=== PATIENT | male | born 1950 | race Caucasian/White ===

== ENCOUNTER 2020-03-24 11:11 | Outpatient (REF) | payer OTHER, SELFPAY ==
--- NOTE | 2020-03-24 12:44 | MHC.AU.P13 ---
Adult Audiological Evaluation Date of Visit: 03/24/20 Equipment Operating Engineer Used: Not Applicable Reason for Appointment: Audiologic re-evaluation due to question of change in hearing ability. 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 Medical History: Medical History: Heart Problems High Blood Pressure Hearing Instrument History- Right Ear: Director Of Operations Home Health: Phonak Model: Virto V 50-312 Canal Serial Number: [id number] Battery Size: 312 Warranty: 08/05/2018 Dispensed By: [facility] Date of Fittin07/17/2016 Hearing Instrument History- Left Ear: Director Of Operations Home Health: Phonak Model: Virto V 50-312 Canal Serial Number: [id number] Battery Size: 312 Warranty: 08/05/2018 Dispensed By: [facility] Date of Fittin07/17/2016 Otoscopy: Right Ear: Unremarkable Left Ear: Unremarkable Tympanometry: Right Ear: Hypercompliant Middle Ear System (Type Ad) Left Ear: Hypercompliant Middle Ear System (Type Ad) Hearing Evaluation: Transducer(s) Used: Insert Earphones Bone Conduction Method: Conventional Audiometry Stimuli Used: Pure Tones Right Ear: Description of Hearing: Mild dropping to moderately-severe high frequency sensorineural hearing loss Left Ear: Description of Hearing: Mild dropping to severe high frequency sensorineural hearing loss Speech Recognition Threshold (SRT): Method Used: Monitored Live Voice Stimuli Used: Spondee Words Right Ear: 25 dB HL Left Ear: 25 dB HL Word Discrimination: Method: Recorded Lists Word Lists Used: NU-6 Right Ear: 92% at a listening level of 65 dB HL Left Ear: 92% at a listening level of 65 dB HL Comparison: Compared to the most recent evaluation: Thresholds have improved bilaterally. Recommendations: Recommendations: Audiological re-evaluation in one year. See Hearing Aid Follow-Up note for more information. Hearing aid(s) reprogrammed with updated test results. Diagnosis: Primary Diagnosis: H90.3 Bilateral Sensorineural Hearing Loss Services Performed: Services Performed: Comprehensive Audiological Evaluation (CPT 11020) Tympanometry (CPT 23953) Signature: Provider: Jessica Longoria, DEANGELO-A
== END 2020-03-24 11:12 | disposition home or self-care (01) ==
LOC: HO.SH 11:11
PROVIDERS: PCP Family Medicine; Referring Provider Family Medicine; Visit Provider Family Medicine
DX: H90.3 Sensorineural hearing loss, bilateral (principal)
CPT/HCPCS: 92557; 92567

== ENCOUNTER 2020-03-24 12:11 | Outpatient (REF) | payer OTHER, SELFPAY | END 2020-03-24 12:12 | disposition home or self-care (01) | LOC: HO.HAP 12:11 | PROVIDERS: Visit Provider Family Medicine | DX: Z46.1 Encounter for fitting and adjustment of hearing aid (principal) | CPT/HCPCS: V5266 ==

== ENCOUNTER 2020-04-16 09:00 | Outpatient (RCR) | payer OTHER, SELFPAY | END 2020-06-02 12:55 | disposition other institution (70) | LOC: HO.PT 09:00 | PROVIDERS: Visit Provider Physician Assistant | DX: M48.062 Spinal stenosis, lumbar region with neurogenic claudication (principal); M47.816 Spondylosis without myelopathy or radiculopathy, lumbar region; M51.36 Other intervertebral disc degeneration, lumbar region | CPT/HCPCS: 97110; 97162; 97530 ==

== ENCOUNTER 2020-07-07 18:08 | Emergency (ER) | payer OTHER, SELFPAY ==
--- NOTE | ~2020-07-07 | XR_ITS ---
EXAMINATION: XR ANKLE, RIGHT CLINICAL INFORMATION: Pain in heel, ?bone spur COMPARISON: None TECHNIQUE: Four views of the right ankle. FINDINGS: Superficial soft tissue swelling at the ankle, most pronounced anteriorly. Small marginal osteophytes. Joint space is well preserved. Ankle mortise is symmetric. Small enthesopathic spurs are present at the Achilles tendon insertion and plantar fascial origin on the calcaneus. XR/XR ankle RT min 3V IMPRESSION: Soft tissue swelling around the ankle. Enthesopathic spurs at the Achilles tendon insertion and plantar fascial origin on the calcaneus. No acute osseous findings.
[2020-07-07 19:58] VITALS: BP 154/97; PULSE 76; RESP 18; TEMP 36.7; O2SAT 95; BMI 32.5
[2020-07-07] MEDS: Acetaminophen 325 MG TABLET 650 MG PO (22:07)
--- NOTE | 2020-07-07 22:37 | ED.LOWEXIN ---
HPI - Extremity Injury (Lower) General Chief Complaint: Extremity Injury, Lower Stated Complaint: Foot Pain (no inj) Time Seen by Provider: 07/07/20 22:10 Source: patient Mode of arrival: ambulatory History of Present Illness HPI Narrative: This is a 69-year-old male who presents with 1 and half weeks of persistent right heel pain that he states is worse in the morning when he gets up and attempts to bear weight and is located at the right heel, but improves with walking and movement. However, patient states that as soon as he sits down the pain again restart. He denies any fevers, chills, trauma, redness, swelling to the area prior to developing this pain. Related Data Previous Rx's Medication Instructions Recorded ketorolac 10 mg PO Q6H PRN 5 Days #20 tab 07/07/20 Allergies Allergy/AdvReac Type Severity Reaction Status Date / Time No Known Allergies Allergy Verified 07/07/20 20:04 Review of Systems Review of Systems: Pertinent positives and negatives as stated in HPI 10 point review systems is otherwise negative. [facility] Past Medical History Source: nursing notes reviewed Social History Social History Alcohol intake: never Smoked in Last 30 Days: No Use of substances other than those prescribed or required for medical reasons: No Advance Directives: No Advance Directives Information Provided: Yes Physical Exam Vital Signs: Vital Signs: Last Vital Signs Temp 98.0 F 07/07/20 19:58 Pulse 76 07/07/20 19:58 Resp 18 07/07/20 19:58 BP 154/97 H 07/07/20 19:58 Pulse Ox 95 07/07/20 19:58 Body Mass Index 32.5 VITAL SIGNS: Reviewed. GENERAL: Well developed, well nourished, in no acute distress. OROPHARYNX: no oral lesions noted, posterior pharynx clear NECK: Supple, no adenopathy LUNGS: Normal breath sounds. SpO2<95> CARDIOVASCULAR: Regular rate and rhythm without noted murmurs ABDOMEN: Soft, non-tender, non-distended with bowel sounds. RIGHT FOOT: No erythema, obvious swelling noted, capillary refill less than 3 seconds, pain is maximal at mid right heel and extends into the arch of the foot without decreased range of motion in ankle or toes and no bony, midfoot tenderness noted, otherwise neurovascular assessment is intact SKIN: Inspection of the skin reveals no rashes NEUROLOGIC: Alert and oriented x 4. Course Course Course Narrative: This is a 69-year-old male with history and clinical presentation consistent with likely plantar fasciitis but on review of x-rays the possibility of inflammatory etiologies secondary to osteophytes may exist. Patient was provided with instructions on combination analgesics (which he received here in the emergency department) as well as exercises that he can utilize to minimize the pain in his foot as well as recommendations to start wearing tennis shoes with better arch support and follow-up with primary care provider. Discharge Plan Discharge Clinical Impression: Plantar fasciitis of right foot, Osteophyte Patient Disposition: Home, Self-Care Instructions: Plantar Fasciitis (ED), Plantar Fasciitis Exercises (ED) Additional Instructions: 1. Tylenol 1000 mg, por v?a oral, cada 6 horas seg?n sea necesario para controlar el dolor. No exceda los 4000 mg en 24 horas. 2. Recomiende Voltaren de venta judith, jurgen es un yanira?ento t?stefani que se aplicar?a en el anson?n derecho y es un antiinflamatorio. [place] est? disponible en todos los [facility] / [facility] / [facility]. Si tiene dificultades, consulte al farmac?utico. 3. Comience a usar zapatos tenis con mejor soporte para el arco. 4. Tim un seguimiento con small proveedor de atenci?n primaria en 2-3 d?as. No dude en volver al servicio de urgencias por cualquier empeoramiento yuliya de nathalie s?ntomas. Prescriptions: New ketorolac 10 mg tablet 10 mg PO Q6H PRN (Reason: pain) 5 Days Qty: 20 RF: 0 Referrals: Renae Adame MD [Primary Care Provider] - 2 days (Re-evaluation for diagnosis of right plantar fasciitis but also bone spurs were noted on x-rays.) Print Language: Andorran
[2020-07-07] MEDS: Ketorolac Tromethamine 15 MG/ML VIAL IM (22:50)
== END 2020-07-07 23:12 | disposition home or self-care (01) ==
PROVIDERS: Emergency Provider Student in an Organized Health Care Education/Training Program; PCP Family Medicine
DX: M72.2 Plantar fascial fibromatosis (principal); M25.774 Osteophyte, right foot
CPT/HCPCS: 73610; 96372; 99283; 99284; J1885

== ENCOUNTER 2020-07-13 09:00 | Outpatient (RCR) | payer OTHER, SELFPAY | END 2020-08-05 11:19 | disposition home or self-care (01) | LOC: HO.PT 09:00 | PROVIDERS: PCP Family Medicine; Visit Provider Family Medicine | DX: M72.2 Plantar fascial fibromatosis (principal) | CPT/HCPCS: 97110; 97140; 97161 ==

== ENCOUNTER 2020-08-30 12:44 | Emergency (ER) | payer OTHER, SELFPAY ==
--- NOTE | 2020-08-30 | ECG_ITS ---
Test Reason : CHEST PAIN Blood Pressure : / mmHG Vent. Rate : 068 BPM Atrial Rate : 068 BPM P-R Int : 194 ms QRS Dur : 110 ms QT Int : 396 ms P-R-T Axes : 031 -22 040 degrees QTc Int : 421 ms Normal sinus rhythm Incomplete right bundle branch block Borderline ECG When compared with ECG of 28-JUN-2018 22:00, No significant change was found Referred By: Generic ED Physician Electronically Signed By:Jude Odom
--- NOTE | ~2020-08-30 | XR_ITS ---
EXAMINATION: XR CHEST CLINICAL INFORMATION: Chest pain COMPARISON: Chest radiographs 02/03/2020, 02/11/2019 TECHNIQUE: Portable upright AP view of the chest was obtained. FINDINGS: There is some mild coarsening bronchiolar markings is no airspace consolidation or groundglass opacity. No vascular congestion, pleural reaction, or effusion. No pneumothorax or pneumomediastinum. The hilar and mediastinal contours and visualized bony structures are unremarkable. XR/XR chest 1V IMPRESSION: Unremarkable examination.
[2020-08-30 12:45] VITALS: BP 167/91; PULSE 68; RESP 18; TEMP 36.6; O2SAT 98; BMI 33.2
[2020-08-30 13:39] VITALS: BP 129/76; PULSE 63; RESP 17; TEMP 36.9; O2SAT 94
--- NOTE | 2020-08-30 13:56 | ED.GENADULT ---
HPI - General Adult General Chief complaint: General Medical Stated complaint: SOB Time Seen by Provider: 08/30/20 13:50 Source: patient Mode of arrival: ambulatory Limitations: no limitations History of Present Illness HPI narrative: 69-year-old male walked into the emergency department with symptoms of left-sided chest pain/shortness breath for the past 3-4 weeks. Pain is intermittent, triggered by getting up and walking and keeps touching left side of the chest. Patient describes the pain as localized to the left chest wall close to the armpit on the left side, as burning sensation. Describes the pain as moderate 5/10. No fever, no chills. Related Data Previous Rx's Medication Instructions Recorded ketorolac 10 mg PO Q6H PRN 5 Days #20 tab 07/07/20 Allergies Allergy/AdvReac Type Severity Reaction Status Date / Time No Known Allergies Allergy Verified 07/07/20 20:04 Review of Systems Review of Systems: All other systems are reviewed and are negative Constitutional: Reports as per HPI and Reports no additional constitutional complaints Eyes: Reports as per HPI and Reports no additional eye complaints Reports system reviewed and no additional complaints, except as documented Cardiovascular: Reports as per HPI and Reports no additional cardiovascular complaints Respiratory: Reports as per HPI and Reports no additional respiratory complaints Gastrointestinal: Reports as per HPI and Reports no additional gastrointestinal complaints Genitourinary: Reports no additional female genitourinary complaints Musculoskeletal: Reports no additional musculoskeletal complaints Skin/Breast: Reports system reviewed and no additional complaints, except as docu Psychiatric: Reports no additional psychiatric complaints Endocrine: Reports no additional endocrine complaints Hematologic/Lymphatic: Reports no additional hematologic/lymphatic complaints Allergic/Immunologic: Reports no additional allergic/immunologic complaints Reports system reviewed and no additional complaints, except as documented and Reports Abnormal speech present [facility] Past Medical History Medical History Asthma CVA (cerebral vascular accident) HTN (hypertension) Surgical History H/O heart artery stent Social History Social History Alcohol intake: never Advance Directives: No Advance Directives Information Provided: Yes Physical Exam Vital Signs: Vital Signs: Last Vital Signs Temp 97.8 F 08/30/20 15:12 Pulse 60 04/19/21 15:12 Resp 16 08/30/20 15:12 BP 128/76 08/30/20 15:12 Pulse Ox 94 08/30/20 15:12 Body Mass Index 33.2 Vital signs have been reviewed as appeared to be correct. Blood pressure normal. Heart rate normal. Respiration rate normal. Temperature normal. Oxygen saturation normal. Appearance: Alert. Oriented X3. No acute distress. Head: Normal external exam. Normocephalic. Atraumatic. No Guzman signs noted. No raccoon eyes noted Eyes: PERRLA. EOMI. Conjunctiva and sclera normal. Eyelids normal. ENT: TM's Normal. Pharynx normal. Uvula midline. Moist mucous membranes. No trismus noted. No drooling noted. No muffled voice noted. Neck: Normal inspection. Neck supple. FROM. No adenopathy. Thyroid Normal. No meningeal signs. No neck mass noted. CVS: Normal heart rate and rhythm. Heart sound normal. No murmurs noted. Pulses normal throughout. Respiratory: No respiratory distress. Painless inspiration. Breath sounds normal. No wheezes/rales/rhonchi noted. Tender to touch over the left pectoralis area, no step-off, no mass, no fluctuation, no discoloration.. No accessory muscle usage noted or decreased air movement noted. Abdomen: Soft and nontender. Bowel sounds normal in all 4 quadrants. No distention noted. No organomegaly noted. No visible injury noted. Back: No CVA tenderness. Full range of motion noted. Skin: Skin warm and dry. Normal skin color. Normal skin turgor. No rashes/lesions/lacerations noted. Extremities: No lower extremity edema. Extremities exhibit normal range of motion. Extremities nontender. Neuro: Oriented X 3. No motor deficit. No sensory deficit. Reflexes normal. Course Course Course Narrative: Assessment and plan. 69-year-old male came in with left-sided chest burning pain for the past 3-4 weeks, cardiopulmonary workup in the emergency department including EKG/chest x-ray labs with cardiac enzymes are unremarkable. Patient has an appointment with his process engineering intern in the next 2 weeks. CMP was not done because the blood is hemolyzed no need to repeat at this point. Medical Decision Making Lab Data Lab results reviewed: Yes I reviewed the patient's lab results. Result diagrams: 08/30/20 14:11 08/30/20 14:11 Labs: Lab Results 08/30/20 08/30/20 08/30/20 Range/Units 11:35 14:11 14:11 WBC 9.7 (4.8-10.8) X10*3/uL RBC 4.59 L (4.60-5.80) X10*6/uL Hgb 13.0 L (14.0-18.0) g/dl Hct 39.5 L (42-52) % MCV 86.1 (80-98) fL MCH 28.3 (27.0-33.0) pg MCHC 32.9 (31.0-36.0) g/dl RDW 14.6 (11.0-16.0) % Plt Count 261 (160-400) X10*3/uL MPV 9.1 L (9.4-12.4) fL Immature Gran % (Auto) 0.4 (0.0-0.4) % Neut % (Auto) 56.4 (45-73) % Lymph % (Auto) 28.6 (20-40) % [place] % (Auto) 10.6 (2-11) % Eos % (Auto) 3.4 (0-4) % Baso % (Auto) 0.6 (0-2) % Lymph # (Auto) 2.8 (1.2-4.9) X10*3/uL [place] # (Auto) 1.0 (0.1-1.2) X10*3/uL Eos # (Auto) 0.3 (0.0-0.4) X10*3/uL Baso # (Auto) 0.1 (0.0-0.2) X10*3/uL Abs Immat Gran (auto) 0.04 H (0.00-0.03) X10*3/uL Absolute Neuts (auto) 5.5 (2.0-8.3) X10*3/uL Absolute Nucleated RBC 0.000 (0.0-0.012) X10*3/uL Nucleated RBC % (auto) 0.0 (0.0-0.2) /100WBC Troponin I High Sens 4.9 (<3.5-35.0) ng/L B-Natriuretic Peptide (<100) pg/mL Urine Color YELLOW Urine Appearance CLEAR Urine pH 6.5 (5.0-8.0) Ur Specific [place] <= 1.005 (1.005-1.025) Urine Protein NEG (NEG-TRACE) MG/DL Urine Glucose (UA) NEG (NEG) MG/DL Urine Ketones NEG (NEG) MG/DL Urine Blood NEG (NEG) Urine Nitrite NEG (NEG) Ur Leukocyte Esterase NEG (NEG) 08/30/20 Range/Units 14:11 WBC (4.8-10.8) X10*3/uL RBC (4.60-5.80) X10*6/uL Hgb (14.0-18.0) g/dl Hct (42-52) % MCV (80-98) fL MCH (27.0-33.0) pg MCHC (31.0-36.0) g/dl RDW (11.0-16.0) % Plt Count (160-400) X10*3/uL MPV (9.4-12.4) fL Immature Gran % (Auto) (0.0-0.4) % Neut % (Auto) (45-73) % Lymph % (Auto) (20-40) % [place] % (Auto) (2-11) % Eos % (Auto) (0-4) % Baso % (Auto) (0-2) % Lymph # (Auto) (1.2-4.9) X10*3/uL [place] # (Auto) (0.1-1.2) X10*3/uL Eos # (Auto) (0.0-0.4) X10*3/uL Baso # (Auto) (0.0-0.2) X10*3/uL Abs Immat Gran (auto) (0.00-0.03) X10*3/uL Absolute Neuts (auto) (2.0-8.3) X10*3/uL Absolute Nucleated RBC (0.0-0.012) X10*3/uL Nucleated RBC % (auto) (0.0-0.2) /100WBC Troponin I High Sens (<3.5-35.0) ng/L B-Natriuretic Peptide 21 (<100) pg/mL Urine Color Urine Appearance Urine pH (5.0-8.0) Ur Specific [place] (1.005-1.025) Urine Protein (NEG-TRACE) MG/DL Urine Glucose (UA) (NEG) MG/DL Urine Ketones (NEG) MG/DL Urine Blood (NEG) Urine Nitrite (NEG) Ur Leukocyte Esterase (NEG) Imaging Data Chest x-ray: Radiologist's impression: No acute intrathoracic pathology. ECG Data Interpretation: Normal sinus rhythm at 68 beats per minutes, normal intervals, incomplete right bundle-branch block, left axis deviation, no ST-T changes. Discharge Plan Discharge Clinical Impression: Chest wall pain Patient Disposition: Home, Self-Care Instructions: Chest Wall Pain (ED) Prescriptions: No Action ketorolac 10 mg tablet 10 mg PO Q6H PRN (Reason: pain) 5 Days Qty: 20 RF: 0 Referrals: Renae Adame MD [Primary Care Provider] - 2 days
[2020-08-30] MEDS: 0.9 % Sodium Chloride 1,000 ML 999 ML IVCONT (14:14)
[2020-08-30 14:28] LABS: MANUAL DIFF FLAG NO
[2020-08-30 14:30] LABS: Basophils Absolute Auto 0.1 X10*3/uL (0.0-0.2); Basophils Percent Auto 0.6 % (0-2); Eosinophils Absolute Auto 0.3 X10*3/uL (0.0-0.4); Eosinophils Percent Auto 3.4 % (0-4); Hematocrit 39.5 % (42-52); Imm Gran Abs Auto 0.04 X10*3/uL (0.00-0.03); Imm Gran Pct Auto 0.4 % (0.0-0.4); Lymphocytes Absolute Auto 2.8 X10*3/uL (1.2-4.9); Lymphocytes Percent Auto 28.6 % (20-40); Mean Corpuscular HGB Conc 32.9 g/dl (31.0-36.0); Mean Corpuscular Hemoglobin 28.3 pg (27.0-33.0); Mean Corpuscular Volume 86.1 fL (80-98); Mean Platelet Volume 9.1 fL (9.4-12.4); Monocytes Percent Auto 10.6 % (2-11); Neutrophils Absolute Auto 5.5 X10*3/uL (2.0-8.3); Neutrophils Percent Auto 56.4 % (45-73); Platelet Count 261 X10*3/uL (160-400); Red Blood Count 4.59 X10*6/uL (4.60-5.80); Red Cell Distribution Width 14.6 % (11.0-16.0); White Blood Count 9.7 X10*3/uL (4.8-10.8)
[2020-08-30 14:34] LABS: Glucose Urine UA NEG (NEG); Leukocyte Esterase Urine NEG (NEG); Nitrite Urine NEG (NEG); PH 6.5 (5.0-8.0); Specific Gravity - Urine <= 1.005 (1.005-1.025); Urine Blood NEG (NEG); Urine Ketones NEG (NEG); Urine Protein NEG (NEG-TRACE)
[2020-08-30 14:44] LABS: Appearance Urine CLEAR; Color Urine YELLOW
[2020-08-30 14:58] LABS: B Type Natriuretic Peptide 21 pg/mL (<100); Troponin-I High Sensitivity 4.9 ng/L (<3.5-35.0)
[2020-08-30 15:12] VITALS: BP 128/76; PULSE 60; RESP 16; TEMP 36.6; O2SAT 94
== END 2020-08-30 16:10 | disposition home or self-care (01) ==
PROVIDERS: Emergency Provider Emergency Medicine; PCP Family Medicine
DX: R07.89 Other chest pain (principal); I10 Essential (primary) hypertension; J45.909 Unspecified asthma, uncomplicated; Z86.73 Personal history of transient ischemic attack (TIA), and cerebral infarction without residual deficits
CPT/HCPCS: 36415; 71045; 81003; 83880; 84484; 85025; 93005; 96360; 99284

== ENCOUNTER 2021-04-11 19:14 | Emergency (ER) | payer OTHER, SELFPAY ==
[2021-04-11 21:05] VITALS: BP 144/92; PULSE 63; RESP 20; TEMP 36.8; O2SAT 94; BMI 32.5
[2021-04-11 21:27] LABS: Appearance Urine CLEAR; Color Urine YELLOW; Glucose Urine UA NEG (NEG); Leukocyte Esterase Urine NEG (NEG); Nitrite Urine NEG (NEG); PH 6.5 (5.0-8.0); Specific Gravity - Urine 1.015 (1.005-1.025); Urine Blood NEG (NEG); Urine Ketones NEG (NEG); Urine Protein NEG (NEG-TRACE)
--- NOTE | 2021-04-11 22:19 | ED.MALEGU ---
HPI - Male Genitourinary General Chief complaint: Urogenital-Male Stated complaint: burning with urination Time Seen by Provider: 04/11/21 21:58 Source: patient Mode of arrival: ambulatory Limitations: no limitations History of Present Illness HPI Narrative: 70-year-old male presents to ED for dysuria for 3 days. Patient denies any penile discharge, penile lesions, testicular pain, hematuria, abdominal pain, nausea, vomiting, flank pain, perineum pain, fever, or chills. Related Data Previous Rx's Medication Instructions Recorded ketorolac 10 mg tablet 10 mg PO Q6H PRN 5 Days #20 tab 07/07/20 phenazopyridine 200 mg tablet 200 mg PO TID PRN 2 Days #6 tab 04/11/21 (Pyridium) Allergies Allergy/AdvReac Type Severity Reaction Status Date / Time No Known Allergies Allergy Verified 04/11/21 21:05 Review of Systems Review of Systems: Yes all other systems are reviewed and are negative Constitutional: Constitutional: Reports as per HPI and Reports no additional constitutional complaints Eyes: Eyes: Reports as per HPI and Reports no additional eye complaints ENT: Reports system reviewed and no additional complaints, except as documented and Reports as per HPI Cardiovascular: Cardiovascular: Reports as per HPI and Reports no additional cardiovascular complaints Respiratory: Respiratory: Reports as per HPI and Reports no additional respiratory complaints Gastrointestinal: Gastrointestinal: Reports as per HPI and Reports no additional gastrointestinal complaints Genitourinary: Genitourinary: Reports no additional male genitourinary complaints, Reports as per HPI and Reports dysuria Musculoskeletal: Musculoskeletal: Reports no additional musculoskeletal complaints and Reports as per HPI Neurologic: Reports system reviewed and no additional complaints, except as documented and Reports as per HPI [facility] Past Medical History Medical History Asthma CVA (cerebral vascular accident) HTN (hypertension) Surgical History H/O heart artery stent Social History Social History Alcohol intake: never Patient Tobacco Use Status: Never used Tobacco Use of substances other than those prescribed or required for medical reasons: No Advance Directives: No Advance Directives Information Provided: Yes Physical Exam Vital Signs: Vital Signs: Last Vital Signs Temp 97.8 F 04/11/21 22:24 Pulse 63 04/11/21 22:24 Resp 18 04/11/21 22:24 BP 137/87 04/11/21 22:24 Pulse Ox 99 04/11/21 22:24 Body Mass Index 32.5 Const: General: cooperative, healthy appearing, comfortable, no acute distress, well developed, alert, awake, Physically active and acute distress Orientation/consciousness: patient oriented x3 HENMT: Head: Yes normal to inspection, Yes No palpable skull fracture present, Yes normocephalic, Yes atraumatic, No abrasion, No Acrocyanosis present, No Guzman's sign, No contusion, No cranial bruits, No hematoma, No laceration, No occipital foramen tenderness, No palpable skull fracture, No raccoon eyes, No scalp lesion, No scalp tenderness, No Temporal artery tenderness present and No periorbital ecchymosis Eyes: General: appearance normal, both eyes and all related structures Neck: Neck: Yes normal visual inspection, Yes full ROM, Yes no lymphadenopathy, Yes no meningeal signs, Yes trachea midline, Yes supple, No anterior neck swelling and No tender Chest: Chest palpation & inspection: normal inspection of the chest and normal palpation of entire chest wall Resp: Effort & Inspection: normal respiratory effort and able to speak in complete sentences Auscultation: clear to auscultation bilaterally Cardio: Jugular venous distension: no JVD Heart sounds: S1 normal heart sound present and S2 normal heart sound present GI: Inspection: Yes normal to inspection and No abdominal wall ecchymosis Palpation (GI): Soft to palpation, not firm, nontender, no guarding and not rigid : General: No CVA tenderness and Yes no CVA tenderness Back/Spine/Pelvis: Back: no CVA tenderness, No CVA tenderness and No back tenderness Skin: General skin exam: no rashes or lesions noted and elasticity normal Neuro: General: patient oriented x3, gait normal, no meningeal signs and CN's II-XI intact bilaterally Cranial nerves: Yes CN's II-XII intact bilaterally Extrem: General: Yes normal to inspection and Yes full ROM Psych: Appearance: grossly normal, well kempt and not disheveled Course Course Course Narrative: Patient is sent for UA. Reevaluation(s) Reevaluation #1: UA came back negative for UTI. Patient states unlikely an STD, bus was agreeable to chlamydia gonorrhea testing. Patient does not want empiric treatment will wait for results to be called back. Patient will follow-up with his urologist. Time: 22:27 MDM - Male Genitourinary MDM Narrative Medical decision making narrative: Dysuria Lab Data Labs: Lab Results 04/11/21 Range/Units 21:18 Urine Color YELLOW Urine Appearance CLEAR Urine pH 6.5 (5.0-8.0) Ur Specific [place] 1.015 (1.005-1.025) Urine Protein NEG (NEG-TRACE) MG/DL Urine Glucose (UA) NEG (NEG) MG/DL Urine Ketones NEG (NEG) MG/DL Urine Blood NEG (NEG) Urine Nitrite NEG (NEG) Ur Leukocyte Esterase NEG (NEG) Discharge Plan Discharge Clinical Impression: Dysuria Patient Disposition: Home, Self-Care Instructions: Dysuria (ED) Additional Instructions: Urine came back negative for infection. Your chlamydia/gonorrhea test is pending. You will be called if positive and will have to return back for treatment. Please follow-up with your urologist. Return to ED for any testicular pain, penile discharge, penile lesions, abdominal pain, flank pain, fever, chills, nausea, vomiting, or any other concerning symptoms. Prescriptions: New phenazopyridine [Pyridium] 200 mg tablet 200 mg PO TID PRN (Reason: pain) 2 Days Qty: 6 RF: 0 No Action ketorolac 10 mg tablet 10 mg PO Q6H PRN (Reason: pain) 5 Days Qty: 20 RF: 0 Stand Alone Forms: Work/School Release Interventions: ED Discharge Assessment Last Done: 04/11/21 22:40 Discharge Date/Time: 04/11/21 22:41 Print Language: Luxembourgish
[2021-04-11 22:24] VITALS: BP 137/87; PULSE 63; RESP 18; TEMP 36.6; O2SAT 99
--- NOTE | 2021-04-11 22:40 | PC.NURSE ---
Reviewed discharge instructions with pt and medication. pt discharge home and verablized understanding.
[2021-04-12 02:57] LABS: CT PCR NOT DETECTED (Not Detect.)
[2021-04-12 02:58] LABS: NG PCR NOT DETECTED (Not Detect.)
== END 2021-04-11 22:41 | disposition home or self-care (01) ==
PROVIDERS: Physician Assistant; Emergency Provider Emergency Medicine; PCP Family Medicine
DX: R30.0 Dysuria (principal); Z79.899 Other long term (current) drug therapy
CPT/HCPCS: 81003; 87491; 87591; 99283; 99284

== ENCOUNTER 2021-05-05 11:16 | Outpatient (REF) | payer OTHER, SELFPAY ==
--- NOTE | 2021-05-05 12:49 | MHC.AU.AHA ---
Adult Audiological Evaluation Date of Visit: 05/05/21 Navigating Officer Used: Not Applicable Reason for Appointment: Audiologic re-evaluation to determine possible change in hearing ability. Previous Hearing Test Results: 03/24/2020 [facility] Borderline normal to mild hearing levels at 250-3000 Hz, dropping to an asymmetric moderately-severe to severe sensorineural hearing loss with the right ear being poorer than left. Medical History: Medical History: Heart Problems, High Blood Pressure Medication List: Advair, Allopurinol, Amlodipine, Aspirin, Colace, Flonase, Hydralazine HCL, Hydrochlorothiazide, Incruse Ellipta, Isosorbide Mononitrate, Atorvastatin, Metoprolol, Montelukast Sodium, Gabapentin, Nitroglycerin, Percocet, Plavix, Senna, Tamsulosin, Ventolin, Vitamin D3 Hearing Instrument History- Right Ear: Scale Adjuster: [id number] Model: [employer] V 50-312 Canal Serial Number: [id number] Battery Size: 312 Repair Warranty: 08/05/2018 Dispensed By: [facility] Date of Fittin07/17/2016 Hearing Instrument History- Left Ear: Scale Adjuster: Phonak Model: [employer] V 50-312 Canal Serial Number: [id number] Battery Size: 312 Warranty: 08/05/2018 Dispensed By: [facility] Date of Fittin07/17/2016 Otoscopy: Right Ear: Unremarkable Left Ear: Unremarkable Tympanometry: Tympanometry performed due to: History of Hypercompliant middle ear systems bilaterally Right Ear: Hypercompliant Middle Ear System (Type Ad) Left Ear: Hypercompliant Middle Ear System (Type Ad) Hearing Evaluation: Transducer(s) Used: Insert Earphones Bone Conduction Method: Conventional Audiometry Stimuli Used: Pure Tones Right Ear: Description of Hearing: Mild to borderline normal hearing thresholds 250-2000 Hz, dropping to a moderately-severe high frequency sensorineural hearing loss Left Ear: Description of Hearing: Borderline normal levels 250-2000 Hz, dropping to a severe high frequency sensorineural hearing loss Speech Recognition Threshold (SRT): Method Used: Monitored Live Voice Stimuli Used: Spondee Words Right Ear: 20 dB HL Left Ear: 20 dB HL Word Discrimination: Method: Recorded Lists Word Lists Used: NU-6 & W-22 Right Ear: 96% at 60 dB HL Left Ear: 96% at 60 dB HL Comparison: Compared to the most recent evaluation: Hearing is stable for both ears Recommendations: Audiological re-evaluation in one year. Hearing aid maintenance performed today. Diagnosis: Primary Diagnosis: H90.3 Bilateral Sensorineural Hearing Loss Services Performed: Comprehensive Audiological Evaluation (CPT 32403) Tympanometry (CPT 87012) Signature: Provider: Jessica Longoria, DEANGELO-A
== END 2021-05-05 11:17 | disposition home or self-care (01) ==
LOC: HO.SH 11:16
PROVIDERS: Visit Provider Family Medicine
DX: Z46.1 Encounter for fitting and adjustment of hearing aid (principal); H90.3 Sensorineural hearing loss, bilateral
CPT/HCPCS: 92557; 92567; V5266

== ENCOUNTER 2021-08-27 07:31 | Emergency (ER) | payer OTHER, SELFPAY ==
--- NOTE | ~2021-08-27 | XR_ITS ---
EXAMINATION: LEFT FOOT, ANKLE, AND KNEE. CLINICAL INFORMATION: Fall COMPARISON: April 28, 2019 knees and August 13, 2015. TECHNIQUE: 3 views of the left foot, 3 views of the left ankle, and 4 views of the left knee. FINDINGS: 3 views of the left ankle demonstrate a 4 x 1 mm bony density inferior to medial malleolus and adjacent to the talus however on lateral view vessel calcifications are present and this may lie about the posterior soft tissues superior to the calcaneus. This could represent an old avulsion fracture however this was present on previous examination of August 13, 2015 and therefore appears to be chronic. There is a large amount soft tissue swelling seen about the medial ankle but I do not see an acute fracture. No dislocation is evident. Ankle mortise appears intact. No definite ankle effusion is appreciated. About the medial base of the first proximal phalanx there is a 1 mm linear density present which could represent an acute or chronic avulsion injury. Clinical correlation to site of pain is recommended. No other evidence of acute fracture or dislocation. There is some soft tissue swelling seen about the medial aspect of the tarsal bones. Plantar calcaneal spur present. Joint spaces appear maintained. Views of the left knee do not demonstrate any evidence of acute fracture or dislocation. Knee joint spaces are maintained. Prominent vascular calcifications are present. No knee effusion is appreciated. XR/XR knee LT 4V IMPRESSION: Linear calcific density about the medial aspect base of the first proximal phalanx which could represent an acute or chronic avulsion injury. Achilles calcaneal spur. Question old medial ankle avulsion injury with calcific density noted which could be vascular or related to a chronic injury which was present on study of August 13, 2015. No significant left knee abnormality appreciated.
--- NOTE | ~2021-08-27 | XR_ITS ---
EXAMINATION: LEFT FOOT, ANKLE, AND KNEE. CLINICAL INFORMATION: Fall COMPARISON: April 28, 2019 knees and August 13, 2015. TECHNIQUE: 3 views of the left foot, 3 views of the left ankle, and 4 views of the left knee. FINDINGS: 3 views of the left ankle demonstrate a 4 x 1 mm bony density inferior to medial malleolus and adjacent to the talus however on lateral view vessel calcifications are present and this may lie about the posterior soft tissues superior to the calcaneus. This could represent an old avulsion fracture however this was present on previous examination of August 13, 2015 and therefore appears to be chronic. There is a large amount soft tissue swelling seen about the medial ankle but I do not see an acute fracture. No dislocation is evident. Ankle mortise appears intact. No definite ankle effusion is appreciated. About the medial base of the first proximal phalanx there is a 1 mm linear density present which could represent an acute or chronic avulsion injury. Clinical correlation to site of pain is recommended. No other evidence of acute fracture or dislocation. There is some soft tissue swelling seen about the medial aspect of the tarsal bones. Plantar calcaneal spur present. Joint spaces appear maintained. Views of the left knee do not demonstrate any evidence of acute fracture or dislocation. Knee joint spaces are maintained. Prominent vascular calcifications are present. No knee effusion is appreciated. XR/XR ankle LT min 3V IMPRESSION: Linear calcific density about the medial aspect base of the first proximal phalanx which could represent an acute or chronic avulsion injury. Achilles calcaneal spur. Question old medial ankle avulsion injury with calcific density noted which could be vascular or related to a chronic injury which was present on study of August 13, 2015. No significant left knee abnormality appreciated.
[2021-08-27 07:34] VITALS: BP 109/72; PULSE 67; RESP 18; TEMP 36.2; O2SAT 96; BMI 32.5
--- NOTE | 2021-08-27 08:18 | ED.FALL ---
HPI - Fall General Chief Complaint: Fall Stated Complaint: fall l leg knee foot inj Time Seen by Provider: 08/27/21 07:45 Source: patient Mode of arrival: ambulatory Limitations: no limitations History of Present Illness HPI Narrative: tripped down 3 steps at home complaint: fall Onset (ago): day(s) (1) Fall from: standing Fall witnessed: no Place fall occurred: home Loss of consciousness: none Prolonged down time: no Symptoms prior to fall: none Context: tripped/slipped Location of injury - extremities: left: knee, ankle and foot Severity: moderate Quality: dull and aching Associated symptoms (after fall): unable to walk Related Data Previous Rx's Medication Instructions Recorded ketorolac 10 mg tablet 10 mg PO Q6H PRN 5 Days #20 tab 07/07/20 phenazopyridine 200 mg tablet 200 mg PO TID PRN 2 Days #6 tab 04/11/21 (Pyridium) hydrocodone 5 mg-acetaminophen 325 1 tab PO Q6H PRN #12 tab 08/27/21 mg tablet Allergies Allergy/AdvReac Type Severity Reaction Status Date / Time No Known Allergies Allergy Verified 08/27/21 07:38 Review of Systems Review of Systems: Constitutional : No Fever, No Chills ENT/Mouth : No Ear Pain, No Hoarseness, No sore throat Eyes: No Eye Pain, No Swelling, No Redness, No Foreign Body Cardiovascular : No Chest Pain, No SOB Respiratory : No Cough, No Dyspnea Gastrointestinal : No Nausea, No Vomiting, No Diarrhea, No abdominal Pain Genitourinary : No Dysuria, No Hematuria Musculoskeletal : positive joint pain, No Myalgias, pos Joint Swelling Skin : No Skin lacerations, No rash Neuro : No Weakness, No Numbness, No Loss of Consciousness, No Dizziness, No Headache PMFSH Past Medical History Attestation statement: The following information was validated with the patient. Medical History Asthma CVA (cerebral vascular accident) HTN (hypertension) Surgical History H/O heart artery stent Social History Social History Alcohol intake: never Patient Tobacco Use Status: Never used Tobacco Advance Directives: No Advance Directives Information Provided: No Physical Exam Vital Signs: Vital Signs: Last Vital Signs Temp 97.6 F 08/27/21 08:56 Pulse 58 08/27/21 08:56 Resp 14 08/27/21 08:56 BP 105/67 08/27/21 08:56 Pulse Ox 96 08/27/21 08:56 BMI result Body Mass Index 32.5 Appearance: Alert. Oriented X3. No acute distress. Eyes: Pupils equal, round and reactive to light. ENT: Pharynx normal. Neck: Normal inspection. Neck supple. CVS: Normal heart rate and rhythm. Pulses normal. Respiratory: No respiratory distress. Breath sounds normal. Abdomen: Soft and non-tender. Skin: Skin warm and dry. Normal skin color. Normal skin turgor. Extremities: No lower extremity edema. L ankle ttp and swelling noted over top of foot and ankle - ecchymosis over dorsum of foot 2+ DP foot, L knee mild ttp no other trauma noted Neuro: Oriented X 3. No motor deficit. No sensory deficit. Course Course Course Narrative: pain is not over proximal phalanx of first digit - will place in post op shoe, aircast and crutches MDM - Fall MDM Narrative Medical decision making narrative: 70 yo male with hx of HTN, HLD, gout, asthma here with c/o L foot/ankle knee pain after mechanical fall yesterday - he is NV intact will obtain xrays of ankle, foot and knee. Denies head injury, neck injury or any other injuries. Dispo per results and findings. Discharge Plan Discharge Clinical Impression: Ankle sprain Qualifiers: Encounter type: initial encounter Involved ligament of ankle: unspecified ligament Laterality: left Qualified Code(s): S93.402A - Sprain of unspecified ligament of left ankle, initial encounter Foot sprain Qualifiers: Encounter type: initial encounter Laterality: left Qualified Code(s): S93.602A - Unspecified sprain of left foot, initial encounter Knee sprain Qualifiers: Encounter type: initial encounter Involved ligament of knee: unspecified ligament Laterality: left Qualified Code(s): S83.92XA - Sprain of unspecified site of left knee, initial encounter Patient Disposition: Home, Self-Care Instructions: Ankle Sprain (ED), Knee Sprain (ED), Crutch Instructions (ED), Ankle Stirrup Splint (ED), Foot Sprain (ED) Additional Instructions: return to ED for any worsening symptoms or concerns wear air cast and shoe for 7 days, crutch support for 7 days, can place some weight as needed, follow up with doctor if not improving over 7 days rest ice elevate Prescriptions: New hydrocodone-acetaminophen 5-325 mg tablet 1 tab PO Q6H PRN (Reason: pain) Qty: 12 0RF No Action ketorolac 10 mg tablet 10 mg PO Q6H PRN (Reason: pain) 5 Days Qty: 20 0RF Rx Instructions: Patient received IM Toradol in the emergency department. phenazopyridine [Pyridium] 200 mg tablet 200 mg PO TID PRN (Reason: pain) 2 Days Qty: 6 0RF Referrals: Renae Adame MD [Primary Care Provider] - 5 days (if not better)
[2021-08-27] MEDS: HYDROcodone Bit/Acetam 5/325 TABLET 1 TAB PO (08:45)
[2021-08-27] MEDS: Ondansetron ODT 4 MG TAB.RAPDIS TRANSLINGU (08:45)
[2021-08-27 08:56] VITALS: BP 105/67; PULSE 58; RESP 14; TEMP 36.4; O2SAT 96
[2021-08-27 10:11] VITALS: BP 113/67; PULSE 57; RESP 13; TEMP 36.5; O2SAT 97
--- NOTE | 2021-08-27 10:12 | PC.NURSE ---
RN and PROVIDER aware that patient is going home without crutches because he came in with his cane. He is comfortable with his own cane.
== END 2021-08-27 10:20 | disposition home or self-care (01) ==
PROVIDERS: Emergency Provider Emergency Medicine; PCP Family Medicine
DX: S83.92XA Sprain of unspecified site of left knee, initial encounter (principal); S93.602A Unspecified sprain of left foot, initial encounter; S93.402A Sprain of unspecified ligament of left ankle, initial encounter; J45.909 Unspecified asthma, uncomplicated; I10 Essential (primary) hypertension; Z86.73 Personal history of transient ischemic attack (TIA), and cerebral infarction without residual deficits; W10.9XXA Fall (on) (from) unspecified stairs and steps, initial encounter; Y93.9 Activity, unspecified; Y92.009 Unspecified place in unspecified non-institutional (private) residence as the place of occurrence of the external cause; Y99.9 Unspecified external cause status
CPT/HCPCS: 73564; 73610; 73630; 99283; 99285

== ENCOUNTER 2021-11-01 14:29 | Emergency (ER) | payer OTHER, SELFPAY ==
--- NOTE | ~2021-11-01 | US_ITS ---
EXAMINATION: US VENOUS ULTRASOUND WITH DOPPLER LOWER EXTREMITY, RIGHT CLINICAL INFORMATION: Right lower extremity COMPARISON: None TECHNIQUE: Ultrasound of the deep veins is performed from the hip to the calf with compression sonography and color and pulse Doppler assessment. Spectral analysis with color-flow imaging is performed. FINDINGS: There is normal venous compression and respiratory variation and augmented flow. The visualized common femoral vein, superficial femoral vein, profunda femoral vein, popliteal vein, and the trifurcation region shows no evidence of deep venous thrombosis. There is no significant popliteal fossa cyst. If the patient's symptoms persist, followup ultrasound in 5 days 7 days might be of value to exclude proximal propagation from a non-visualized calf vein. US/US venous duplex LE RT IMPRESSION: No DVT demonstrated in the right lower extremity.
--- NOTE | ~2021-11-01 | XR_ITS ---
EXAMINATION: XR ANKLE, RIGHT CLINICAL INFORMATION: Swelling and pain COMPARISON: Right foot 02/20/2018. TECHNIQUE: 3 views of the right ankle. FINDINGS: No acute fracture or dislocation. Minor nonspecific soft tissue swelling. Degenerative changes including multiple enthesophytes. No acute fracture or dislocation. Calcifications in the interosseous ligament possibly vascular in etiology. XR/XR ankle RT 2V IMPRESSION: 1. Nonspecific soft tissue swelling. 2. Moderate osteoarthritis. 3. No acute fracture or dislocation.
[2021-11-01 14:44] VITALS: BP 130/84; PULSE 73; RESP 18; TEMP 37.1; O2SAT 98; BMI 32.5
--- NOTE | 2021-11-01 16:28 | ED.EXTPRO ---
HPI - Extremity Problem General Chief complaint: Extremity Problem Stated complaint: r leg pain Time Seen by Provider: 11/01/21 16:02 Source: patient Mode of arrival: ambulatory Limitations: no limitations History of Present Illness HPI Narrative: 70 yo male with history of asthma, CVA, HTN here with reports of right leg swelling and pain for the last 2 weeks. No known injury or trauma. Patient does have history of congestive heart failure but is taking his diuretics and denies any shortness of breath, cough, chest pain. No history of blood clots. No recent travel or surgery. Patient is not on any anticoagulation Related Data Previous Rx's Medication Instructions Recorded ketorolac 10 mg tablet 10 mg PO Q6H PRN pain 5 days #20 07/07/20 tabs phenazopyridine 200 mg tablet 200 mg PO TID PRN pain 2 days #6 04/11/21 (Pyridium) tabs hydrocodone 5 mg-acetaminophen 325 1 tab PO Q6H PRN pain #12 tabs 08/27/21 mg tablet Allergies Allergy/AdvReac Type Severity Reaction Status Date / Time No Known Allergies Allergy Verified 08/27/21 07:38 Review of Systems Review of Systems: Yes all other systems are reviewed and are negative Constitutional: Constitutional: Reports no additional constitutional complaints, Denies body ache(s), Denies chills, Denies fever(s), Denies headache(s) and Denies weakness Eyes: Eyes: Reports no additional eye complaints and Denies change in vision ENT: Reports system reviewed and no additional complaints, except as documented, Denies dizziness, Denies headache(s), Denies nasal congestion, Denies nasal discharge and Denies neck pain Cardiovascular: Cardiovascular: Reports no additional cardiovascular complaints, Denies chest pain, Reports leg edema and Denies dyspnea Respiratory: Respiratory: Reports no additional respiratory complaints, Denies cough and Denies dyspnea Gastrointestinal: Gastrointestinal: Reports no additional gastrointestinal complaints, Denies abdominal pain, Denies diarrhea, Denies nausea and Denies vomiting Genitourinary: Genitourinary: Denies urinary incontinence Musculoskeletal: Musculoskeletal: Reports no additional musculoskeletal complaints, Denies back pain, Reports arthralgias, Reports joint swelling, Denies neck pain, Denies numbness and Denies tingling Integumentary/Breasts: Skin/Breast: Reports system reviewed and no additional complaints, except as docu and Denies rash Neurologic: Reports system reviewed and no additional complaints, except as documented, Denies Abnormal speech present, Denies dizziness, Denies headache(s), Denies numbness, Denies tingling and Denies weakness PMFSH Past Medical History Attestation statement: The following information was validated with the patient. Source: old records reviewed and nursing notes reviewed Medical History Asthma CVA (cerebral vascular accident) HTN (hypertension) Surgical History H/O heart artery stent Social History Social History Alcohol intake: never Patient Tobacco Use Status: Never used Tobacco Advance Directives: No Advance Directives Information Provided: No Physical Exam Vital Signs: Vital Signs: Last Vital Signs Temp 98.7 F 11/01/21 14:44 Pulse 73 11/01/21 14:44 Resp 18 11/01/21 14:44 BP 130/84 11/01/21 14:44 Pulse Ox 98 11/01/21 14:44 O2 Del Method 11/01/21 14:44 BMI result Body Mass Index 32.5 Const: General: cooperative, healthy appearing, comfortable and no acute distress Orientation/consciousness: patient oriented x3 Limitations: no limitations HEENT: Head: Yes normal to inspection Ears: hearing grossly normal bilaterally General nose exam: Normal external nose present Face and sinus: Yes normal facial exam Mouth: Normal oral and palatal mucosa present Throat: Yes posterior oropharynx normal Eyes: General: appearance normal, both eyes and all related structures Pupils: Equal, round and reactive pupils present Neck: Neck: Yes normal visual inspection Chest: Chest palpation & inspection: normal inspection of the chest Resp: Effort & Inspection: normal respiratory effort Auscultation: clear to auscultation bilaterally Cardio: Rate: regular rate Rhythm: regular rhythm Peripheral pulses: Peripheral pulses 2+ throughout GI: Inspection: Yes normal to inspection Palpation (GI): Soft to palpation and nontender Auscultation: normal bowel sounds Back/Spine/Pelvis: Thoracic/Lumbar Spine: thoracic and lumbar spine normal to inspection Skin: General skin exam: no rashes or lesions noted Neuro: General: patient oriented x3, no focal motor deficits and normal sensation to monofilament Cranial nerves: Yes Equal, round and reactive pupils present Cognition (Neuro): normal cognition Speech: No Abnormal speech present Gait exam (Neuro): Normal gait present Motor exam (neuro): 5/5 motor strength present throughout Extrem: Other: Scant edema to the right calf with some mild tenderness. There is some edema around the ankle circumferentially with no warmth or redness. Distal DP and PT pulses are normal General: Yes normal to inspection Course Course Course Narrative: US negative for DVT. Ankle xray shows degenerative changes consistent with osteoarthritis. Patient received a dose of Toradol with improvement of pain. Recommend compression stockings, elevation, NSAIDs at home and follow-up with PCP. Reviewed worrisome signs and symptoms of when to return to the emergency department. Comfortable discharge home. MDM - Extremity (Nontraumatic) MDM Narrative Medical decision making narrative: 70-year-old male here with atraumatic right calf and ankle swelling and pain. Will check ultrasound, x-ray Medical Records Attestation: I reviewed the patient's medical records. Lab Data Attestation: I reviewed the patient's lab results. Imaging Data ankle xray: Attestation: I personally reviewed and interpreted this imaging study as follows: Radiologist's impression: [place] [id number] XRay Report Signed Patient: Michael Deal MR#: [id number] : 1950 Acct:[id number] Age/Sex: 70 / M ADM Date: 11/01/21 Loc: HO.ED Attending Dr: Ordering Physician: Leandra Graves NP Date of Service: 11/01/21 Procedure(s): XR ankle RT 2V Accession Number(s): [id number] cc: Leandra Graves NP~ EXAMINATION: XR ANKLE, RIGHT CLINICAL INFORMATION: Swelling and pain? COMPARISON: Right foot 02/20/2018.? TECHNIQUE: 3 views of the right ankle. FINDINGS: No acute fracture or dislocation. Minor nonspecific soft tissue swelling. Degenerative changes including multiple enthesophytes. No acute fracture or dislocation. Calcifications in the interosseous ligament possibly vascular in etiology.? XR/XR ankle RT 2V IMPRESSION: ? 1. Nonspecific soft tissue swelling. 2. Moderate osteoarthritis. 3. No acute fracture or dislocation. Venous US: Attestation: I personally reviewed and interpreted this imaging study as follows: Radiologist's impression: [address] [id number] Ultrasound Report Signed Patient: Michael Deal MR#: [id number] : 1950 Acct:[id number] Age/Sex: 70 / M ADM Date: 11/01/21 Loc: HO.ED Attending Dr: Ordering Physician: Leandra Graves NP Date of Service: 11/01/21 Procedure(s): US venous duplex LE RT Accession Number(s): [id number] cc: Leandra Graves NP~ EXAMINATION:? US VENOUS ULTRASOUND WITH DOPPLER LOWER EXTREMITY, RIGHT CLINICAL INFORMATION:? Right lower extremity COMPARISON:? None TECHNIQUE: Ultrasound of the deep veins is performed from the hip to the calf with compression sonography and color and pulse Doppler assessment. Spectral analysis with color-flow imaging is performed. FINDINGS: There is normal venous compression and respiratory variation and augmented flow. The visualized common femoral vein, superficial femoral vein, profunda femoral vein, popliteal vein, and the trifurcation region shows no evidence of deep venous thrombosis. ? There is no significant popliteal fossa cyst. If the patient's symptoms persist, followup ultrasound in 5 days 7 days might be of value to exclude proximal propagation from a non-visualized calf vein. US/US venous duplex LE RT IMPRESSION: No DVT demonstrated in the right lower extremity. Discharge Plan Discharge Clinical Impression: Lower extremity edema, Osteoarthritis Patient Disposition: Home, Self-Care Instructions: Osteoarthritis (ED), Leg Edema (ED) Additional Instructions: Elevate the leg Continue to use the compression stocking Take Motrin or naproxenl if able as needed for pain Follow-up with your primary care doctor Your ultrasound was negative for any blood clots. Your x-ray shows arthritis changes Prescriptions: No Action ketorolac 10 mg tablet 10 mg PO Q6H PRN (Reason: pain) 5 Days Qty: 20 0RF Rx Instructions: Patient received IM Toradol in the emergency department. hydrocodone-acetaminophen 5-325 mg tablet 1 tab PO Q6H PRN (Reason: pain) Qty: 12 0RF phenazopyridine [Pyridium] 200 mg tablet 200 mg PO TID PRN (Reason: pain) 2 Days Qty: 6 0RF Referrals: Renae Adame MD [Primary Care Provider] - 1 week
[2021-11-01] MEDS: Ketorolac Tromethamine 30 MG/ML VIAL IM (18:09)
[2021-11-01 18:39] VITALS: BP 160/97; PULSE 79; RESP 16; O2SAT 96
== END 2021-11-01 19:22 | disposition home or self-care (01) ==
PROVIDERS: Emergency Provider Student in an Organized Health Care Education/Training Program; PCP Family Medicine
DX: R60.0 Localized edema (principal); M79.661 Pain in right lower leg
CPT/HCPCS: 73600; 93971; 96372; 99284; J1885

== ENCOUNTER 2021-11-18 11:00 | Outpatient (RCR) | payer OTHER, SELFPAY | END 2022-02-10 13:50 | disposition home or self-care (01) | LOC: HO.PTCHIC 11:00 | PROVIDERS: PCP Family Medicine; Visit Provider Family Medicine | DX: M54.42 Lumbago with sciatica, left side (principal) | CPT/HCPCS: 97110; 97163 ==

== ENCOUNTER 2021-12-16 14:04 | Emergency (ER) | payer OTHER, SELFPAY ==
--- NOTE | ~2021-12-16 | XR_ITS ---
EXAMINATION: XR CHEST CLINICAL INFORMATION: Chest pain. COMPARISON: 08/30/2020 chest radiograph. TECHNIQUE: Frontal view of the chest was obtained. FINDINGS: No significant abnormality is noted involving the heart, lungs, mediastinum, bony thorax or soft tissues. XR/XR chest 1V IMPRESSION: No acute cardiopulmonary process.
[2021-12-16 14:12] VITALS: BP 127/80; PULSE 67; RESP 18; TEMP 36.7; O2SAT 94; BMI 32.5
--- NOTE | 2021-12-16 14:16 | ECG_ITS ---
Test Reason : chest pain Blood Pressure : / mmHG Vent. Rate : 067 BPM Atrial Rate : 067 BPM P-R Int : 180 ms QRS Dur : 092 ms QT Int : 400 ms P-R-T Axes : 033 -41 048 degrees QTc Int : 422 ms Normal sinus rhythm Left axis deviation Incomplete right bundle branch block Abnormal ECG When compared with ECG of 30-AUG-2020 12:54, No significant change was found Referred By: Generic ED Physician Electronically Signed By:LUCÍA CRAWFORD MD
[2021-12-16 14:35] LABS: MANUAL DIFF FLAG NO
[2021-12-16 14:41] LABS: Basophils Percent Auto 0.3 % (0-2); Eosinophils Absolute Auto 0.4 X10*3/uL (0.0-0.4); Hematocrit 39.8 % (42.0-52.0); Hemoglobin 13.3 g/dl (14.0-18.0); Imm Gran Abs Auto 0.05 X10*3/uL (0.00-0.03); Imm Gran Pct Auto 0.4 % (0.0-0.4); Lymphocytes Absolute Auto 2.7 X10*3/uL (1.2-4.9); Lymphocytes Percent Auto 20.8 % (20-40); Mean Corpuscular HGB Conc 33.4 g/dl (31.0-36.0); Mean Corpuscular Hemoglobin 28.7 pg (27.0-33.0); Mean Corpuscular Volume 85.8 fL (80.0-98.0); Mean Platelet Volume 8.9 fL (9.4-12.4); Monocytes Absolute Auto 1.3 X10*3/uL (0.1-1.2); Monocytes Percent Auto 9.8 % (2-11); Neutrophils Absolute Auto 8.6 x10*3/uL (2.0-8.3); Neutrophils Percent Auto 65.7 % (45-73); Platelet Count 251 X10*3/uL (160-400); Red Blood Count 4.64 X10*6/uL (4.60-5.80); Red Cell Distribution Width 14.9 % (11.0-16.0); White Blood Count 13.2 X10*3/uL (4.8-10.8)
[2021-12-16 14:51] LABS: Strep A Nucleic Acid Negative (Negative)
[2021-12-16 14:56] LABS: Anion Gap 13 (12-20); Blood Urea Nitrogen 16 mg/dL (9-16); Calcium 8.9 mg/dL (8.4-10.2); Carbon Dioxide 26 mmol/L (22-29); Chloride 105 mmol/L (96-108); Creatinine Clr Calc Pharmacy 95.8; Estimated Glomerular Filt Rate > 60; Glucose Random 80 mg/dL (60-115); Potassium 3.6 mmol/L (3.3-5.1); Sodium 140 mmol/L (135-145)
[2021-12-16 14:56] LABS: COVID-19 Test Negative (Negative); IDNOW Serial# 16C4AD1C
[2021-12-16 15:01] LABS: Troponin-I High Sensitivity 6.1 ng/L (<3.5-35.0)
--- NOTE | 2021-12-16 15:05 | ED.CHESTPAIN ---
HPI - Chest Pain General Chief Complaint: Chest Pain Stated Complaint: dry cough/cant swallow Time Seen by Provider: 12/16/21 14:41 Source: patient and old records reviewed Mode of arrival: ambulatory Limitations: no limitations History of Present Illness HPI narrative: 71 yo male with hx of asthma, hyperlipidemia, HTN, stroke here with c/o cough, nasal congestion, sore throat x 2 days. He has no sick contacts and is vaccinated and boostered for COVID #3 shots. He notes his throat is bothering him the most at this time. MD complaint: other (cough, runny nose, sore throat) Onset (ago): day(s) (2) Timing of current episode: constant Prior episodes: Yes Onset: during rest Pain location: other (chest wall hurts from coughing) Pain radiation: none Severity: mild Quality: aching, dull and other (throat hurts to swallow) Relieving factors: nothing Exacerbating factors: other (coughing and swallowing) Associated symptoms: other (cough, runny nose, sore throat) Treatment prior to arrival: none Related Data Previous Rx's Medication Instructions Recorded ketorolac 10 mg tablet 10 mg PO Q6H PRN pain 5 days #20 07/07/20 tabs phenazopyridine 200 mg tablet 200 mg PO TID PRN pain 2 days #6 04/11/21 (Pyridium) tabs hydrocodone 5 mg-acetaminophen 325 1 tab PO Q6H PRN pain #12 tabs 08/27/21 mg tablet doxycycline hyclate 100 mg capsule 100 mg PO BID 7 days #14 caps 12/16/21 hydrocodone-homatropine 5 mg-1.5 5 ml PO Q6H PRN cough #60 mL 12/16/21 mg/5 mL (5 mL) oral syrup Allergies Allergy/AdvReac Type Severity Reaction Status Date / Time No Known Allergies Allergy Verified 12/16/21 14:12 Review of Systems Review of Systems: Constitutional : No Weight loss, No Fever, No Chills, No Fatigue, No Malaise ENT/Mouth : pos sore throat, pos Rhinorrhea Eyes: No Eye Pain, No Swelling, No Redness Cardiovascular : No Chest Pain, No SOB, No Dyspnea on Exertion, No Orthopnea, No Edema, No Palpitations, pos chest wall pain Respiratory : pos Cough, No Sputum, No Wheezing Gastrointestinal : No Nausea, No Vomiting, No Diarrhea, No Constipation, No abdominal Pain, No Hematochezia, No Melena Genitourinary : No Dysuria, No Urinary Frequency, No Hematuria, Musculoskeletal : No joint pain, No Myalgias, No Joint Swelling Skin : No Skin Lesions, No rash Neuro : No Weakness, No Numbness, No Dizziness, No Headache Psych : No Anxiety/Panic, No Depression Heme/Lymph: No Bruising, No Bleeding,No Lymphadenopathy Endocrine : No Polyuria, No Polydipsia All other systems reviewed and are negative [facility] Past Medical History Attestation statement: The following information was validated with the patient. Medical History Asthma CVA (cerebral vascular accident) HTN (hypertension) Surgical History H/O heart artery stent Social History Social History Alcohol intake: former Patient Tobacco Use Status: Former Tobacco user Advance Directives: No Advance Directives Information Provided: No Physical Exam Vital Signs: Vital Signs: Last Vital Signs Temp 97.5 F 12/16/21 15:13 Pulse 66 12/16/21 15:13 Resp 18 12/16/21 15:13 BP 126/79 12/16/21 15:13 Pulse Ox 95 12/16/21 15:13 O2 Del Method 12/16/21 15:13 BMI result Body Mass Index 32.5 Appearance: Alert. Oriented X3. No acute distress. Eyes: Pupils equal, round and reactive to light. ENT: Pharynx moderate erythema no exudates, uvula midline Neck: Normal inspection. Neck supple. CVS: Normal heart rate and rhythm. Pulses normal. Respiratory: No respiratory distress. Breath sounds normal. Abdomen: Soft and non-tender. Skin: Skin warm and dry. Normal skin color. Extremities: No lower extremity edema. Neuro: Oriented X 3. No motor deficit. No sensory deficit. MDM - Chest Pain MDM Narrative Medical decision making narrative: 71 yo male with hx of asthma, hyperlipidemia, HTN, stroke here with URI symptoms and chest wall pain after coughing - will need EKG, troponin, CXR for pneumonia, COVID swab - dispo per results and pending. He is not toxic or hypoxic, will give tessalon for coughing. Suspect bronchitis. Dispo per results and findings. Lab Data Result diagrams: 12/16/21 14:29 12/16/21 14:29 Labs: Lab Results 12/16/21 12/16/21 12/16/21 Range/Units 14:23 14:23 14:29 WBC 13.2 H (4.8-10.8) X10*3/uL RBC 4.64 (4.60-5.80) X10*6/uL Hgb 13.3 L (14.0-18.0) g/dl Hct 39.8 L (42.0-52.0) % MCV 85.8 (80.0-98.0) fL MCH 28.7 (27.0-33.0) pg MCHC 33.4 (31.0-36.0) g/dl RDW 14.9 (11.0-16.0) % Plt Count 251 (160-400) X10*3/uL MPV 8.9 L (9.4-12.4) fL Immature Gran % (Auto) 0.4 (0.0-0.4) % Neut % (Auto) 65.7 (45-73) % Lymph % (Auto) 20.8 (20-40) % [place] % (Auto) 9.8 (2-11) % Eos % (Auto) 3.0 (0-4) % Baso % (Auto) 0.3 (0-2) % Lymph # (Auto) 2.7 (1.2-4.9) X10*3/uL [place] # (Auto) 1.3 H (0.1-1.2) X10*3/uL Eos # (Auto) 0.4 (0.0-0.4) X10*3/uL Baso # (Auto) 0.0 (0.0-0.2) X10*3/uL Abs Immat Gran (auto) 0.05 H (0.00-0.03) X10*3/uL Absolute Neuts (auto) 8.6 H (2.0-8.3) x10*3/uL Absolute Nucleated RBC 0.000 (0.0-0.012) X10*3/uL Nucleated RBC % (auto) 0.0 (0.0-0.2) /100WBC Sodium (135-145) mmol/L Potassium (3.3-5.1) mmol/L Chloride (96-108) mmol/L Carbon Dioxide (22-29) mmol/L Anion Gap (12-20) BUN (9-16) mg/dL Creatinine (0.5-1.4) mg/dL Estim Creat Clear Calc Estimated GFR Random Glucose (60-115) mg/dL Calcium (8.4-10.2) mg/dL Troponin I High Sens (<3.5-35.0) ng/L COVID-19 (MAHESH) Negative (Negative) COVID-19 Clin Com See Note S. pyogenes GrpA ALYSSA Negative (Negative) 12/16/21 12/16/21 Range/Units 14:29 14:29 WBC (4.8-10.8) X10*3/uL RBC (4.60-5.80) X10*6/uL Hgb (14.0-18.0) g/dl Hct (42.0-52.0) % MCV (80.0-98.0) fL MCH (27.0-33.0) pg MCHC (31.0-36.0) g/dl RDW (11.0-16.0) % Plt Count (160-400) X10*3/uL MPV (9.4-12.4) fL Immature Gran % (Auto) (0.0-0.4) % Neut % (Auto) (45-73) % Lymph % (Auto) (20-40) % [place] % (Auto) (2-11) % Eos % (Auto) (0-4) % Baso % (Auto) (0-2) % Lymph # (Auto) (1.2-4.9) X10*3/uL [place] # (Auto) (0.1-1.2) X10*3/uL Eos # (Auto) (0.0-0.4) X10*3/uL Baso # (Auto) (0.0-0.2) X10*3/uL Abs Immat Gran (auto) (0.00-0.03) X10*3/uL Absolute Neuts (auto) (2.0-8.3) x10*3/uL Absolute Nucleated RBC (0.0-0.012) X10*3/uL Nucleated RBC % (auto) (0.0-0.2) /100WBC Sodium 140 (135-145) mmol/L Potassium 3.6 (3.3-5.1) mmol/L Chloride 105 (96-108) mmol/L Carbon Dioxide 26 (22-29) mmol/L Anion Gap 13 (12-20) BUN 16 (9-16) mg/dL Creatinine 0.81 (0.5-1.4) mg/dL Estim Creat Clear Calc 95.8 Estimated GFR > 60 Random Glucose 80 (60-115) mg/dL Calcium 8.9 (8.4-10.2) mg/dL Troponin I High Sens 6.1 (<3.5-35.0) ng/L COVID-19 (MAHESH) (Negative) COVID-19 Clin Com S. pyogenes GrpA ALYSSA (Negative) ECG Data ECG #1: Attestation: I personally reviewed and interpreted this ECG as follows: ECG interpretation date: 12/16/21 ECG interpretation time: 15:05 Interpretation: Rate: 67 Rhythm: NSR [place]: left Normal P waves. Normal TORRES. incomplete RBBB ST T wave : no RIO, nonspecific qTC: normal prior studies: unchanged from prior The study has been interpreted contemporaneously by me. . Discharge Plan Discharge Clinical Impression: Bronchitis Pharyngitis Qualifiers: Pharyngitis/tonsillitis etiology: unspecified etiology Qualified Code(s): J02.9 - Acute pharyngitis, unspecified Patient Disposition: Home, Self-Care Instructions: Pharyngitis (ED), Acute Bronchitis (ED) Additional Instructions: return to ED for any worsening symptoms or concerns chest xray, COVID and strep test negative Prescriptions: New doxycycline hyclate 100 mg capsule 100 mg PO BID 7 Days Qty: 14 0RF hydrocodone-homatropine 5-1.5 mg/5 mL (5 mL) syrup 5 ml PO Q6H PRN (Reason: cough) Qty: 60 0RF Rx Instructions: Partial Fill upon patient request. No Action ketorolac 10 mg tablet 10 mg PO Q6H PRN (Reason: pain) 5 Days Qty: 20 0RF Rx Instructions: Patient received IM Toradol in the emergency department. hydrocodone-acetaminophen 5-325 mg tablet 1 tab PO Q6H PRN (Reason: pain) Qty: 12 0RF phenazopyridine [Pyridium] 200 mg tablet 200 mg PO TID PRN (Reason: pain) 2 Days Qty: 6 0RF Referrals: Renae Adame MD [Primary Care Provider] - 2 days (if not better)
[2021-12-16 15:13] VITALS: BP 126/79; PULSE 66; RESP 18; TEMP 36.4; O2SAT 95
[2021-12-16] MEDS: Benzonatate 100 MG CAPSULE PO (15:13)
--- NOTE | 2021-12-16 15:17 | PC.NURSE ---
patient a/ox4 . pearrla . lungs sounds diminished . dry cough . patient reports moderate amount of production of phlegm .skin pink warm and dry . abdomen , soft , non- distended , non -tender . positive bowel sounds in all four quadrants . medicated patient as ordered . patient aware of plan of care .
[2021-12-16] MEDS: Acetaminophen 325 MG TABLET 650 MG PO (15:46)
== END 2021-12-16 16:28 | disposition home or self-care (01) ==
PROVIDERS: Emergency Provider Emergency Medicine; PCP Family Medicine
DX: J02.9 Acute pharyngitis, unspecified (principal); J40 Bronchitis, not specified as acute or chronic; R07.89 Other chest pain; Z20.822 Contact with and (suspected) exposure to COVID-19; Z79.899 Other long term (current) drug therapy; Z87.891 Personal history of nicotine dependence
CPT/HCPCS: 36415; 71045; 80048; 84484; 85025; 87635; 87651; 93005; 99284

== ENCOUNTER 2022-04-23 04:56 | Emergency (ER) | payer OTHER, SELFPAY ==
--- NOTE | ~2022-04-23 | CT_ITS ---
EXAMINATION: CT THORAX AND LUMBAR SPINE WITHOUT CLINICAL INFORMATION: Back pain with paresthesias. COMPARISON: None TECHNIQUE: Multiple axial images of the thoracic and lumbar spine were obtained without the administration of intravenous contrast. Coronal and sagittal reformatted images were obtained. FINDINGS: There is mild thoracolumbar levoscoliosis with normal spinal alignment. Mild to moderate marginal osteophyte formation is seen most pronounced inferiorly in the thoracic spine. L3-L4: Central disc protrusion narrowing the spinal canal and lateral recesses. Mid sagittal diameter is 11 mm. Prominent bridging left lateral osteophyte. L4-L5 mild degenerative disc disease and vacuum disc. L5-S1: severe degenerative disc disease with minimal grade 1 retrolisthesis and moderate bilateral neural foraminal narrowing. Mild motion artifact limits evaluation in the chest without suspicious abnormality. No significant intra-abdominal/pelvic abnormality. Mild bilateral sacroiliac degenerative joint changes are seen with anterior osteophytes, left greater than right, bridging on the left. CT/CT lumbar spine wo IV con IMPRESSION: 1. Mild thoracolumbar levoscoliosis. 2. L3-L4 central disc protrusion narrowing the spinal canal and lateral recesses. 3. L4-L5 mild degenerative disc disease and prominent left bridging marginal osteophyte. This is nonspecific, but can be seen in seronegative spondyloarthropathies. 4. L5-S1 severe degenerative disc disease with minimal grade 1 retrolisthesis and moderate bilateral neural foraminal narrowing.
--- NOTE | ~2022-04-23 | CT_ITS ---
EXAMINATION: CT THORAX AND LUMBAR SPINE WITHOUT CLINICAL INFORMATION: Back pain with paresthesias. COMPARISON: None TECHNIQUE: Multiple axial images of the thoracic and lumbar spine were obtained without the administration of intravenous contrast. Coronal and sagittal reformatted images were obtained. FINDINGS: There is mild thoracolumbar levoscoliosis with normal spinal alignment. Mild to moderate marginal osteophyte formation is seen most pronounced inferiorly in the thoracic spine. L3-L4: Central disc protrusion narrowing the spinal canal and lateral recesses. Mid sagittal diameter is 11 mm. Prominent bridging left lateral osteophyte. L4-L5 mild degenerative disc disease and vacuum disc. L5-S1: severe degenerative disc disease with minimal grade 1 retrolisthesis and moderate bilateral neural foraminal narrowing. Mild motion artifact limits evaluation in the chest without suspicious abnormality. No significant intra-abdominal/pelvic abnormality. Mild bilateral sacroiliac degenerative joint changes are seen with anterior osteophytes, left greater than right, bridging on the left. CT/CT thoracic spine wo IV con IMPRESSION: 1. Mild thoracolumbar levoscoliosis. 2. L3-L4 central disc protrusion narrowing the spinal canal and lateral recesses. 3. L4-L5 mild degenerative disc disease and prominent left bridging marginal osteophyte. This is nonspecific, but can be seen in seronegative spondyloarthropathies. 4. L5-S1 severe degenerative disc disease with minimal grade 1 retrolisthesis and moderate bilateral neural foraminal narrowing.
[2022-04-23 05:08] VITALS: BP 120/72; BP 158/84; PULSE 68; PULSE 84; RESP 14; TEMP 36.6; O2SAT 95; O2SAT 96; BMI 32.5
[2022-04-23 05:19] VITALS: BP 126/75; PULSE 67; RESP 16; TEMP 36.6; O2SAT 95
[2022-04-23 05:33] LABS: Appearance Urine Clear; Color Urine Dark Yellow; Glucose Urine UA Negative (Negative); Leukocyte Esterase Urine Negative (Negative); Nitrite Urine Negative (Negative); PH 5.5 (5.0-9.0); Urine Blood Negative (Negative); Urine Ketones Trace mg/dL (Negative); Urine Protein Negative (Neg-Trace)
[2022-04-23 07:08] VITALS: BP 110/65; PULSE 61; RESP 12; TEMP 36.3; O2SAT 92
--- NOTE | 2022-04-23 08:27 | ED_ITS ---
HPI - Back Pain/Injury General Chief Complaint: Back Pain/Injury Stated Complaint: Back pain Time Seen by Provider: 04/23/22 07:57 Source: patient Mode of arrival: ambulatory Limitations: no limitations History of Present Illness HPI Narrative: 71-year-old male with past medical history of asthma, CVA, HTN, chronic back pain and arthritis presents to the emergency department today for complaints of mid and lower back pain that started yesterday at rest. He describes the pain as sharp, debilitating, 02/20. He reports pins and needles and weakness in bilateral extremities. He denies any known trauma, recent illness, known sick contacts, fever, chills, or malaise. He denies any loss of bowel or bladder function, or difficulty urinating. MD elicited complaint: back pain Pertinent past history: prior back pain Onset (ago): day(s) Timing: constant Severity: severe Pain scale (0-10): 10 Similar Symptoms Previously: No Quality: sharp and aching Location: lumbar spine and thoracic spine Radiation: left upper leg and right upper leg Exacerbating factors: movement, sitting upright and walking Relieving factors: none Context: unknown Associated symptoms: weakness and numbness Work related injury: No Related Data Previous Rx's Medication Instructions Recorded ketorolac 10 mg tablet 10 mg PO Q6H PRN pain 5 days #20 07/07/20 tabs phenazopyridine 200 mg tablet 200 mg PO TID PRN pain 2 days #6 04/11/21 (Pyridium) tabs hydrocodone 5 mg-acetaminophen 325 1 tab PO Q6H PRN pain #12 tabs 08/27/21 mg tablet doxycycline hyclate 100 mg capsule 100 mg PO BID 7 days #14 caps 12/16/21 hydrocodone-homatropine 5 mg-1.5 5 ml PO Q6H PRN cough #60 mL 12/16/21 mg/5 mL (5 mL) oral syrup ketorolac 10 mg tablet 10 mg PO Q6H PRN pain 5 days #20 04/23/22 tabs Allergies Allergy/AdvReac Type Severity Reaction Status Date / Time No Known Allergies Allergy Verified 12/16/21 14:12 Review of Systems Review of Systems: In addition to documented HPI above, the additional ROS was obtained: CONSTITUTIONAL: Denies fever, chills, weakness, fatigue, headache, night sweats, or weight loss EYES: Denies vision changes, eye pain, swelling, redness, foreign body, discharge ENT: Hearing normal. Denies sore throat, swallowing difficulty, congestion, ear pain, no hoarseness or CV: Denies chest pain or epigastric pain. No edema, palpitations, or dyspnea on exertion RESP: Denies shortness of breath. Denies cough, wheezing, dyspnea. GI: Denies abdominal pain. Denies nausea, vomiting, constipation or diarrhea. No melena or hematochezia. : Denies irregular bleeding, and dysuria, urinary frequency, urinary incontinence/retention, urgency, hematuria MSK: Denies recent trauma, change in gait, myalgias, joint swelling or pain SKIN: Denies no lesions, rashes, or sores NEURO: Denies loss of consciousness. Denies headache ENDOCRINE: Denies unexpected weight loss. Denies polyuria, polydipsia. No temperature intolerance HEME/ONC: Denies bleeding disorders, easy bruising, or lymphadenopathy PSYCH: Denies anxiety/panic, depression, SI/HI, or social issues. Yes all other systems are reviewed and are negative [facility] Past Medical History Attestation statement: The following information was validated with the patient. Source: old records reviewed and obtained from family Medical History Asthma CVA (cerebral vascular accident) HTN (hypertension) Surgical History H/O heart artery stent Social History Social History Alcohol intake: former Patient Tobacco Use Status: Former Tobacco user Smoked in Last 30 Days: No Use of substances other than those prescribed or required for medical reasons: No Advance Directives: No Physical Exam Vital Signs: Vital Signs: Last Vital Signs Temp 97.5 F 04/23/22 09:55 Pulse 63 04/23/22 09:55 Resp 14 04/23/22 09:55 BP 110/60 04/23/22 09:55 Pulse Ox 96 04/23/22 09:55 O2 Del Method 04/23/22 09:55 BMI result Body Mass Index 32.5 Const: General: cooperative, alert and awake Nutritional Appearance: well nourished Orientation/consciousness: patient oriented x3 Limitations: no limitations HEENT: Head: Yes normal to inspection, Yes normocephalic and Yes atraumatic Ears: hearing grossly normal bilaterally and external ears normal General nose exam: Normal external nose present and Normal nares present Face and sinus: Yes normal facial exam and Yes face symmetric Mouth: Normal oral and palatal mucosa present Eyes: General: appearance normal, both eyes and all related structures Visual Cosme: normal visual cosme by confrontation Alignment and Position: alignment normal Periorbital: periorbital findings normal Eyelids: Yes eyelids normal Conjunctivae: conjunctivae normal Sclerae: sclerae normal Corneas: corneas normal Pupils: Equal, round and reactive pupils present EOM: EOMs intact bilaterally Neck: Neck: Yes normal visual inspection, Yes full ROM and Yes no lymphadenopathy Chest: Chest palpation & inspection: normal inspection of the chest Resp: Effort & Inspection: normal respiratory effort, no cough and not labored Auscultation: clear to auscultation bilaterally, no crackles, no rales and no wheezes Cardio: Rate: regular rate Rhythm: regular rhythm GI: Inspection: Yes normal to inspection Palpation (GI): Soft to palpation and nontender Auscultation: normal bowel sounds : General: Yes CVA tenderness Back/Spine/Pelvis: Back: CVA tenderness Cervical Spine: cervical ROM normal Thoracic/Lumbar Spine: straight leg raise negative bilaterally, pain with thoraco-lumbar ROM, thoraco-lumbar ROM limited, thoracic spinal tenderness at T11 and at T12 and lumbar spinal tenderness at L1, at L2 and at L3 Skin: General skin exam: no rashes or lesions noted Neuro: General: patient oriented x3 Cranial nerves: Yes Equal, round and reactive pupils present and Yes Bilaterally intact EOM present Cognition (Neuro): normal cognition Gait exam (Neuro): Antalgic gait present Motor exam (neuro): Abnormal motor strength present (moderate strength in dorsal/plantar flexation) Extrem: General: Yes normal to inspection, Yes full ROM and Yes capillary refill normal Course Course Course Narrative: 0815: toradol IM and XR lumbar/thoracic spine ordered due to complaints of low back pain with difficult ambulating due to pain 0900: In reviewing previous provider notes, rehab note states patient had been working with physical therapy in the summer to improve impairments in pain, pressure, ROM, strength, activity and tolerance, and functional mobility per no functional limitations include decreased ability to sit, walk, stand, negotiate stairs, sleep, lift, and carry with plan that patient be seen 2 times a week for 5 weeks. EXAMINATION: CT THORAX AND LUMBAR SPINE WITHOUT CLINICAL INFORMATION: Back pain with paresthesias.? COMPARISON: None? TECHNIQUE: Multiple axial images of the thoracic and lumbar spine were obtained without the administration of intravenous contrast. Coronal and sagittal reformatted images were obtained.? FINDINGS: There is mild thoracolumbar levoscoliosis with normal spinal alignment. Mild to moderate marginal osteophyte formation is seen most pronounced inferiorly in the thoracic spine. L3-L4: Central disc protrusion narrowing the spinal canal and lateral recesses. Mid sagittal diameter is 11 mm. Prominent bridging left lateral osteophyte. L4-L5 mild degenerative disc disease and vacuum disc. L5-S1: severe degenerative disc disease with minimal grade 1 retrolisthesis and moderate bilateral neural foraminal narrowing. Mild motion artifact limits evaluation in the chest without suspicious abnormality. No significant intra-abdominal/pelvic abnormality. Mild bilateral sacroiliac degenerative joint changes are seen with anterior osteophytes, left greater than right, bridging on the left. CT/CT thoracic spine wo IV con IMPRESSION: 1.? Mild thoracolumbar levoscoliosis. 2.? L3-L4 central disc protrusion narrowing the spinal canal and lateral recesses. 3.? L4-L5 mild degenerative disc disease and prominent left bridging marginal osteophyte. This is nonspecific, but can be seen in seronegative spondyloarthropathies. 4.? L5-S1 severe degenerative disc disease with minimal grade 1 retrolisthesis and moderate bilateral neural foraminal narrowing. ? Dictated By: Emil Foss MD Signed By: <Electronically signed by Emil Foss MD in [place]> 04/23/22920 DD/ 0847 TD/TT:? 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 Physical exam with no step-offs or red flag symptoms.? IM Toradol given with marked improvement in pain and movement for patient. Mild thoracolumbar levoscoliosis, L3-L4 central disc protrusion narrowing the spinal canal and lateral recesses, L4-L5 mild degenerative disc disease and prominent left bridging marginal osteophyte. This is nonspecific, but can be seen in seronegative spondyloarthropathies, and L5-S1 severe degenerative disc disease with minimal grade 1 retrolisthesis and moderate bilateral neural foraminal narrowing. Low back pain consistent with acute on chronic back pain.? Low suspicion of cauda equina, epidural abscess, lumbar stenosis, or radiculopathy. Pt is safe for discharge with the symptom management.? Plan to discharge pt home with prescription for Ketorolac for treatment of pain as he received moderate relief of pain in the ED with this drug and recommendation to follow up with [facility] as he has seen them in the past for his chronic back pain. HPI, physical exam, plan discussed with patient with no unanswered questions at this time.? Walking was encouraged with no strenuous activities until cleared by [facility]. Educated to please return to the emergency department with worsening numbness or tingling, worsening weakness, loss of bowel or bladder function, headache, vision changes, or any other concerning symptoms. It is advised that you follow-up with [facility] for further treatment and management. Please follow-up with his primary care provider. Discharge Plan Discharge Clinical Impression: Acute exacerbation of chronic low back pain Patient Disposition: Home, Self-Care Instructions: Chronic Pain (ED), Chronic Back Pain (DC), Heat Pack Application (ED) Additional Instructions: You are having an acute flare of her chronic back pain. You have been prescribed an anti inflammatory/pain medication for treatment of your pain. Walking is encouraged with no strenuous activities until cleared by [facility]. Please return to the emergency department if you have worsening numbness or tingling, worsening weakness, loss of bowel or bladder function, headache, v ision changes, or any other concerning symptoms. It is advised that you follow- up with [facility] for further treatment and management. Please follow-up with your primary care provider. CT/CT lumbar spine wo IV con IMPRESSION: 1.? Mild thoracolumbar levoscoliosis. 2.? L3-L4 central disc protrusion narrowing the spinal canal and lateral recesses. 3.? L4-L5 mild degenerative disc disease and prominent left bridging marginal osteophyte. This is nonspecific, but can be seen in seronegative spondyloarthropathies. 4.? L5-S1 severe degenerative disc disease with minimal grade 1 retrolisthesis and moderate bilateral neural foraminal narrowing. Prescriptions: New ketorolac 10 mg tablet 10 mg PO Q6H PRN (Reason: pain) 5 Days Qty: 20 0RF Rx Instructions: Given in the ED for pain with good relief of pain No Action ketorolac 10 mg tablet 10 mg PO Q6H PRN (Reason: pain) 5 Days Qty: 20 0RF Rx Instructions: Patient received IM Toradol in the emergency department. hydrocodone-acetaminophen 5-325 mg tablet 1 tab PO Q6H PRN (Reason: pain) Qty: 12 0RF phenazopyridine [Pyridium] 200 mg tablet 200 mg PO TID PRN (Reason: pain) 2 Days Qty: 6 0RF doxycycline hyclate 100 mg capsule 100 mg PO BID 7 Days Qty: 14 0RF hydrocodone-homatropine 5-1.5 mg/5 mL (5 mL) syrup 5 ml PO Q6H PRN (Reason: cough) Qty: 60 0RF Rx Instructions: Partial Fill upon patient request. Referrals: [facility] [Provider Group] Renae Adame MD [Primary Care Provider] - Interventions: ED Discharge Assessment Last Done: 04/23/22 11:06 Discharge Date/Time: 04/23/22 11:06 Print Language: Tajik
[2022-04-23] MEDS: Ketorolac Tromethamine 15 MG/ML VIAL IM (08:44)
[2022-04-23 09:55] VITALS: BP 110/60; PULSE 63; RESP 14; TEMP 36.4; O2SAT 96
== END 2022-04-23 11:06 | disposition home or self-care (01) ==
PROVIDERS: Emergency Provider Emergency Medicine Emergency Medical Services; PCP Family Medicine
DX: M54.50 Low back pain, unspecified (principal); M54.6 Pain in thoracic spine; M79.604 Pain in right leg; I10 Essential (primary) hypertension; Z79.899 Other long term (current) drug therapy
CPT/HCPCS: 72128; 72131; 81003; 96372; 99284; J1885

== ENCOUNTER → 2022-10-11 09:24 | Outpatient (BNVA) | payer OTHER, SELFPAY | PROVIDERS: PCP Family Medicine; Visit Provider Internal Medicine ==

== ENCOUNTER 2022-10-11 10:09 | Outpatient (REF) | payer OTHER, SELFPAY ==
--- NOTE | 2022-10-11 11:03 | PFT_ITS ---
INDICATION: Dyspnea. SPIROMETRY: The FEV1 to FVC of 72% with an FEV1 of 2.24 L, which is 72% predicted and an FVC of 3.1 L, which is 77% predicted. No significant response to bronchodilators noted. To note, the FEF 25-75 down to 58% predicted. Maximum voluntary ventilation 68% predicted. LUNG VOLUMES: Total lung capacity 104% predicted with an expiratory reserve volume of 38% predicted. DIFFUSION CAPACITY: DLCO 79% predicted. COMPARISONS: None. INTERPRETATION: No definitive obstructive nor restrictive ventilatory defects. No significant response to bronchodilators noted. Although the patient does have evidence of small airway disease and the flow volume loop appears to have an obstructive physiology. There is also a mild decrease in the maximum voluntary ventilation secondary to deconditioning. Lung volumes also demonstrate a decrease in the expiratory reserve volume secondary to deconditioning. The diffusion capacity is mildly decreased as well. Clinical correlation warranted. MD RAO Dobson/MODL / [id number]
== END 2022-10-11 10:10 | disposition home or self-care (01) ==
LOC: HO.RESP 10:09
PROVIDERS: Visit Provider Internal Medicine
DX: J45.909 Unspecified asthma, uncomplicated (principal); G47.33 Obstructive sleep apnea (adult) (pediatric); E66.9 Obesity, unspecified
CPT/HCPCS: 94010; 94727; 94729; 99202

== ENCOUNTER 2023-01-09 10:08 | Outpatient (AMB) | payer OTHER, SELFPAY ==
[2023-01-09 10:24] VITALS: BP 122/78; PULSE 60; O2SAT 96; BMI 33.5
--- NOTE | 2023-01-09 10:24 | MHC.OFFVIS ---
Intake Vital Signs 01/09/23 10:24 Height 5 ft 8 in Weight 220 lb 7.396 oz BMI 33.5 BP 122/78 Blood Pressure Location Lt brachial Position Sitting Pulse 60 Pulse Source Pulse Oximeter Pulse Oximetry (%) 96 Oxygen Delivery Method Room Air Intake Visit Reasons: copd Intake Note: pt is here for follow up and states he is feeling good. pt is using spacer on his inhaler from the emergency room. Allergies No Known Allergies Allergy (Verified 01/09/23 10:48) Medication List - Last Reconciled 01/09/23 by Daisy Stone MD acetaminophen 500 mg PO Q8H PRN albuterol sulfate 90 mcg/actuation 2 puffs inhalation Q4-6H PRN allopurinol 100 mg PO DAILY amlodipine 5 mg PO QAM aspirin 1 tab PO QAM atorvastatin 80 mg PO DAILY cholecalciferol (vitamin D3) (Vitamin D3) 25 mcg PO DAILY clopidogrel 75 mg PO DAILY docusate sodium 100 mg PO BID evolocumab (Repatha Syringe) 140 mg subcut Q2W fluticasone propionate 50 mcg/actuation (Flonase Allergy Relief) 1 spray intranasal BID gabapentin 200 mg PO TID hydralazine 50 mg PO BID hydrochlorothiazide 25 mg PO QAM isosorbide mononitrate ER 30 mg PO DAILY meloxicam 15 mg PO DAILY metoprolol tartrate 50 mg PO BID montelukast 10 mg PO DAILY oxycodone-acetaminophen 5-325 mg 1 tab PO BID PRN sennosides (senna) 8.6 - 17.2 mg PO DAILY PRN tamsulosin 0.4 mg PO BEDTIME Do you need a note to return to daycare/school/sports/work: No HPI copd HPI Details 72 years old gentleman with past history of allergic rhinitis/sinusitis, and bronchial asthma comes for follow-up visit He has been treated for allergic rhinosinusitis, for a few years with immunotherapy, Flonase, and antihistaminic plus montelukast. He is under care of Dr. Ba Estevez. He has had intermittent bouts of bronchial asthma, and uses albuterol p.r.n.. [facility] Medical History (Updated 01/09/23 @ 11:08 by Daisy Stone MD) Allergic rhinitis Asthma Bronchial asthma CVA (cerebral vascular accident) HTN (hypertension) Obesity (BMI 30-39.9) ZEV (obstructive sleep apnea) Surgical History H/O heart artery stent Social History Alcohol intake: former Patient Tobacco Use Status: Former Tobacco user Review of Systems Const All systems reviewed & are unremarkable except as noted in HPI and below Eyes Reports no additional complaints ENT Reports no additional complaints Card Denies chest pain (Occasional on heavy exertion), Denies irregular heart rhythm and Denies leg edema Resp Reports as per HPI GI Reports no additional complaints Reports nocturia Musc Reports abnormal gait (Tends to lose balance, due to his back pain) and Reports back pain Skin/Breast Reports system reviewed and no additional complaints, except as documented Neuro Reports abnormal gait (Tends to lose balance, due to his back pain) Psych Reports no additional complaints Evan/Lymph Reports no additional complaints Physical Exam Vital Signs: Last Vital Signs Pulse 60 01/09/23 10:24 BP 122/78 01/09/23 10:24 Pulse Ox 96 01/09/23 10:24 Oxygen Delivery Method Room Air 01/09/23 10:24 BMI result Body Mass Index 33.5 Const General: healthy appearing (Except for being overweight), comfortable, no acute distress, alert and awake Orientation/consciousness: patient oriented x3 HEENT Head: Yes normal to inspection General nose exam: No nasal polyps present and No nasal discharge present Face and sinus: Yes sinuses nontender Mouth: oropharynx abnormals (Narrow and moderately crowded, Mallampati class 3) Throat: Yes posterior oropharynx normal Eyes General: appearance normal, both eyes and all related structures Neck Neck: Yes normal visual inspection, Yes no lymphadenopathy, Yes trachea midline, Yes no JVD and Yes other (Neck circumference 17 in) Thyroid: Thyroid normal Chest Chest palpation & inspection: normal inspection of the chest, normal palpation of entire chest wall and no tenderness Resp Other: Percussion note resonant, breath sounds are equal on both sides, I did not hear any wheezes crepitations or rhonchi. Cardio Palpation: normal PMI Rate: regular rate Rhythm: regular rhythm Heart sounds: no gallops and no murmurs Peripheral pulses: Peripheral pulses 2+ throughout GI Palpation (GI): Soft to palpation, Tenderness to palpation present (GI), No hepatosplenomegaly present, Palpable mass present and Other GI palpation findings present (Abdomen is obese and protuberant) Auscultation: normal bowel sounds Back/Spine/Pelvis Thoracic/Lumbar Spine: thoracic and lumbar spine normal to inspection and thoraco-lumbar ROM limited Skin General skin exam: no rashes or lesions noted Neuro General: patient oriented x3 and no focal motor deficits Cranial nerves: Yes CN's II-XII intact bilaterally Extrem General: Yes normal to inspection, Yes no clubbing, cyanosis or edema and Yes no calf tenderness Psych Appearance: grossly normal and well kempt Speech and movement: Normal speech and movement present Results Reviewed Results Reviewed: PULMONARY FUNCTION TEST ON 10/11/2022. ESSENTIALLY NORMAL EXCEPT FOR SLIGHT DECREASE IN FEV1 AND FEF 25-75 C/W MILD OBSTRUCTIVE AIRWAY DISORDER. Assessment & Plan Assessment & Plan (1) Bronchial asthma: Comment: Longstanding history of bronchial asthma, but mild and intermittent. PULMONARY FUNCTION TEST SHOWS ONLY MILD DEGREE OF OBSTRUCTIVE AIRWAY DISORDER, C/W BRONCHIAL ASTHMA [place] : USE ALBUTEROL HFA 2 PUFFS Q 4-6 HOURS ONLY P.R.N., USE WITH THE SPACING TUBE . THERE IS NO NEED TO USE ANY OTHER CONTROLLING AGENTS. Code(s): J45.909 - Unspecified asthma, uncomplicated (2) Allergic rhinitis: Comment: PATIENT HAS HISTORY OF CHRONIC ALLERGIC RHINITIS/SINUSITIS. FLARES UP WITH ANY CHANGE IN THE ENVIRONMENT OR IF HE HAS A COLD, WITH THE USE OF FLONASE SOMETIME HE GETS NASAL BLEEDING, HE IS BEING TREATED BY DR. ESTEVEZ FOR ALLERGIES ON IMMUNOTHERAPY INJECTIONS EVERY 2 WEEKS. ALSO TAKE MONTELUKAST 10 MG DAILY * PATIENT EXPLAINED AND EDUCATED THAT ALLERGIC RHINITIS AND BRONCHIAL ASTHMA GO HAND IN HAND. Code(s): J30.9 - Allergic rhinitis, unspecified (3) ZEV (obstructive sleep apnea): Comment: He does have history of obstructive sleep apnea, but failed to use CPAP twice in the past. He does have features which are consistent with diagnosis of sleep apnea. However he claims. that he is sleeping okay He does not want to go back on CPAP therapy. Hence there is no need of doing another sleep study. I advised him to lose about 10% of his current body weight. Also advised to always sleep in lateral position. Code(s): G47.33 - Obstructive sleep apnea (adult) (pediatric) (4) Obesity (BMI 30-39.9): Comment: Patient is moderately obese, he has predominantly abdominal obesity. Instructed that he has to lose weight. His goal should be to lose 15-20 lb of weight. He is not able to do much exercise. He will try to limit his calories intake. Code(s): E66.9 - Obesity, unspecified Coding Level of Care Code Est Pt Level 3 (90680) Diagnoses Bronchial asthma J45.909 Allergic rhinitis J30.9 ZEV (obstructive sleep apnea) G47.33 Obesity (BMI 30-39.9) E66.9
== END 2023-01-09 10:49 | disposition home or self-care (01) ==
LOC: HO.HPS 10:08
PROVIDERS: PCP Family Medicine; Visit Provider Internal Medicine
DX: J45.909 Unspecified asthma, uncomplicated (principal); J30.9 Allergic rhinitis, unspecified; G47.33 Obstructive sleep apnea (adult) (pediatric); E66.9 Obesity, unspecified
CPT/HCPCS: 99213

== ENCOUNTER → 2023-01-09 10:08 | Outpatient (BNVA) | payer OTHER, SELFPAY | PROVIDERS: PCP Family Medicine; Visit Provider Internal Medicine | DX: J45.909 Unspecified asthma, uncomplicated (principal); J30.9 Allergic rhinitis, unspecified; G47.33 Obstructive sleep apnea (adult) (pediatric); E66.9 Obesity, unspecified; Z68.33 Body mass index [BMI] 33.0-33.9, adult | CPT/HCPCS: 99212 ==

== ENCOUNTER 2023-04-25 09:54 | Outpatient (REF) | payer OTHER, SELFPAY ==
[2023-04-25 11:40] LABS: Estimated Average Glucose 111 mg/dL; Hemoglobin A1c % 5.5 % (<6.0)
[2023-04-25 11:58] LABS: Alanine Aminotransferase 23 U/L (0-40); Albumin Level 4.4 g/dL (3.5-5.0); Alkaline Phosphatase 96 U/L (39-117); Anion Gap 15 (12-20); Aspartate Amino Transferase 26 U/L (5-37); Bilirubin Direct 0.3 mg/dL (0.0-0.5); Bilirubin Total 0.6 mg/dL (0.0-1.0); Blood Urea Nitrogen 12 mg/dL (9-16); Calcium 9.8 mg/dL (8.4-10.2); Carbon Dioxide 27 mmol/L (22-29); Chloride 103 mmol/L (96-108); Cholesterol 118 mg/dL (<200); Estimated Glomerular Filt Rate > 60; Glucose Random 98 mg/dL (60-115); HDL Cholesterol 28 mg/dL (>40); LDL Cholesterol Calculated 51 mg/dL (<100); Potassium 3.8 mmol/L (3.3-5.1); Sodium 141 mmol/L (135-145); Total Protein 7.4 g/dL (6.5-8.0); Triglycerides 196 mg/dL (<150)
[2023-04-25 12:22] LABS: Vitamin D 25-OH Total 46.9 ng/mL (>30)
== END 2023-04-25 09:55 | disposition home or self-care (01) ==
LOC: HO.HHCL 09:54
PROVIDERS: Visit Provider Family Medicine
DX: I10 Essential (primary) hypertension (principal); R73.03 Prediabetes; E55.9 Vitamin D deficiency, unspecified; E78.5 Hyperlipidemia, unspecified
CPT/HCPCS: 36415; 80048; 80061; 80076; 82306; 83036

== ENCOUNTER 2023-07-11 11:09 | Outpatient (AMB) | payer OTHER, SELFPAY ==
--- NOTE | 2023-07-11 11:02 | A.OFFVIS_ITS ---
Intake Vital Signs 07/11/23 11:10 Height 5 ft 8 in Intake Visit Reasons: copd Intake Note: pt is on the phone stating that sometimes he walks around gets short of breath and than uses his medication and feels better. Aids Nurse Required: No Allergies No Known Allergies Allergy (Verified 07/11/23 11:11) HPI copd HPI Details 72 years old gentleman a requested a tel e visit today. He has the occasional bouts of cough and uses albuterol just p.r.n.. Denies any attacks of wheezing. He does get short of breath on walking up hill or climbing stairs. He continues to have mild intermittent nasal congestion. Still smokes about 3 cigarettes a day, that is what starts his cough. [facility] Medical History Allergic rhinitis Bronchial asthma ZEV (obstructive sleep apnea) Obesity (BMI 30-39.9) HTN (hypertension) Asthma CVA (cerebral vascular accident) Surgical History H/O heart artery stent Social History Alcohol intake: former Patient Tobacco Use Status: Former Tobacco user Review of Systems Const All systems reviewed & are unremarkable except as noted in HPI and below Eyes Reports no additional complaints ENT Reports no additional complaints Card Denies chest pain (Occasional on heavy exertion), Denies irregular heart rhythm and Denies leg edema Resp Reports as per HPI GI Reports no additional complaints Reports nocturia Musc Reports abnormal gait (Tends to lose balance, due to his back pain) and Reports back pain Skin/Breast Reports system reviewed and no additional complaints, except as documented Neuro Reports abnormal gait (Tends to lose balance, due to his back pain) Psych Reports no additional complaints Evan/Lymph Reports no additional complaints Physical Exam tele visit . no physical exam . Assessment & Plan Assessment & Plan (1) Allergic rhinitis: Comment: PATIENT HAS HISTORY OF CHRONIC ALLERGIC RHINITIS/SINUSITIS. FLARES UP WITH ANY CHANGE IN THE ENVIRONMENT OR IF HE HAS A COLD, WITH THE USE OF FLONASE SOMETIME HE GETS NASAL BLEEDING, HE IS BEING TREATED BY DR. ESTEVEZ FOR ALLERGIES ON IMMUNOTHERAPY INJECTIONS EVERY 2 WEEKS. ALSO TAKE MONTELUKAST 10 MG DAILY Code(s): J30.9 - Allergic rhinitis, unspecified Plan: * PATIENT EXPLAINED AND EDUCATED THAT ALLERGIC RHINITIS AND BRONCHIAL ASTHMA GO HAND IN HAND. Continue using montelukast 10 mg daily. May use Claritin 10 mg or cetirizine 10 mg once a day p.r.n. (2) Bronchial asthma: Comment: Longstanding history of bronchial asthma, but mild and intermittent. PULMONARY FUNCTION TEST SHOWED ONLY MILD DEGREE OF OBSTRUCTIVE AIRWAY DISORDER, C/W BRONCHIAL ASTHMA Code(s): J45.909 - Unspecified asthma, uncomplicated Plan: [place] : USE ALBUTEROL HFA 2 PUFFS Q 4-6 HOURS ONLY P.R.N., USE WITH THE SPACING TUBE . (3) ZEV (obstructive sleep apnea): Comment: He does have history of obstructive sleep apnea, but failed to use CPAP twice in the past. He does have features which are consistent with diagnosis of sleep apnea. However he claims. that he is sleeping okay He does not want to go back on CPAP therapy. Hence there is no need of doing another sleep study. I advised him to lose about 10% of his current body weight. Also advised to always sleep in lateral position. Code(s): G47.33 - Obstructive sleep apnea (adult) (pediatric) Plan: ABOVE Telehealth Telehealth Location of provider rendering services: practice address Location of patient: address on file Patient Identification confirmed using: Name, : Yes Telehealth method: voice only Patient verbally consented to treatment: Yes Patient verbally consented to billing insurance company: Yes Patient informed of any privacy concerns related to visit: Yes Minutes spent on Phone/Video with Pt.: 20 Coding Level of Care Code Tele New Pt Level 3 (38865) Diagnoses Allergic rhinitis J30.9 Bronchial asthma J45.909 ZEV (obstructive sleep apnea) G47.33
== END 2023-07-11 11:18 | disposition home or self-care (01) ==
LOC: HO.HPS 11:09
PROVIDERS: PCP Family Medicine; Visit Provider Internal Medicine
DX: J45.909 Unspecified asthma, uncomplicated (principal); G47.33 Obstructive sleep apnea (adult) (pediatric)
CPT/HCPCS: 99442

== ENCOUNTER → 2023-07-11 11:09 | Outpatient (BNVA) | payer OTHER, SELFPAY | PROVIDERS: PCP Family Medicine; Visit Provider Internal Medicine ==

== ENCOUNTER 2023-10-11 09:45 | Outpatient (AMB) | payer OTHER, SELFPAY ==
[2023-10-11 10:08] VITALS: BP 130/72; PULSE 60; O2SAT 95; BMI 33.4
--- NOTE | 2023-10-11 10:08 | A.OFFVIS_ITS ---
Vital Signs 10/11/23 10:08 Height 5 ft 8 in Weight 220 lb BMI 33.4 BP 130/72 Blood Pressure Location Lt brachial Position Sitting Pulse 60 Pulse Source Pulse Oximeter Pulse Oximetry (%) 95 Oxygen Delivery Method Room Air Intake Visit Reasons: copd Intake Note: pt is here for follow up and states he is feeling good, just here for a check up and renewal of the prescription. [employer] T[employer] Required: No Allergies No Known Allergies Allergy (Verified 10/11/23 10:28) Medication List - Last Reconciled 10/11/23 by Daisy Stone MD acetaminophen 500 mg PO Q8H PRN albuterol sulfate 90 mcg/actuation 2 puffs inhalation Q4-6H PRN allopurinol 100 mg PO DAILY amlodipine 5 mg PO QAM aspirin 1 tab PO QAM atorvastatin 80 mg PO DAILY cholecalciferol (vitamin D3) (Vitamin D3) 25 mcg PO DAILY clopidogrel 75 mg PO DAILY docusate sodium 100 mg PO BID evolocumab (Repatha Syringe) 140 mg subcut Q2W fluticasone propionate 50 mcg/actuation (Flonase Allergy Relief) 1 spray intranasal BID gabapentin 200 mg PO TID hydralazine 50 mg PO BID hydrochlorothiazide 25 mg PO QAM isosorbide mononitrate ER 30 mg PO DAILY meloxicam 15 mg PO DAILY metoprolol tartrate 50 mg PO BID montelukast 10 mg PO DAILY oxycodone-acetaminophen 5-325 mg 1 tab PO BID PRN sennosides (senna) 8.6 - 17.2 mg PO DAILY PRN tamsulosin 0.4 mg PO BEDTIME Do you need a note to return to daycare/school/sports/work: No HPI HPI copd: Details: This 72 years old gentleman who is only moderately obese, has past history of obstructive sleep apnea what could not use CPAP. He also has mild intermittent bronchial asthma related to his chronic allergic rhinitis. With the use of montelukast 10 mg daily, and Flonase as needed, his allergic rhinitis has remained well controlled. He gets only occasional wheezing and cough, and uses ProAir once or twice in a month. This usually happens with the change in the weather. He sleeps good and denies any daytime sleepiness. Has not lost much weight. FORMERLY [facility] Medical History Allergic rhinitis Bronchial asthma ZEV (obstructive sleep apnea) Obesity (BMI 30-39.9) HTN (hypertension) Asthma CVA (cerebral vascular accident) Surgical History H/O heart artery stent Social History Alcohol intake: former Patient Tobacco Use Status: Former Tobacco user Review of Systems Const All systems reviewed & are unremarkable except as noted in HPI and below Eyes Reports no additional complaints ENT Reports no additional complaints Card Denies chest pain (Occasional on heavy exertion), Denies irregular heart rhythm and Denies leg edema Resp Reports as per HPI GI Reports no additional complaints Reports nocturia Musc Reports abnormal gait (Tends to lose balance, due to his back pain) and Reports back pain Skin/Breast Reports system reviewed and no additional complaints, except as documented Neuro Reports abnormal gait (Tends to lose balance, due to his back pain) Psych Reports no additional complaints Evan/Lymph Reports no additional complaints Physical Exam Vital Signs: Last Vital Signs Pulse 60 10/11/23 10:08 BP 130/72 10/11/23 10:08 Pulse Ox 95 10/11/23 10:08 Oxygen Delivery Method Room Air 10/11/23 10:08 BMI result Body Mass Index 33.4 Const General: healthy appearing (Except for being overweight), comfortable, no acute distress, alert and awake Orientation/consciousness: patient oriented x3 HEENT Head: Yes normal to inspection General nose exam: No nasal polyps present and No nasal discharge present Face and sinus: Yes sinuses nontender Mouth: oropharynx normal Throat: Yes posterior oropharynx normal Eyes General: appearance normal, both eyes and all related structures Neck Neck: Yes normal visual inspection, Yes no lymphadenopathy, Yes trachea midline and Yes no JVD Thyroid: Thyroid normal Chest Chest palpation & inspection: normal inspection of the chest, normal palpation of entire chest wall and no tenderness Resp Effort & Inspection: normal respiratory effort Auscultation: clear to auscultation bilaterally, no crackles and no wheezes Cardio Palpation: normal PMI Rate: regular rate Rhythm: regular rhythm Heart sounds: no gallops and no murmurs Peripheral pulses: Peripheral pulses 2+ throughout GI Palpation (GI): Soft to palpation, nontender, No hepatosplenomegaly present and no masses Auscultation: normal bowel sounds Back/Spine/Pelvis Thoracic/Lumbar Spine: thoracic and lumbar spine normal to inspection Skin General skin exam: no rashes or lesions noted Neuro General: patient oriented x3 and no focal motor deficits Cranial nerves: Yes CN's II-XII intact bilaterally Extrem General: Yes normal to inspection, Yes no clubbing, cyanosis or edema and Yes no calf tenderness Psych Speech and movement: Normal speech and movement present Assessment & Plan Assessment & Plan (1) Allergic rhinitis: Comment: PATIENT HAS HISTORY OF CHRONIC ALLERGIC RHINITIS/SINUSITIS. FLARES UP WITH ANY CHANGE IN THE ENVIRONMENT OR IF HE HAS A COLD, HE IS BEING TREATED BY DR. ESTEVEZ FOR ALLERGIES ON IMMUNOTHERAPY INJECTIONS EVERY 2 WEEKS. ALSO TAKE MONTELUKAST 10 MG DAILY, AND SYMPTOMS ARE WELL CONTROLLED. Code(s): J30.9 - Allergic rhinitis, unspecified Category: Medical Plan: CONTINUE MONTELUKAST 10 MG DAILY. CONTINUE TO USE LORATADINE 10 MG P.R.N. (2) Bronchial asthma: Comment: Longstanding history of bronchial asthma, but mild and intermittent. PULMONARY FUNCTION TEST SHOWED ONLY MILD DEGREE OF OBSTRUCTIVE AIRWAY DISORDER, C/W BRONCHIAL ASTHMA Code(s): J45.909 - Unspecified asthma, uncomplicated Category: Medical Plan: ALBUTEROL HFA 2 PUFFS Q 4-6 HOURS ONLY P.R.N. (3) Obesity (BMI 30-39.9): Comment: Patient is moderately obese, he has predominantly abdominal obesity. Instructed that he has to lose weight. His goal should be to lose 15-20 lb of weight. He is not able to do much exercise. Code(s): E66.9 - Obesity, unspecified Category: Medical Plan: AGAIN MADE AWARE OF BEING OVERWEIGHT. STRESSED THAT HE SHOULD REDUCE THE CALORIES INTAKE, AND NEEDS TO LOSE ABOUT 10- 15 LB OF WEIGHT. (4) ZEV (obstructive sleep apnea): Comment: He does have history of obstructive sleep apnea, but failed to use CPAP twice in the past. He does have features which are consistent with diagnosis of sleep apnea. However he claims. that he is sleeping okay He did not want to go back on CPAP therapy. Code(s): G47.33 - Obstructive sleep apnea (adult) (pediatric) Category: Medical Plan: I told him that the next best option is to lose weight. Coding Level of Care Code Est Pt Level 3 (53396) Diagnoses Allergic rhinitis J30.9 Bronchial asthma J45.909 Obesity (BMI 30-39.9) E66.9 ZEV (obstructive sleep apnea) G47.33
== END 2023-10-11 10:29 | disposition home or self-care (01) ==
PROVIDERS: PCP Family Medicine; Visit Provider Internal Medicine
DX: J30.9 Allergic rhinitis, unspecified (principal); J45.909 Unspecified asthma, uncomplicated; E66.9 Obesity, unspecified; G47.33 Obstructive sleep apnea (adult) (pediatric)
CPT/HCPCS: 99213

== ENCOUNTER → 2023-10-11 09:45 | Outpatient (BNVA) | payer OTHER, SELFPAY | PROVIDERS: PCP Family Medicine; Visit Provider Internal Medicine | DX: J45.909 Unspecified asthma, uncomplicated (principal); G47.33 Obstructive sleep apnea (adult) (pediatric); E66.9 Obesity, unspecified; Z68.33 Body mass index [BMI] 33.0-33.9, adult | CPT/HCPCS: 99212 ==

== ENCOUNTER 2023-11-20 05:05 | Emergency (ER) | payer OTHER, SELFPAY ==
[2023-11-20] VITALS (7 sets, daily range): BP systolic 111–133; BP diastolic 57–87; PULSE 63–78; RESP 12–20; TEMP 36.7–36.9; O2SAT 94–98; BMI 34.9
--- NOTE | 2023-11-20 | ECG_ITS ---
Test Reason : CHEST PAIN Blood Pressure : / mmHG Vent. Rate : 077 BPM Atrial Rate : 077 BPM P-R Int : 200 ms QRS Dur : 104 ms QT Int : 406 ms P-R-T Axes : 041 -38 044 degrees QTc Int : 459 ms Normal sinus rhythm Left axis deviation Incomplete right bundle branch block Abnormal ECG When compared with ECG of 16-DEC-2021 14:20, No significant change was found Referred By: Generic ED Physician Electronically Signed By:Jude Odom
--- NOTE | ~2023-11-20 | XR_ITS ---
EXAMINATION: XR CHEST CLINICAL INFORMATION: Chest pain COMPARISON: Chest x-ray on 12/16/2021 TECHNIQUE: Frontal view of the chest was obtained. FINDINGS: vascularity. LUNGS: Lungs are clear. No pneumothorax is seen. BONES: Bony skeleton is intact. XR/XR chest 1V IMPRESSION: Unchanged Normal chest x-ray.
[2023-11-20 05:26] LABS: Basophils Absolute Auto 0.1 X10*3/uL (0.0-0.2); Basophils Percent Auto 0.7 % (0-2); Eosinophils Absolute Auto 0.4 X10*3/uL (0.0-0.4); Eosinophils Percent Auto 4.2 % (0-4); Hematocrit 37.6 % (42.0-52.0); Hemoglobin 12.9 g/dl (14.0-18.0); Imm Gran Abs Auto 0.03 X10*3/uL (0.00-0.03); Imm Gran Pct Auto 0.3 % (0.0-0.4); Lymphocytes Absolute Auto 2.8 X10*3/uL (1.2-4.9); Lymphocytes Percent Auto 27.1 % (20-40); MANUAL DIFF FLAG NO; Mean Corpuscular HGB Conc 34.3 g/dl (31.0-36.0); Mean Corpuscular Hemoglobin 29.4 pg (27.0-33.0); Mean Corpuscular Volume 85.6 fL (80.0-98.0); Monocytes Absolute Auto 1.2 X10*3/uL (0.1-1.2); Monocytes Percent Auto 12.1 % (2-11); Neutrophils Absolute Auto 5.7 x10*3/uL (2.0-8.3); Neutrophils Percent Auto 55.6 % (45-73); Platelet Count 251 X10*3/uL (160-400); Red Blood Count 4.39 X10*6/uL (4.60-5.80); White Blood Count 10.2 X10*3/uL (4.8-10.8)
[2023-11-20 05:41] LABS: Alanine Aminotransferase 21 U/L (0-40); Alkaline Phosphatase 94 U/L (39-117); Anion Gap 14 (12-20); Aspartate Amino Transferase 20 U/L (5-37); Bilirubin Total 0.5 mg/dL (0.0-1.0); Blood Urea Nitrogen 10 mg/dL (9-16); Calcium 9.8 mg/dL (8.4-10.2); Carbon Dioxide 26 mmol/L (22-29); Chloride 104 mmol/L (96-108); Creatinine Clr Calc Pharmacy 97.8; Estimated Glomerular Filt Rate > 60; Glucose Random 181 mg/dL (60-115); Sodium 141 mmol/L (135-145); Total Protein 6.6 g/dL (6.5-8.0)
[2023-11-20 05:47] LABS: Troponin-I High Sensitivity 64.3 ng/L (<3.5-35.0)
--- NOTE | 2023-11-20 06:08 | PC.NURSE ---
MD engle aware of troponin result. ordering repeat troponin for two hours after.
[2023-11-20 08:15] LABS: Troponin-I High Sensitivity 173.5 ng/L (<3.5-35.0)
--- NOTE | 2023-11-20 08:19 | ECG_ITS ---
Test Reason : CHEST PAIN WITH RISING TROPONIN Blood Pressure : / mmHG Vent. Rate : 066 BPM Atrial Rate : 066 BPM P-R Int : 224 ms QRS Dur : 098 ms QT Int : 398 ms P-R-T Axes : 042 -33 148 degrees QTc Int : 417 ms Sinus rhythm with 1st degree A-V block Left axis deviation Incomplete right bundle branch block Nonspecific ST and T wave abnormality Abnormal ECG When compared with ECG of 20-NOV-2023 05:07, Nonspecific T wave abnormality, worse in Lateral leads Referred By: Levi Palomino Electronically Signed By:Jude Odom
--- NOTE | 2023-11-20 08:45 | PC.NURSE ---
Pt reports 8/10 mid chest pain with mild sob, denies dizziness. NSR on tele. Speaking full sentences, skin pwd. breathing even and unlabored. ?plan to [facility]. Nitro paste to left chest 1 inch. Pt states pain is worse with exertion. VSS.
[2023-11-20] MEDS: Nitroglycerin 2 % Oint 1 GM Packet 1 INCH TRANSDERMA (08:46)
--- NOTE | 2023-11-20 09:24 | PC.NURSE ---
Pt states no pain at this time, resting comfortably
--- NOTE | 2023-11-20 09:40 | PC.NURSE ---
Dr Velez at bedside for consult
--- NOTE | 2023-11-20 09:43 | P.CONCA_ITS ---
History of Present Illness History of Present Illness Date of Service: 11/20/23 Requesting physician: Levi Palomino Chief complaint: NSTEMI Narrative: 72-year-old with reported history of coronary artery disease status post PCI 2-3 years ago who follows with Dr. Morales. He is presenting with right shoulder pain which started while he was having intercourse with his 2 days ago. Subsequent to that he had another episode yesterday while smoking. He did complain of chest discomfort to ER physician but did not complain of chest discomfort to me and said it was just right shoulder discomfort. While in the ER he also had some discomfort in his chest while walking. He is currently in bed and is denying any symptoms. His high sensitivity troponin levels are elevated 64.3 and repeat is 173.5. Clinically not in heart failure. He is on aspirin and Plavix. Smokes few cigarettes a day. [facility] Past Medical History Medical History Allergic rhinitis Bronchial asthma ZEV (obstructive sleep apnea) Obesity (BMI 30-39.9) HTN (hypertension) Asthma CVA (cerebral vascular accident) Surgical History Surgical History H/O heart artery stent Social History Social History Alcohol intake: former Patient Tobacco Use Status: Former Tobacco user Smoked in Last 30 Days: Yes Use of substances other than those prescribed or required for medical reasons: No Advance Directives: No Advance Directives Information Provided: Yes Meds Allergies Allergy/AdvReac Type Severity Reaction Status Date / Time No Known Allergies Allergy Verified 11/20/23 05:10 Home Medications ?Medication ?Instructions ?Recorded ?Confirmed ?Last Taken ?Type acetaminophen 325 mg tablet 500 mg PO Q8H PRN 10/11/22 10/11/23 Unknown History allopurinol 100 mg tablet 100 mg PO DAILY 10/11/22 10/11/23 Unknown History amlodipine 5 mg tablet 5 mg PO QAM 10/11/22 10/11/23 Unknown History aspirin 81 mg chewable tablet 1 tab PO QAM 10/11/22 10/11/23 Unknown History atorvastatin 80 mg tablet 80 mg PO DAILY 10/11/22 10/11/23 Unknown History cholecalciferol (vitamin D3) 25 25 mcg PO DAILY 10/11/22 10/11/23 Unknown History mcg (1,000 unit) capsule (Vitamin D3) clopidogrel 75 mg tablet 75 mg PO DAILY 10/11/22 10/11/23 Unknown History docusate sodium 100 mg capsule 100 mg PO BID 10/11/22 10/11/23 Unknown History evolocumab 140 mg/mL subcutaneous 140 mg subcut Q2W 10/11/22 10/11/23 Unknown History syringe (Repatha Syringe) fluticasone propionate 50 1 spray intranasal BID 10/11/22 10/11/23 Unknown History mcg/actuation nasal spray,suspension (Flonase Allergy Relief) gabapentin 100 mg capsule 200 mg PO TID 10/11/22 10/11/23 Unknown History hydralazine 50 mg tablet 50 mg PO BID 10/11/22 10/11/23 Unknown History hydrochlorothiazide 25 mg tablet 25 mg PO QAM 10/11/22 10/11/23 Unknown History isosorbide mononitrate 30 mg 30 mg PO DAILY 10/11/22 10/11/23 Unknown History tablet,extended release 24 hr meloxicam 15 mg tablet 15 mg PO DAILY 10/11/22 10/11/23 Unknown History metoprolol tartrate 50 mg tablet 50 mg PO BID 10/11/22 10/11/23 Unknown History montelukast 10 mg tablet 10 mg PO DAILY 10/11/22 10/11/23 Unknown History oxycodone-acetaminophen 5 mg-325 1 tab PO BID PRN severe pain 10/11/22 10/11/23 Unknown History mg tablet sennosides 8.6 mg tablet (senna) 8.6 - 17.2 mg PO DAILY PRN 10/11/22 10/11/23 Unknown History constipation tamsulosin 0.4 mg capsule 0.4 mg PO BEDTIME 10/11/22 10/11/23 Unknown History Physical Exam 2 Vital Signs: Vital Signs: Last Vital Signs Temp 98.3 F 11/20/23 08:37 Pulse 63 11/20/23 08:37 Resp 19 11/20/23 08:37 BP 117/69 11/20/23 08:37 Pulse Ox 94 11/20/23 08:37 O2 Del Method Room Air 11/20/23 08:37 BMI result Body Mass Index 34.9 GENERAL APPEARANCE: in no acute distress, pleasant. NECK: no carotid bruit, no jugular venous distention. SKIN: no suspicious lesions, warm and dry. HEART: no murmurs, regular rate and rhythm. LUNGS: clear to auscultation bilaterally. ABDOMEN: soft, nontender. EXTREMITIES: no edema. PERIPHERAL PULSES: equal. NEUROLOGIC: No gross deficits, AAO X 3 Objective Labs and Meds 11/20/23 05:20 11/20/23 05:20 Lab results: Laboratory Results - last 24 hr 11/20/23 11/20/23 05:20 07:39 WBC 10.2 RBC 4.39 L Hgb 12.9 L Hct 37.6 L MCV 85.6 MCH 29.4 MCHC 34.3 RDW 14.0 Plt Count 251 MPV 9.0 L Immature Gran % (Auto) 0.3 Neut % (Auto) 55.6 Lymph % (Auto) 27.1 [place] % (Auto) 12.1 H Eos % (Auto) 4.2 H Baso % (Auto) 0.7 Lymph # (Auto) 2.8 [place] # (Auto) 1.2 Eos # (Auto) 0.4 Baso # (Auto) 0.1 Abs Immat Gran (auto) 0.03 Absolute Neuts (auto) 5.7 Absolute Nucleated RBC 0.000 Nucleated RBC % (auto) 0.0 Hold Blue Top SEE NOTE Sodium 141 Potassium 3.0 L Chloride 104 Carbon Dioxide 26 Anion Gap 14 BUN 10 Creatinine 0.81 Estim Creat Clear Calc 97.8 Estimated GFR > 60 Random Glucose 181 H Calcium 9.8 Total Bilirubin 0.5 AST 20 ALT 21 Alkaline Phosphatase 94 Troponin I High Sens 64.3 H 173.5 H* D Total Protein 6.6 Albumin 4.0 Imaging Radiologist's impression: Impressions Chest X-Ray 11/20/23 05:44 IMPRESSION: Unchanged Normal chest x-ray. Assessment and Plan (1) NSTEMI (non-ST elevated myocardial infarction): Status: Acute Plan 72-year-old gentleman presenting with shoulder discomfort and NSTEMI. Known history of coronary artery disease. He is on aspirin Plavix. Continue dual antiplatelet therapy. Start heparin drip. I have discussed the case with Dr. Abbasi and I am transferring the patient to [facility] for cardiac catheterization. Blood pressure is well controlled. On high-intensity statin therapy as well as evolocumab. Thank you for allowing me to participate in the care of your patient. Please feel free to contact me if you have any questions. Procedures Date of Service Date of Service: 11/20/23
--- NOTE | 2023-11-20 10:59 | ED_ITS ---
HPI - Chest Pain General Chief Complaint: Chest Pain Stated Complaint: cp with sob Time Seen by Provider: 11/20/23 08:12 Source: patient Mode of arrival: ambulatory Limitations: no limitations History of Present Illness ED Provider: Dr. Palomino HPI narrative: Patient with a few days of back pain radiating to his chest. He has had stenting 4 times over the last 16 years most recently 2 years ago. Patient also feels like his pain comes on when he ambulates. This morning when he got his pain again he decided to come to the ED. MD complaint: chest pain Pertinent past history: coronary artery disease, prior GA and [employer] Onset (ago): day(s) Timing of current episode: episodic Prior episodes: Yes Pain location: substernal Severity: mild Quality: aching Risk Factors Coronary artery disease risk factors: smoking history, hyperlipidemia and hypertension Related Data Home Medications ?Medication ?Instructions ?Recorded ?Confirmed acetaminophen 325 mg tablet 500 mg PO Q8H PRN 10/11/22 10/11/23 allopurinol 100 mg tablet 100 mg PO DAILY 10/11/22 10/11/23 amlodipine 5 mg tablet 5 mg PO QAM 10/11/22 10/11/23 aspirin 81 mg chewable tablet 1 tab PO QAM 10/11/22 10/11/23 atorvastatin 80 mg tablet 80 mg PO DAILY 10/11/22 10/11/23 cholecalciferol (vitamin D3) 25 25 mcg PO DAILY 10/11/22 10/11/23 mcg (1,000 unit) capsule (Vitamin D3) clopidogrel 75 mg tablet 75 mg PO DAILY 10/11/22 10/11/23 docusate sodium 100 mg capsule 100 mg PO BID 10/11/22 10/11/23 evolocumab 140 mg/mL subcutaneous 140 mg subcut Q2W 10/11/22 10/11/23 syringe (Repatha Syringe) fluticasone propionate 50 1 spray intranasal BID 10/11/22 10/11/23 mcg/actuation nasal spray,suspension (Flonase Allergy Relief) gabapentin 100 mg capsule 200 mg PO TID 10/11/22 10/11/23 hydralazine 50 mg tablet 50 mg PO BID 10/11/22 10/11/23 hydrochlorothiazide 25 mg tablet 25 mg PO QAM 10/11/22 10/11/23 isosorbide mononitrate 30 mg 30 mg PO DAILY 10/11/22 10/11/23 tablet,extended release 24 hr meloxicam 15 mg tablet 15 mg PO DAILY 10/11/22 10/11/23 metoprolol tartrate 50 mg tablet 50 mg PO BID 10/11/22 10/11/23 montelukast 10 mg tablet 10 mg PO DAILY 10/11/22 10/11/23 oxycodone-acetaminophen 5 mg-325 1 tab PO BID PRN severe pain 10/11/22 10/11/23 mg tablet sennosides 8.6 mg tablet (senna) 8.6 - 17.2 mg PO DAILY PRN 10/11/22 10/11/23 constipation tamsulosin 0.4 mg capsule 0.4 mg PO BEDTIME 10/11/22 10/11/23 Previous Rx's ?Medication ?Instructions ?Recorded albuterol sulfate 90 mcg/actuation 2 puff inhalation Q4-6H PRN asthma 10/11/23 aerosol inhaler 30 days #8.5 grams Allergies Allergy/AdvReac Type Severity Reaction Status Date / Time No Known Allergies Allergy Verified 11/20/23 05:10 Review of Systems 2 Review of Systems: Yes all other systems are reviewed and are negative Neurologic: Denies Sensory deficit (Neuro) PMFSH Past Medical History Medical History Allergic rhinitis Bronchial asthma ZEV (obstructive sleep apnea) Obesity (BMI 30-39.9) HTN (hypertension) Asthma CVA (cerebral vascular accident) Surgical History H/O heart artery stent Social History Social History Alcohol intake: former Patient Tobacco Use Status: Former Tobacco user Smoked in Last 30 Days: Yes Use of substances other than those prescribed or required for medical reasons: No Advance Directives: No Advance Directives Information Provided: Yes Physical Exam 2 Vital Signs: Vital Signs: Last Vital Signs Temp 98.4 F 11/20/23 10:40 Pulse 75 11/20/23 10:40 Resp 20 11/20/23 10:40 BP 130/80 11/20/23 10:40 Pulse Ox 98 11/20/23 10:40 O2 Del Method Room Air 11/20/23 10:40 BMI result Body Mass Index 34.9 Const: General: healthy appearing Nutritional Appearance: average body habitus Orientation/consciousness: oriented to person and patient oriented x3 Limitations: no limitations HEENT: Head: Yes normal to inspection Ears: external ears normal General nose exam: Normal external nose present Mouth: Normal oral and palatal mucosa present and oropharynx normal Throat: Yes posterior oropharynx normal Eyes: General: appearance normal, both eyes and all related structures Neck: Other: supple Neck: Yes normal visual inspection Chest: Chest palpation & inspection: normal inspection of the chest Resp: Auscultation: clear to auscultation bilaterally Cardio: Jugular venous distension: no JVD Rate: regular rate Rhythm: r egular rhythm Heart sounds: S1 normal heart sound present and S2 normal heart sound present GI: Inspection: Yes normal to inspection Palpation (GI): Soft to palpation, nontender and No hepatosplenomegaly present Auscultation: normal bowel sounds : General: Yes no CVA tenderness Back/Spine/Pelvis: Back: no CVA tenderness Skin: General skin exam: no rashes or lesions noted Neuro: General: oriented to person and patient oriented x3 Cranial nerves: Yes CN's II-XII intact bilaterally Motor exam (neuro): 5/5 motor strength present throughout Sensory Exam: No Sensory deficit (Neuro) Extrem: General: Yes normal to inspection Psych: Appearance: grossly normal Course Reevaluation(s) Reevaluation #1: patient with elevating troponins, discussed with Dr. Odom, will transfer to [facility] for cardiac cath Time: 11:11 Reevaluation #2: I spent 40 minutes of critical care, with interventions, assessments, speaking to patient, consultants, and family. Time: 11:11 Medications Administered Discontinued Medications Generic Name Dose Route Start Last Admin Trade Name Freq PRN Reason Stop Dose Admin Nitroglycerin 1 inch 11/20/23 08:20 11/20/23 08:46 Nitroglycerin 2 % Oint 1 Gm Packet TRANSDERMA 11/20/23 08:21 1 inch ONCE ONE Administration Medical Decision Making Differential Diagnosis Differential Diagnoses: The differential diagnosis associated with the presentation includes (Nonstemi, chest pain, cardiac ischemia) Admission/Observation Consideration of admission/observation: Escalation of care including admission/observation considered (upon arrival patient considered for admission) Consult Healthcare Provider Management of the patient was discussed with: [employer] (Dr. Odom cardiology) Lab Data 11/20/23 05:20 11/20/23 05:20 Labs: Lab Results 11/20/23 11/20/23 Range/Units 05:20 07:39 WBC 10.2 (4.8-10.8) X10*3/uL RBC 4.39 L (4.60-5.80) X10*6/uL Hgb 12.9 L (14.0-18.0) g/dl Hct 37.6 L (42.0-52.0) % MCV 85.6 (80.0-98.0) fL MCH 29.4 (27.0-33.0) pg MCHC 34.3 (31.0-36.0) g/dl RDW 14.0 (11.0-16.0) % Plt Count 251 (160-400) X10*3/uL MPV 9.0 L (9.4-12.4) fL Immature Gran % (Auto) 0.3 (0.0-0.4) % Neut % (Auto) 55.6 (45-73) % Lymph % (Auto) 27.1 (20-40) % [place] % (Auto) 12.1 H (2-11) % Eos % (Auto) 4.2 H (0-4) % Baso % (Auto) 0.7 (0-2) % Lymph # (Auto) 2.8 (1.2-4.9) X10*3/uL [place] # (Auto) 1.2 (0.1-1.2) X10*3/uL Eos # (Auto) 0.4 (0.0-0.4) X10*3/uL Baso # (Auto) 0.1 (0.0-0.2) X10*3/uL Abs Immat Gran (auto) 0.03 (0.00-0.03) X10*3/uL Absolute Neuts (auto) 5.7 (2.0-8.3) x10*3/uL Absolute Nucleated RBC 0.000 (0.0-0.012) X10*3/uL Nucleated RBC % (auto) 0.0 (0.0-0.2) /100WBC Hold Blue Top SEE NOTE Sodium 141 (135-145) mmol/L Potassium 3.0 L (3.3-5.1) mmol/L Chloride 104 (96-108) mmol/L Carbon Dioxide 26 (22-29) mmol/L Anion Gap 14 (12-20) BUN 10 (9-16) mg/dL Creatinine 0.81 (0.5-1.4) mg/dL Estim Creat Clear Calc 97.8 Estimated GFR > 60 Random Glucose 181 H (60-115) mg/dL Calcium 9.8 (8.4-10.2) mg/dL Total Bilirubin 0.5 (0.0-1.0) mg/dL AST 20 (5-37) U/L ALT 21 (0-40) U/L Alkaline Phosphatase 94 (39-117) U/L Troponin I High Sens 64.3 H 173.5 H* D (<3.5-35.0) ng/L Total Protein 6.6 (6.5-8.0) g/dL Albumin 4.0 (3.5-5.0) g/dL Independent Interpretation I performed an independent interpretation of an: EKG (sinus 66 old inferior wall GA, lateral twave changes) External Record Review External record reviewed: Outpatient record and Outside ED record Prescription Management I considered prescription management with: Antibiotic (no source of infection) Discharge Plan Discharge Clinical Impression: Chest pain, NSTEMI (non-ST elevated myocardial infarction) Patient Disposition: Xfer Acute Care Hospital Transfer Details: needs cardiac cath Prescriptions: No Action acetaminophen 325 mg tablet 500 mg PO Q8H PRN allopurinol 100 mg tablet 100 mg PO DAILY amlodipine 5 mg tablet 5 mg PO QAM aspirin 81 mg tablet,chewable 1 tab PO QAM atorvastatin 80 mg tablet 80 mg PO DAILY cholecalciferol (vitamin D3) [Vitamin D3] 25 mcg (1,000 unit) capsule 25 mcg PO DAILY clopidogrel 75 mg tablet 75 mg PO DAILY docusate sodium 100 mg capsule 100 mg PO BID Repatha Syringe 140 mg/mL syringe 140 mg subcut Q2W fluticasone propionate [Flonase Allergy Relief] 50 mcg/actuation spray,suspension 1 spray intranasal BID Rx Instructions: administer into each nostril gabapentin 100 mg capsule 200 mg PO TID hydralazine 50 mg tablet 50 mg PO BID hydrochlorothiazide 25 mg tablet 25 mg PO QAM isosorbide mononitrate 30 mg tablet extended release 24 hr 30 mg PO DAILY metoprolol tartrate 50 mg tablet 50 mg PO BID montelukast 10 mg tablet 10 mg PO DAILY oxycodone-acetaminophen 5-325 mg tablet 1 tab PO BID PRN (Reason: severe pain) tamsulosin 0.4 mg capsule 0.4 mg PO BEDTIME sennosides [senna] 8.6 mg tablet 8.6 - 17.2 mg PO DAILY PRN (Reason: constipation) meloxicam 15 mg tablet 15 mg PO DAILY albuterol sulfate 90 mcg/actuation HFA aerosol inhaler 2 puff inhalation Q4-6H PRN (Reason: asthma) 30 Days Qty: 8.5 3RF Print Language: Mauritian
[2023-11-20] MEDS: Potassium Chloride/H20 10 MEQ/100 ML PIGGYBACK 100 MEQ IV (11:47)
--- NOTE | 2023-11-20 12:49 | PC.NURSE ---
Report given to Galilea SULLIVAN at [facility] at [facility]
== END 2023-11-20 13:35 | disposition short-term general hospital (02) ==
PROVIDERS: Emergency Provider Emergency Medicine
DX: I21.4 Non-ST elevation (NSTEMI) myocardial infarction (principal); M25.511 Pain in right shoulder; R79.89 Other specified abnormal findings of blood chemistry; R07.9 Chest pain, unspecified; I25.10 Atherosclerotic heart disease of native coronary artery without angina pectoris; I11.0 Hypertensive heart disease with heart failure; J45.909 Unspecified asthma, uncomplicated; Z86.73 Personal history of transient ischemic attack (TIA), and cerebral infarction without residual deficits; Z79.899 Other long term (current) drug therapy
CPT/HCPCS: 36415; 71045; 80053; 84484; 85025; 93005; 96374; 99285; J3480

== ENCOUNTER → 2023-11-20 06:26 | Outpatient (BNV) | payer OTHER, SELFPAY | PROVIDERS: Emergency Provider Emergency Medicine; Visit Provider Internal Medicine Cardiovascular Disease | DX: I21.4 Non-ST elevation (NSTEMI) myocardial infarction (principal); I45.19 Other right bundle-branch block; R94.31 Abnormal electrocardiogram [ECG] [EKG] | CPT/HCPCS: 93010; 99223 ==

== ENCOUNTER 2024-03-17 16:16 | Observation (INO) | payer OTHER, SELFPAY ==
[2024-03-17] VITALS (8 sets, daily range): BP systolic 139–186; BP diastolic 72–102; PULSE 62–68; RESP 16–18; TEMP 36.6–37; O2SAT 96–98; BMI 32.5
--- NOTE | ~2024-03-17 | XR_ITS ---
EXAMINATION: XR CHEST CLINICAL INFORMATION: Chest pain/hypertension COMPARISON: 12/16/2021 TECHNIQUE: Frontal view of the chest was obtained. FINDINGS: Clear lungs. No effusion or pneumothorax. Unchanged cardiomediastinal silhouette. XR/XR chest 1V IMPRESSION: No acute cardiopulmonary findings. Electronically signed by: Juanita Bautista MD 03/17/2024 06:17 PM [facility]
--- NOTE | ~2024-03-17 | US_ITS ---
EXAMINATION: RENAL ULTRASOUND WITH DUPLEX DOPPLER INTERROGATION CLINICAL INFORMATION: Hypertension COMPARISON: None. TECHNIQUE: Real-time imaging of the kidneys and bladder. FINDINGS: RIGHT KIDNEY: 10.65, 6.2 pounds 5 cm (SAG x AP x TRV). The kidney is normal in size, contour and echogenicity. Renal cortical thickness is normal. Nonobstructing small 7 mm midpole calculus lower pole 5 mm calculus. No hydronephrosis. Duplex Doppler interrogation demonstrates normal early systolic peaks throughout. Peak systolic velocities are all within normal limits measuring 62 96 cm/s within the renal artery. Resistive indices are 0.67-.75.. Renal vein patent. LEFT KIDNEY: 11.4, 6.3, 6.5 cm (SAG x AP x TRV). The kidney is normal in size, contour and echogenicity. Renal cortical thickness is normal. Multiple cysts noted which appears simple. No obstructing upper lobe pole stones x2 measures 9 mm each. No hydronephrosis. Normal early systolic peaks and normal peak systolic velocities ranging from 49 to 82 cm/s. Resistive indices normal at 0.54-0.66. Renal vein patent. BLADDER: Well-distended and normal. Bladder is decompressed. Bilateral ureteral jets are demonstrated. US/US renal doppler IMPRESSION: No obstructive uropathy. Bilateral nonobstructing renal calculi. No duplex Doppler evidence for any hemodynamically renal artery stenosis. Electronically signed by: Jake Ramos MD 03/18/2024 07:23 PM [facility]
--- NOTE | 2024-03-17 16:57 | ECG_ITS ---
Test Reason : CP Blood Pressure : / mmHG Vent. Rate : 065 BPM Atrial Rate : 065 BPM P-R Int : 170 ms QRS Dur : 090 ms QT Int : 440 ms P-R-T Axes : 047 -29 218 degrees QTc Int : 457 ms Normal sinus rhythm Septal infarct , age undetermined T wave abnormality, consider lateral ischemia Abnormal ECG When compared with ECG of 20-NOV-2023 08:45, MO interval has decreased Septal infarct is now Present Inverted T waves have replaced nonspecific T wave abnormality in Lateral leads Referred By: Generic ED Physician Electronically Signed By:LUCÍA CRAWFORD MD
[2024-03-17 17:37] LABS: MANUAL DIFF FLAG NO
[2024-03-17 17:40] LABS: Basophils Absolute Auto 0.1 X10*3/uL (0.0-0.2); Basophils Percent Auto 0.7 % (0-2); Eosinophils Absolute Auto 0.6 X10*3/uL (0.0-0.4); Eosinophils Percent Auto 6.8 % (0-4); Hematocrit 41.1 % (42.0-52.0); Hemoglobin 13.1 g/dl (14.0-18.0); Imm Gran Abs Auto 0.02 X10*3/uL (0.00-0.03); Imm Gran Pct Auto 0.2 % (0.0-0.4); Lymphocytes Absolute Auto 2.9 X10*3/uL (1.2-4.9); Lymphocytes Percent Auto 35.4 % (20-40); Mean Corpuscular HGB Conc 31.9 g/dl (31.0-36.0); Mean Corpuscular Hemoglobin 26.6 pg (27.0-33.0); Mean Corpuscular Volume 83.5 fL (80.0-98.0); Mean Platelet Volume 8.8 fL (9.4-12.4); Monocytes Absolute Auto 0.9 X10*3/uL (0.1-1.2); Monocytes Percent Auto 10.8 % (2-11); Neutrophils Absolute Auto 3.7 x10*3/uL (2.0-8.3); Neutrophils Percent Auto 46.1 % (45-73); Platelet Count 283 X10*3/uL (160-400); Red Blood Count 4.92 X10*6/uL (4.60-5.80); Red Cell Distribution Width 15.6 % (11.0-16.0)
--- NOTE | 2024-03-17 17:53 | PC.NURSE ---
resting quietly in room, ambulates independently to the bathroom with steady gait. states he has a headache. tylenol ordered
[2024-03-17 17:54] LABS: Alanine Aminotransferase 17 U/L (0-40); Albumin Level 4.3 g/dL (3.5-5.0); Alkaline Phosphatase 96 U/L (39-117); Anion Gap 14 (12-20); Aspartate Amino Transferase 25 U/L (5-37); Bilirubin Total 0.5 mg/dL (0.0-1.0); Blood Urea Nitrogen 11 mg/dL (9-16); Calcium 10.5 mg/dL (8.4-10.2); Carbon Dioxide 28 mmol/L (22-29); Chloride 105 mmol/L (96-108); Creatinine Clr Calc Pharmacy 88.6; Estimated Glomerular Filt Rate > 60; Glucose Random 97 mg/dL (60-115); Potassium 3.8 mmol/L (3.3-5.1); Sodium 143 mmol/L (135-145); Total Protein 7.5 g/dL (6.5-8.0)
[2024-03-17] MEDS: Acetaminophen 325 MG TABLET 650 MG PO (17:58)
[2024-03-17 18:06] LABS: Appearance Urine Clear; Color Urine Yellow; Glucose Urine UA Negative (Negative); Leukocyte Esterase Urine Negative (Negative); Nitrite Urine Negative (Negative); Urine Blood Negative (Negative); Urine Ketones Negative (Negative); Urine Protein Negative (Neg-Trace)
--- NOTE | 2024-03-17 19:31 | PC.NURSE ---
Report taken from Carlee SULLIVAN, assumed care of pt at this time. A&Ox3 skin pwd respirations even unlabored. BP remains elevated, endorsing headache 08/21. Awaiting repeat troponin and MD reeval, aware of plan of care.
[2024-03-17 19:44] LABS: Troponin-I High Sensitivity 5.8 ng/L (<3.5-35.0)
[2024-03-17] MEDS: Metoprolol Tartrate 50 MG TABLET PO (19:58)
--- NOTE | 2024-03-17 22:07 | ED_ITS ---
HPI - General Adult General Chief complaint: General Medical Stated complaint: HTN post CABGx3 a few months ago,dizzy Time Seen by Provider: 03/17/24 19:00 Source: patient Limitations: no limitations History of Present Illness ED Provider: Krystle Prabhakar PA-C HPI narrative: 73-year-old male with a history of hypertension, hyperlipidemia, coronary artery disease, prior NSTEMI, now status post CABG 3-4 months ago, presents with a hypertensive urgency. Patient has followed up with his life skills instructor, due to poorly controlled blood pressure. Recently, his life skills instructor increased his metoprolol to 50 mg b.i.d., with 5 mg of amlodipine given in the morning. Patient has been having intermittent blurred vision dizziness and generalized headaches. Denies chest pain, shortness of breath, new pedal edema, diaphoresis. Patient states he was sent here today by his life skills instructor due to his poorly controlled blood pressure. Patient states he has been medication adherence, he took his scheduled medications this morning. Related Data Home Medications ?Medication ?Instructions ?Recorded ?Confirmed acetaminophen 325 mg tablet 500 mg PO Q8H PRN 10/11/22 10/11/23 allopurinol 100 mg tablet 100 mg PO DAILY 10/11/22 10/11/23 amlodipine 5 mg tablet 5 mg PO QAM 10/11/22 10/11/23 aspirin 81 mg chewable tablet 1 tab PO QAM 10/11/22 10/11/23 atorvastatin 80 mg tablet 80 mg PO DAILY 10/11/22 10/11/23 cholecalciferol (vitamin D3) 25 25 mcg PO DAILY 10/11/22 10/11/23 mcg (1,000 unit) capsule (Vitamin D3) clopidogrel 75 mg tablet 75 mg PO DAILY 10/11/22 10/11/23 docusate sodium 100 mg capsule 100 mg PO BID 10/11/22 10/11/23 evolocumab 140 mg/mL subcutaneous 140 mg subcut Q2W 10/11/22 10/11/23 syringe (Repatha Syringe) fluticasone propionate 50 1 spray intranasal BID 10/11/22 10/11/23 mcg/actuation nasal spray,suspension (Flonase Allergy Relief) gabapentin 100 mg capsule 200 mg PO TID 10/11/22 10/11/23 hydralazine 50 mg tablet 50 mg PO BID 10/11/22 10/11/23 hydrochlorothiazide 25 mg tablet 25 mg PO QAM 10/11/22 10/11/23 isosorbide mononitrate 30 mg 30 mg PO DAILY 10/11/22 10/11/23 tablet,extended release 24 hr meloxicam 15 mg tablet 15 mg PO DAILY 10/11/22 10/11/23 metoprolol tartrate 50 mg tablet 50 mg PO BID 10/11/22 10/11/23 montelukast 10 mg tablet 10 mg PO DAILY 10/11/22 10/11/23 oxycodone-acetaminophen 5 mg-325 1 tab PO BID PRN severe pain 10/11/22 10/11/23 mg tablet sennosides 8.6 mg tablet (senna) 8.6 - 17.2 mg PO DAILY PRN 10/11/22 10/11/23 constipation tamsulosin 0.4 mg capsule 0.4 mg PO BEDTIME 10/11/22 10/11/23 Previous Rx's ?Medication ?Instructions ?Recorded albuterol sulfate 90 mcg/actuation 2 puff inhalation Q4-6H PRN asthma 10/11/23 aerosol inhaler 30 days #8.5 grams Allergies Allergy/AdvReac Type Severity Reaction Status Date / Time No Known Allergies Allergy Verified 03/17/24 16:36 Review of Systems 2 Review of Systems: Yes all other systems are reviewed and are negative Constitutional: Constitutional: Denies fatigue, Denies fever(s) and Reports headache(s) ENT: Reports dizziness and Reports headache(s) Cardiovascular: Cardiovascular: Denies chest pain, Denies pedal edema and Denies dyspnea Respiratory: Respiratory: Denies cough and Denies dyspnea Gastrointestinal: Gastrointestinal: Denies nausea and Denies vomiting Neurologic: Reports dizziness and Reports headache(s) Endocrine: Endocrine: Denies fatigue PMF Past Medical History Attestation statement: The following information was validated with the patient. Medical History Allergic rhinitis Bronchial asthma ZEV (obstructive sleep apnea) Obesity (BMI 30-39.9) HTN (hypertension) Asthma CVA (cerebral vascular accident) Surgical History H/O heart artery stent Social History Social History Alcohol intake: former Patient Tobacco Use Status: Former Tobacco user Advance Directives: No Advance Directives Information Provided: No Do you have a plan to hurt others: No Plan Physical Exam ED Vital Signs: Vital Signs - 24 hr 03/17/24 16:33 03/17/24 18:00 03/17/24 19:30 Temperature 98.6 F Pulse Rate 66 63 62 Respiratory Rate 16 16 16 Blood Pressure 169/98 H 139/97 H 178/102 H Pulse Oximetry 97 97 97 Oxygen Delivery Method Room Air Room Air Room Air 03/17/24 19:58 03/17/24 21:10 03/17/24 22:17 Temperature 97.9 F Pulse Rate 62 65 63 Respiratory Rate 17 Blood Pressure 178/102 H 171/97 H 175/101 H Pulse Oximetry 97 Oxygen Delivery Method Room Air 03/17/24 22:38 Temperature Pulse Rate 66 Respiratory Rate 18 Blood Pressure 154/72 H Pulse Oximetry 96 Oxygen Delivery Method BMI result Body Mass Index 32.5 Const Other: Alert, overall well-appearing Orientation/consciousness: patient oriented x3 Resp Other: Nonlabored respiration Cardio Other: Normal peripheral perfusion, no pedal edema Skin Other: Warm dry no rash Neuro General: patient oriented x3, gait normal, no focal motor deficits and CN's II- XI intact bilaterally Psych Other: Calm cooperative Course Reevaluation(s) Reevaluation #1: Patient's pressure starting to elevate, 170 systolic, we will give his evening dose of metoprolol 50 mg. Reevaluation #2: Hypertension remains refractory, he is now 180 systolic, we will give 20 mg of [address]ol and place an admission request Reevaluation #3: Pressure transiently decreased to 154 systolic, shortly thereafter he is bumping up into the 160s again Medications Administered Generic Name Dose Route Start Last Admin Trade Name Freq PRN Reason Stop Dose Admin Sodium Chloride 3 ml 03/18/24 00:00 03/17/24 23:22 0.9 % Sodium Chloride Flush 3 Ml Syringe IVFLUSH 3 ml QSHIFT MICHAEL Administration Discontinued Medications Generic Name Dose Route Start Last Admin Trade Name Freq PRN Reason Stop Dose Admin Acetaminophen 650 mg 03/17/24 17:51 03/17/24 17:58 Acetaminophen 325 Mg Tablet PO 03/17/24 17:52 650 mg ONCE ONE Administration Labetalol HCl 20 mg 03/17/24 22:05 03/17/24 22:17 Labetalol Hcl 100 Mg/20 Ml Vial IVPUSH 03/17/24 22:06 20 mg ONCE ONE Administration Melatonin 6 mg 03/17/24 23:15 03/17/24 23:21 Melatonin 3 Mg Tablet PO 03/17/24 23:16 6 mg ONCE STA Administration Metoprolol Tartrate 50 mg 03/17/24 19:45 03/17/24 19:58 Metoprolol Tartrate 50 Mg Tablet PO 03/17/24 19:46 50 mg ONCE ONE Administration Protocol Medical Decision Making Medical Decision Making MDM Narrative: 73-year-old male with a history of hypertension, hyperlipidemia, coronary artery disease, prior NSTEMI, now status post CABG 3-4 months ago, presents with a hypertensive urgency. Patient has followed up with his life skills instructor, due to poorly controlled blood pressure. Recently, his life skills instructor increased his metoprolol to 50 mg b.i.d., with 5 mg of amlodipine given in the morning. Patient has been having intermittent blurred vision dizziness and generalized headaches. Denies chest pain, shortness of breath, new pedal edema, diaphoresis. Patient states he was sent here today by his life skills instructor due to his poorly controlled blood pressure. Patient states he has been medication adherence, he took his scheduled medications this morning. Problem: Age, known coronary artery disease History: Per patient I have considered the following differential diagnoses: Hypertensive urgency cut hypertensive emergency, ACS, end-organ damage, new heart failure Plan: Patient is here with hypertensive urgency, however, the pressures we have had documented thus far have been 160s systolic. Screening labs including cardiac enzymes, EKG and chest x-ray have been obtained. I have independently reviewed the following tests: Labs: No leukocytosis, not anemic, no electrolyte abnormality, troponin x2 flat, they are 5 and 5.8 respectively EKG: Sinus rhythm, rate of 65, no ectopy, inverted T waves noted lateral leads, is changed from prior study November of this year Chest x-ray: XR/XR chest 1V IMPRESSION: No acute cardiopulmonary findings. Electronically signed by: Juanita Bautista MD 03/17/2024 06:17 PM NURY Lab Data 03/17/24 17:34 11/04/24 17:34 Labs: Lab Results 03/17/24 03/17/24 03/17/24 Range/Units 17:34 18:00 19:18 WBC 8.0 (4.8-10.8) X10*3/uL RBC 4.92 (4.60-5.80) X10*6/uL Hgb 13.1 L (14.0-18.0) g/dl Hct 41.1 L (42.0-52.0) % MCV 83.5 (80.0-98.0) fL MCH 26.6 L (27.0-33.0) pg MCHC 31.9 (31.0-36.0) g/dl RDW 15.6 (11.0-16.0) % Plt Count 283 (160-400) X10*3/uL MPV 8.8 L (9.4-12.4) fL Immature Gran % (Auto) 0.2 (0.0-0.4) % Neut % (Auto) 46.1 (45-73) % Lymph % (Auto) 35.4 (20-40) % [place] % (Auto) 10.8 (2-11) % Eos % (Auto) 6.8 H (0-4) % Baso % (Auto) 0.7 (0-2) % Lymph # (Auto) 2.9 (1.2-4.9) X10*3/uL [place] # (Auto) 0.9 (0.1-1.2) X10*3/uL Eos # (Auto) 0.6 H (0.0-0.4) X10*3/uL Baso # (Auto) 0.1 (0.0-0.2) X10*3/uL Abs Immat Gran (auto) 0.02 (0.00-0.03) X10*3/uL Absolute Neuts (auto) 3.7 (2.0-8.3) x10*3/uL Absolute Nucleated RBC 0.000 (0.0-0.012) X10*3/uL Nucleated RBC % (auto) 0.0 (0.0-0.2) /100WBC Sodium 143 (135-145) mmol/L Potassium 3.8 D (3.3-5.1) mmol/L Chloride 105 (96-108) mmol/L Carbon Dioxide 28 (22-29) mmol/L Anion Gap 14 (12-20) BUN 11 (9-16) mg/dL Creatinine 0.85 (0.5-1.4) mg/dL Estim Creat Clear Calc 88.6 Estimated GFR > 60 Random Glucose 97 (60-115) mg/dL Calcium 10.5 H D (8.4-10.2) mg/dL Total Bilirubin 0.5 (0.0-1.0) mg/dL AST 25 (5-37) U/L ALT 17 (0-40) U/L Alkaline Phosphatase 96 (39-117) U/L Troponin I High Sens 5.0 D 5.8 (<3.5-35.0) ng/L Total Protein 7.5 (6.5-8.0) g/dL Albumin 4.3 (3.5-5.0) g/dL Urine Color Yellow Urine Appearance Clear Urine pH 7.0 (5.0-9.0) Ur Specific [place] 1.010 (1.005-1.025) Urine Protein Negative (Neg-Trace) mg/dL Urine Glucose (UA) Negative (Negative) mg/dL Urine Ketones Negative (Negative) mg/dL Urine Blood Negative (Negative) Urine Nitrite Negative (Negative) Ur Leukocyte Esterase Negative (Negative) Discharge Plan Discharge Clinical Impression: Hypertensive urgency Patient Disposition: Admitted As Inpatient Prescriptions: No Action acetaminophen 325 mg tablet 500 mg PO Q8H PRN allopurinol 100 mg tablet 100 mg PO DAILY amlodipine 5 mg tablet 5 mg PO QAM aspirin 81 mg tablet,chewable 1 tab PO QAM atorvastatin 80 mg tablet 80 mg PO DAILY cholecalciferol (vitamin D3) [Vitamin D3] 25 mcg (1,000 unit) capsule 25 mcg PO DAILY clopidogrel 75 mg tablet 75 mg PO DAILY docusate sodium 100 mg capsule 100 mg PO BID Repatha Syringe 140 mg/mL syringe 140 mg subcut Q2W fluticasone propionate [Flonase Allergy Relief] 50 mcg/actuation spray,suspension 1 spray intranasal BID Rx Instructions: administer into each nostril gabapentin 100 mg capsule 200 mg PO TID hydralazine 50 mg tablet 50 mg PO BID hydrochlorothiazide 25 mg tablet 25 mg PO QAM isosorbide mononitrate 30 mg tablet extended release 24 hr 30 mg PO DAILY metoprolol tartrate 50 mg tablet 50 mg PO BID montelukast 10 mg tablet 10 mg PO DAILY oxycodone-acetaminophen 5-325 mg tablet 1 tab PO BID PRN (Reason: severe pain) tamsulosin 0.4 mg capsule 0.4 mg PO BEDTIME sennosides [senna] 8.6 mg tablet 8.6 - 17.2 mg PO DAILY PRN (Reason: constipation) meloxicam 15 mg tablet 15 mg PO DAILY albuterol sulfate 90 mcg/actuation HFA aerosol inhaler 2 puff inhalation Q4-6H PRN (Reason: asthma) 30 Days Qty: 8.5 3RF Print Language: German
[2024-03-17] MEDS: Labetalol HCL 100 MG/20 ML VIAL 20 MG IVPUSH (22:17)
--- NOTE | 2024-03-17 22:49 | PC.NURSE ---
Pt resting on stretcher, NAD, medicated previously with IV labetalol, BP slightly improved. Plan for admission, aware of plan of care.
[2024-03-17] MEDS: Melatonin 3 MG TABLET 6 MG PO (23:21)
--- NOTE | 2024-03-17 23:21 | PM.IMHP ---
History of Present Illness Date of Service: 03/17/24 Attending physician on admission: Chiara Thomas Chief Complaint: High blood pressure Michael Deal is a 73 years old man with past medical history significant for CAD s/p CABG (November 2023), essential hypertension, hyperlipidemia and ZEV (unable to tolerate CPAP) was sent to the emergency department for ongoing uncontrolled hypertension. He stated that today his blood pressure was obtained by his primary care physician nurse and was to have a systolic blood pressure 171. It seems like his blood pressure has been uncontrolled lately. Three weeks ago, his metoprolol was increased to 50 mg p.o. b.i.d.. He is a former tobacco smoker and currently using nicotine patch daily. He denied any headache, acute visual disturbances, dizziness, nausea, vomiting, chest pain or shortness on breath. He did not report any acute gastrointestinal or genitourinary symptoms. Former tobacco smoker -stopped smoking after cardiac surgery. Denied alcohol abuse or illicit drug use. ED tx: Acetaminophen is 150 mg p.o., metoprolol tartrate 50 mg p.o., labetalol 20 mg IV Review of Systems Review of Systems: All 12 systems were reviewed and normal except as noted in HPI. [facility], LAT[facility] Medical History Allergic rhinitis Bronchial asthma ZEV (obstructive sleep apnea) Obesity (BMI 30-39.9) HTN (hypertension) Asthma CVA (cerebral vascular accident) Surgical History H/O heart artery stent Social History Alcohol intake: former Patient Tobacco Use Status: Former Tobacco user Advance Directives: No Advance Directives Information Provided: No Do you have a plan to hurt others: No Plan Nutrition Risks: No Nutritional Risk Meds Allergies Allergy/AdvReac Type Severity Reaction Status Date / Time No Known Allergies Allergy Verified 03/17/24 16:36 Active Medications: Current Medications Acetaminophen (Acetaminophen 325 Mg Tablet) 975 mg PO Q6H PRN PRN Reason: Pain, Mild (Pain Scale 1-3), fever or headache Melatonin (Melatonin 3 Mg Tablet) 6 mg PO BEDTIME PRN PRN Reason: Insomnia Sodium Chloride (0.9 % Sodium Chloride Flush 3 Ml Syringe) [facility] Medications ?Medication ?Instructions ?Recorded ?Confirmed ?Last Taken ?Type acetaminophen 325 mg tablet 500 mg PO Q8H PRN 10/11/22 10/11/23 Unknown History allopurinol 100 mg tablet 100 mg PO DAILY 10/11/22 10/11/23 Unknown History amlodipine 5 mg tablet 5 mg PO QAM 10/11/22 10/11/23 Unknown History aspirin 81 mg chewable tablet 1 tab PO QAM 10/11/22 10/11/23 Unknown History atorvastatin 80 mg tablet 80 mg PO DAILY 10/11/22 10/11/23 Unknown History cholecalciferol (vitamin D3) 25 25 mcg PO DAILY 10/11/22 10/11/23 Unknown History mcg (1,000 unit) capsule (Vitamin D3) clopidogrel 75 mg tablet 75 mg PO DAILY 10/11/22 10/11/23 Unknown History docusate sodium 100 mg capsule 100 mg PO BID 10/11/22 10/11/23 Unknown History evolocumab 140 mg/mL subcutaneous 140 mg subcut Q2W 10/11/22 10/11/23 Unknown History syringe (Repatha Syringe) fluticasone propionate 50 1 spray intranasal BID 10/11/22 10/11/23 Unknown History mcg/actuation nasal spray,suspension (Flonase Allergy Relief) gabapentin 100 mg capsule 200 mg PO TID 10/11/22 10/11/23 Unknown History hydralazine 50 mg tablet 50 mg PO BID 10/11/22 10/11/23 Unknown History hydrochlorothiazide 25 mg tablet 25 mg PO QAM 10/11/22 10/11/23 Unknown History isosorbide mononitrate 30 mg 30 mg PO DAILY 10/11/22 10/11/23 Unknown History tablet,extended release 24 hr meloxicam 15 mg tablet 15 mg PO DAILY 10/11/22 10/11/23 Unknown History metoprolol tartrate 50 mg tablet 50 mg PO BID 10/11/22 10/11/23 Unknown History montelukast 10 mg tablet 10 mg PO DAILY 10/11/22 10/11/23 Unknown History oxycodone-acetaminophen 5 mg-325 1 tab PO BID PRN severe pain 10/11/22 10/11/23 Unknown History mg tablet sennosides 8.6 mg tablet (senna) 8.6 - 17.2 mg PO DAILY PRN 10/11/22 10/11/23 Unknown History constipation tamsulosin 0.4 mg capsule 0.4 mg PO BEDTIME 10/11/22 10/11/23 Unknown History Physical Exam Vital Signs and Narrative: Vital Signs: Last Vital Signs Temp 97.9 F 03/17/24 21:10 Pulse 66 03/17/24 22:38 Resp 18 03/17/24 22:38 BP 154/72 H 03/17/24 22:38 Pulse Ox 96 03/17/24 22:38 O2 Del Method Room Air 03/17/24 21:10 BMI result Body Mass Index 32.5 Constitutional - Awake and Alert, No apparent distress. Pleasant. Cooperative. HEENT - PER, EOMI Heart - S1S2, RRR, No edema Lungs - Normal lung expansion, Normal respiratory effort, No respiratory distress, CTA bilaterally Abdomen - NT / ND; +BS; No rebound or guarding Extremities - no calf tenderness bilaterally, no swelling Musculoskeletal - Normal inspection, normal ROM Skin - Warm/Dry. No pallor. No jaundice. Neurological - Alert & oriented x3. No focal weakness grossly noted. Normal speech. Psychological - Appropriate affect Results Labs 03/17/24 17:34 03/17/24 17:34 Labs: Laboratory Results - last 24 hr 03/17/24 03/17/24 03/17/24 17:34 18:00 19:18 MCV 83.5 MCH 26.6 L MCHC 31.9 RDW 15.6 Plt Count 283 MPV 8.8 L Immature Gran % (Auto) 0.2 Neut % (Auto) 46.1 Lymph % (Auto) 35.4 [place] % (Auto) 10.8 Eos % (Auto) 6.8 H Baso % (Auto) 0.7 Lymph # (Auto) 2.9 [place] # (Auto) 0.9 Eos # (Auto) 0.6 H Baso # (Auto) 0.1 Abs Immat Gran (auto) 0.02 Absolute Neuts (auto) 3.7 Absolute Nucleated RBC 0.000 Nucleated RBC % (auto) 0.0 Anion Gap 14 Estim Creat Clear Calc 88.6 Estimated GFR > 60 Random Glucose 97 Calcium 10.5 H D Total Bilirubin 0.5 AST 25 ALT 17 Alkaline Phosphatase 96 Troponin I High Sens 5.0 D 5.8 Total Protein 7.5 Albumin 4.3 Urine Color Yellow Urine Appearance Clear Urine pH 7.0 Ur Specific [place] 1.010 Urine Protein Negative Urine Glucose (UA) Negative Urine Ketones Negative Urine Blood Negative Urine Nitrite Negative Ur Leukocyte Esterase Negative Imaging Radiologist's Impressions: Impressions Chest X-Ray 03/17/24 17:00 IMPRESSION: No acute cardiopulmonary findings. Electronically signed by: Juanita Bautista MD 03/17/2024 06:17 PM [facility] [place] and Plan (1) Uncontrolled hypertension: Status: Acute (2) Abnormal ECG: Status: Acute Plan Michael eDal is a 73 y/o man presents with: Uncontrolled hypertension, last blood pressure 154/72. Observation. Stop nicotine patches. Continue to monitor blood pressure closely. Continue metoprolol 50 mg p.o. twice daily, hydrochlorothiazide 25 mg p.o. daily, amlodipine 5 mg p.o. daily and hydralazine 50 mg p.o. twice daily. Labetalol 10 mg every 4 hours as needed for SBP > 160. Abnormal ECG. T-wave inversion V4-V6. No chest pain, no SOB. ECGs from last hospitalization at [facility] reviewed -these changes seems to be new. Repeat ECG in am. Will consult cardiology. Asthma. Continue inhalers. Aortic aneurysm. s/p repair. Hyperlipidemia. Continue statin. CAD, s/p CABG. Continue Plavix, aspirin, Isordil and statin. Gout. Continue allopurinol. Neuropathy. Continue gabapentin. ZEV. Not tolerating CPAP. DVT prophylaxis: Early ambulation Code status: Full Quality Stroke Does the patient have a stroke diagnosis?: No VTE Prior VTE?: No VTE Risk Level:: Medical - moderate - high VTE Device Contraindication: Treatment Not Indicated VTE Drug Contraindication: Treatment Not Indicated
[2024-03-17] MEDS: 0.9 % Sodium Chloride Flush 3 ML SYRINGE IVFLUSH (23:22)
[2024-03-18] VITALS (7 sets, daily range): BP systolic 110–146; BP diastolic 70–94; PULSE 66–75; RESP 16–20; TEMP 36.2–36.6; O2SAT 94–97; BMI 31.9
[2024-03-18] MEDS: Gabapentin 100 MG CAPSULE 200 MG PO (00:02)
[2024-03-18] MEDS: Atorvastatin Calcium 80 MG TABLET PO (00:02)
--- NOTE | 2024-03-18 00:18 | MHC.EDTECH ---
This pct assumed cared of Patient at 2300 ,vitals taken ,Patient a&o ,no apparent distress noted ,Pt up walking to bathroom and back to bed ,Patient was re connected to school lunch monitor ,Patient belonging list done ,Call [facility] within Pt reach ,Plan of care continue .
[2024-03-18 06:30] LABS: MANUAL DIFF FLAG NO
[2024-03-18 06:43] LABS: Basophils Absolute Auto 0.1 X10*3/uL (0.0-0.2); Basophils Percent Auto 0.8 % (0-2); Eosinophils Absolute Auto 0.6 X10*3/uL (0.0-0.4); Eosinophils Percent Auto 6.7 % (0-4); Hematocrit 39.9 % (42.0-52.0); Hemoglobin 12.8 g/dl (14.0-18.0); Imm Gran Abs Auto 0.02 X10*3/uL (0.00-0.03); Imm Gran Pct Auto 0.2 % (0.0-0.4); Lymphocytes Absolute Auto 2.6 X10*3/uL (1.2-4.9); Lymphocytes Percent Auto 31.6 % (20-40); Mean Corpuscular HGB Conc 32.1 g/dl (31.0-36.0); Mean Corpuscular Hemoglobin 26.4 pg (27.0-33.0); Mean Corpuscular Volume 82.4 fL (80.0-98.0); Mean Platelet Volume 9.1 fL (9.4-12.4); Monocytes Absolute Auto 0.8 X10*3/uL (0.1-1.2); Monocytes Percent Auto 9.3 % (2-11); Neutrophils Absolute Auto 4.2 x10*3/uL (2.0-8.3); Neutrophils Percent Auto 51.4 % (45-73); Platelet Count 290 X10*3/uL (160-400); Red Blood Count 4.84 X10*6/uL (4.60-5.80); Red Cell Distribution Width 15.7 % (11.0-16.0); White Blood Count 8.2 X10*3/uL (4.8-10.8)
[2024-03-18 06:57] LABS: Anion Gap 14 (12-20); Blood Urea Nitrogen 12 mg/dL (9-16); Calcium 9.2 mg/dL (8.4-10.2); Carbon Dioxide 24 mmol/L (22-29); Chloride 106 mmol/L (96-108); Creatinine Clr Calc Pharmacy 88.9; Estimated Glomerular Filt Rate > 60; Glucose Random 142 mg/dL (60-115); Potassium 3.1 mmol/L (3.3-5.1); Sodium 141 mmol/L (135-145)
--- NOTE | 2024-03-18 08:00 | ECG_ITS ---
Test Reason : T waves inversions V4-V6. Blood Pressure : / mmHG Vent. Rate : 072 BPM Atrial Rate : 072 BPM P-R Int : 180 ms QRS Dur : 106 ms QT Int : 432 ms P-R-T Axes : 033 203 000 degrees QTc Int : 473 ms Normal sinus rhythm Indeterminate axis Incomplete right bundle branch block Nonspecific T wave abnormality Prolonged QT Abnormal ECG When compared with ECG of 17-MAR-2024 17:07, Incomplete right bundle branch block is now Present Criteria for Septal infarct are no longer Present Non-specific change in ST segment in Lateral leads Nonspecific T wave abnormality has replaced inverted T waves in Lateral leads Referred By: Chiara Thomas Electronically Signed By:LUCÍA CRAWFORD MD
[2024-03-18] MEDS: Potassium Chloride Packet 20 MEQ PACKET 40 MEQ PO (08:10)
[2024-03-18] MEDS: Isosorbide Mononitrate 30 MG TAB.ER.24H PO (08:11)
[2024-03-18] MEDS: Aspirin 81 MG TAB.CHEW PO (08:11)
[2024-03-18] MEDS: Clopidogrel Bisulfate 75 MG TABLET PO (08:11)
[2024-03-18] MEDS: hydrALAZINE HCl 50 MG TABLET PO (08:11)
[2024-03-18] MEDS: amLODIPine Besylate 5 MG TABLET PO (08:11)
[2024-03-18] MEDS: Metoprolol Tartrate 50 MG TABLET PO (08:12)
[2024-03-18] MEDS: hydroCHLOROthiazide 25 MG TABLET PO (08:12)
[2024-03-18] MEDS: 0.9 % Sodium Chloride Flush 3 ML SYRINGE IVFLUSH (08:14)
--- NOTE | 2024-03-18 09:29 | PHA.MEDREC ---
Addendum entered by Lyrci Jerry RPh 03/18/24 09:59: reviewed by [facility]. Original Note: Pharmacy Consult ? Medication Reconciliation Pharmacy has completed the medication reconciliation. Confirmed medications with patient. Patient confirmed he was still taking Allopurinol 100mg, Hydrochlorothiazide 25mg, Isosorbide Mononitrate 30mg, Meloxicam 15mg and Montelukast 10mg tabs and after looking in claims Allopurinol and Hydrochlorothiazide were last filled 10/24 for 90 days, Isosorbide was filled 10/24 for 60 days, and Montelukast was filled 11/20 at [facility]. Meloxicam was filled at [facility] in [place] 01/02 for 30 days. I called [facility] and they confirmed the Allopurinol was DC'd by the patient PCP on 01/17, the Hydrochlorothizide and Isosorbide were DC'd when he left a hospital 12/05. I called [facility] in [place] and they confirmed he got a dose of the Meloxicam 15mg tabs on 01/02 for 30 days and states they have the medication on hold now since the patient never picked up the most recent fill at the pharmacy. The patient also confirmed he is not taking the Repatha injection every 2 weeks anymore and has not had it in about a year and [facility] nor [facility] has no claims for that in the past yeat. The patient also confirmed with me that he is taking his Gabapentin 100mg tabs 2 tab BID instead of TID because it has been working for him doing twice a day. The patient confirmed he took his medications last yesterday morning.
--- NOTE | 2024-03-18 09:47 | PM.CNCAR ---
History of Present Illness History of Present Illness Date of Service: 03/18/24 Requesting physician: [facility] Consult reason: hypertension and other (Abnormal EKG) Chief complaint: Uncontrolled Hypertension Narrative: I was consulted to see Michael in cardiology consultation today for hypertensive urgency and abnormal EKG. Patient is a pleasant 73-year-old male with recent three-vessel coronary artery bypass grafting including MCDONNELL to LAD, SVG to PDA and free radial to the OM branch for acute coronary syndrome and three-vessel diffuse coronary artery disease. Since then patient says blood pressures been significantly elevated including when he goes to cardiac rehab. He has been on multiple medications says that he has been taking his medications regularly. He has been not smoking since the surgery and said he has made up his mind but was put on nicotine patch to avoid withdrawal. Yesterday nicotine patch was discontinued he was given IV labetalol with improvement in his blood pressure. He said he had headache and dizziness yesterday. Today feels better. He says occasionally uses high salt diet but not on a regular basis. He denies any chest pain, shortness of breath, orthopnea, PND no palpitations. EKG done yesterday showed a diffuse T-wave inversion in the lateral leads which has improved since blood pressure control. Troponins are negative. Review of Systems Constitutional: Constitutional: Reports no additional constitutional complaints and Reports headache(s) Eyes: Eyes: Reports no additional eye complaints ENT: Reports dizziness and Reports headache(s) Cardiovascular: Cardiovascular: Reports no additional cardiovascular complaints Respiratory: Respiratory: Reports no additional respiratory complaints Gastrointestinal: Gastrointestinal: Reports no additional gastrointestinal complaints Musculoskeletal: Musculoskeletal: Reports no additional musculoskeletal complaints Integumentary/Breasts: Skin/Breast: Reports system reviewed and no additional complaints, except as docu Neurologic: Reports dizziness and Reports headache(s) Psychiatric: Psychiatric: Reports no additional psychiatric complaints Endocrine: Endocrine: Reports no additional endocrine complaints Hematologic/Lymphatic: Hematologic/Lymphatic: Reports no additional hematologic/lymphatic complaints [facility] Past Medical History Medical History Allergic rhinitis Bronchial asthma ZEV (obstructive sleep apnea) Obesity (BMI 30-39.9) HTN (hypertension) Asthma CVA (cerebral vascular accident) Surgical History Surgical History H/O heart artery stent Social History Social History Alcohol intake: former Patient Tobacco Use Status: Former Tobacco user Currently Displaying Signs/Symptoms of Drug Intoxication Withdrawal: No Advance Directives: No Advance Directives Information Provided: No Do you have a plan to hurt others: No Plan Nutrition Risks: No Nutritional Risk Meds Allergies Allergy/AdvReac Type Severity Reaction Status Date / Time No Known Allergies Allergy Verified 03/17/24 16:36 Active Medications: Current Medications Acetaminophen (Acetaminophen 325 Mg Tablet) 975 mg PO Q6H PRN PRN Reason: Pain, Mild (Pain Scale 1-3), fever or headache Labetalol HCl (Labetalol Hcl 100 Mg/20 Ml Vial) 10 mg IVPUSH Q4H PRN PRN Reason: SBP > 160 Melatonin (Melatonin 3 Mg Tablet) 6 mg PO BEDTIME PRN PRN Reason: Insomnia Sodium Chloride (0.9 % Sodium Chloride Flush 3 Ml Syringe) 3 ml [facility] Last Admin: 03/18/24 08:14 Dose: 3 ml Home Medications ?Medication ?Instructions ?Recorded ?Confirmed ?Last Taken ?Type acetaminophen 325 mg tablet 500 mg PO Q8H PRN Pain 10/11/22 03/18/24 Unknown History amlodipine 5 mg tablet 5 mg PO DAILY 10/11/22 03/18/24 03/17/24 History atorvastatin 80 mg tablet 80 mg PO BEDTIME 10/11/22 03/18/24 03/17/24 History cholecalciferol (vitamin D3) 25 25 mcg PO DAILY 10/11/22 03/18/24 03/17/24 History mcg (1,000 unit) capsule (Vitamin D3) clopidogrel 75 mg tablet 75 mg PO DAILY 10/11/22 03/18/24 03/17/24 History docusate sodium 100 mg capsule 100 mg PO BID 10/11/22 03/18/24 03/17/24 History fluticasone propionate 50 1 spray intranasal BID PRN Allergy 10/11/22 03/18/24 Unknown History mcg/actuation nasal Symptoms spray,suspension (Flonase Allergy Relief) gabapentin 100 mg capsule 200 mg PO TID 10/11/22 03/18/24 03/17/24 History hydralazine 50 mg tablet 50 mg PO BID 05/03/18/24 03/17/24 History metoprolol tartrate 50 mg tablet 50 mg PO BID 10/11/22 03/18/24 03/17/24 History montelukast 10 mg tablet 10 mg PO DAILY 10/11/22 03/18/24 03/17/24 History oxycodone-acetaminophen 5 mg-325 1 tab PO BID PRN severe pain 10/11/22 03/18/24 03/17/24 History mg tablet sennosides 8.6 mg tablet (senna) 8.6 - 17.2 mg PO DAILY PRN 10/11/22 03/18/24 Unknown History constipation tamsulosin 0.4 mg capsule 0.4 mg PO BEDTIME 10/11/22 03/18/24 03/17/24 History aspirin 81 mg tablet,delayed 81 mg PO DAILY 03/18/24 03/18/24 03/17/24 History release nicotine 7 mg/24 hr daily 1 patch topical DAILY 03/18/24 03/18/24 03/17/24 History transdermal patch nitroglycerin 0.4 mg sublingual 0.4 mg sublingual Q5M PRN Chest 03/18/24 03/18/24 Unknown History tablet Pain umeclidinium 62.5 mcg/actuation 1 inh inhalation DAILY 03/18/24 03/18/24 03/17/24 History blister powder for inhalation (Incruse Ellipta) Physical Exam Vital Signs: Vital Signs: Last Vital Signs Temp 97.7 F 03/18/24 07:29 Pulse 73 03/18/24 07:29 Resp 16 03/18/24 07:29 BP 143/94 H 03/18/24 07:29 Pulse Ox 96 03/18/24 07:29 O2 Del Method Room Air 03/18/24 07:29 BMI result Body Mass Index 31.9 Const: General: cooperative, comfortable, no acute distress, alert, awake and Physically active Nutritional Appearance: obese Orientation/consciousness: patient oriented x3 HEENT: Head: Yes normocephalic and Yes atraumatic Neck: Neck: Yes trachea midline, Yes supple and Yes no JVD Resp: Effort & Inspection: normal respiratory effort Auscultation: clear to auscultation bilaterally Cardio: Jugular venous distension: no JVD Palpation: normal PMI Rate: regular rate Rhythm: regular rhythm Heart sounds: S1 normal heart sound present, S2 normal heart sound present, no click, no gallops, no murmurs and no rubs GI: Auscultation: normal bowel sounds Skin: General skin exam: no rashes or lesions noted Neuro: General: patient oriented x3 and no focal motor deficits Extrem: General: Yes no clubbing, cyanosis or edema Objective Labs and Meds 03/18/24 06:12 03/18/24 06:12 Lab results: Laboratory Results - last 24 hr 03/17/24 03/17/24 03/17/24 17:34 18:00 19:18 WBC 8.0 RBC 4.92 Hgb 13.1 L Hct 41.1 L MCV 83.5 MCH 26.6 L MCHC 31.9 RDW 15.6 Plt Count 283 MPV 8.8 L Immature Gran % (Auto) 0.2 Neut % (Auto) 46.1 Lymph % (Auto) 35.4 [place] % (Auto) 10.8 Eos % (Auto) 6.8 H Baso % (Auto) 0.7 Lymph # (Auto) 2.9 [place] # (Auto) 0.9 Eos # (Auto) 0.6 H Baso # (Auto) 0.1 Abs Immat Gran (auto) 0.02 Absolute Neuts (auto) 3.7 Absolute Nucleated RBC 0.000 Nucleated RBC % (auto) 0.0 Sodium 143 Potassium 3.8 D Chloride 105 Carbon Dioxide 28 Anion Gap 14 BUN 11 Creatinine 0.85 Estim Creat Clear Calc 88.6 Estimated GFR > 60 Random Glucose 97 Calcium 10.5 H D Total Bilirubin 0.5 AST 25 ALT 17 Alkaline Phosphatase 96 Troponin I High Sens 5.0 D 5.8 Total Protein 7.5 Albumin 4.3 Urine Color Yellow Urine Appearance Clear Urine pH 7.0 Ur Specific [place] 1.010 Urine Protein Negative Urine Glucose (UA) Negative Urine Ketones Negative Urine Blood Negative Urine Nitrite Negative Ur Leukocyte Esterase Negative 03/18/24 06:12 WBC 8.2 RBC 4.84 Hgb 12.8 L Hct 39.9 L MCV 82.4 MCH 26.4 L MCHC 32.1 RDW 15.7 Plt Count 290 MPV 9.1 L Immature Gran % (Auto) 0.2 Neut % (Auto) 51.4 Lymph % (Auto) 31.6 [place] % (Auto) 9.3 Eos % (Auto) 6.7 H Baso % (Auto) 0.8 Lymph # (Auto) 2.6 [place]lin # (Auto) 0.8 Eos # (Auto) 0.6 H Baso # (Auto) 0.1 Abs Immat Gran (auto) 0.02 Absolute Neuts (auto) 4.2 Absolute Nucleated RBC 0.000 Nucleated RBC % (auto) 0.0 Sodium 141 Potassium 3.1 L Chloride 106 Carbon Dioxide 24 Anion Gap 14 BUN 12 Creatinine 0.84 Estim Creat Clear Calc 88.9 Estimated GFR > 60 Random Glucose 142 H Calcium 9.2 D Total Bilirubin AST ALT Alkaline Phosphatase Troponin I High Sens Total Protein Albumin Urine Color Urine Appearance Urine pH Ur Specific [place] Urine Protein Urine Glucose (UA) Urine Ketones Urine Blood Urine Nitrite Ur Leukocyte Esterase Imaging Radiologist's impression: Impressions Chest X-Ray 03/17/24 17:00 IMPRESSION: No acute cardiopulmonary findings. Electronically signed by: Juanita Bautista MD 03/17/2024 06:17 PM [facility] Assessment and Plan (1) Hypertensive urgency: Status: Acute Hypertensive urgency in this elderly gentleman with recent coronary artery bypass grafting. Diffuse vascular disease need to rule out renal artery stenosis as a cause for his uncontrolled blood pressure requiring multiple medications. If this is negative will continue to uptitrate medication. I would switch his metoprolol to labetalol 300 mg b.i.d. given better blood pressure control with it. Also increase amlodipine to 10 mg daily. Continue hydrochlorothiazide. Continue current dual antiplatelet therapy and current lipid management. Clinically not having any evidence of myocardial injury although EKG changes most suggestive of subendocardial strain related to uncontrolled blood pressure. Importance of good blood pressure control was discussed. Low-salt diet was discussed. If blood pressure remains generally better controlled by late afternoon, can potentially discharge home later today after renal duplex has been accomplished. This was discussed with the hospitalist team. Will sign of the case. Thank you for allowing me to partake in his care Procedures Date of Service Date of Service: 03/18/24
--- NOTE | 2024-03-18 09:48 | PM.DS ---
DS: Providers Provider Date of Service: 03/18/24 Date of admission: 03/17/24 23:15 Primary care physician: Renae Adame MD Consults: 03/18/24 06:03 Consult to Cardiology Routine Consulting Provider: [facility] Reason for consultation: new T wave inversion V4-V6 Has provider been notified: No DS: Diagnosis Discharge Diagnosis (1) Uncontrolled hypertension: Status: Acute (2) Abnormal ECG: Status: Acute DS: Summary Hospital Course Hospital Course: Chief Complaint: High blood pressure Michael Deal is a 73 years old man with past medical history significant for CAD s/p CABG (November 2023), essential hypertension, hyperlipidemia and ZEV (unable to tolerate CPAP) was sent to the emergency department for ongoing uncontrolled hypertension. He stated that today his blood pressure was obtained by his primary care physician nurse and was to have a systolic blood pressure 171. It seems like his blood pressure has been uncontrolled lately. Three weeks ago, his metoprolol was increased to 50 mg p.o. b.i.d.. He is a former tobacco smoker and currently using nicotine patch daily. He denied any headache, acute visual disturbances, dizziness, nausea, vomiting, chest pain or shortness on breath. He did not report any acute gastrointestinal or genitourinary symptoms. Former tobacco smoker -stopped smoking after cardiac surgery. Denied alcohol abuse or illicit drug use. ED tx: Acetaminophen is 150 mg p.o., metoprolol tartrate 50 mg p.o., labetalol 20 mg IV Hospital course: The patient was sent to the hospital for uncontrolled hypertension with elevated systolic blood pressures as noted. He received IV labetalol and his usual oral metoprolol, then was admitted and continued on his regular medications. Cardiology evaluated him and recommended increasing Norvasc to 10 mg daily and switching from metoprolol 50 mg twice daily to labetalol 300 mg twice daily. Additionally, a renal Doppler ultrasound was ordered to rule out renal artery stenosis. Abnormal ECG. T-wave inversion V4-V6. No chest pain, no SOB. ECGs from last hospitalization at [facility] reviewed -these changes seems to be new. Repeat ECG in am. Reviewed by cardiology with no additional work up indicated at this time. Asthma. Continue inhalers. Aortic aneurysm. s/p repair. Hyperlipidemia. Continue statin. CAD, s/p CABG. Continue Plavix, aspirin, Isordil and statin. Gout. Continue allopurinol. Neuropathy. Continue gabapentin. ZEV. Not tolerating CPAP. Time Attestation Discharge Coordination Time (in mins): 35 Quality: Safe Use of Opioids Does Pt have an Active Cancer Diagnosis on the Problem List?: No Quality: Stroke Does the patient have a stroke diagnosis?: No Physical Exam Vital Signs: Vital Signs: Last Vital Signs Temp 97.7 F 03/18/24 07:29 Pulse 73 03/18/24 07:29 Resp 16 03/18/24 07:29 BP 143/94 H 03/18/24 07:29 Pulse Ox 96 03/18/24 07:29 O2 Del Method Room Air 03/18/24 07:29 BMI result Body Mass Index 31.9 General: AO X 3, no acute distress Resp: CTA bilateral CVS: S1,S2,RRR GI: +BS, NT, no distention Skin: No rash Neuro: motor grossly intact Psych: appropriate affect DS: Data Data Completed and Pending Labs on day of discharge: Laboratory Results - last 24 hr 03/17/24 03/17/24 03/17/24 17:34 18:00 19:18 WBC 8.0 RBC 4.92 Hgb 13.1 L Hct 41.1 L MCV 83.5 MCH 26.6 L MCHC 31.9 RDW 15.6 Plt Count 283 MPV 8.8 L Immature Gran % (Auto) 0.2 Neut % (Auto) 46.1 Lymph % (Auto) 35.4 [place] % (Auto) 10.8 Eos % (Auto) 6.8 H Baso % (Auto) 0.7 Lymph # (Auto) 2.9 [place] # (Auto) 0.9 Eos # (Auto) 0.6 H Baso # (Auto) 0.1 Abs Immat Gran (auto) 0.02 Absolute Neuts (auto) 3.7 Absolute Nucleated RBC 0.000 Nucleated RBC % (auto) 0.0 Sodium 143 Potassium 3.8 D Chloride 105 Carbon Dioxide 28 Anion Gap 14 BUN 11 Creatinine 0.85 Estim Creat Clear Calc 88.6 Estimated GFR > 60 Random Glucose 97 Calcium 10.5 H D Total Bilirubin 0.5 AST 25 ALT 17 Alkaline Phosphatase 96 Troponin I High Sens 5.0 D 5.8 Total Protein 7.5 Albumin 4.3 Urine Color Yellow Urine Appearance Clear Urine pH 7.0 Ur Specific [place] 1.010 Urine Protein Negative Urine Glucose (UA) Negative Urine Ketones Negative Urine Blood Negative Urine Nitrite Negative Ur Leukocyte Esterase Negative 03/18/24 06:12 WBC 8.2 RBC 4.84 Hgb 12.8 L Hct 39.9 L MCV 82.4 MCH 26.4 L MCHC 32.1 RDW 15.7 Plt Count 290 MPV 9.1 L Immature Gran % (Auto) 0.2 Neut % (Auto) 51.4 Lymph % (Auto) 31.6 [place] % (Auto) 9.3 Eos % (Auto) 6.7 H Baso % (Auto) 0.8 Lymph # (Auto) 2.6 [place] # (Auto) 0.8 Eos # (Auto) 0.6 H Baso # (Auto) 0.1 Abs Immat Gran (auto) 0.02 Absolute Neuts (auto) 4.2 Absolute Nucleated RBC 0.000 Nucleated RBC % (auto) 0.0 Sodium 141 Potassium 3.1 L Chloride 106 Carbon Dioxide 24 Anion Gap 14 BUN 12 Creatinine 0.84 Estim Creat Clear Calc 88.9 Estimated GFR > 60 Random Glucose 142 H Calcium 9.2 D Total Bilirubin AST ALT Alkaline Phosphatase Troponin I High Sens Total Protein Albumin Urine Color Urine Appearance Urine pH Ur Specific [place] Urine Protein Urine Glucose (UA) Urine Ketones Urine Blood Urine Nitrite Ur Leukocyte Esterase Discharge Plan Discharge Discharge Diagnosis: Uncontrolled HTN Referrals: Renae Adame MD [Primary Care Provider] - 1 Week Discharge Medications: No Action aspirin 81 mg tablet,delayed release (DR/EC) 81 mg PO DAILY nitroglycerin 0.4 mg tablet, sublingual 0.4 mg sublingual Q5M PRN (Reason: Chest Pain) nicotine 7 mg/24 hr patch 24 hour 1 patch topical DAILY Incruse Ellipta 62.5 mcg/actuation blister with device 1 inh INHALATION DAILY acetaminophen 325 mg tablet 500 mg PO Q8H PRN (Reason: Pain) amlodipine 5 mg tablet 5 mg PO DAILY atorvastatin 80 mg tablet 80 mg PO BEDTIME cholecalciferol (vitamin D3) [Vitamin D3] 25 mcg (1,000 unit) capsule 25 mcg PO DAILY clopidogrel 75 mg tablet 75 mg PO DAILY docusate sodium 100 mg capsule 100 mg PO BID fluticasone propionate [Flonase Allergy Relief] 50 mcg/actuation spray,suspension 1 spray intranasal BID PRN (Reason: Allergy Symptoms) Rx Instructions: administer into each nostril gabapentin 100 mg capsule 200 mg PO TID hydralazine 50 mg tablet 50 mg PO BID metoprolol tartrate 50 mg tablet 50 mg PO BID montelukast 10 mg tablet 10 mg PO DAILY oxycodone-acetaminophen 5-325 mg tablet 1 tab PO BID PRN (Reason: severe pain) tamsulosin 0.4 mg capsule 0.4 mg PO BEDTIME sennosides [senna] 8.6 mg tablet 8.6 - 17.2 mg PO DAILY PRN (Reason: constipation) albuterol sulfate 90 mcg/actuation HFA aerosol inhaler 2 puff inhalation Q4-6H PRN (Reason: asthma) 30 Days Qty: 8.5 3RF Diet: Advance to usual diet Activity on Discharge: As tolerated Print Language: Italian
--- NOTE | 2024-03-18 15:16 | MHC.CM.PN ---
TIMOTHY [place]. Patient lives in a home alone. Has [employer] [facility], 39.5 hours/week. [employer] assist w/ all ADL's. Ambulates w/ cane or walker for short distances, uses scooter for long distances. PCP Renae Adame MD Reports he has an HCP listing his , Cristy, as HCA. Copy requested. DP: Goal is home, resume [employer] [facility]. Son to transport. CM will continue to follow.
== END 2024-03-18 17:07 | disposition home or self-care (01) ==
LOC: HO.ED 23:29 → HO.EDOVER 23:34 → HO.S3 03-18 00:51
PROVIDERS: Physician Assistant Medical; Admitting Provider Internal Medicine; Emergency Provider Emergency Medicine; PCP Family Medicine; Visit Provider Internal Medicine
DX: I10 Essential (primary) hypertension (principal); R94.31 Abnormal electrocardiogram [ECG] [EKG]; R07.9 Chest pain, unspecified; I25.10 Atherosclerotic heart disease of native coronary artery without angina pectoris; E78.5 Hyperlipidemia, unspecified; G47.33 Obstructive sleep apnea (adult) (pediatric); M10.9 Gout, unspecified; J45.909 Unspecified asthma, uncomplicated; G62.9 Polyneuropathy, unspecified; I71.40 Abdominal aortic aneurysm, without rupture, unspecified; R42 Dizziness and giddiness; H53.8 Other visual disturbances; R51.9 Headache, unspecified; Z95.1 Presence of aortocoronary bypass graft; Z79.899 Other long term (current) drug therapy
CPT/HCPCS: 36415; 71045; 80048; 80053; 81003; 84484; 85025; 93005; 93975; 96374; 99221; 99285; J1920

== ENCOUNTER → 2024-03-17 16:57 | Outpatient (BNV) | payer OTHER, SELFPAY | PROVIDERS: Admitting Provider Internal Medicine; Emergency Provider Emergency Medicine; PCP Family Medicine; Visit Provider Internal Medicine Cardiovascular Disease | DX: R07.9 Chest pain, unspecified (principal); R94.31 Abnormal electrocardiogram [ECG] [EKG] | CPT/HCPCS: 93010 ==

== ENCOUNTER 2024-03-17 23:15 | Outpatient (BNV) | payer OTHER, SELFPAY | END 2024-03-18 08:00 | PROVIDERS: Admitting Provider Internal Medicine; Emergency Provider Emergency Medicine; PCP Family Medicine; Visit Provider Internal Medicine Cardiovascular Disease | DX: I45.19 Other right bundle-branch block (principal); R94.31 Abnormal electrocardiogram [ECG] [EKG] | CPT/HCPCS: 93010 ==

== ENCOUNTER → 2024-03-17 23:15 | Outpatient (BNV) | payer OTHER, SELFPAY | PROVIDERS: Admitting Provider Internal Medicine; Emergency Provider Emergency Medicine; PCP Family Medicine; Visit Provider Internal Medicine | DX: I10 Essential (primary) hypertension (principal); R94.31 Abnormal electrocardiogram [ECG] [EKG] | CPT/HCPCS: 99222 ==

== ENCOUNTER → 2024-03-17 23:15 | Outpatient (BNV) | payer OTHER, SELFPAY | PROVIDERS: Admitting Provider Internal Medicine; Emergency Provider Emergency Medicine; PCP Family Medicine; Visit Provider Internal Medicine Cardiovascular Disease | DX: I16.0 Hypertensive urgency (principal) | CPT/HCPCS: 99222 ==

== ENCOUNTER 2024-04-25 07:36 | Day surgery (SDC) | payer OTHER, SELFPAY ==
[2024-04-23 10:30] VITALS: BMI 33.7
--- NOTE | 2024-04-23 13:42 | P.CONAN_ITS ---
Documented by User: Val Fuller NP 04/23/24 13:50 HPI - Anesthesia Eval Consult details Narrative: 73yo M for Colonoscopy CAD with [place] s/p CABG x 3, AAA repair 11/2023. Follows [facility] Cardiology. Stable at 03/2024 office visit with 3 month routine f/u. OK to hold plavix/asa C admit with uncontrolled htn 03/2024 Hospital course: The patient was sent to the hospital for uncontrolled hypertension with elevated systolic blood pressures as noted. He received IV labetalol and his usual oral metoprolol, then was admitted and continued on his regular medications. Cardiology evaluated him and recommended increasing Norvasc to 10 mg daily and switching from metoprolol 50 mg twice daily to labetalol 300 mg twice daily. Additionally, a renal Doppler ultrasound was ordered to rule out renal artery stenosis. Abnormal ECG. T-wave inversion V4-V6. No chest pain, no SOB. ECGs from last hospitalization at [facility] reviewed -these changes seems to be new. Repeat ECG in am. Reviewed by cardiology with no additional work up indicated at this time. [facility] Active Problems Active Problems: All Active Problems NSTEMI (non-ST elevated myocardial infarction) (Acute) Allergic rhinitis (Acute) Bronchial asthma (Acute) ZEV (obstructive sleep apnea) (Acute) Obesity (BMI 30-39.9) (Acute) Past Medical History Medical History (Updated 04/23/24 @ 10:46 by Krystle Roberto RN) PVD (peripheral vascular disease) CAD (coronary artery disease) Fatty liver Elevated cholesterol GERD (gastroesophageal reflux disease) Anxiety Incomplete right bundle branch block (RBBB) Allergic rhinitis Bronchial asthma ZEV (obstructive sleep apnea) Obesity (BMI 30-39.9) HTN (hypertension) Asthma CVA (cerebral vascular accident) Surgical History Surgical History (Updated 04/23/24 @ 10:29 by Krystle Roberto RN) Hx of CABG H/O colonoscopy H/O heart artery stent Social History Social History (Updated 04/23/24 @ 10:30 by Krystle Roberto RN) Alcohol intake: former Patient Tobacco Use Status: Former Tobacco user Tobacco use type: Cigarette Advance Directives: No Advance Directives Information Provided: Yes service: No Meds Allergies Allergy/AdvReac Type Severity Reaction Status Date / Time No Known Allergies Allergy Verified 03/17/24 16:36 Home Medications ?Medication ?Instructions ?Recorded ?Confirmed ?Last Taken ?Type acetaminophen 325 mg tablet 500 mg PO Q8H PRN Pain 10/11/22 04/23/24 Unknown History atorvastatin 80 mg tablet 80 mg PO BEDTIME 10/11/22 04/23/24 03/17/24 History cholecalciferol (vitamin D3) 25 25 mcg PO DAILY 10/11/22 04/23/24 03/17/24 History mcg (1,000 unit) capsule (Vitamin D3) clopidogrel 75 mg tablet 75 mg PO DAILY 10/11/22 04/23/24 03/17/24 History docusate sodium 100 mg capsule 100 mg PO BID 10/11/22 04/23/24 03/17/24 History fluticasone propionate 50 1 spray intranasal BID PRN Allergy 10/11/22 04/23/24 Unknown History mcg/actuation nasal Symptoms spray,suspension (Flonase Allergy Relief) gabapentin 100 mg capsule 200 mg PO BID 10/11/22 04/23/24 03/17/24 History hydralazine 50 mg tablet 50 mg PO BID 10/11/22 04/23/24 03/17/24 History montelukast 10 mg tablet 10 mg PO DAILY 10/11/22 04/23/24 03/17/24 History oxycodone-acetaminophen 5 mg-325 1 tab PO BID PRN severe pain 10/11/22 04/23/24 03/17/24 History mg tablet sennosides 8.6 mg tablet (senna) 8.6 mg PO DAILY PRN constipation 10/11/22 04/23/24 Unknown History tamsulosin 0.4 mg capsule 0.4 mg PO BEDTIME 10/11/22 04/23/24 03/17/24 History aspirin 81 mg tablet,delayed 81 mg PO DAILY 03/18/24 04/23/24 03/17/24 History release nicotine 7 mg/24 hr daily 1 patch topical DAILY 03/18/24 04/23/24 03/17/24 History transdermal patch nitroglycerin 0.4 mg sublingual 0.4 mg sublingual Q5M PRN Chest 03/18/24 04/23/24 Unknown History tablet Pain umeclidinium 62.5 mcg/actuation 1 inh inhalation DAILY 03/18/24 04/23/24 03/17/24 History blister powder for inhalation (Incruse Ellipta) allopurinol 100 mg tablet 100 mg PO QPM 04/23/24 04/23/24 Unknown History amiodarone 200 mg tablet 200 mg PO DAILY 04/23/24 04/23/24 Unknown History hydrochlorothiazide 25 mg tablet 25 mg PO DAILY 04/23/24 04/23/24 Unknown History isosorbide mononitrate 30 mg 30 mg PO QAM 04/23/24 04/23/24 Unknown History tablet,extended release 24 hr metoprolol tartrate 25 mg tablet 25 mg PO BID 04/23/24 04/23/24 Unknown History quetiapine 50 mg tablet (Seroquel) 50 mg PO DAILY 04/23/24 04/23/24 Unknown History sertraline 100 mg tablet (Zoloft) 100 mg PO DAILY 04/23/24 04/23/24 Unknown History trazodone 50 mg tablet 50 mg PO BEDTIME 04/23/24 04/23/24 Unknown History umeclidinium 62.5 mcg/actuation 1 inh inhalation DAILY 04/23/24 04/23/24 Unknown History blister powder for inhalation (Incruse Ellipta) Exam Height,Weight and Vital Signs: Height 5 ft 7 in Weight 97.522 kg Pertinent Lab Results Pertinent Lab Results: Laboratory Tests 03/18/24 06:12 WBC 8.2 Hgb 12.8 L Hct 39.9 L Plt Count 290 Sodium 141 Potassium 3.1 L Chloride 106 Carbon Dioxide 24 BUN 12 Creatinine 0.84 Narrative Narrative: EKG 03/2024 Vent. Rate : 072 BPM Atrial Rate : 072 BPM P-R Int : 180 ms QRS Dur : 106 ms QT Int : 432 ms P-R-T Axes : 033 203 000 degrees QTc Int : 473 ms Normal sinus rhythm Indeterminate axis Incomplete right bundle branch block Nonspecific T wave abnormality Prolonged QT Abnormal ECG When compared with ECG of 17-MAR-2024 17:07, Incomplete right bundle branch block is now Present Criteria for Septal infarct are no longer Present Non-specific change in ST segment in Lateral leads Nonspecific T wave abnormality has replaced inverted T waves in Lateral leads ECHO 02/2024 1. Nml LV function 2. OVerall LV sys function nml with EF 60-65% 3. Mild asymmetric hypertrophy 4. RV sys pressure is nml Assessment and Plan Assessment Anesthesia Assessment: Chart Reviewed Documented by User: Vera Tamez MD 04/25/24 09:17 [facility] Past Medical History Medical History (Updated 04/23/24 @ 10:46 by Krystle Roberto RN) PVD (peripheral vascular disease) CAD (coronary artery disease) Fatty liver Elevated cholesterol GERD (gastroesophageal reflux disease) Anxiety Incomplete right bundle branch block (RBBB) Allergic rhinitis Bronchial asthma ZEV (obstructive sleep apnea) Obesity (BMI 30-39.9) HTN (hypertension) Asthma CVA (cerebral vascular accident) Family History Family history of problems with anesthesia: No Surgical History Surgical History (Updated 04/23/24 @ 10:29 by Krystle Roberto RN) Hx of CABG H/O colonoscopy H/O heart artery stent History of Problems with Anesthesia: No Social History Social History (Updated 04/23/24 @ 10:30 by Krystle Roberto RN) Alcohol intake: former Patient Tobacco Use Status: Former Tobacco user Tobacco use type: Cigarette Advance Directives: No Advance Directives Information Provided: Yes service: No Meds Allergies Allergy/AdvReac Type Severity Reaction Status Date / Time No Known Allergies Allergy Verified 03/17/24 16:36 Home Medications ?Medication ?Instructions ?Recorded ?Confirmed ?Last Taken ?Type acetaminophen 325 mg tablet 500 mg PO Q8H PRN Pain 10/11/22 04/23/24 Unknown History atorvastatin 80 mg tablet 80 mg PO BEDTIME 10/11/22 04/23/24 03/17/24 History cholecalciferol (vitamin D3) 25 25 mcg PO DAILY 10/11/22 04/23/24 03/17/24 History mcg (1,000 unit) capsule (Vitamin D3) clopidogrel 75 mg tablet 75 mg PO DAILY 10/11/22 04/23/24 03/17/24 History docusate sodium 100 mg capsule 100 mg PO BID 10/11/22 04/23/24 03/17/24 History fluticasone propionate 50 1 spray intranasal BID PRN Allergy 10/11/22 04/23/24 Unknown History mcg/actuation nasal Symptoms spray,suspension (Flonase Allergy Relief) gabapentin 100 mg capsule 200 mg PO BID 10/11/22 04/23/24 03/17/24 History hydralazine 50 mg tablet 50 mg PO BID 10/11/22 04/23/24 03/17/24 History montelukast 10 mg tablet 10 mg PO DAILY 10/11/22 04/23/24 03/17/24 History oxycodone-acetaminophen 5 mg-325 1 tab PO BID PRN severe pain 10/11/22 04/23/24 03/17/24 History mg tablet sennosides 8.6 mg tablet (senna) 8.6 mg PO DAILY PRN constipation 10/11/22 04/23/24 Unknown History tamsulosin 0.4 mg capsule 0.4 mg PO BEDTIME 10/11/22 04/23/24 03/17/24 History aspirin 81 mg tablet,delayed 81 mg PO DAILY 03/18/24 04/23/24 03/17/24 History release nicotine 7 mg/24 hr daily 1 patch topical DAILY 03/18/24 04/23/24 03/17/24 History transdermal patch nitroglycerin 0.4 mg sublingual 0.4 mg sublingual Q5M PRN Chest 03/18/24 04/23/24 Unknown History tablet Pain umeclidinium 62.5 mcg/actuation 1 inh inhalation DAILY 03/18/24 04/23/24 03/17/24 History blister powder for inhalation (Incruse Ellipta) allopurinol 100 mg tablet 100 mg PO QPM 04/23/24 04/23/24 Unknown History amiodarone 200 mg tablet 200 mg PO DAILY 04/23/24 04/23/24 Unknown History hydrochlorothiazide 25 mg tablet 25 mg PO DAILY 04/23/24 04/23/24 Unknown History isosorbide mononitrate 30 mg 30 mg PO QAM 04/23/24 04/23/24 Unknown History tablet,extended release 24 hr metoprolol tartrate 25 mg tablet 25 mg PO BID 04/23/24 04/23/24 Unknown History quetiapine 50 mg tablet (Seroquel) 50 mg PO DAILY 04/23/24 04/23/24 Unknown History sertraline 100 mg tablet (Zoloft) 100 mg PO DAILY 04/23/24 04/23/24 Unknown History trazodone 50 mg tablet 50 mg PO BEDTIME 04/23/24 04/23/24 Unknown History umeclidinium 62.5 mcg/actuation 1 inh inhalation DAILY 04/23/24 04/23/24 Unknown History blister powder for inhalation (Incruse Ellipta) Exam Airway Mallampati Class: III TM Dist: >3cm Neck ROM: Full Assessment and Plan Assessment Anesthesia Assessment: Anesthesia Plan Discussed Final Anesthetic Review Family History of Problems with Anesthesia: No History of Problems with Anesthesia: No NPO: Yes ASA Class: III Final Preanesthetic Review: No Changes in Pt Med Stat, Meds/Allgs Chart Reviewed, Consent Obtained/Reviewed, Anes Risks/Benef Reviewed and DNR Form (If Appl.) Patient Risk: Intermediate Procedure Risk: Low Anesthetic Plan Anesthetic Plan: TIVA Disposition: Standard PACU
--- OUTSIDE RECORDS SUMMARY | 2024-04-25 07:38 | XMS_ITS ---
Author Organization [facility] Address [address] [place] [address] Care Team Providers Care Integration Assistant Name Role Phone Renae Adame MD Primary Care Provider Zarina vailable Mike Stark Jr Unavailable REASON FOR VISIT screening Encounters Encounter Location Date Provider Diagnosis [facility] [place] [address] [place] [phone] 04/25/2024 Mike Stark Jr PLAN OF TREATMENT Next Appt Details Provider Name:Mike nair Jr, 04/25/2024 09:10:00 AM, [address] [facility] , [place], [place], [phone],
--- OUTSIDE RECORDS SUMMARY | 2024-04-25 07:38 | XMS_ITS ---
Author Organization [facility] Address [address] [place] [address] Care Team Providers Care General Internal Medicine Doctor Name Role Phone Renae Adame MD Primary Care Provider Mike Cordoba Jr Unavailable ALLERGIES No Known Allergies REASON FOR VISIT Patient presents today for a colon screening MEDICATIONS Medication SIG (Take, Route, Frequency, Duration) Notes Start Date End Date Status Loratadine 10 MG 1 tablet Orally Once a day Active Aspir-81 81 MG 1 tablet Orally Once a day Active Vitamin D 1000 UNIT 1 capsule Orally Onc e a day Active hydroCHLOROthiazide 25 MG 1 tablet in th e morning Orally Once a day Active Ventolin HFA 90 MCG/ACT 2 puffs as neede d Inhalation every 6 hrs Active Fenofibrate Micronized 67mg 1 capsule wi th a meal Once a day Active Spiriva HandiHaler 18 MCG 1 capsule Inha lation Once a day Active Flovent HFA 220 MCG/ACT 1 puff Inhalatio n Twice a day Active Flonase 50 MCG/DOSE 1 spray in each nostril Nasally Once a day Active Nitroglycerin 0.4 MG 1 capsule Sublingua l Once a day/prn Active Plavix 75 MG 1 tablet Orally Once a day Active Senna 8.6mg 1 tablet in the evening as needed Orally Once a day Active Lipitor 80mg 1 tablet Orally Once a day Active Lisinopril 20 MG 1 tablet Orally Once a day Active Metoprolol Tartrate 50mg 1 tablet with f ood Orally Twice a day Active MiraLax (colon prep) 17 GM/SCOOP mixed with Gatorade or Crystal Light Orally begin at 5:00 p.m. the day before the procedure for 1 day 03/24/2024 Active Dulcolax (colon prep) 5 MG take at 3:00 p.m and 7:00p.m. Orally two tablets twice a day for one day for 1 day 03/24/2024 Active Tamsulosin HCl 0.4 MG Oral for 90 Active Colace 100 MG 1 capsule as needed Orally Once a day Active Percocet 5/325mg 1 tablet as needed Orally every 6 hrs Active Gabapentin 100 MG TAKE 2 CAPSULES BY MOUTH THREE TIMES DAILY IN THE MORNING, EVENING AND BEDTIME Oral for 30 Active amLODIPine Besylate 10 MG Oral for 90 Active hydrALAZINE HCl 50 MG TAKE 1 TABLET BY MOUTH TWICE DAILY IN THE MORNING AND IN THE EVENING WITH FOOD Oral for 30 Active Incruse Ellipta 62.5 MCG/ACT Inhalation for 30 Active Docusate Sodium 100 MG Oral for 90 Active SOCIAL HISTORY Tobacco Use: Social History Observation Description Date Details (start date - stop date) Former Smoker NA - NA Sex Assigned At : Social History Observation Description Sex Assigned At Unknown Tobacco Use/Smoking Question Answer Notes Patient is a former smoker How long has it been since you last smoked? > 10 years Alcohol Screen Question Answer Notes Did you have a drink containing alcohol in the p ast year? No Points 0 Interpretation Negative PROBLEMS Problem Type ICD Code Onset Dates Problem Status W/U Status Risk SNOMED Code Notes Problem Colon cancer screening (Z12.11) Active confirmed 864998081 Problem Long-term use of aspirin therapy (Z79.82) Active confirmed 740308597 VITAL SIGNS BMI 33.71 kg/m2 03/24/2024 Blood pressure systolic 000 mm Hg 03/24/20 24 Blood pressure diastolic 00 mm Hg 024 Height 67 in 03/24/2024 Temperature 98.4 degrees Fahrenheit 03/24/20 24 Weight 215 lb 4 oz lbs 03/24/2024 Encounters Encounter Location Date Provider Diagnosis [address] [place] [phone] 03/24/2024 Mike Stark Jr Colon cancer screening Z12.11 and Long-term use of aspirin therapy Z79.82 ASSESSMENTS Encounter Date Diagnosis Assessment Notes Treatment Notes Treatment Clinical Notes 03/24/2024 Colon cancer screening (ICD-10 - Z12.11) Colonoscopy material was printed 03/24/2024 Long-term use of aspirin therapy (ICD-10 - Z79.82) PLAN OF TREATMENT Medication Medication Name Sig Start Date Stop Date Notes MiraLax (colon prep) 17 GM/SCOOP mixed with Gatorade or Crystal Light Orally begin at 5:00 p.m. the day before the procedure for 1 day 03/24/2024 Dulcolax (colon prep) 5 MG take at 3:00 p.m and 7:00p.m. Orally two tablets twice a day for one day for 1 day 03/24/2024 Treatment Notes Assessment Notes Colon cancer screening Colonoscopy mater ial was printed Future Test Test Name Order Date COLONOSCOPY 03/24/2024 Next Appt Details Follow Up: 1 Year, Reason: Provider Name:Mike nair Jr, 04/25/2024 09:10:00 AM, [address] [place] [address], [phone], Progress Notes * Examination Category Sub-Category Detail Notes General Examination GENERAL APPEARANCE: in no ac [facility] distress HEAD: normocephalic EYES: sclera non-icteric NECK/THYROID: no lymphadenopathy HEART: S1, S2 normal, no mu rmurs CHEST: normal shape and exp ansion LUNGS: clear to auscultatio n bilaterally ABDOMEN: soft, nontender, non distended, bowel sounds present, no organomegaly SKIN: anicteric EXTREMITIES: no clubbing, cyanosi s, or edema PSYCH: cognitive function i ntact ORAL CAVITY: mucosa moist
--- OUTSIDE RECORDS SUMMARY | 2024-04-25 07:38 | XMS_ITS ---
Author Organization [facility] Address [address] [place] [address] Care Team Providers Care Flare Maker Name Role Phone Renae Adame MD Primary Care Provider Zarina vailable Mike Stark Jr Unavailable REASON FOR VISIT asa / Plavix Encounters Encounter Location Date Provider Diagnosis [facility] [address] [facility] [address] [place] [address] 03/24/2024 Mike Stark Jr PLAN OF TREATMENT Next Appt Details Provider Name:Mike nair Jr, 04/25/2024 09:10:00 AM, [address] [place] [address] , [place], [place], [phone],
--- OUTSIDE RECORDS SUMMARY | 2024-04-25 07:38 | XMS_ITS | Patient Health Record ---
Author Organization [facility] Address [address] [place] [address] Care Team Providers Care Marketing Production Coordinator Name Role Phone Renae Adame MD Primary Care Provider Mike Cordoba Jr Unavailable ALLERGIES No Known Allergies REASON FOR REFERRAL No Information MEDICATIONS Medication SIG (Take, Route, Frequency, Duration) Notes Start Date End Date Status Colace 100 MG 1 capsule as needed Orally Once a day Active Percocet 5/325mg 1 tablet as needed Orally every 6 hrs Active MiraLax (colon prep) 17 GM/SCOOP mixed with Gatorade or Crystal Light Orally begin at 5:00 p.m. the day before the procedure for 1 day 03/24/2024 Active Plavix 75 MG 1 tablet Orally Once a day Active Dulcolax (colon prep) 5 MG take at 3:00 p.m and 7:00p.m. Orally two tablets twice a day for one day for 1 day 03/24/2024 Active Senna 8.6mg 1 tablet in the evening as needed Orally Once a day Active Lipitor 80mg 1 tablet Orally Once a day Active Tamsulosin HCl 0.4 MG Oral for 90 Active Lisinopril 20 MG 1 tablet Orally Once a day Active Fenofibrate Micronized 67mg 1 capsule wi th a meal Once a day Active Spiriva HandiHaler 18 MCG 1 capsule Inha lation Once a day Active Flovent HFA 220 MCG/ACT 1 puff Inhalatio n Twice a day Active Flonase 50 MCG/DOSE 1 spray in each nostril Nasally Once a day Active Docusate Sodium 100 MG Oral for 90 Active Metoprolol Tartrate 50mg 1 tablet with f ood Orally Twice a day Active Nitroglycerin 0.4 MG 1 capsule Sublingua l Once a day/prn Active Loratadine 10 MG 1 tablet Orally Once a day Active Gabapentin 100 MG TAKE 2 CAPSULES BY MOUTH THREE TIMES DAILY IN THE MORNING, EVENING AND BEDTIME Oral for 30 Active Aspir-81 81 MG 1 tablet Orally Once a day Active Vitamin D 1000 UNIT 1 capsule Orally Onc e a day Active amLODIPine Besylate 10 MG Oral for 90 Active hydrALAZINE HCl 50 MG TAKE 1 TABLET BY MOUTH TWICE DAILY IN THE MORNING AND IN THE EVENING WITH FOOD Oral for 30 Active Incruse Ellipta 62.5 MCG/ACT Inhalation for 30 Active hydroCHLOROthiazide 25 MG 1 tablet in e morning Orally Once a day Active Ventolin HFA 90 MCG/ACT 2 puffs as neede d Inhalation every 6 hrs Active IMMUNIZATIONS Vaccine Route Administration Date Status Comme nts Flu vaccine no Preserv 3 and > Unknown 02/23/2018 Admin istered Influenza Unknown 03/18/2024 Administered SOCIAL HISTORY Tobacco Use: Social History Observation Description Date Details (start date - stop date) Former Smoker NA - NA Sex Assigned At : Social History Observation Description Sex Assigned At Unknown Tobacco Use/Smoking Question Answer Notes Patient is a former smoker How long has it been since you last smoked? > 10 years PROBLEMS Problem Type ICD Code Onset Dates Problem Status W/U Status Risk SNOMED Code Notes Problem Colon cancer screening (Z12.11) Active confirmed 043390622 Problem Long-term use of aspirin therapy (Z79.82) Active confirmed 338054787 Problem Long-term current use of high risk medication other than anticoagulant (Z79.899) Active confirmed 230124388 Problem Hypertension, unspecified type (I10) Active confirmed 61961863 VITAL SIGNS Temperature 98.4 degrees Fahrenheit 03/24/2024 Blood pressure diastolic 00 mm Hg 03/24/2024 Height 67 in 03/24/2024 Blood pressure systolic 000 mm Hg 03/24/2024 Weight 215 lb 4 oz lbs 03/24/2024 BMI 33.71 kg/m2 03/24/2024 Encounters Encounter Location Date Provider Diagnosis [facility] [place] [address] [place], [place] [phone] 04/25/2024 Mike Stark Jr [facility] [address] [facility] [address] [place] [address] 11/28/2023 Mike Stark Jr [facility] [address] [place] [address] 03/24/2024 Mike Stark Jr Colon cancer screening Z12.11 and Long-term use of aspirin therapy Z79.82 [facility] [address] [place] [phone] 11/27/2023 Mike Stark Jr [facility] [address] [place] [phone] 03/24/2024 Mike Stark Jr ASSESSMENTS Encounter Date Diagnosis Assessment Notes Treatment Notes Treatment Clinical Notes 03/24/2024 Colon cancer screening (ICD-10 - Z12.11) Colonoscopy material was printed 03/24/2024 Long-term use of aspirin therapy (ICD-10 - Z79.82) PLAN OF TREATMENT Future Test Test Name Order Date COLONOSCOPY 09/20/2012 COLONOSCOPY 03/06/2018 COLONOSCOPY 03/24/2024 Next Appt Details Provider Name:Mike nair Jr, 04/25/2024 09:10:00 AM, [address] [place] [address] , [place], [place], [phone], Insurance Providers Payer Name Payer Address Payer Phone Subscriber Number Group Number Insured Name Patient Relationship to Insured Coverage Start Date Coverage End Date [facility] [address] [place] [address] [id number] WILLAIMS DORIS Self - patient is the insured MEDICAID OF [facility] [address] [place] [address] [id number] DORIS KRAMER Self - patient is the insured MEDICAL (GENERAL) HISTORY Medical History History ICD Code Colonoscopy 09/29, hyperplast ic polyp, five-year followup for personal history of polyps Obstructive sleep apnea Peptic ulcer disease Coronary artery disease, luisito nt placement, CABG x3, repair of ascending aortic aneurysm 11/27/23 anxiety/stress Hypertension Gastroesophageal reflux disease fatty liver Hyperlipidemia Surgical History Surgery Date(Month/Year) appendectomy stent placement x4 CABG x3, repair of ascending aortic aneu rysm 11/2023
--- OUTSIDE RECORDS SUMMARY | 2024-04-25 07:39 | XMS_ITS | Data Portability ---
Author Organization [employer] [place] [employer] Address [address] [place] [phone] Care Team Providers Care Meat Process Worker Name Role Phone [facility] Primary Care Provider [phone] [facility] Referring Provider Assessment Encounter Date Assessment Date Assessment LastModified by Organization Details LastModified Time 12/07/2021 12/07/2021 This 70-year-old male with know CAD had an episode of chest pain yesterday that resolved with NTG. He has had some mild dyspnea but no other new symptoms. I recommended that he follow up with his PCP and call back if he has more chest pain. The patient agreed with this plan. [email or web address] Not available 12/07/2021 17:10:58 Plan of Treatment Reminders Order Date Submit Date Provider Last Modified By Organization Details Last Modified Time Details Appointments None record ed. Lab None record ed. Referral None record ed. Procedures None record ed. Surgeries None record ed. Imaging None record ed. Medication Orders None record ed. Patient TargetsNo targets recorded. Patient InstructionsNo instructions recorded. Reason for Referral None Reported. Medical Equipment None Reported. Medications Name Sig Start Date Stop Date Status Note LastModified by Organization Details LastModified Time medbox status USE DIRECTED active Not Available Not Available No t Available fluticasone 250 mcg-salmeter ol 50 mcg/dose blistr powdr for inhalation INHALE 1 PUFF IN THE MORNING AND IN THE EVENING. RINSE MOUTH AFTER USING. active Not Available Not Available No t Available atorvastatin 80 mg tablet TAKE 1 TABLET BY MOUTH AT BEDTIME active Not Available Not Available No t Available acetaminophe n 325 mg tablet TAKE 2 TABLETS BY MOUTH EVERY 6 HOURS NEEDED FOR MILD PAIN active Not Available Not Available No t Available doxycycline hyclate 100 mg capsule TAKE 1 CAPSULE BY MOUTH TWICE A DAY FOR 7 DAYS active Not Available Not Available No t Available azithromycin 250 mg tablet active Not Available Not Available Not Available senna 8.6 mg tablet TAKE 1 OR 2 TABLETS BY MOUTH EVERY DAY NEEDED FOR CONSTIPATIO N active Not Available Not Available No t Available meloxicam 15 mg tablet TAKE 1 TABLET BY MOUTH DAILY active Not Available Not Available Not Available prednisone 20 mg tablet TAKE 3 TABLETS BY MOUTH EVERY DAY FOR 5 DAYS active Not Available Not Available No t Available isosorbide mononitrate ER 30 mg tablet,exten ded release 24 hr TAKE 1 TABLET BY MOUTH EVERY MORNING active Not Available Not Available No t Available clopidogrel 75 mg tablet TAKE 1 TABLET BY MOUTH EVERY MORNING active Not Available Not Available No t Available amlodipine 5 mg tablet TAKE 1 TABLET BY MOUTH EVERY MORNING active Not Available Not Available No t Available allopurinol 100 mg tablet TAKE 1 TABLET BY MOUTH EVERY EVENING active Not Available Not Available No t Available aspirin 81 mg tablet,delay ed release TAKE 1 TABLET BY MOUTH EVERY MORNING active Not Available Not Available No t Available ketorolac 10 mg tablet TAKE 1 TABLET ORALLY EVERY 6 HOURS NEEDED FOR PAIN FOR 5 DAYS active Not Available Not Available No t Available oxycodone-ac etaminophen 5 mg-325 mg tablet TAKE 1 TABLET BY MOUTH TWICE DAILY IN THE MORNING AND AT BEDTIME FOR SEVERE PAIN active Not Available Not Available Not Available tamsulosin 0.4 mg capsule TAKE 1 CAPSULE BY MOUTH AT BEDTIME active Not Available Not Available No t Available lidocaine 5 % topical patch APPLY 1 PATCH TOPICALLY TO THE MOST PAINFUL AREA AND REMOVE AFTER 12 HOURS active Not Available Not Available No t Available ibuprofen 400 mg tablet active Not Available Not Available Not Available metoprolol tartrate 50 mg tablet TAKE 1 TABLET BY MOUTH TWICE DAILY IN THE MORNING AND IN THE EVENING WITH FOOD active Not Available Not Available No t Available nitroglyceri n 0.4 mg sublingual tablet DISSOLVE 1 TABLET UNDER THE TONGUE EVERY 5 MINUTES NEEDED FOR CHEST PAIN. CALL 911 IF NO RELIEF active Not Available Not Available No t Available docusate sodium 100 mg capsule TAKE 1 CAPSULE BY MOUTH TWICE DAILY IN THE MORNING AND AT BEDTIME active Not Available Not Available No t Available aspirin 81 mg chewable tablet TAKE 1 TABLET BY MOUTH EVERY MORNING (CHEW) active Not Available Not Available No t Available montelukast 10 mg tablet TAKE 1 TABLET BY MOUTH EVERY EVENING active Not Available Not Available No t Available hydralazine 50 mg tablet TAKE 1 TABLET BY MOUTH TWICE DAILY IN THE MORNING AND IN THE EVENING WITH FOOD active Not Available Not Available No t Available hydrochlorot hiazide 25 mg tablet TAKE 1 TABLET BY MOUTH EVERY MORNING active Not Available Not Available No t Available gabapentin 100 mg capsule TAKE 2 CAPSULES BY MOUTH THREE TIMES DAILY IN THE MORNING, EVENING AND BEDTIME active Not Available Not Available No t Available methylpredni solone 4 mg tablets in a dose pack FOLLOW PACKAGE DIRECTIONS active Not Available Not Available N ot Available albuterol sulfate HFA 90 mcg/actuatio n aerosol inhaler INHALE 2 PUFFS BY MOUTH EVERY 6 HOURS FOR 7 DAYS NEEDED FOR WHEEZING OR SHORTNESS OF BREATH active Not Available Not Available No t Available Vitamin D3 25 mcg (1,000 unit) capsule TAKE 1 CAPSULE BY MOUTH EVERY MORNING active Not Available Not Available No t Available Incruse Ellipta 62.5 mcg/actuatio n powder for inhalation INHALE 1 PUFF EVERY DAY AT THE SAME TIME active Not Available Not Available No t Available Repatha SureClick 140 mg/mL subcutaneous pen injector INJECT 1 ML SUBCUTANEOU SLY EVERY 2 WEEKS active Not Available Not Available No t Available Vitals Date Recorded Heart rate Respiratory rate Body temperature Oxygen saturation Oxygen saturation in Arterial blood by Pulse oximetry Systolic blood pressure Diastolic blood pressure Provider Name and Address Organization Details Last Updated DateTime 2 66 /min 16 /min 97.7 [degF] 95 % 95 % 143 mm[Hg] 73 mm[Hg] Not Available [facility] 2 17:06:33 Social History None recorded. Functional Status None recorded. Mental Status None recorded. Family History Nothing Reported. Medical History No medical history recorded. Past Encounters Encounter ID Performer Location Encounter Start Date Encounter Closed Date Diagnosis/Indication Diagnosis SNOMED-CT Code Diagnosis ICD10 Code [id number] Robb Ruiz MD [facility] - [facility] [address] [place] [phone] 12/07/2021 17:06:28 12/07/2021 17:11:21 Health Concerns Section Related Observation LastModified by Organization Detai ls LastModified Time None Recorded Concern Status LastModified by Organization Details LastModified Time None Recorded Advance Directives Directive None Recorded Payers Encounter Date Sequence Insurance Name Policy Number Policy Gould Covered Member ID Gould Member ID Guarantor Name 12/07/2021 1 [facility] - DOS PRIOR TO 2022 - DUAL ELIGIBLE (MEDICARE REPLACEMENT/ADV ANTAGE - HMO) Michael Deal [id number] Michael Deal Notes Date Note Type Note Provider Name and Address Organization Details Recorded Time 12/07/2021 text/html HPI: Allergies: Lisinopril, Shellfish and Zolpidem Patient reports having some SOB on exertion and at rest x 2 days. No cough, fever, wheezing, ST or runny nose. Pt is having nasal congestion and MCLEAN. Has not performed a home test kit for COVID-19. Per pt also had episode of CP yesterday, had one dose of nitroglycerin and CP resolved. Per pt BP today 134/72, no CP today. Pt alert speaking in clear full sentences, not stopping for breaths during call. Pt unable to come to our walk in center for assessment of breathing. ................... ................... ................... ................... ................... ................... ................... ........ [facility] Nursing Assessment: Comments: request reviewed no further information needed to process visit Member wont be home till 3 ................... ................... ................... ................... ................... ................... ................... ........ Log Rafter Note: SC1 ON SCENE TO EVALUATE A 70 YO MALE WITH 1 EPISODE OF CHEST PAIN LAT NIGHT. ON ARRIVAL FOUND 70 YO MALE ALERT X4 AMBULATORY IN NAD. PT REPORTS THAT LAST NIGHT AROUND 9PM WHILE ASLEEP HE WOKE WITH 5/10 CP WITH NO SOB. PT REPORTS HE TOOK 1 NITRO WITH RELIEF. PT CURRENTLY HAS NO CP OR SOB. PT REPORTS CHRONIC SINUS INFECTIONS THAT HE JUST GOT STOPPED PREDISONE. PT VITALS NOTED. PT HAS CLEAR AND EQUAL LUNG SUNGS. PT HAS CHRONIC SINUS CONGESTION. A RAPID FLU, STREP AND COVID ARE PERFORMED AND ALL CAME BACK NEGATIVE. A 12 LEAD EKG IS COMPLETED AND SENT TO DR. RUIZ. DR. RUIZ CONTACTED WITH VITALS, REPORT AND EKG. EKG HAS NOT ABNORMAL FINDING. DR. RUIZ RECOMMENDS NO FURTHER TREATMENT FOR PT AND THAT THE PT FOLLOW UP WITH HIS PCP AND CALL 911 IF HE HAS ANY FURTHER EPISODES OF CP OR SOB. SC1 CLEAR ................... ................... ................... ................... ................... ................... ................... ........ Disposition: Fulfilled Robb Ruiz MD [address] [facility],[address], [place], [address], [employer] 12/07/2021 17:11:18
[2024-04-25 09:16] VITALS: BP 118/67; PULSE 64; RESP 16; TEMP 36.6; O2SAT 95; BMI 34.3
--- NOTE | 2024-04-25 09:36 | MHC.SHP ---
Pre-Procedural Eval Section A - 24 Hr Update-Section A only Date of Service: 04/25/24 Section B - Complete if H&P > 30 days Chief Complaint: screening Details of Present Illness: see H&P no changes Relevant Family History (Specify if Yes): No Relevant Social History: None Present Medications: see Short Stay Collaborative assessment Medical History: No relevant PMH History of Previous Operations: No relevant previous surgery Allergies: Allergies Allergy/AdvReac Type Severity Reaction Status Date / Time No Known Allergies Allergy Verified 04/25/24 09:20 Review of Systems Sugical H&P ROS: Negative: Constitution, Cardiovascular, Respiratory, Neurological, Psychiatric, Hem-Onc, Allergic/Immunologic, Gastrointestinal, Genitourinary, Musculoskeletal, Integumentary, Endocrine and Eyes/Ears/Nose/Throat Exam Surgical H&P Exam: Normal: HEENT, Normal: Heart, Normal: Lungs, Normal: Extremities, Normal: Abdomen, Normal: Skin and Normal: Neurological Plan Diagnosis/Plan: Unchanged I have reviewed the history and physical and performed a pertinent physical examination on my patient. No changes have occurred unless specified. Time Spent With Patient Time: Total time managing care of this patient today ____ minutes.
[2024-04-25] MEDS: Lactated Ringers 1,000 ML 100 ML IVCONT (09:43)
[2024-04-25 10:20] VITALS: BP 100/52; PULSE 74; RESP 16; TEMP 36.8; O2SAT 97
[2024-04-25 10:35] VITALS: BP 107/71; PULSE 68; RESP 16; O2SAT 96
[2024-04-25 10:50] VITALS: BP 115/70; PULSE 65; RESP 16; TEMP 36.6; O2SAT 96
--- NOTE | 2024-04-25 12:20 | OP_ITS ---
DATE OF SERVICE: 04/25/2024 SURGEON: Mike Stark MD INDICATIONS: Colon cancer screening and prior history of colon polyps. PREOPERATIVE DIAGNOSIS: POSTOPERATIVE DIAGNOSIS: PROCEDURE PERFORMED: Colonoscopy to the cecum with biopsy. ESTIMATED BLOOD LOSS: COMPLICATIONS: ANESTHESIA: Medications, monitored anesthesia care. ASSISTANTS: SPECIMENS: DESCRIPTION OF PROCEDURE: History and physical performed. The risks and benefits of the procedure were explained to the patient. Informed consent was obtained. The patient was placed in the left lateral decubitus position. A digital rectal exam was performed and was found to be normal. The Olympus pediatric video colonoscope was introduced into the rectum and advanced to the cecum. The cecum was identified by transillumination, palpation, and identification of ileocecal valve. Examination was performed. The scope was removed. He tolerated the procedure well and was taken to recovery area in stable condition. FINDINGS: The terminal ileum was not examined. The visualized colonic mucosa was within normal limits. The quality of prep was good with a few areas with some small stool balls that were washed and suctioned. There were several hyperplastic appearing polyps in the rectum, all less than 5 mm. Two of these were biopsied. Retroflexed examination showed some internal hemorrhoids. IMPRESSION: Colon polyps. RECOMMENDATION: Follow up the biopsy results. MD KYM Gonzales/CAITLIN / [id number] MTDD
== END 2024-04-25 12:14 | disposition home or self-care (01) ==
PROVIDERS: PCP Family Medicine; Visit Provider Internal Medicine Gastroenterology
PROC: 0DJD8ZZ Inspection of Lower Intestinal Tract, Via Natural or Artificial Opening Endoscopic (ICD-10-PCS; CPT 45378; principal; 2024-04-25 10:00)
DX: Z12.11 Encounter for screening for malignant neoplasm of colon (principal); Z86.0101 Personal history of adenomatous and serrated colon polyps; K62.1 Rectal polyp; K64.8 Other hemorrhoids; K21.9 Gastro-esophageal reflux disease without esophagitis; K27.9 Peptic ulcer, site unspecified, unspecified as acute or chronic, without hemorrhage or perforation; K76.0 Fatty (change of) liver, not elsewhere classified; I10 Essential (primary) hypertension; E78.5 Hyperlipidemia, unspecified; I25.10 Atherosclerotic heart disease of native coronary artery without angina pectoris; Z95.5 Presence of coronary angioplasty implant and graft; Z95.1 Presence of aortocoronary bypass graft; G47.33 Obstructive sleep apnea (adult) (pediatric); Z79.51 Long term (current) use of inhaled steroids; Z79.02 Long term (current) use of antithrombotics/antiplatelets; Z79.82 Long term (current) use of aspirin; Z79.899 Other long term (current) drug therapy; Z87.891 Personal history of nicotine dependence
CPT/HCPCS: 45380; 88305; J2003; J2250; J2704

== ENCOUNTER 2024-05-20 07:53 | Outpatient (REF) | payer OTHER, SELFPAY ==
--- OUTSIDE RECORDS SUMMARY | 2024-05-20 07:55 | XMS_ITS | Data Portability ---
Author Organization [employer] [place] [employer] Address [address] [place] [address] Care Team Providers Care Fourth Mate Name Role Phone [facility] Primary Care Provider [phone] [facility] Referring Provider [phone] Assessment Encounter Date Assessment Date Assessment LastModified [...] pain. The patient agreed with this plan. [email or web address] Not available 12/07/2021 17:10:58 Plan of Treatment [...] 73 mm[Hg] Not Available [facility] production 17:06:33 Social History None recorded. Functional Status None recorded. Mental Status None recorded. Family History Nothing Reported. Medical History No medical history recorded. Past Encounters Encounter ID Performer Location Encounter Start Date Encounter Closed Date Diagnosis/Indication Diagnosis SNOMED-CT Code Diagnosis ICD10 Code Diagnosis Note [id number] Robb Ruiz MD [facility] - [facility] [address] [place] [phone] 12/07/2021 17:06:28 12/07/2021 17:11:21 Health Concerns Section Related Observation LastModified by Organization Detai ls LastModified Time None Recorded Concern Status LastModified by Organization Details LastModified Time None Recorded Advance Directives Directive None Recorded Payers Encounter Date Sequence Insurance Name Policy Number Policy Gould Covered Member ID Gould Member ID Guarantor Name 12/07/2021 1 [facility] - DOS PRIOR TO 2022 - DUAL ELIGIBLE (MEDICARE REPLACEMENT/ADV ANTAGE - HMO) Michael Deal [id number] Michael Deal Notes Date Note Type Note [...] ................... ................... ................... ................... ................... ................... ........ Glued Wood Tester Note: SC1 ON SCENE TO EVALUATE A [...] ........ Disposition: Fulfilled Robb Ruiz MD [address] [facility],[address], [place], [address], [employer] 12/07/2021 17:11:18
--- OUTSIDE RECORDS SUMMARY | 2024-05-20 07:55 | XMS_ITS | Patient Health Record ---
Author Organization [facility] Address [address] [place] [address] Care Team Providers Care Wind Turbine Electrical Engineer Name Role Phone Renae Adame MD Primary Care Provider Mike Cordoba Jr ALLERGIES No Known Allergies RESULTS Component Value Reference Range Notes Pathology Reviewed date:04/29/2024 04:27:19 PM Interpretation: Performing Lab:[facility], [address] [place] [phone] Notes/Report: REASON FOR REFERRAL No Information MEDICATIONS Medication [...] Problem Colon cancer screening (Z12.11) Active confirmed 730158174 Problem Long-term use of aspirin therapy (Z79.82) Active confirmed 948638918 Problem Long-term current use of high risk medication other than anticoagulant (Z79.899) Active confirmed 890982518 Problem Hypertension, unspecified type (I10) Active confirmed 46096314 VITAL SIGNS Temperature 98.4 degrees Fahrenheit 03/24/2024 Blood pressure diastolic 00 mm Hg 03/24/2024 Height 67 in 03/24/2024 Blood pressure systolic 000 mm Hg 03/24/2024 Weight 215 lb 4 oz lbs 03/24/2024 BMI 33.71 kg/m2 03/24/2024 Encounters Encounter Location Date Provider Diagnosis [facility] Outpatient [address] [place] [phone] 04/25/2024 Mike Stark Jr Colon cancer screening Z12.11 ; Colon polyps K63.5 and Personal history of colonic polyps Z86.0100 [facility] [address] [place] [phone] 11/28/2023 Mike Stark Jr [facility] [address] [place] [phone] 03/24/2024 Mike Stark Jr Colon cancer screening Z12.11 and Long-term use of aspirin therapy Z79.82 [facility] [address] [place] [phone] 11/27/2023 Mike Stark Jr [facility] [address] [place] [phone] 03/24/2024 Mike Stark Jr [facility] [address] [place] [phone] 04/29/2024 Mike Stark Jr ASSESSMENTS Encounter Date Diagnosis Assessment Notes Treatment Notes Treatment Clinical Notes 04/25/2024 Colon cancer screening (ICD-10 - Z12.11) 04/25/2024 Colon polyps (ICD-10 - K63.5) 03/24/2024 Colon cancer screening (ICD-10 - Z12.11) Colonoscopy material was printed 03/24/2024 Long-term use of aspirin therapy (ICD-10 - Z79.82) 04/25/2024 Personal history of colonic polyps (ICD-10 - Z86.0100) PLAN OF TREATMENT Future Test Test Name Order Date COLONOSCOPY 09/20/2012 COLONOSCOPY 03/06/2018 COLONOSCOPY 03/24/2024 Insurance Providers Payer Name Payer Address Payer Phone Subscriber Number Group Number Insured Name Patient Relationship to Insured Coverage Start Date Coverage End Date [facility] [address] Attn Claims GLYNN Williamson [id number] KRAMER DORIS Self - patient is the insured MEDICAID OF [employer] [address] [place] [address] [id number] KRAMER DORIS Self - patient is the insured MEDICAL [...]
--- OUTSIDE RECORDS SUMMARY | 2024-05-20 07:55 | XMS_ITS ---
Author Organization [facility] Address [address] [place] [address] Care Team Providers Care Mrp Controller Name Role Phone Renae Adame MD Primary Care Provider Zarina joceble Mike Stark Jr Unavailable [phone] REASON FOR VISIT screening Encounters Encounter Location Date Provider Diagnosis [facility] Outpatient [address] [place], [place] [phone] 04/25/2024 Mike Stark Jr Colon cancer screening Z12.11 ; Colon polyps K63.5 and Personal history of colonic polyps Z86.0100 ASSESSMENTS Encounter Date Diagnosis Assessment Notes Treatment Notes Treatment Clinical Notes 04/25/2024 Colon cancer screening (ICD-10 - Z12.11) 04/25/2024 Colon polyps (ICD-10 - K63.5) 04/25/2024 Personal history of colonic polyps (ICD-10 - Z86.0100) PLAN OF TREATMENT No Information
--- OUTSIDE RECORDS SUMMARY | 2024-05-20 07:55 | XMS_ITS ---
Author Organization [facility] Address [address] [place] [address] Care Team Providers Care Fire Systems Inspector Name Role Phone [place] Renae ALEGRIA Primary Care Provider Zarina vailable Mike Stark Jr Unavailable REASON FOR VISIT asa / Plavix Encounters Encounter Location Date Provider Diagnosis [facility] [address] [place] [address] 03/24/2024 Mike Stark Jr PLAN OF TREATMENT No Information
[2024-05-20 11:43] LABS: Alanine Aminotransferase 27 U/L (0-40); Albumin Level 4.3 g/dL (3.5-5.0); Anion Gap 12 (12-20); Aspartate Amino Transferase 38 U/L (5-37); Bilirubin Direct 0.4 mg/dL (0.0-0.5); Bilirubin Total 0.8 mg/dL (0.0-1.0); Blood Urea Nitrogen 20 mg/dL (9-16); Calcium 9.3 mg/dL (8.4-10.2); Carbon Dioxide 24 mmol/L (22-29); Chloride 108 mmol/L (96-108); Cholesterol 113 mg/dL (<200); Estimated Glomerular Filt Rate > 60; Glucose Random 106 mg/dL (60-115); HDL Cholesterol 38 mg/dL (>40); LDL Cholesterol Calculated 58 mg/dL (<100); Potassium 3.8 mmol/L (3.3-5.1); Sodium 140 mmol/L (135-145); Triglycerides 88 mg/dL (<150)
[2024-05-20 12:21] LABS: Alkaline Phosphatase 90 U/L (39-117)
== END 2024-05-20 07:54 | disposition home or self-care (01) ==
LOC: HO.HHCL 07:53
PROVIDERS: Visit Provider Family Medicine
DX: I25.10 Atherosclerotic heart disease of native coronary artery without angina pectoris (principal)
CPT/HCPCS: 36415; 80048; 80061; 80076

== ENCOUNTER 2024-10-30 07:56 | Emergency (ER) | payer OTHER, SELFPAY ==
--- NOTE | ~2024-10-30 | XR_ITS ---
EXAMINATION: XR FOOT, LEFT CLINICAL INFORMATION: pain, injury COMPARISON: 08/27/2021. TECHNIQUE: AP, lateral, and oblique views of the left foot. FINDINGS: No fracture, dislocation, or suspicious bone lesion. Normal bone mineralization. Normal alignment. Joint spaces are preserved. No significant arthropathy. Normal plantar arch. Small dorsal and plantar calcaneal spurs present. Soft tissues appear normal. XR/XR foot LT min 3V IMPRESSION: No acute bony abnormalities of the left foot. No significant interval change from 08/27/2021. Electronically signed by: Tylor Cordoba MD 10/30/2024 08:34 AM EDT
--- NOTE | 2024-10-30 08:06 | ED_ITS ---
HPI - General Adult General Chief complaint: Extremity Injury, Lower Stated complaint: Toe injury Time Seen by Provider: 10/30/24 08:06 Source: patient Mode of arrival: ambulatory Limitations: no limitations History of Present Illness ED Provider: Mariela Yoder PA-C HPI narrative: Patient is a 73 year old assigned male at with a history of ZEV, NSTEMI, and asthma presenting to the emergency department today with left toe pain. Patient states that his left 2nd, 3rd, 4th, and 5th toes hurt after his stubbed them on the corner of his bed 4 days ago. Patient denies any dizziness, l ightheadedness, abdominal pain, nausea, vomiting, fever, chills, blurry vision, double vision, loss of vision, chest pain, difficulty breathing, shortness of breath, back pain, night sweats, pain with urination, increased urinary frequency, increased urinary urgency, blood in his urine or stool, syncope or a near syncopal episode, bowel incontinence, bladder incontinence, or any other complaints at this time. Onset (ago): day(s) (4) Relieving factors: immobilization Exacerbating factors: movement Associated symptoms: denies other symptoms Treatments prior to arrival: none Related Data Home Medications ?Medication ?Instructions ?Recorded ?Confirmed acetaminophen 325 mg tablet 500 mg PO Q8H PRN Pain 04/23/24 atorvastatin 80 mg tablet 80 mg PO BEDTIME 10/11/22 cholecalciferol (vitamin D3) 25 25 mcg PO DAILY 04/23/24 mcg (1,000 unit) capsule (Vitamin D3) clopidogrel 75 mg tablet 75 mg PO DAILY 10/11/2204/13 docusate sodium 100 mg capsule 100 mg PO BID 10/11/22 04/23/24 fluticasone propionate 50 1 spray intranasal BID PRN A llergy 10/11/22 04/23/24 mcg/actuation nasal Symptoms spray,suspension (Flonase Allergy Relief) gabapentin 100 mg capsule 200 mg PO BID 10/11/2204/23 hydralazine 50 mg tablet 50 mg PO BID 10/11/22 montelukast 10 mg tablet 10 mg PO DAILY 10/11/2204/13 oxycodone-acetaminophen 5 mg-325 1 tab PO BID PRN daniel re pain 10/11/22 04/23/24 mg tablet sennosides 8.6 mg tablet (senna) 8.6 mg PO DAILY PRN c onstipation 10/11/22 04/23/24 tamsulosin 0.4 mg capsule 0.4 mg PO BEDTIME 10/11/22 1 06/24/23 aspirin 81 mg tablet,delayed 81 mg PO DAILY 03/18/24 1 06/24/23 release nicotine 7 mg/24 hr daily 1 patch topical DAILY 04/23/24 transdermal patch nitroglycerin 0.4 mg sublingual 0.4 mg sublingual Q5M PRN Chest 03/18/24 04/23/24 tablet Pain umeclidinium 62.5 mcg/actuation 1 inh inhalation DAILY 03/18/24 04/23/24 blister powder for inhalation (Incruse Ellipta) allopurinol 100 mg tablet 100 mg PO QPM 04/23/2404/23 amiodarone 200 mg tablet 200 mg PO DAILY 04/23/2404/06 hydrochlorothiazide 25 mg tablet 25 mg PO DAILY 04/23/24 isosorbide mononitrate 30 mg 30 mg PO QAM 04/23/2404/06 tablet,extended release 24 hr metoprolol tartrate 25 mg tablet 25 mg PO BID 04/23/24 04/23/24 quetiapine 50 mg tablet (Seroquel) 50 mg PO DAILY 04/1304/23/24 sertraline 100 mg tablet (Zoloft) 100 mg PO DAILY 04/1304/23/24 trazodone 50 mg tablet 50 mg PO BEDTIME 04/23/24 umeclidinium 62.5 mcg/actuation 1 inh inhalation DAILY 04/23/24 04/23/24 blister powder for inhalation (Incruse Ellipta) Previous Rx's ?Medication ?Instructions ?Recorded albuterol sulfate 90 mcg/actuation 2 puff inhalation Q 4-6H PRN asthma 10/11/23 aerosol inhaler 30 days #8.5 grams amlodipine 10 mg tablet 10 mg PO DAILY #90 tabs 10/04 Allergies Allergy/AdvReac Type Severity Reaction Status Date / Time No Known Allergies Allergy Verified 10/30/24 08:13 Review of Systems Constitutional: Constitutional: Reports no additional constitutional complaints, Denies chills, Denies fever(s) and Denies night sweats Eyes: Eyes: Reports no additional eye complaints, Denies blurry vision, Denies change in vision, Denies diplopia, Denies eye discharge, Denies loss of vision and Denies eye pain ENT: Denies dizziness Cardiovascular: Cardiovascular: Reports no additional cardiovascular complaints, Denies chest pain, Denies lightheadedness, Denies Loss of Consciousness and Denies dyspnea Respiratory: Respiratory: Reports no additional respiratory complaints and Denies dyspnea Gastrointestinal: Gastrointestinal: Reports no additional gastrointestinal com plaints, Denies abdominal pain, Denies melena, Denies hematochezia, Denies change in bowel habits and Denies change in stool character Genitourinary: Genitourinary: Reports no additional male genitourinary complaints, Denies hematuria, Denies oliguria, Denies difficulty urinating, Denies dysuria, Denies urinary frequency, Denies urinary hesitancy, Denies urinary incontinence and Denies urinary urgency Musculoskeletal: Musculoskeletal: Reports no additional musculoskeletal complaints, Denies numbness and Denies tingling Comments: pain of toes 2-5 of the left foot Neurologic: Denies dizziness, Denies loss of vision, Denies numbness and Denies tingling Psychiatric: Psychiatric: Reports no additional psychiatric complaints Endocrine: Endocrine: Reports no additional endocrine complaints Hematologic/Lymphatic: Hematologic/Lymphatic: Reports no additional hematologic/lymphatic complaints Allergic/Immunologic: Allergic/Immunologic: Reports no additional allergic/immunologic complaints [facility] Past Medical History Attestation statement: The following information was validated with the patient. Source: old records reviewed and nursing notes reviewed Medical History PVD (peripheral vascular disease) CAD (coronary artery disease) Fatty liver Elevated cholesterol GERD (gastroesophageal reflux disease) Anxiety Incomplete right bundle branch block (RBBB) Allergic rhinitis Bronchial asthma ZEV (obstructive sleep apnea) Obesity (BMI 30-39.9) HTN (hypertension) Asthma CVA (cerebral vascular accident) Surgical History Hx of CABG H/O colonoscopy H/O heart artery stent Social History Social History Are you a primary care provider to a significant other at home: No Do you presently have visiting nurse or other home services: No Alcohol intake: former Patient Tobacco Use Status: Former Tobacco user Tobacco use type: Cigarette service: No Physical Exam ED Vital Signs: Vital Signs - 24 hr 10/30/24 08:12 10/30/24 08:55 Temperature 98.1 F 98.0 F Pulse Rate 76 72 Respiratory Rate 18 16 Blood Pressure 127/75 122/68 Pulse Oximetry 96 98 Oxygen Delivery Method Room Air Room Air BMI result Body Mass Index 34.1 Const General: cooperative, no acute distress, alert and awake Nutritional Appearance: well nourished Orientation/consciousness: patient oriented x3 HENMT Head: Yes normal to inspection and Yes atraumatic Ears: hearing grossly normal bilaterally and external ears normal General nose exam: Normal external nose present, no nasal discharge noted and no epistaxis Face and sinus: Yes normal facial exam, No abrasion and No laceration Mouth: Normal oral and palatal mucosa present, no drooling and no muffled voice Eyes General: appearance normal, both eyes and all related structures Periorbital: periorbital findings normal Eyelids: Yes eyelids normal Conjunctivae: conjunctivae normal Pupils: Equal, round and reactive pupils present EOM: EOMs intact bilaterally Neck Neck: Yes normal visual inspection, Yes full ROM and Yes no lymphadenopathy Resp Effort & Inspection: normal respiratory effort and able to speak in complete sentences Neuro General: patient oriented x3, moves all extremities and CN's II-XI intact bila terally Cranial nerves: Yes Equal, round and reactive pupils present Cognition (Neuro): normal cognition Extrem Other: minimal bruising present to the dorsal aspect of the left 4th toe General: Yes full ROM and Yes capillary refill normal Psych Appearance: grossly normal Mental Status: mental status grossly normal Affect: normal affect Attitude: cooperative Thought process: Normal thought process present Thought content: Normal thought content present Insight: Good insight present (Psych) Medications Administered Discontinued Medications Generic Name Dose Route Start Last Admin Trade Name Freq PRN Reason Stop Dose Admin Acetaminophen 975 mg 10/30/24 08:39 10/30/24 08:44 Acetaminophen 325 Mg Tablet PO 10/30/24 08:40 975 mg ONCE ONE Administration Medical Decision Making Medical Decision Making MDM Narrative: Patient is a 73 year old assigned male at with a history of ZEV, NSTEMI, and asthma presenting to the emergency department today with left toe pain. Patient's physical exam was as noted in the physical exam portion of this note. Patient's left foot x-ray showed no acute process. I explained my physical exam findings as well as all test results to the patient. I answered all questions asked by the patient. I stressed the importance of the patient taking his medic ation as directed (either prescribed or as the over the counter packaging recommends). I stressed the importance of the patient following up with his primary care provider. I stressed the importance of the patient returning to the emergency department immediately if his symptoms were to worsen or if he were to develop any dizziness, shortness of breath, difficulty breathing, chest pain, blurry vision, loss of vision, nausea, vomiting, abdominal pain, fever, chills, back pain, or any other complaints. Patient verbalized agreement and understanding with this treatment plan and discharge. Differential Diagnosis Differential Diagnoses: The differential diagnosis associated with the presentation includes Toe contusion Toe fracture Toe sprain Toe strain Admission/Observation Consideration of admission/observation: Escalation of care including admission/observation considered Patient would have been admitted to the hospital had his work up had any findings where hospital admission was appropriate and his clinical presentation warranted hospital admission. Independent Interpretation I performed an independent interpretation of an: Plain X-Ray (left foot) Interpretation: My interpretation is in agreement with the radiologist's impression of this imaging study. EXAMINATION: XR FOOT, LEFT CLINICAL INFORMATION: pain, injury COMPARISON: 08/27/2021. TECHNIQUE: AP, lateral, and oblique views of the left foot. FINDINGS: No fracture, dislocation, or suspicious bone lesion. Normal bone mineralization. Normal alignment. Joint spaces are preserved. No significant arthropathy. Normal plantar arch. Small dorsal and plantar calcaneal spurs present. Soft tissues appear normal. XR/XR foot LT min 3V IMPRESSION: No acute bony abnormalities of the left foot. No significant interval change from 08/27/2021. Electronically signed by: Tylor Cordoba MD 10/30/2024 08:34 AM EDT RP Dictated By: Tylor Cordoba MD Signed By: Electronically signed by Tylor Cordoba MD 10/30/24 0834 Radiology Impression Discussion of test interpretation with radiology: I have reviewed the radiologist's reading. Discharge Plan Discharge Clinical Impression: Contusion of toe Qualifiers: Encounter type: initial encounter Toe: lesser toe Damage to nail status: wit hout damage Laterality: left Qualified Code(s): S90.122A - Contusion of left lesser toe(s) without damage to nail, initial encounter Patient Disposition: Home, Self-Care Instructions: Foot Contusion (ED) Additional Instructions: Your x-ray showed no evidence of fracture / break. Follow up with your primary care provider. Return to the emergency department immediately if your symptoms worsen or if you develop any numbness, tingling, dizziness, shortness of breath, difficulty breathing, chest pain, blurry vision, loss of vision, nausea, vomiting, abdominal pain, fever, chills, back pain, or any other complaints. Please see the information below about our Patient Portal. If you are not yet enrolled in the [facility] Patient Portal, you will receive an enrollment email invitation following your visit to any [facility] setting. You may also self-enroll in the Patient Portal by visiting our website: [email or web address] The following information is required to access the Patient Portal: - Your [facility] Medical Record Number - Your personal home email address (must match what is in your electronic medical record, Registration staff can assist with this) - Name - Date of Capabilities of the Patient Portal: - Message some providers - View upcoming appointments - Access your health summary, medical history, and visit history - View current conditions and allergies - View procedure and lab results - View your medications, including guidelines, side effects, and precautions - Complete pre-appointment questionnaires requested by your provider - Ready summary reports of your office visits and procedures To access the Patient Portal Mobile [employer], follow these directions: - Search [employer] in the [employer] Store or Dishcrawl Store - Download the [employer]win - Search for [facility] - Enter your login/password Prescriptions: No Action aspirin 81 mg tablet,delayed release (DR/EC) 81 mg PO DAILY nitroglycerin 0.4 mg tablet, sublingual 0.4 mg sublingual Q5M PRN (Reason: Chest Pain) nicotine 7 mg/24 hr patch 24 hour 1 patch topical DAILY Incruse Ellipta 62.5 mcg/actuation blister with device 1 inh INHALATION DAILY amlodipine 10 mg Tablet 10 mg PO DAILY Qty: 90 0RF Protocol: Hold for SBP< HOLD for SBP < : 90 trazodone 50 mg Tablet 50 mg PO BEDTIME amiodarone 200 mg Tablet 200 mg PO DAILY isosorbide mononitrate 30 mg Tablet Extended Release 24 Hr 30 mg PO QAM sertraline [Zoloft] 100 mg Tablet 100 mg PO DAILY allopurinol 100 mg tablet 100 mg PO QPM hydrochlorothiazide 25 mg Tablet 25 mg PO DAILY quetiapine [Seroquel] 50 mg Tablet 50 mg PO DAILY Incruse Ellipta 62.5 mcg/actuation blister with device 1 inh INHALATION DAILY metoprolol tartrate 25 mg Tablet 25 mg PO BID acetaminophen 325 mg tablet 500 mg PO Q8H PRN (Reason: Pain) atorvastatin 80 mg tablet 80 mg PO BEDTIME cholecalciferol (vitamin D3) [Vitamin D3] 25 mcg (1,000 unit) capsule 25 mcg PO DAILY clopidogrel 75 mg tablet 75 mg PO DAILY docusate sodium 100 mg capsule 100 mg PO BID fluticasone propionate [Flonase Allergy Relief] 50 mcg/actuation spray,suspension 1 spray intranasal BID PRN (Reason: Allergy Symptoms) Rx Instructions: administer into each nostril gabapentin 100 mg capsule 200 mg PO BID hydralazine 50 mg tablet 50 mg PO BID montelukast 10 mg tablet 10 mg PO DAILY oxycodone-acetaminophen 5-325 mg tablet 1 tab PO BID PRN (Reason: severe pain) tamsulosin 0.4 mg capsule 0.4 mg PO BEDTIME sennosides [senna] 8.6 mg tablet 8.6 mg PO DAILY PRN (Reason: constipation) albuterol sulfate 90 mcg/actuation HFA aerosol inhaler 2 puff inhalation Q4-6H PRN (Reason: asthma) 30 Days Qty: 8.5 3RF Referrals: Renae Adame MD [Primary Care Provider, Family Practice] Interventions: ED Discharge Assessment Last Done: 10/30/24 08:55 Discharge Date/Time: 10/30/24 08:58 Print Language: Maldivian
[2024-10-30 08:12] VITALS: BP 127/75; PULSE 76; RESP 18; TEMP 36.7; O2SAT 96; BMI 34.1
--- OUTSIDE RECORDS SUMMARY | 2024-10-30 08:34 | XMS_ITS | Encounter Summary ---
Author Organization [email or web address] Address [address] [place] [address] [address] [place] [address] Care Team Providers Care Clerical Proofreader Name Role Phone Renae Adame MD Primary Care Provider [phone] Abida Campa PharmD Unavailable Frank Morales MD Unavailable [phone] Mike Stark MD Unavailable [phone] Filiberto García Unavailable Reason for Visit * Reason Onset Date Comments Med Refill 02/12/2023 Encounter Details Date Type Department Care Team (Late st Contact Info) Description 02/12/2023 Telephone [facility] [address], [place] [phone] Renae Adame MD [address], [place] [phone] Med Refill Social History Tobacco Use Types Packs/Day Years Used Date Smoking Tobacco: Some Days Cigarettes Passive Smoke Exposure: Never Alcohol Use Standard Drinks/Week Comments Defer 0 (1 standard drink = 0.6 oz pur e alcohol) Depression Answer Date Recorded Patient Health Questionnaire-9 Score 0 08/07/2022 Depression Answer Date Recorded Patient Health Questionnaire-2 Score 0 08/07/2022 Sex and Gender Information Value Date Recorded Sex Assigned at Male 03/13/2022 10:17 AM EDT Legal Sex Male 10:17 AM EDT Gender Identity Male 03/13/2022 10:17 AM EDT Sexual Orientation Choose not to disclose 2021 10:17 AM EDT documented as of this encounter Miscellaneous Notes * Telephone Encounter - Leanne Cohn - 02/12/2023 8:26 AM EDT Tc from patient requesting a med refill for medication oxycodone [address] Adame documented in this encounter Plan of Treatment Upcoming Encounters Date Type Department Care Team (Late st Contact Info) Description 01/15/2025 2:00 PM EDT Clinical Support [facility] [address] [place] [address] Tamika Kim RN [address] [place] [address] documented as of this encounter Visit Diagnoses Not on filedocumented in this encounter Additional Health Concerns Assessment Noted Time PHQ-9 Depression Total Score: 0 08/08/19 23 10:33 AM EDT documented as of this encounter Care Teams Clerical Proofreader Relationship Specialty Start Date End Date Renae Adame MD [address] [place] [address] PCP - General Family Medicine 01/25/15 Abida Campa, LolaD [address] [place] [address] Pharmacist Internal Medicine 03/04/24 Frank Morales MD [address] [place] [address] Cardiology 04/09/24 Mike Stark MD [address] [place] [phone] Gastroenterology 04/28/24 Filiberto García [address] [place] [id number] Podiatry 05/02/24 Dr. Alo Bassett MD [facility] Cardiac Surgery [address] [place] [id number] Cardiothoracic Surgery 05/01/24 documented as of this encounter
[2024-10-30] MEDS: Acetaminophen 325 MG TABLET 975 MG PO (08:44)
[2024-10-30 08:55] VITALS: BP 122/68; PULSE 72; RESP 16; TEMP 36.7; O2SAT 98
== END 2024-10-30 08:58 | disposition home or self-care (01) ==
PROVIDERS: Emergency Provider Emergency Medicine; PCP Family Medicine
DX: S90.122A Contusion of left lesser toe(s) without damage to nail, initial encounter (principal); M79.672 Pain in left foot; X58.XXXA Exposure to other specified factors, initial encounter; Y93.9 Activity, unspecified; Y92.9 Unspecified place or not applicable; Y99.8 Other external cause status
CPT/HCPCS: 73630; 99283

== ENCOUNTER → 2024-10-30 08:21 | Outpatient (BNV) | payer OTHER, SELFPAY | PROVIDERS: Emergency Provider Emergency Medicine; PCP Family Medicine; Visit Provider Radiology Diagnostic Radiology | DX: M79.672 Pain in left foot (principal) | CPT/HCPCS: 73630 ==

== ENCOUNTER 2024-11-01 20:27 | Emergency (ER) | payer OTHER, SELFPAY ==
--- NOTE | ~2024-11-01 | CT_ITS ---
CLINICAL HISTORY: hematuria CT abdomen and pelvis with contrast Comparison: None provided Findings: Atelectasis. Cardiomegaly without significant pericardial effusion. Coronary artery calcifications. Scattered subcentimeter low-density lesions throughout the liver, likely cysts or hemangiomas, too small to characterize. Splenule. Bilateral hypodense/intermediate dense renal cysts. Nonspecific minimal perinephric stranding in the right. Bilateral nonobstructive subcentimeter renal calculi largest in the left upper pole measuring 5 mm. Nonobstructive 7 mm right ureteropelvic junction calculus. No bowel obstruction, pneumoperitoneum, or pneumatosis. Fat containing umbilical hernia. Prostatomegaly noted. Scattered colonic diverticulosis without diverticulitis or colitis. Appendix not visualized. Circumferential bladder wall thickening. Osteopenia multilevel spondylosis pronounced at L5-S1. Diffuse atheromatous plaque disease throughout the aorta and branch vessels, without aneurysmal dilatation. IMPRESSION: 1. Nonobstructive bilateral subcentimeter renal and right ureteropelvic junction calculi. 2. Circumferential bladder wall thickening may be related to degree of underdistention or mild cystitis. This document has been electronically signed by: Yovanny Reed MD on 11/01/2024 23:12:06
[2024-11-01 20:33] VITALS: BP 146/84; PULSE 79; RESP 20; TEMP 36.3; O2SAT 95; BMI 34.4
--- NOTE | 2024-11-01 20:35 | ED.GENADULT ---
HPI - General Adult General Chief complaint: Urogenital-Male Stated complaint: blood in the urine Time Seen by Provider: 11/01/24 21:19 Source: patient Mode of arrival: ambulatory Limitations: no limitations History of Present Illness ED Provider: Mariela Yoder PA-C HPI narrative: Patient is a 73 year old assigned male at with a history of kidney stones, NSTEMI, and ZEV presenting to the emergency department today with blood in his urine and right sided flank pain. Patient states that over the last 4-5 days he has had right sided flank pain and today he started having blood in his urine. Patient denies any dizziness, lightheadedness, abdominal pain, nausea, vomiting, fever, chills, blurry vision, double vision, loss of vision, chest pain, difficulty breathing, shortness of breath, back pain, night sweats, pain with urination, increased urinary frequency, increased urinary urgency, blood in his stool, syncope or a near syncopal episode, recent trauma or falls, bowel incontinence, bladder incontinence, or any other complaints at this time. Relieving factors: none Exacerbating factors: none Associated symptoms: denies other symptoms Treatments prior to arrival: none Related Data Home Medications ?Medication ?Instructions ?Recorded ?Confirmed acetaminophen 325 mg tablet 500 mg PO Q8H PRN Pain 10/11/22 04/23/24 atorvastatin 80 mg tablet 80 mg PO BEDTIME 10/11/22 04/23/24 cholecalciferol (vitamin D3) 25 25 mcg PO DAILY 10/11/22 04/23/24 mcg (1,000 unit) capsule (Vitamin D3) clopidogrel 75 mg tablet 75 mg PO DAILY 10/11/22 04/23/24 docusate sodium 100 mg capsule 100 mg PO BID 10/11/22 04/23/24 fluticasone propionate 50 1 spray intranasal BID PRN Allergy 10/11/22 04/23/24 mcg/actuation nasal Symptoms spray,suspension (Flonase Allergy Relief) gabapentin 100 mg capsule 200 mg PO BID 10/11/22 04/23/24 hydralazine 50 mg tablet 50 mg PO BID 10/11/22 04/23/24 montelukast 10 mg tablet 10 mg PO DAILY 10/11/22 04/23/24 oxycodone-acetaminophen 5 mg-325 1 tab PO BID PRN severe pain 10/11/22 04/23/24 mg tablet sennosides 8.6 mg tablet (senna) 8.6 mg PO DAILY PRN constipation 10/11/22 04/23/24 tamsulosin 0.4 mg capsule 0.4 mg PO BEDTIME 10/11/22 04/23/24 aspirin 81 mg tablet,delayed 81 mg PO DAILY 03/18/24 04/23/24 release nicotine 7 mg/24 hr daily 1 patch topical DAILY 03/18/24 04/23/24 transdermal patch nitroglycerin 0.4 mg sublingual 0.4 mg sublingual Q5M PRN Chest 03/18/24 04/23/24 tablet Pain umeclidinium 62.5 mcg/actuation 1 inh inhalation DAILY 03/18/24 04/23/24 blister powder for inhalation (Incruse Ellipta) allopurinol 100 mg tablet 100 mg PO QPM 04/23/24 04/23/24 amiodarone 200 mg tablet 200 mg PO DAILY 04/23/24 04/23/24 hydrochlorothiazide 25 mg tablet 25 mg PO DAILY 04/23/24 04/23/24 isosorbide mononitrate 30 mg 30 mg PO QAM 04/23/24 04/23/24 tablet,extended release 24 hr metoprolol tartrate 25 mg tablet 25 mg PO BID 04/23/24 04/23/24 quetiapine 50 mg tablet (Seroquel) 50 mg PO DAILY 04/23/24 04/23/24 sertraline 100 mg tablet (Zoloft) 100 mg PO DAILY 04/23/24 04/23/24 trazodone 50 mg tablet 50 mg PO BEDTIME 04/23/24 04/23/24 umeclidinium 62.5 mcg/actuation 1 inh inhalation DAILY 04/23/24 04/23/24 blister powder for inhalation (Incruse Ellipta) Previous Rx's ?Medication ?Instructions ?Recorded albuterol sulfate 90 mcg/actuation 2 puff inhalation Q4-6H PRN asthma 10/11/23 aerosol inhaler 30 days #8.5 grams amlodipine 10 mg tablet 10 mg PO DAILY #90 tabs 03/18/24 prednisone 10 mg tablet 10 mg PO DAILY 4 days #4 tabs 11/01/24 Allergies Allergy/AdvReac Type Severity Reaction Status Date / Time No Known Allergies Allergy Verified 11/01/24 20:39 Review of Systems Constitutional: Constitutional: Reports no additional constitutional complaints, Denies chills, Denies fever(s) and Denies night sweats Eyes: Eyes: Reports no additional eye complaints, Denies blurry vision, Denies change in vision, Denies diplopia, Denies eye discharge, Denies loss of vision and Denies eye pain ENT: Denies dizziness Cardiovascular: Cardiovascular: Reports no additional cardiovascular complaints, Denies chest pain, Denies lightheadedness, Denies Loss of Consciousness and Denies dyspnea Respiratory: Respiratory: Reports no additional respiratory complaints and Denies dyspnea Gastrointestinal: Gastrointestinal: Reports no additional gastrointestinal complaints, Denies abdominal pain, Denies melena, Denies hematochezia, Denies change in bowel habits and Denies change in stool character Genitourinary: Genitourinary: Reports no additional male genitourinary complaints, Reports hematuria, Denies oliguria, Denies difficulty urinating, Denies dysuria, Denies urinary frequency, Denies urinary hesitancy, Denies urinary incontinence and Denies urinary urgency Comments: right sided flank pain Musculoskeletal: Musculoskeletal: Reports no additional musculoskeletal complaints, Denies numbness and Denies tingling Neurologic: Denies dizziness, Denies loss of vision, Denies numbness and Denies tingling Psychiatric: Psychiatric: Reports no additional psychiatric complaints Endocrine: Endocrine: Reports no additional endocrine complaints Hematologic/Lymphatic: Hematologic/Lymphatic: Reports no additional hematologic/lymphatic complaints Allergic/Immunologic: Allergic/Immunologic: Reports no additional allergic/immunologic complaints [facility] Past Medical History Attestation statement: The following information was validated with the patient. Source: old records reviewed and nursing notes reviewed Medical History PVD (peripheral vascular disease) CAD (coronary artery disease) Fatty liver Elevated cholesterol GERD (gastroesophageal reflux disease) Anxiety Incomplete right bundle branch block (RBBB) Allergic rhinitis Bronchial asthma ZEV (obstructive sleep apnea) Obesity (BMI 30-39.9) HTN (hypertension) Asthma CVA (cerebral vascular accident) Surgical History Hx of CABG H/O colonoscopy H/O heart artery stent Social History Social History Are you a primary respiratory care practitioner to a significant other at home: No Do you presently have visiting nurse or other home services: No Alcohol intake: former Patient Tobacco Use Status: Former Tobacco user Tobacco use type: Cigarette Smoked in Last 30 Days: No Use of substances other than those prescribed or required for medical reasons: No Advance Directives: No Advance Directives Information Provided: No service: No Physical Exam ED Vital Signs: Vital Signs - 24 hr 11/01/24 20:33 11/01/24 23:54 Temperature 97.3 F 97.3 F Pulse Rate 79 79 Respiratory Rate 20 20 Blood Pressure 146/84 H 146/84 H Pulse Oximetry 95 95 Oxygen Delivery Method Room Air Room Air BMI result Body Mass Index 34.4 Const General: cooperative, no acute distress, alert and awake Nutritional Appearance: well nourished Orientation/consciousness: patient oriented x3 HENMT Head: Yes normal to inspection and Yes atraumatic Ears: hearing grossly normal bilaterally and external ears normal General nose exam: Normal external nose present, no nasal discharge noted and no epistaxis Face and sinus: Yes normal facial exam, No abrasion and No laceration Mouth: Normal oral and palatal mucosa present, no drooling and no muffled voice Eyes General: appearance normal, both eyes and all related structures Periorbital: periorbital findings normal Eyelids: Yes eyelids normal Conjunctivae: conjunctivae normal Pupils: Equal, round and reactive pupils present EOM: EOMs intact bilaterally Neck Neck: Yes normal visual inspection, Yes full ROM and Yes no lymphadenopathy Resp Effort & Inspection: normal respiratory effort and able to speak in complete sentences Neuro General: patient oriented x3, moves all extremities and CN's II-XI intact bilaterally Cranial nerves: Yes Equal, round and reactive pupils present Cognition (Neuro): normal cognition Extrem General: Yes normal to inspection, Yes full ROM and Yes capillary refill normal Psych Appearance: grossly normal Mental Status: mental status grossly normal Affect: normal affect Attitude: cooperative Thought process: Normal thought process present Thought content: Normal thought content present Insight: Good insight present (Psych) Course Course Course Narrative: This is an RME: Additional HPI, ROS, PE not included below will be deferred to primary provider. RME assessment and note performed by: Nay Ho PA-C This is a 12-[id number]-male, with a hx of ZEV, NSTEMI on clopidigrel, and asthma, who presents to the ER with complaints of hematuria since today. No hx of similar symptoms. Reporting burning pain with urination. Reports that he is urinating in small amounts, feels as though he is able to empty his bladder. Plan: Labs, UA, further ER eval needed Medications Administered Discontinued Medications Generic Name Dose Route Start Last Admin Trade Name Jorge PRN Reason Stop Dose Admin Iohexol 85 ml 11/01/24 22:21 11/01/24 22:22 Iohexol 350 Mg/Ml 100 Ml Infus..Btl IV 11/01/24 22:22 85 ml ONCE ONE Administration Medical Decision Making Medical Decision Making [facility] Narrative: Patient is a 73 year old assigned male at with a history of kidney stones, NSTEMI, and ZEV presenting to the emergency department today with blood in his urine and right sided flank pain. Patient's physical exam was unremarkable. Patient's blood work was unremarkable. Patient's urine showed blood but no bacteria. Patient's CT abd/pelvis showed evidence of kidney stones. Given the patient's previous flank pain and now hematuria - I am suspicious the patient is passing kidney stones. Given the patient is already on tamsulosin will add prednisone. I explained my physical exam findings as well as all test results to the patient. I answered all questions asked by the patient. I stressed the importance of the patient taking his medication as directed (either prescribed or as the over the counter packaging recommends). I stressed the importance of the patient following up with his primary care provider and his urologist. I stressed the importance of the patient returning to the emergency department immediately if his symptoms were to worsen or if he were to develop any dizziness, shortness of breath, difficulty breathing, chest pain, blurry vision, loss of vision, nausea, vomiting, abdominal pain, fever, chills, back pain, or any other complaints. Patient verbalized agreement and understanding with this treatment plan and discharge. Differential Diagnosis Differential Diagnoses: The differential diagnosis associated with the presentation includes Kidney stones Hematuria Bladder CA Admission/Observation Consideration of admission/observation: Escalation of care including admission/observation considered Patient would have been admitted to the hospital had his work up had any findings where hospital admission was appropriate and his clinical presentation warranted hospital admission. Lab Data [facility] Lab Attestation statement: I reviewed the patient's lab results. My interpretation of these results are in the MDM Rationale portion of this note. 11/01/24 20:58 11/01/24 20:58 Labs: Lab Results 11/01/24 Range/Units 20:58 WBC 9.4 (4.8-10.8) X10*3/uL RBC 4.74 (4.60-5.80) X10*6/uL Hgb 13.4 L (14.0-18.0) g/dl Hct 39.6 L (42.0-52.0) % MCV 83.5 (80.0-98.0) fL MCH 28.3 (27.0-33.0) pg MCHC 33.8 (31.0-36.0) g/dl RDW 15.2 (11.0-16.0) % Plt Count 250 (160-400) X10*3/uL MPV 8.8 L (9.4-12.4) fL Immature Gran % (Auto) 0.2 (0.0-0.4) % Neut % (Auto) 51.3 (45-73) % Lymph % (Auto) 28.4 (20-40) % [place] % (Auto) 12.4 H (2-11) % Eos % (Auto) 7.0 H (0-4) % Baso % (Auto) 0.7 (0-2) % Lymph # (Auto) 2.7 (1.2-4.9) X10*3/uL [place] # (Auto) 1.2 (0.1-1.2) X10*3/uL Eos # (Auto) 0.7 H (0.0-0.4) X10*3/uL Baso # (Auto) 0.1 (0.0-0.2) X10*3/uL Abs Immat Gran (auto) 0.02 (0.00-0.03) X10*3/uL Absolute Neuts (auto) 4.8 (2.0-8.3) x10*3/uL Absolute Nucleated RBC 0.000 (0.0-0.012) X10*3/uL Nucleated RBC % (auto) 0.0 (0.0-0.2) /100WBC Sodium 141 (135-145) mmol/L Potassium 3.7 (3.3-5.1) mmol/L Chloride 108 (96-108) mmol/L Carbon Dioxide 25 (22-29) mmol/L Anion Gap 12 (12-20) BUN 12 (9-16) mg/dL Creatinine 0.83 (0.5-1.4) mg/dL Estim Creat Clear Calc 93.4 Estimated GFR > 60 Random Glucose 119 H (60-115) mg/dL Calcium 9.7 (8.4-10.2) mg/dL Total Bilirubin 1.0 (0.0-1.0) mg/dL Direct Bilirubin 0.3 (0.0-0.5) mg/dL AST 30 (5-37) U/L ALT 26 (0-40) U/L Alkaline Phosphatase 78 (39-117) U/L Total Protein 7.1 (6.5-8.0) g/dL Albumin 4.5 (3.5-5.0) g/dL Urine Color Red A Urine Appearance Turbid Urine pH 8.0 (5.0-9.0) Ur Specific [place] 1.015 (1.005-1.025) Urine Protein 30 (1+) H (Neg-Trace) mg/dL Urine Glucose (UA) Negative (Negative) mg/dL Urine Ketones Negative (Negative) mg/dL Urine Blood Large (3+) H (Negative) Urine Nitrite Negative (Negative) Ur Leukocyte Esterase Small (1+) H (Negative) Urine RBC >20 H (0-2) /HPF Urine WBC 6-10 H (0-5) /HPF Ur Squamous Epith Cells 0-2 (0-2) /HPF Urine Bacteria None Seen (None Seen) Hyaline Casts 0-2 (0-2) /LPF Independent Interpretation I performed an independent interpretation of an: CT Scan Interpretation: My interpretation is in agreement with the radiologist's impression of this imaging study. Report Number: [id number]: Total DLP = 608.00 mGy-cm CLINICAL HISTORY: hematuria CT abdomen and pelvis with contrast Comparison: None provided Findings: Atelectasis. Cardiomegaly without significant pericardial effusion. Coronary artery calcifications. Scattered subcentimeter low-density lesions throughout the liver, likely cysts or hemangiomas, too small to characterize. Splenule. Bilateral hypodense/intermediate dense renal cysts. Nonspecific minimal perinephric stranding in the right. Bilateral nonobstructive subcentimeter renal calculi largest in the left upper pole measuring 5 mm. Nonobstructive 7 mm right ureteropelvic junction calculus. No bowel obstruction, pneumoperitoneum, or pneumatosis. Fat containing umbilical hernia. Prostatomegaly noted. Scattered colonic diverticulosis without diverticulitis or colitis. Appendix not visualized. Circumferential bladder wall thickening. Osteopenia multilevel spondylosis pronounced at L5-S1. Diffuse atheromatous plaque disease throughout the aorta and branch vessels, without aneurysmal dilatation. IMPRESSION: 1. Nonobstructive bilateral subcentimeter renal and right ureteropelvic junction calculi. 2. Circumferential bladder wall thickening may be related to degree of underdistention or mild cystitis. This document has been electronically signed by: Yovanny Reed MD on 11/01/2024 23:12:06 Dictated By: Yovanny Reed MD Signed By: Electronically signed by Yovanny Reed MD 11/01/24 [id number] Radiology Impression Discussion of test interpretation with radiology: I have reviewed the radiologist's reading. Discharge Plan Discharge Clinical Impression: Kidney stone, Hematuria Patient Disposition: Home, Self-Care Instructions: Kidney Stones (ED) Additional Instructions: Follow up with your primary care provider and the urologist. Return to the emergency department immediately if your symptoms worsen or if you develop any numbness, tingling, dizziness, shortness of breath, difficulty breathing, chest pain, blurry vision, loss of vision, nausea, vomiting, abdominal pain, fever, chills, back pain, or any other complaints. Please see the information below about our Patient Portal. If you are not yet enrolled in the [facility] Patient Portal, you will receive an enrollment email invitation following your visit to any [facility] setting. You may also self-enroll in the Patient Portal by visiting our website: [email or web address] The following information is required to access the Patient Portal: - Your [facility] Medical Record Number - Your personal home email address (must match what is in your electronic medical record, Registration staff can assist with this) - Name - Date of Capabilities of the Patient Portal: - Message some providers - View upcoming appointments - Access your health summary, medical history, and visit history - View current conditions and allergies - View procedure and lab results - View your medications, including guidelines, side effects, and precautions - Complete pre-appointment questionnaires requested by your provider - Ready summary reports of your office visits and procedures To access the Patient Portal Mobile [employer], follow these directions: - Search [employer] in the [employer] Store or Google [employer] Store - Download the [employer] - Search for [facility] - Enter your login/password Prescriptions: New prednisone 10 mg tablet 10 mg PO DAILY 4 Days Qty: 4 0RF No Action aspirin 81 mg tablet,delayed release (DR/EC) 81 mg PO DAILY nitroglycerin 0.4 mg tablet, sublingual 0.4 mg sublingual Q5M PRN (Reason: Chest Pain) nicotine 7 mg/24 hr patch 24 hour 1 patch topical DAILY Incruse Ellipta 62.5 mcg/actuation blister with device 1 inh INHALATION DAILY amlodipine 10 mg Tablet 10 mg PO DAILY Qty: 90 0RF Protocol: Hold for SBP< HOLD for SBP < : 90 trazodone 50 mg Tablet 50 mg PO BEDTIME amiodarone 200 mg Tablet 200 mg PO DAILY isosorbide mononitrate 30 mg Tablet Extended Release 24 Hr 30 mg PO QAM sertraline [Zoloft] 100 mg Tablet 100 mg PO DAILY allopurinol 100 mg tablet 100 mg PO QPM hydrochlorothiazide 25 mg Tablet 25 mg PO DAILY quetiapine [Seroquel] 50 mg Tablet 50 mg PO DAILY Incruse Ellipta 62.5 mcg/actuation blister with device 1 inh INHALATION DAILY metoprolol tartrate 25 mg Tablet 25 mg PO BID acetaminophen 325 mg tablet 500 mg PO Q8H PRN (Reason: Pain) atorvastatin 80 mg tablet 80 mg PO BEDTIME cholecalciferol (vitamin D3) [Vitamin D3] 25 mcg (1,000 unit) capsule 25 mcg PO DAILY clopidogrel 75 mg tablet 75 mg PO DAILY docusate sodium 100 mg capsule 100 mg PO BID fluticasone propionate [Flonase Allergy Relief] 50 mcg/actuation spray,suspension 1 spray intranasal BID PRN (Reason: Allergy Symptoms) Rx Instructions: administer into each nostril gabapentin 100 mg capsule 200 mg PO BID hydralazine 50 mg tablet 50 mg PO BID montelukast 10 mg tablet 10 mg PO DAILY oxycodone-acetaminophen 5-325 mg tablet 1 tab PO BID PRN (Reason: severe pain) tamsulosin 0.4 mg capsule 0.4 mg PO BEDTIME sennosides [senna] 8.6 mg tablet 8.6 mg PO DAILY PRN (Reason: constipation) albuterol sulfate 90 mcg/actuation HFA aerosol inhaler 2 puff inhalation Q4-6H PRN (Reason: asthma) 30 Days Qty: 8.5 3RF Referrals: [facility] [Provider Group, Urology] Referral Note: [facility] will be contacting you within 2 business days. They will inform you of when your follow up appointment will be scheduled. If you have not received a call within 2 business days, please call the office at [phone]. Renae Adame MD [Primary Care Provider, Family Practice] Interventions: ED Discharge Assessment Last Done: 11/01/24 23:54 Discharge Date/Time: 11/01/24 23:56 Print Language: Portuguese
[2024-11-01 21:03] LABS: MANUAL DIFF FLAG NO
[2024-11-01 21:04] LABS: Basophils Absolute Auto 0.1 X10*3/uL (0.0-0.2); Basophils Percent Auto 0.7 % (0-2); Eosinophils Absolute Auto 0.7 X10*3/uL (0.0-0.4); Hematocrit 39.6 % (42.0-52.0); Hemoglobin 13.4 g/dl (14.0-18.0); Imm Gran Abs Auto 0.02 X10*3/uL (0.00-0.03); Imm Gran Pct Auto 0.2 % (0.0-0.4); Lymphocytes Absolute Auto 2.7 X10*3/uL (1.2-4.9); Lymphocytes Percent Auto 28.4 % (20-40); Mean Corpuscular HGB Conc 33.8 g/dl (31.0-36.0); Mean Corpuscular Hemoglobin 28.3 pg (27.0-33.0); Mean Corpuscular Volume 83.5 fL (80.0-98.0); Mean Platelet Volume 8.8 fL (9.4-12.4); Monocytes Absolute Auto 1.2 X10*3/uL (0.1-1.2); Monocytes Percent Auto 12.4 % (2-11); Neutrophils Absolute Auto 4.8 x10*3/uL (2.0-8.3); Neutrophils Percent Auto 51.3 % (45-73); Platelet Count 250 X10*3/uL (160-400); Red Blood Count 4.74 X10*6/uL (4.60-5.80); Red Cell Distribution Width 15.2 % (11.0-16.0); White Blood Count 9.4 X10*3/uL (4.8-10.8)
[2024-11-01 21:06] LABS: Appearance Urine Turbid; Color Urine Red; Glucose Urine UA Negative (Negative); Leukocyte Esterase Urine Small (1+) (Negative); Nitrite Urine Negative (Negative); Specific Gravity - Urine 1.015 (1.005-1.025); UMIC TRIGGER UACC YES; Urine Blood Large (3+) (Negative); Urine Ketones Negative (Negative); Urine Protein 30 (1+) mg/dL (Neg-Trace)
[2024-11-01 21:09] LABS: Bacteria Urine None Seen (None Seen); Hyaline Casts Urine 0-2 /LPF (0-2); RBC Urine >20 /HPF (0-2); Squamous Epithelial Cell Urine 0-2 /HPF (0-2); UACC Culture Trigger YES
[2024-11-01 21:17] LABS: Alanine Aminotransferase 26 U/L (0-40); Albumin Level 4.5 g/dL (3.5-5.0); Alkaline Phosphatase 78 U/L (39-117); Anion Gap 12 (12-20); Aspartate Amino Transferase 30 U/L (5-37); Bilirubin Direct 0.3 mg/dL (0.0-0.5); Blood Urea Nitrogen 12 mg/dL (9-16); Calcium 9.7 mg/dL (8.4-10.2); Carbon Dioxide 25 mmol/L (22-29); Chloride 108 mmol/L (96-108); Creatinine Clr Calc Pharmacy 93.4; Estimated Glomerular Filt Rate > 60; Glucose Random 119 mg/dL (60-115); Potassium 3.7 mmol/L (3.3-5.1); Sodium 141 mmol/L (135-145); Total Protein 7.1 g/dL (6.5-8.0)
[2024-11-01] MEDS: iohexoL 350 MG/ML 100 ML INFUS..BTL 85 ML IV (22:22)
--- NOTE | 2024-11-01 22:29 | PC.NURSE ---
pt a&ox3, respirations even and unlabored. pt reports onset of lower abdominal pain, blood and burning with urination. pt denies any hx of kidney stones. pt ambulatory to ct with steady gait. 20g placed in left hand.
[2024-11-01 23:54] VITALS: BP 146/84; PULSE 79; RESP 20; TEMP 36.3; O2SAT 95
== END 2024-11-01 23:56 | disposition home or self-care (01) ==
PROVIDERS: Physician Assistant Medical; Emergency Provider Internal Medicine; PCP Family Medicine
DX: N20.0 Calculus of kidney (principal); R31.9 Hematuria, unspecified
CPT/HCPCS: 36415; 74177; 80048; 80076; 81001; 85025; 87086; 99284; Q9967

== ENCOUNTER → 2024-11-01 21:41 | Outpatient (BNV) | payer OTHER, SELFPAY | PROVIDERS: Emergency Provider Internal Medicine; PCP Family Medicine; Visit Provider Radiology Diagnostic Radiology | DX: N20.2 Calculus of kidney with calculus of ureter (principal) | CPT/HCPCS: 74177 ==

== ENCOUNTER 2024-11-27 10:15 | Outpatient (AMB) | payer OTHER, SELFPAY ==
--- OUTSIDE RECORDS SUMMARY | 2024-04-25 05:10 | XMS_ITS ---
Author Organization [facility] Address [address] [place] [address] Care Team Providers Care Director Of Student Services Name Role Phone Wendi ALEGRIA, Renae Primary Care Provider Zarina Mike Barclay Jr Unavailable [phone] REASON FOR VISIT screening Encounters Encounter Location Date Provider Diagnosis [facility] Outpatient [address] [place], [place] [phone] 04/25/2024 Mike Stark Jr Colon cancer screening Z12.11 ; Colon polyps K63.5 and Personal history of colonic polyps Z86.0100 Assessments Encounter Date Diagnosis (ICD Code) Assessment Notes Treatment Notes Treatment Clinical Notes Section Notes 04/25/2024 Colon cancer screening (ICD-10 - Z12.11) 04/25/2024 Colon polyps (ICD-10 - K63.5) 04/25/2024 Personal history of colonic polyps (ICD-10 - Z86.0100) Plan Of Treatment No Information Progress Notes * KRAMERDORIS MARIANODOB:1950 ( 73 yo M)Acc No.[id number]:04/25/2024 COLON WITH MAC Patient: DORIS FLORES Provider: Andreia Stark MD :1950 A ge:73 Y S ex:Male Date:04/25/2024 Address:[address] [place], [place] [id number] Pcp:Renae Adame MD Subjective: * Chief Complaints: * 1 . Screening. * Medical History: Objective: * Vitals: Assessment: * Assessment: 1. C olon cancer screening - Z12.11 (Primary) 2 . C olon polyps - K63.5? 3. P ersonal history of colonic polyps - Z86.0100 Plan: * Treatment: * Procedure Codes: 4 5380 COLONOSCOPY AND BIOPSY, 0529F INTRVL 3+YRS PTS CLNSCP DOCD * * The named appointment provid er may or may not be the originator of this progress note, and it is not deemed complete until electronically signed by the appointment provider. Sign off status: Pending * Provider: Andreia Stark MD Date: 1 06/26/2023 Generated for Emily jason/Mario/eTransmitting on: 0 11/27/2024 10:44 AM EDT
[2024-11-27 10:39] VITALS: BP 123/70; PULSE 68; O2SAT 92; BMI 34.4
--- NOTE | 2024-11-27 10:39 | A.OFFVIS_ITS ---
Vital Signs 11/27/24 10:39 Height 5 ft 8 in Weight 225 lb 15.581 oz BMI 34.4 BP 123/70 Blood Pressure Location Lt brachial Position Sitting Pulse 68 Pulse Source Pulse Oximeter Pulse Oximetry (%) 92 Oxygen Delivery Method Room Air Intake Visit Reasons: COPD Intake Note: pt is here for follow up for shortness of breath with exertion, walking, stairs, he had seen his bondactor machine operator for this and was told to see his pulmonary doctor. pt would like to order proventil inhaler, this works the best. Storekeeper Engineering Required: No Allergies No Known Allergies Allergy (Verified 11/27/24 10:44) Medication List - Last Reconciled 11/27/24 by Daisy Stone MD acetaminophen 500 mg PO Q8H PRN albuterol sulfate 90 mcg/actuation 2 puffs inhalation Q4-6H PRN 30 days allopurinol 100 mg PO QPM amiodarone 200 mg PO DAILY amlodipine 10 mg See Protocol PO DAILY aspirin 81 mg PO DAILY atorvastatin 80 mg PO BEDTIME cholecalciferol (vitamin D3) (Vitamin D3) 25 mcg PO DAILY clopidogrel 75 mg PO DAILY docusate sodium 100 mg PO BID fluticasone propionate 50 mcg/actuation (Flonase Allergy Relief) 1 spray intranasal BID PRN gabapentin 200 mg PO BID hydralazine 50 mg PO BID hydrochlorothiazide 25 mg PO DAILY isosorbide mononitrate ER 30 mg PO QAM metoprolol tartrate 25 mg PO BID montelukast 10 mg PO DAILY nicotine 1 patch topical DAILY nitroglycerin 0.4 mg sublingual Q5M PRN oxycodone-acetaminophen 5-325 mg 1 tab PO BID PRN prednisone 10 mg PO DAILY 4 days quetiapine (Seroquel) 50 mg PO DAILY sennosides (senna) 8.6 mg PO DAILY PRN sertraline (Zoloft) 100 mg PO DAILY tamsulosin 0.4 mg PO BEDTIME trazodone 50 mg PO BEDTIME umeclidinium 62.5 mcg/actuation (Incruse Ellipta) 1 inh inhalation DAILY umeclidinium 62.5 mcg/actuation (Incruse Ellipta) 1 inh inhalation DAILY Do you need a note to return to daycare/school/sports/work: No HPI HPI COPD: Details: This 73 years old very pleasant gentleman who is grossly obese, has past history of allergic rhinitis for many years and also chronic obstructive pulmonary disease. It was controlled fairly well with minimal medications. His shortness of breath on exertion was more related to his obesity. He had diagnosis of obstructive sleep apnea but could not use the CPAP. Last year underwent three-vessel CABG at [facility] and also repair of ascending aortic aneurysm. He recovered from the surgery well, has quit smoking, has put on some weight, He comes for follow-up because he has increased shortness of breath on exertion. Cough and wheezing are minimal, His current pulmonary meds include Incruse Ellipta once a day albuterol HFA 2 puffs Q 4-6 hours p.r.n. montelukast 10 mg daily Flonase-52 spray each nostril daily p.r.n. for nasal congestion. [facility] Medical History PVD (peripheral vascular disease) CAD (coronary artery disease) Fatty liver Elevated cholesterol GERD (gastroesophageal reflux disease) Anxiety Incomplete right bundle branch block (RBBB) Allergic rhinitis Bronchial asthma ZEV (obstructive sleep apnea) Obesity (BMI 30-39.9) HTN (hypertension) Asthma CVA (cerebral vascular accident) Surgical History Hx of CABG H/O colonoscopy H/O heart artery stent Social History Are you a primary inspector health care facilities to a significant other at home: No Do you presently have visiting nurse or other home services: No Alcohol intake: former Patient Tobacco Use Status: Former Tobacco user Tobacco use type: Cigarette service: No Review of Systems Const All systems reviewed & are unremarkable except as noted in HPI and below Eyes Reports no additional complaints ENT Reports no additional complaints Card Denies chest pain (Occasional on heavy exertion), Denies irregular heart rhythm and Denies leg edema Resp Reports as per HPI GI Reports no additional complaints Reports nocturia Musc Reports abnormal gait (Tends to lose balance, due to his back pain) and Reports back pain Skin/Breast Reports system reviewed and no additional complaints, except as documented Neuro Reports abnormal gait (Tends to lose balance, due to his back pain) Psych Reports no additional complaints Evan/Lymph Reports no additional complaints Physical Exam Vital Signs: Last Vital Signs Pulse 68 11/27/24 10:39 BP 123/70 11/27/24 10:39 Pulse Ox 92 11/27/24 10:39 Oxygen Delivery Method Room Air 11/27/24 10:39 BMI result Body Mass Index 34.4 Const General: healthy appearing (Except for being overweight), comfortable, no acute distress, alert and awake Orientation/consciousness: patient oriented x3 HEENT Head: Yes normal to inspection General nose exam: No nasal polyps present and No nasal discharge present Face and sinus: Yes sinuses nontender Mouth: oropharynx normal Throat: Yes posterior oropharynx normal Eyes General: appearance normal, both eyes and all related structures Neck Neck: Yes normal visual inspection, Yes no lymphadenopathy, Yes trachea midline and Yes no JVD Thyroid: Thyroid normal Chest Chest palpation & inspection: normal inspection of the chest (As midline surgical scar which is well healed .), normal palpation of entire chest wall and no tenderness Resp Effort & Inspection: normal respiratory effort Auscultation: clear to auscultation bilaterally, no crackles and no wheezes Cardio Palpation: normal PMI Rate: regular rate Rhythm: regular rhythm Heart sounds: no gallops and no murmurs Peripheral pulses: Peripheral pulses 2+ throughout GI Palpation (GI): Soft to palpation, nontender, No hepatosplenomegaly present and no masses Auscultation: normal bowel sounds Back/Spine/Pelvis Thoracic/Lumbar Spine: thoracic and lumbar spine normal to inspection Skin General skin exam: no rashes or lesions noted Neuro General: patient oriented x3 and no focal motor deficits Cranial nerves: Yes CN's II-XII intact bilaterally Extrem General: Yes normal to inspection, Yes no clubbing, cyanosis or edema and Yes no calf tenderness Psych Speech and movement: Normal speech and movement present Office Procedures Spirometry Testing Spirometry Comments: In office spirometry completed with results given to Dr Stone. 42498- Spirometry Results Reviewed Results Reviewed: Spirometry in the office * he had difficulty in exhaling, and could not complete the whole exhalation. The available results show decreased FVC to 67%, and flow volumes are basically within normal limit This is consistent with moderate restrictive pulmonary disease. Assessment & Plan Assessment & Plan (1) Obesity (BMI 30-39.9): Comment: Patient is moderately obese, he has predominantly abdominal obesity. Code(s): E66.9 - Obesity, unspecified Category: Medical Plan: Instructed that he has to lose weight. His goal should be to lose 10 - 15 lb of weight. He is not able to do much exercise. Gave him incentive spirometry from the office and advised to do deep breathing exercises 3 times a day. (2) Allergic rhinitis: Comment: PATIENT HAS HISTORY OF CHRONIC ALLERGIC RHINITIS/SINUSITIS. FLARES UP WITH ANY CHANGE IN THE ENVIRONMENT OR IF HE HAS A COLD, Code(s): J30.9 - Allergic rhinitis, unspecified Category: Medical Plan: Continue taking montelukast 10 mg daily and Flonase-52 spray in each nostril daily. (3) Bronchial asthma: Comment: Longstanding history of bronchial asthma, but mild and intermittent. PULMONARY FUNCTION TEST SHOWED ONLY MILD DEGREE OF OBSTRUCTIVE AIRWAY DISORDER, C/W BRONCHIAL ASTHMA FOLLOWING THE CARDIAC SURGERY HE HAS HAD INCREASED DYSPNEA ON EXERTION. NEW INHALERS HAVE BEEN ADDED TO HIS REGIMEN INCLUDING INCRUSE ELLIPTA ONCE A DAY AND ADVAIR 250-51 INHALATION B.I.D. Code(s): J45.909 - Unspecified asthma, uncomplicated Category: Medical Plan: ADVISED TO CONTINUE USING INCRUSE ELLIPTA ONCE A DAY. ALBUTEROL HFA 2 PUFFS Q 6 HOURS P.R.N.. * MAY USE ADVAIR 250-51 INHALATION B.I.D. FOR THE TIME BEING BUT I WOULD LIKE TO DISCONTINUE ON HIS NEXT VISIT (4) ZEV (obstructive sleep apnea): Comment: He does have history of obstructive sleep apnea, but failed to use CPAP twice in the past. He does have features which are consistent with diagnosis of sleep apnea. However he claims. that he is sleeping okay He did not want to go back on CPAP therapy. Code(s): G47.33 - Obstructive sleep apnea (adult) (pediatric) Category: Medical Plan: SO THERE IS NO NEED TO DO ANY SLEEP STUDY AT THIS TIME Orders: Orders AMB Spirometry Testing Today J45.909 - Unspecified asthma, uncomplicated Coding Level of Care Code Est Pt Level 4 (16563) Diagnoses Obesity (BMI 30-39.9) E66.9 Allergic rhinitis J30.9 Bronchial asthma J45.909 ZEV (obstructive sleep apnea) G47.33 CPT Codes Spirometry - CPT: 66290- Spirometry ([id number])
--- OUTSIDE RECORDS SUMMARY | 2024-11-27 10:44 | XMS_ITS | Encounter Summary ---
Author Organization [employer] Address [address] [place] [address] [address] [place] [address] Care Team Providers Care Bonding Agent Name Role Phone Renae Adame MD Primary Care Provider [phone]- [phone] Abida Campa PharmD Unavailable Frank Morales MD Unavailable Mike Stark MD Unavailable Filiberto García Unavailable Igor Beebe Unavailable Reason for Visit * Reason Onset Date Comments Med Refill 02/12/2023 Encounter Details Date Type Department Care Team (Late st Contact Info) Description 02/12/[address] [facility] MEDICINE [address] [place], [place] [phone] Renae Adame MD [address] [place], [place] [phone] Med Refill Social History Tobacco Use Types [...] Description 01/15/2025 2:00 PM EDT Clinical Support [facility] MED & PEDS [address] [place] [address] Tamika Kim, LAURIE [address] [place] [address] 01/23/2025 9:30 AM EDT Office Visit [facility] MEDICINE [address] [place] [phone] Renae Adame MD [address] [place] [address] documented as of this encounter Visit Diagnoses Not on filedocumented in this encounter Additional Health Concerns Assessment Noted Time PHQ-9 Depression Total Score: 0 08/08/19 23 10:33 AM EDT documented as of this encounter Care Teams Bonding Agent Relationship Specialty Start Date End Date Renae Adame MD [address] [place] [address] PCP - General Family Medicine 01/25/15 Abida Campa, LloaD [address] [place] [address] Pharmacist Internal Medicine 03/04/24 Frank Morales MD [address] [place] [address] Cardiology 04/09/24 Mike Stark MD [address] [place] [address] [place] [address] Gastroenterology 04/28/24 Filiberto García 175 [facility] [address] [place] [address] Podiatry 05/02/24 Igor Beebe 100 [facility] [address] [place] [address] Urology 11/05/24 Dr. Alo Bassett MD [facility] Cardiac Surgery [address] [place] [address] Cardiothoracic Surgery 05/01/24 documented as of this encounter
--- OUTSIDE RECORDS SUMMARY | 2024-11-27 10:44 | XMS_ITS | Data Portability ---
Author Organization [employer] [facility] Address [address] [place] [address] Care Team Providers Care Principal Java Developer Name Role Phone [facility] Primary Care Provider [facility]IMARY [facility] Referring Provider Assessment Encounter Date [...] pain. The patient agreed with this plan. [email or web address] Not available 12/07/2021 17:10:58 Plan of Treatment [...] in Arterial blood by Pulse oximetry Systolic And Diastolic Provider Name and Address Organization Details Last Updated DateTime 2 66 /min 16 /min 97.7 [degF] 95 % 95 % 143/73 mm[Hg] Not Available [facility] - production 17:06:33 Social History None recorded. Functional Status None recorded. Mental Status None recorded. Family History Nothing Reported. Medical History No medical history recorded. Past Encounters Encounter ID Performer Location Encounter Start Date Encounter Closed Date Diagnosis/Indication Diagnosis SNOMED-CT Code Diagnosis ICD10 Code Diagnosis Note [id number] Robb Ruiz MD Main - [facility] [address] [place] [phone] 12/07/2021 17:06:28 12/07/2021 17:11:21 Health Concerns Section Related Observation LastModified by Organization Detai ls LastModified Time None Recorded Concern Status LastModified by Organization Details LastModified Time None Recorded Advance Directives Directive None Recorded Payers Insurance Date Sequence Insurance Name Policy Number Policy Gould Covered Member ID Gould Member ID Guarantor Name 09/12/2024 1 [facility] - [facility] PRIOR TO 2022 - DUAL ELIGIBLE (MEDICARE REPLACEMENT/ADV ANTAGE - HMO) Michael Deal [id number] Michael Deal 09/12/2024 1 [facility] - DOS ON OR AFTER 2022 - DUAL ELIGIBLE - USP OPTIONS AND ONE CARE (MEDICARE REPLACEMENT/ADV ANTAGE - HMO) Michael Deal [id number] Michael Deal Notes Date Note Type Note [...] ................... ................... ................... ................... ................... ................... ........ Title I Math Tutor Note: SC1 ON SCENE TO EVALUATE A [...] ........ Disposition: Fulfilled Robb Ruiz MD [address] [facility],[address], [place], [address], [employer] 12/07/2021 17:11:18
--- OUTSIDE RECORDS SUMMARY | 2024-11-27 10:44 | XMS_ITS | Encounter Summary ---
Author Organization [facility] Address [address] [place] [address] Care Team Providers Care Endocrinology Specialist Name Role Phone Renae Adame MD Primary Care Provider [phone]- [phone] Encounter Details Date Type Department Care Team (Late st Contact Info) Description 11/06/2024 Lab Requisition [facility] - Main Lab [address] [facility] [place] [address] Igor Beebe MD [address] [place] [address] [place] [phone] Hematuria, unspecified Social History Tobacco Use Types Packs/Day Years Used Date Smoking Tobacco: Never Smokeless Tobacco: Never Alcohol Use Standard Drinks/Week Comments Never 0 (1 standard drink = 0.6 oz pur e alcohol) Sex and Gender Information Value Date Recorded Sex Assigned at Not on file Legal Sex Male 2:56 PM EST Gender Identity Not on file Sexual Orientation Not on file documented as of this encounter Plan of Treatment Not on file documented as of this encounter Procedures Procedure Name Priority Date/Time Associated Diagnosis Comments AP OUTSIDE CONSULT Routine 11/04/2024 12 :00 AM EDT Hematuria, unspecified documented in this encounter Results * Anatomic pathology outside consult (11/04/2024 12:00 AM EDT) Final Diagnosis A. Urine, Voided, ([id number]): Atypical urothelial cells present. Note: Based upon the cytologic findings, UroVysion testing will be performed, the result to follow in an addendum. 11/21/2024 1:24 PM EDT [facility] HOSP[facility] LAB Clinical Information Hematuria, unspecified R31.9 Urine cytology with reflex UroVysion ([facility]) 11/21/2024 1:24 PM EDT [facility] Gross Description A. Urine, Voided, [id number]: Received one ThinPrep slide for cytology. 11/21/2024 1:24 PM EDT [facility] Disclaimer Unless otherwise specified, all tissue is 10% NB formalin fixed and paraffin embedded. Technical pathology services provided by [facility] at [address], [place] [address] (CLIA #[id number] justin Wilson MD, Factory Engineer) 11/21/2024 1:24 PM EDT [facility] Tissue Urine specimen from urethra / Unknown 11/04/2024 11/06/2024 1:20 PM EDT us Igor Beebe MD LAB PATHOLOGY ORDERABLES Final Result [facility] [address] [place] [address], documented in this encounter Visit Diagnoses Diagnosis Hematuria, unspecified documented in this encounter Care Teams Endocrinology Specialist Relationship Specialty Start Date End Date Wendi, MD Renae [address] [place] [phone] PCP - General Internal Medicine 12/09/21 documented as of this encounter
--- OUTSIDE RECORDS SUMMARY | 2024-11-27 10:44 | XMS_ITS | Encounter Summary ---
Author Organization [facility] Address [address] [place] [address] Care Team Providers Care Therapeutic Recreation Leader Name Role Phone Unavailable Primary Care Provider Unavailabl e Encounter Details Date Type Department Care Team (Late st Contact Info) Description 02/25/2023 Telephone [employer] [facility] [address] [place] [address] Worker, Social, [place] [address] [place] [address] Social History Tobacco Use Types Packs/Day Years Used Date Smoking Tobacco: Never Assessed [facility] Utilities Answer Date Recorded In the past 12 months has [employer] electric, gas, oil, or water company threatened to shut off services in your home? No 02/28/2023 AUDIT-C Answer Date Recorded Q1: How often do you have a drink containing alc ohol? Monthly or less 02/26/2023 Q2: How many drinks containi ng alcohol do you have on a typical day when you are drinking? 1 or 2 02/26/2023 Q3: How often do you have si x or more drinks on one occasion? Never 02/26/2023 Overall Financial Resource Strain (CARDIA) Answe r Date Recorded How hard is it for you to pa y for the very basics like food, housing, medical care, and heating? Not hard at all 02/28/2023 PHQ-2 Answer Date Recorded PHQ-2 Total Score 0 02/26/2023 Hunger Vital Sign Answer Date Recorded Within the past 12 months, y ou worried that your food would run out before you got the money to buy more. Never true 02/29/20 23 Within the past 12 months, t he food you bought just didn't last and you didn't have money to get more. Never true 02/28/2023 PRAPARE - Transportation Answer Date Re corded In the past 12 months, has l ack of transportation kept you from medical appointments or from getting medications? No 02/11 In the past 12 months, has l ack of transportation kept you from meetings, work, or from getting things needed for daily living? No 02/28/2023 Housing Stability Vital Sign Answer Gurpreet e Recorded In the last 12 months, was t here a time when you were not able to pay the mortgage or rent on time? No 02/28/2023 In the last 12 months, how many places have you lived? 1 02/28/2023 In the last 12 months, was t here a time when you did not have a steady place to sleep or slept in a custodial (including now)? No 02/28/2023 Sex and Gender Information Value Date Recorded Sex Assigned at Male 03/03/2023 3:03 AM EDT Legal Sex Male 6:59 PM EST Gender Identity Male 03/03/2023 3:03 AM EDT Sexual Orientation Heterosexual (straight) 03/03 3:03 AM EDT documented as of this encounter Functional Status * Audit-C Score Answer Date of Assessment Author 1 02/26/2023 4:33 PM Tiffanie Steve RN * Question Answer Date of Assessment Author Q1: How often do you have a drink containing alcohol? Monthly or less 02/26/2023 4:33 PM Tiffanie Steve RN Q2: How many drinks containing alcohol do you have on a typical day when you are drinking? 1 or 2 02/26/2023 4:33 PM Nate Steve RN Q3: How often do you have six or more drinks on one occasion? Never 02/26/2023 4:33 PM Tiffanie Steve RN * Question Answer Date of Assessment Author Little interest or pleasure in doing things Not at all 02/26/2023 4:33 PM Tiffanie Steve RN Feeling down, depressed, or hopeless Not at all 02/26/2023 4:33 PM EDT Tiffanie Hunter RN * Over the past 2 weeks, how often have you been bothered by any of the following problems? Question Answer Date of Assessment Author Patient Health Questionnaire-2 Score 0 02/26/2023 4:33 PM EDT Valerie Hunter RN documented as of this encounter Plan of Treatment Not on file documented as of this encounter Visit Diagnoses Not on filedocumented in this encounter
== END 2024-11-27 11:18 | disposition home or self-care (01) ==
LOC: HO.HPS 10:16
PROVIDERS: PCP Family Medicine; Visit Provider Internal Medicine
DX: J44.9 Chronic obstructive pulmonary disease, unspecified (principal); J45.909 Unspecified asthma, uncomplicated
CPT/HCPCS: 94010; 99214

== ENCOUNTER → 2024-11-27 10:15 | Outpatient (BNVA) | payer OTHER, SELFPAY | PROVIDERS: PCP Family Medicine; Visit Provider Internal Medicine | DX: J45.998 Other asthma (principal); J30.9 Allergic rhinitis, unspecified; G47.33 Obstructive sleep apnea (adult) (pediatric); E66.9 Obesity, unspecified; Z68.34 Body mass index [BMI] 34.0-34.9, adult | CPT/HCPCS: 94010; 99212 ==

== ENCOUNTER 2025-01-23 10:08 | Outpatient (REF) | payer OTHER, SELFPAY ==
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
--- OUTSIDE RECORDS SUMMARY | 2025-01-23 11:32 | XMS_ITS | Clinical Summary ---
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 03/24/2014 Overview (10/12/2023): -diagnosed in 2013 -last sleep study 06/28/2021 with moderate to severe ZEV -set up with airsense [address] [facility] 10/21/2021 with F3o1 APAP [id number] -followed by [facility], note from 11/17/2021 reveiewed -Seen by Daisy Stone MD 10/11/23, states he did not want to try CPAP again Assessment & Plan (01/23/2025 10:21 AM EDT): Assessment & Plan (11/09/2023 11:45 AM EDT): -diagnosed in 2013 - sleep study 06/28/2021 with moderate to severe ZEV -set up with airsense [address] [facility] 10/21/2021 with F3o1 APAP [id number] -followed by [facility], note from 11/17/2021 reveiewed -Seen by Daisy Stone MD 10/11/23, states he did not want to try CPAP again Assessment & Plan (04/23/2023 9:10 AM EST): -diagnosed in 2013 - sleep study 06/28/2021 with moderate to severe ZEV -set up with airsense [address] [facility] 10/21/2021 with F3o1 APAP [id number] -followed by [facility], note from 11/17/2021 reveiewed Assessment & Plan (08/07/2022 12:25 PM EDT): -diagnosed in 2013 - sleep study 06/28/2021 with moderate to severe ZEV -set up with airsense [address] [facility] 10/21/2021 with F3o1 APAP [id number] -followed by [facility], note from 11/17/2021 reveiewed Assessment & Plan (04/08/2022 8:13 AM EST): -Sleep study 06/28/[address] Anna positive for ZEV Stented coronary artery 01/15/2013 Depressive disorder 02/28/2012 Overview (08/04/2022): He likes to keep Seroquel for prn use and reports this helps his depression. He uses infrequently and knows this is not normally how antidepressant are prescribed. Would like to keep this regimen. Understands sedating risks. Assessment & Plan (01/23/2025 10:21 AM EDT): He likes to keep Seroquel for prn use and reports this helps his depression. He uses infrequently and knows this is not normally how antidepressant are prescribed. Would like to keep this regimen. Understands sedating risks. Assessment & Plan (11/09/2023 11:47 AM EDT): He likes to keep Seroquel for prn use and reports this helps his depression. He uses infrequently and knows this is not normally how antidepressant are prescribed. Would like to keep this regimen. Understands sedating risks. Assessment & Plan (04/23/2023 9:08 AM EST): He likes to keep Seroquel for prn use and reports this helps his depression. He uses infrequently and knows this is not normally how antidepressant are prescribed. Would like to keep this regimen. Understands sedating risks. Assessment & Plan (08/04/2022 12:25 PM EDT): He likes to keep Seroquel for prn use and reports this helps his depression. He uses infrequently and knows this is not normally how antidepressant are prescribed. Would like to keep this regimen. Understands sedating risks. Hearing loss 02/28/2012 Overview (01/08/2024): -has hearing aids Assessment & Plan (01/09/2024 2:54 PM EDT): -has hearing aids Assessment & Plan (04/23/2023 9:09 AM EST): Wears hearing aids. Assessment & Plan (08/04/2022 12:26 PM EDT): Wears hearing aids. Low back pain 02/28/2012 Overview (08/25/2024): -follows with CLINICAL DATA MANAGEMENT MANAGER. Prescribed percocet 5mg-325mg PO BID PRN. Assessment & Plan (01/23/2025 10:21 AM EDT): -follows with CLINICAL DATA MANAGEMENT MANAGER. Prescribed percocet 5mg-325mg PO BID PRN. Assessment & Plan (08/25/2024 2:34 PM EDT): -follows with CLINICAL DATA MANAGEMENT MANAGER. Prescribed percocet 5mg-325mg PO BID PRN. Coronary arteriosclerosis in diomede artery 11/15 Overview (01/23/2025): Extensive CAD with hx multiple caths and multiple stents. Last NSTEMI 11/20/23. -Patient followed at [facility] with Dr. Yisel Morales DO. -cath 10/2020 may need bypass surgery if vessels continue to deteroriate -CABG x 3 11/20/[address] Frannie Medina MD at [facility] 11/27/23 -Cardiology consult on 12/13/23. Full Stack Software Developer recommended ASA, BB and statin for CAD and graft potency, as well as DAPT with Plavix and ASA for 1 year for NSTEMI. Per division sales manager pt should continue Amiodarone that was started post-op for Afib prophylaxis until prescription is done and then stop. -Note from cardiology 10/23/24reviewed, followed at [facility] with Dr. Yisel Morales DO. -Seen by Cardiac Surgery Dr. Alo Bassett 04/29/24 CT demonstrated aortic root measures 3.8 x 4.3 cm recommending follow up non contrast CT in 1 year. Also recommends discontinuing amiodarone and clopidogrel at 12 month post operative interval of November 2024 -01/23/25 pt reports still taking amiodarone and plavix, seen cardiology about 1 month ago. Will request records 01/23/25. Assessment & Plan (01/23/2025 10:21 AM EDT): Extensive CAD with hx multiple caths and multiple stents. Last NSTEMI 11/20/23. -Patient followed at [facility] with Dr. Yisel Morales DO. -cath 10/2020 may need bypass surgery if vessels continue to deteroriate -CABG x 3 11/20/[address] Frannie Medina MD at [facility] 11/27/23 -Cardiology consult on 12/13/23. Full Stack Software Developer recommended ASA, BB and statin for CAD and graft potency, as well as DAPT with Plavix and ASA for 1 year for NSTEMI. Per division sales manager pt should continue Amiodarone that was started post-op for Afib prophylaxis until prescription is done and then stop. -Note from cardiology 10/23/24reviewed, followed at [facility] with Dr. Yisel Morales DO. -Seen by Cardiac Surgery Dr. Alo Bassett 04/29/24 CT demonstrated aortic root measures 3.8 x 4.3 cm recommending follow up non contrast CT in 1 year. Also recommends discontinuing amiodarone and clopidogrel at 12 month post operative interval of November 2024 -01/23/25 pt reports still taking amiodarone and plavix, seen cardiology about 1 month ago. Rambo Assessment & Plan (08/25/2024 2:30 PM EDT): Extensive CAD with hx multiple caths and multiple stents. Last NSTEMI 11/20/23. -Patient followed at [facility] with Dr. Yisel Morales DO. -cath 10/2020 may need bypass surgery if vessels continue to deteroriate -CABG x 3 11/20/[address] Frannie Medina MD at [facility] 11/27/23 -Cardiology consult on 12/13/23. Full Stack Software Developer recommended ASA, BB and statin for CAD and graft potency, as well as DAPT with Plavix and ASA for 1 year for NSTEMI. Per division sales manager pt should continue Amiodarone that was started post-op for Afib prophylaxis until prescription is done and then stop. -Note from cardiology 07/26/24 reviewed, followed at [facility] with Dr. Yisel Morales DO. -Seen by Cardiac Surgery Dr. Alo Bassett 04/29/24 CT demonstrated aortic root measures 3.8 x 4.3 cm recommending follow up non contrast CT in 1 year. Also recommends discontinuing amiodarone and clopidogrel at 12 month post operative interval of November 2024 Assessment & Plan (01/09/2024 2:52 PM EDT): Extensive CAD with hx multiple caths and multiple stents. Last NSTEMI 11/20/23. -cath 10/2020 may need bypass surgery if vessels continue to deteroriate -CABG x 3 11/20/[address] Frannie Medina MD at [facility] 11/27/23 -Cardiology consult on 12/13/23. Full Stack Software Developer recommended ASA, BB and statin for CAD and graft potency, as well as DAPT with Plavix and ASA for 1 year for NSTEMI. Per division sales manager pt should continue Amiodarone that was started post-op for Afib prophylaxis until prescription is done and then stop. Assessment & Plan (11/09/2023 11:46 AM EDT): Extensive CAD with hx multiple caths and multiple stents. -cath 10/2020 may need bypass surgery if vessels continue to deteroriate Assessment & Plan (04/23/2023 9:08 AM EST): Extensive CAD with hx multiple caths and multiple stents. -cath 10/2020 may need bypass surgery if vessels continue to deteroriate Assessment & Plan (04/08/2022 8:10 AM EST): Extensive CAD with hx multiple caths and multiple stents. -cath 10/2020 may need bypass surgery if vessels continue to deteroriate -Followed by Dr. Morales Hypertension 11/16/2011 Overview (01/23/2025): BP at goal 01/23/25 - last seen by cardiology 03/07/24 - enrolled in CDTM -metoprolol tartrate increased to 50mg twice daily by cardiology 03/07/24 - Discussed appropriate conditions to be in when trying to get accurate BP readings. Assessment & Plan (01/23/2025 10:21 AM EDT): BP at goal 01/23/25 - last seen by cardiology 03/07/24 - enrolled in CDTM -metoprolol tartrate increased to 50mg twice daily by cardiology 03/07/24 - Discussed appropriate conditions to be in when trying to get accurate BP readings. Orders: Albumin, Random Urine W/Creatinine; Future Basic Metabolic Panel; Future Assessment & Plan (12/26/2024 2:06 PM EDT): Today his blood pressure is elevated, he forgot to take his medication today, I advised to take his medication every day without missing any dose, I advised low-sodium diet and to follow-up with PCP Assessment & Plan (01/09/2024 2:57 PM EDT): Not controlled, BP today 170/95 01/09/24. Pt reported elevated readings at home the past week as well. - Continue metoprolol 25 mg, BID - Referred to [facility] Therapy [facility]agment Program with our PharmDSHADE 01/09/24 - Discussed appropriate conditions to be in when trying to get accurate BP readings. Assessment & Plan (11/09/2023 11:46 AM EDT): well controlled - Continue HCTZ 25 daily - Continue metoprolol 50mg bid - Continue amlodipine 5mg daily Assessment & Plan (04/23/2023 9:09 AM EST): well controlled - Continue HCTZ 25 daily - Continue metoprolol 50mg bid - Continue amlodipine 5mg daily Assessment & Plan (08/04/2022 12:26 PM EDT): well controlled - Continue HCTZ 25 daily - Continue metoprolol 50mg bid - Continue amlodipine 5mg daily Dyslipidemia 11/03/2011 Overview (01/23/2025): Lab Results Component Value Date CHOLESTEROL 55 08/11/2021 LDLCHOL SEE COMMENT 08/11/2021 LDLCHOL 84 12/23/2019 LDLCHOL 84 12/23/2019 TRIG 88 05/20/2024 TRIG 196 (H) 04/25/2023 HDLCHOL 32 (L) 08/11/2021 CHOLHDLRAT 1.7 08/11/2021 -continue lifestyle modifications -Continue atorvastatin 80 mg. -He was started Rep[facility] in November 2020 with cardiology. His division sales manager is -ordered repeat FLP and HFP 01/23/25 Assessment & Plan (01/23/2025 10:21 AM EDT): Lab Results Component Value Date CHOLESTEROL 55 08/11/2021 LDLCHOL SEE COMMENT 08/11/2021 LDLCHOL 84 12/23/2019 LDLCHOL 84 12/23/2019 TRIG 88 05/20/2024 TRIG 196 (H) 04/25/2023 HDLCHOL 32 (L) 08/11/2021 CHOLHDLRAT 1.7 08/11/2021 -continue lifestyle modifications -Continue atorvastatin 80 mg. -He was started Rep[facility] in November 2020 with cardiology. His division sales manager is -ordered repeat FLP and HFP 01/23/25 Orders: Hepatic Function Panel; Future Lipid Panel, Standard; Future Assessment & Plan (01/09/2024 2:54 PM EDT): Lab Results Component Value Date CHOLESTEROL 55 08/11/2021 LDLCHOL SEE COMMENT 08/11/2021 LDLCHOL 84 12/23/2019 LDLCHOL 84 12/23/2019 TRIG 196 (H) 04/25/2023 HDLCHOL 32 (L) 08/11/2021 CHOLHDLRAT 1.7 08/11/2021 -continue lifestyle modifications -Continue atorvastatin 80 mg. -He was started Repatha in November 2020 with cardiology. His division sales manager is Assessment & Plan (11/09/2023 11:48 AM EDT): Lab Results Component Value Date CHOLESTEROL 55 08/11/2021 LDLCHOL SEE COMMENT 08/11/2021 LDLCHOL 84 12/23/2019 LDLCHOL 84 12/23/2019 TRIG 196 (H) 04/25/2023 HDLCHOL 32 (L) 08/11/2021 CHOLHDLRAT 1.7 08/11/2021 -continue lifestyle modifications -Continue atorvastatin 80 mg. -He was started [facility] in November 2020 with cardiology. His division sales manager is Assessment & Plan (04/23/2023 9:37 AM EST): No results found for: TRIG , CHOL , LDLCHOLCAL , HDL -continue lifestyle modifications -Continue atorvastatin 80 mg. -He was started [facility] in November 2020 with cardiology. His division sales manager is Assessment & Plan (12/14/2022 9:43 AM EDT): Lab Results Component Value Date CHOLESTEROL 55 08/11/2021 LDLCHOL SEE COMMENT 08/11/2021 LDLCHOL 84 12/23/2019 LDLCHOL 84 12/23/2019 HDLCHOL 32 (L) 08/11/2021 CHOLHDLRAT 1.7 08/11/2021 -continue lifestyle modifications -Continue atorvastatin 80 mg. -He was started [facility] in November 2020 with cardiology. His division sales manager is Assessment & Plan (08/04/2022 12:25 PM EDT): Continue atorvastatin 80 mg. -He was started [facility] in November 2020 with cardiology. His division sales manager is -Fasting lipid profile was 07/2021 Total CL 55, HDL 32, LDL was below reportable limits, TG 143. Tubular adenoma of colon 05/14/2008 Overview (04/28/2024): -on colonoscospy 09/20/2018 -referral placed 11/08/23 -discussed to consult division sales manager in 02/2024 if it is safe for pt to get a colonoscopy. Placed another referral to GI 01/09/24 -colonoscopy with Dr. Stark 04/28/24 hyperplastic polyps Assessment & Plan (01/09/2024 3:14 PM EDT): -on colonoscospy 09/20/2018 -referral placed 11/08/23 -discussed to consult division sales manager in 02/2024 if it is safe for pt to get a colonoscopy. Placed another referral to GI 01/09/24 Assessment & Plan (11/09/2023 11:46 AM EDT): -on colonoscospy 09/20/2018 -referral placed 11/08/23 Assessment & Plan (04/23/2023 9:10 AM EST): -on colonoscospy 09/20/2018 Resolved Problems Problem Noted Date Diagnosed Date Resolved Date Contusion of toe 11/07/2024 01/01/2025 Exercise counseling 08/25/2024 11/06/19 Assessment & Plan (08/25/2024 2:32 PM EDT): Exercise Recommendations: At least 150 minutes of moderate-intensity physical activity per week, or an equivalent combination of moderate- and vigorous-intensity activity. Dietary counseling 08/25/2024 Assessment & Plan (08/25/2024 2:32 PM EDT): Dietary Recommendations: Fruits, vegetables, whole grains, protein foods, and fat-free or low-fat dairy products are healthy choices. Eat different types of protein foods in your diet. This can include seafood, lean meats, poultry, beans, peas, lentils, nuts, seeds, soy products, and eggs. Limit foods and beverages higher in added sugars, saturated fat, and sodium. Hyperplastic colon polyp 05/19/202410/2024 Overview (05/19/2024): -on colonoscopy with Dr. Stark 04/28/24 Dietary counseling 04/02/2024 Exercise counseling 04/02/2024 05/02/20 Atherosclerosis of [place] co ronary artery of [place] heart 04/02/2024 08/25/2024 Abnormal ECG 04/01/2024 05/02/2024 Bronchial asthma 04/01/2024 05/19/2024 Overview (04/01/2024): Longstanding history of bronchial asthma, but mild and intermittent. PULMONARY FUNCTION TEST SHOWED ONLY MILD DEGREE OF OBSTRUCTIVE AIRWAY DISORDER, C/W BRONCHIAL ASTHMA Hypertensive urgency 04/01/2024 025 Obesity (BMI 30-39.9) 04/01/20242024 Overview (04/01/2024): Patient is moderately obese, he has predominantly abdominal obesity. Instructed that he has to lose weight. His goal should be to lose 15-20 lb of weight. He is not able to do much exercise. Uncontrolled hypertension 04/01/2024 ZEV (obstructive sleep apnea) 04/01/2024 05/19/2024 Overview (04/01/2024): He does have history of obstructive sleep apnea, but failed to use CPAP twice in the past. He does have features which are consistent with diagnosis of sleep apnea. However he claims. that he is sleeping okay He did not want to go back on CPAP therapy. Dry cough 01/09/2024 05/02/2024 Smoker within last 12 months 12/13/2023 08/25/2024 Other emphysema 11/08/2023 05/19/2024 Class 1 obesity 09/19/2023 01/01/2025 Physical exam 04/23/2023 11/08/2023 Overview (04/23/2023): -Normal growth and development. -Anticipatory guidance discussed. -Preventative care / harm reduction discussed. Assessment & Plan (04/23/2023 9:03 AM EST): -Normal growth and development. -Anticipatory guidance discussed. -Preventative care / harm reduction discussed. Light sensitivity 04/23/2023 11/08/2023 Multiple fractures of ribs, left side, initial encounter for closed fracture 02/25/2023 04/23/2023 Dental caries 12/28/2022 12/18/2023 Deterioration in ability to walk up stairs 12/15/2022 11/08/2023 Chest pain 08/07/2022 11/08/2023 Dilation of aorta 08/07/2022 11/08/2023 Hypercholesterolemia 08/07/2022 024 Old IN (myocardial infarction) 08/07/2022 11/08/2023 Acute ankle pain 04/07/2022 11/08/2023 Plantar fasciitis 04/07/2022 11/08/2023 Knee pain 02/28/2012 08/25/2024 Shoulder joint pain 11/03/2011 08/26/19 Encounters Date Type Department Care Team Description 01/23/2025 9:30 AM EDT Office Visit [facility] [address] [place] [address] Renae Adame MD Prediabetes (Primary Dx); Obstructive sleep apnea syndrome; Mild intermittent asthma without complication; Seasonal allergies; Allergic rhinitis, unspecified seasonality, unspecified trigger; Primary hypertension; Dyslipidemia; Coronary arteriosclerosis in [place]om[place] artery; S/P CABG x 3; Abdominal aortic aneurysm (AAA) without rupture, unspecified part ([facility]/HCC); S/P ascending aortic aneurysm repair; Kidney stone; Benign prostatic hyperplasia without lower urinary tract symptoms; retirement (current) use of opiate analgesic; Chronic midline low back pain without sciatica; Depressive disorder; Tobacco dependence; Class 1 obesity due to excess calories with serious comorbidity and body mass index (BMI) of 34.0 to 34.9 in adult; Dietary counseling; Exercise counseling; Other specified health status; History of tobacco use 01/23/2025 Travel 01/15/2025 2:00 PM EDT Clinical Support [facility] [address] [place] [address] Tamika Kim RN Chronic midline low back pain without sciatica 01/15/2025 Travel 01/13/2025 Refill [facility] [address] [place] [address] Renae Adame MD Chronic neck pain 12/26/2024 10:20 AM EDT Office Visit [facility] [address] [place] [id number] Nidia Castro MD Chronic rhinitis (Primary Dx); Primary hypertension 12/26/2024 Travel 12/12/2024 Refill [facility] [address] [place] [address] Renae Adame MD Chronic neck pain 11/25/2024 Refill [facility] [address] [place] [id number] Renae Adame MD Prediabetes 11/11/2024 Refill [facility] [address] [place] [address] Renae Adame MD Chronic neck pain 11/11/2024 Refill [facility] [address] [place] [address] Renae Adame MD Chronic neck pain 11/07/2024 10:15 AM EDT Office Visit [address] [address] Khushboo Rizzo ANP Kidney stones (Primary Dx); Cellulitis of left foot 11/07/2024 Travel 11/06/[address] [address] Khushboo Rizzo ANP CHART PREP 11/04/[address] [address] Renae Adame MD Nurse Triage 11/01/2024 Orders Only GENERIC EXTERNAL DATA DEPARTMENT Provider, Generic External Data Gross hematuria (Primary Dx) 10/30/2024 Orders Only [facility] External Provider, [facility] Left foot pain (Primary Dx) 10/27/2024 2:00 PM EDT Telemedicine [facility] [address] [place] [address] Tamika Kim RN Chronic midline low back pain without sciatica 10/27/2024 Travel from Last 3 Months Immunizations Immunization Administration Dates Next Due Hep A, Adult 01/09/2024,04/23/2023 Hep B, adult 03/07/2023,09/05/2022,08/07/2022 Influenza Quadrivalent Adjuvanted 02/03/2020 Influenza injectable quadriv alent IIV4 with preservative 02/03/2016 Influenza injectable quadriv alent preservative free 04/23/2023,03/22/2022,03/01/2017 Influenza, High Dose Seasona l, Preservative Free 02/13/2024,03/20/2019,02/27/2018 Influenza, IIV3, injectable 03/26/2014,0 02/02/2011,02/10/2009,02/26,04/09/2006 Influenza, Split (incl. rachelle fied surface antigen) 02/23/2018,01/15/2013,02/28/2012 Moderna Covid-19 Vaccine 12+ 09/09/2021,08/12/19 21,07/14/2020 Pfizer Covid-19 Vaccine 12+ 05/19/2024, Pfizer Covid-19 Vaccine 12+ Bivalent 02/17/2022 Pneumococcal Conjugate PCV 13 03/01/2017 Pneumococcal Conjugate PCV 20 08/07/2022 Pneumococcal Polysaccharide PPSV23 03/26/2014, RSV Bivalent 01/28/2024 TD (adult), 2 Lf tetanus tox oid, preservative free, adsorbed 01/16/2007 Td (adult), 5 Lf tetanus tox oid, preservative free, adsorbed 08/09/2012 Tdap 02/25/2023,08/07/2022,02/28/2012 Zoster, Recombinant 01/18/2022 Zoster, live 03/27/2014 Family History Medical History Relation Name Comments Heart disease Mother Heart disease Mother's Brother Relation Name Status Comments Mother Mother's Brother Social History Tobacco Use Types Packs/Day Years Used Date Smoking Tobacco: Some Days Cigarettes Passive Smoke Exposure: Never Tobacco Cessation:Ready to Q uit: Not Asked; Counseling Given: Not Answered Alcohol Use Standard Drinks/Week Comments Defer 0 [...] not to disclose 2021 10:17 AM EDT Last Filed Vital Signs Vital Sign Reading [...] Mass Index 34.76 01/23/2025 9:34 AM EDT Plan of Treatment Upcoming Encounters Date Type Department Care Team ([facility] st Contact Info) Description 04/20/2025 10:30 AM EST Telemedicine [facility] [address] [place] [address] Tamika Kim, RN [address] [place] [address] Health Maintenance Due Date Last Done Comments CT Colonography 1951 FIT DNA/Cologuard 1950 FIT 1950 FOBT 1950 Sigmoidoscopy 1950 Zoster Vaccines (3 of 3) 03/15/2022 01/18/2022, 03/14 COVID-19 Vaccine ( season) 2025 05/19/2024, 04/23/2023, 02/17/2022, Additional history exists Influenza Vaccine (#1) 2025 , 04/23/2023, 03/22/2022, Additional history exists Dental Oral Exam 04/06/2025 10/03/2024, 12/21/2022 Dental Prophylaxis 04/06/2025 10/03/2024, 01/04/2023 Alcohol/Substance Use Screening 08/25/2025 08/25/2024 Dental X-Ray: Bitewings 10/04/2025 10/03/2024 Depression Screening 01/23/2026 01/23/2025, 01/24/20 25 Diabetes: Hemoglobin A1C 01/23/2026 025, 01/09/2024, 04/25/2023, Additional history exists SDOH Screening 01/23/2026 01/23/2025 Tobacco Screening 01/23/2026 01/23/2025 Dental X-Ray: Full Mouth 10/05/2027 10/03/2024 Colonoscopy 04/28/2029 04/28/2024, 04/13, 04/25/2024, Additional history exists Colorectal Cancer Screening 04/28/2029 Lipid Panel 05/20/2029 05/20/2024, 04/13, 08/11/2021, Additional history exists DTaP/Tdap/Td Vaccines (5 - Td or Tdap) 02/25/2033 02/25/2023, 08/07/2022, 08/09/2012, Additional history exists Hepatitis C Screening Completed 08/11/2021, 022 Pneumococcal Vaccine: 50+ Years Completed 08/07/2022, 03/01/2017, 03/26/2014, Additional history exists Hepatitis B Vaccines Completed 03/07/2023, 09/05/2022, 08/07/2022 Hepatitis A Vaccines Aged Out 01/09/2024, 04/23/20 23 No longer eligible based on patient's age to complete this topic RSV Patients and Patients Aged 60 years or older Completed 01/28/2024 HIB Vaccines Aged Out No longer eligi ble based on patient's age to complete this topic HPV Vaccines Aged Out No longer eligi ble based on patient's age to complete this topic IPV Vaccines Aged Out No longer eligi ble based on patient's age to complete this topic Meningococcal B Vaccine Aged Out No l onger eligible based on patient's age to complete this topic Meningococcal Vaccine Aged Out No astrid oksana eligible based on patient's age to complete this topic RSV under 20 months Aged Out No longe r eligible based on patient's age to complete this topic Rotavirus Vaccines Aged Out No longer eligible based on patient's age to complete this topic Procedures Procedure Name Priority Date/Time Associated Diagnosis Comments POCT GLYCATED HEMOGLOBIN, TOTAL Routine 01/23/2025 9:38 AM EDT Prediabetes POCT LILIAN-14 URINE DRUG SCREEN Routine 01/15/2025 2:03 PM EDT Chronic midline low back pain without sciatica CT ABDOMEN PELVIS W CONTRAST Routine 11/01/2024 11:12 PM EDT CULTURE, URINE, ROUTINE Routine 11/01/2024 9:20 PM EDT Gross hematuria BASIC METABOLIC PANEL Routine 11/01/2024 8:58 PM EDT HEPATIC FUNCTION PANEL Routine 11/01/2024 8:58 PM EDT URINALYSIS, COMPLETE, WITH REFLEX TO CULTURE Routine 11/01/2024 8:58 PM EDT CBC WITH AUTO DIFFERENTIAL Routine 11/01/2024 8:58 PM EDT XR FOOT 3+ VIEWS LEFT Routine 10/30/2024 7:20 AM EDT PROPHYLAXIS - ADULT Routine 10/03/2024 8 :00 AM EDT INTRAORAL - COMPLETE SERIES OF RADIOGRAPHIC IMAGES Routine 10/03/2024 8:00 AM EDT PERIODIC ORAL EVALUATION - ESTABLISHED PATIENT Routine 10/03/2024 8:00 AM EDT LIPID PANEL, STANDARD Routine 05/20/2024 7:55 AM EST HM COLONOSCOPY Routine 04/28/2024 HM HEPATITIS C ANTIBODY Routine 08/11/2021 from Last 3 Months or Most Recently Relevant to Health Maintenance Results * (ABNORMAL) POCT Hgb A1c (01/23/2025 9:38 AM EDT) Hemoglobin A1C 6.3(A) 4.0 - 5.7 % QC Media Lot # [id number] Lot# Expiration Date ,701,778 Blood 01/23/2025 9:38 AM EDT Renae Adame MD POINT OF CARE TEST ENTER/E DIT ORDERABLES Final Result * (ABNORMAL) POCT LILIAN-14 Urine Drug Screen (01/15/2025 2:03 PM EDT) THC Negative Negative Cocaine Screen, Urine Negative Negative Opiate Screen, Urine Negative Negative Methamphetamine Screen Urine Negative Negative Amphetamine Screen, Urine Negative Negative Benzodiazepines Screen, Urine Negative Negative Barbiturate Screen, Urine Negative Negative Methadone Screen, Urine Negative Negative Buprenophine Screen, Urine Negative Negative TCA, Urine Negative Negative MDMA Urine Negative Negative ng/mL Oxycodone Screen, Urine Positive(A) Negative Phencyclidine (PCP), Urine Negative Negative Propoxyphene, Urine Negative Negative Fentanyl, Urine Negative Negative Urine Urine specimen obtained by clean catch procedure / Unknown 01/15/2025 2:03 PM EDT Narrative Tamika Kim RN - 01/15/2025 2:03 PM EDT Internal Pass Control Lot# [id number] Exp: 03-13-26 Renae Adame MD POINT OF CARE TEST ENTER/E DIT ORDERABLES Final Result * CT Abdomen Pelvis w/ Contrast (11/01/2024 11:12 PM EDT) Anatomical Region Laterality Modality Body, Pelvis, Abdomen Computed T omography 11/01/2024 11:1 2 PM EDT Narrative 11/01/2024 11:14 PM EDT [address] [address] [address] Scan Report Signed Patient: Michael Deal MR#: [id number] : 1950 Acct:[id number] Age/Sex: 73 / M ADM Date: 11/01/24 Loc: HO.ED Attending Dr: Ordering Physician: Mariela Yoder Date of Service: 11/01/24 Procedure(s): CT abdomen pelvis w IV con Accession Number(s): [id number] cc: Renae Adame MD; Mariela Yoder Report Number: [id number]: Total DLP = 608.00 mGy-cm CLINICAL HISTORY: hematuria CT abdomen and pelvis with contrast Comparison: None provided Findings: Atelectasis. Cardiomegaly without significant pericardial effusion. Coronary artery calcifications. Scattered subcentimeter low-density lesions throughout the liver, likely cysts or hemangiomas, too small to characterize. Splenule. Bilateral hypodense/intermediate dense renal cysts. Nonspecific minimal perinephric stranding in the right. Bilateral nonobstructive subcentimeter renal calculi largest in the left upper pole measuring 5 mm. Nonobstructive 7 mm right ureteropelvic junction calculus. No bowel obstruction, pneumoperitoneum, or pneumatosis. Fat containing umbilical hernia. Prostatomegaly noted. Scattered colonic diverticulosis without diverticulitis or colitis. Appendix not visualized. Circumferential bladder wall thickening. Osteopenia multilevel spondylosis pronounced at L5-S1. Diffuse atheromatous plaque disease throughout the aorta and branch vessels, without aneurysmal dilatation. IMPRESSION: 1. Nonobstructive bilateral subcentimeter renal and right ureteropelvic junction calculi. 2. Circumferential bladder wall thickening may be related to degree of underdistention or mild cystitis. This document has been electronically signed by: Yovanny Reed MD on 11/01/2024 23:12:06 Dictated By: Yovanny Reed MD Signed By: <Electronically signed by Yovanny Reed MD in OV> 11/01/242312 DD/ 11 TD/TT: 11/01/242311 Bow Tacker: Procedure Note Donotuseinterpreter, Image - 11/01/[address] [address] [address] Scan Report Signed Patient: Kelly Deal#: [id number] : 2Acct:[id number] Age/Sex: 73 / MADM Date: 11/01/24 Loc: HO.ED Attending Dr: Ordering Physician: Mariela Yoder Date of Service: 11/01/24 Procedure(s): CT abdomen pelvis w IV con Accession Number(s): [id number] cc: Renae Adame MD; Mariela Yoder Report Number: [id number]: Total DLP = 608.00 mGy-cm CLINICAL HISTORY: hematuria CT abdomen and pelvis with contrast Comparison: None provided Findings: Atelectasis. Cardiomegaly without significant pericardial effusion. Coronary artery calcifications. Scattered subcentimeter low-density lesions throughout the liver, likely cysts or hemangiomas, too small to characterize. Splenule. Bilateral hypodense/intermediate dense renal cysts. Nonspecific minimal perinephric stranding in the right. Bilateral nonobstructive subcentimeter renal calculi largest in the left upper pole measuring 5 mm. Nonobstructive 7 mm right ureteropelvic junction calculus. No bowel obstruction, pneumoperitoneum, or pneumatosis. Fat containing umbilical hernia. Prostatomegaly noted. Scattered colonic diverticulosis without diverticulitis or colitis. Appendix not visualized. Circumferential bladder wall thickening. Osteopenia multilevel spondylosis pronounced at L5-S1. Diffuse atheromatous plaque disease throughout the aorta and branch vessels, without aneurysmal dilatation. IMPRESSION: 1. Nonobstructive bilateral subcentimeter renal and right ureteropelvic junction calculi. 2. Circumferential bladder wall thickening may be related to degree of underdistention or mild cystitis. This document has been electronically signed by: Yovanny Reed MD on 11/01/2024 23:12:06 Dictated By: Yovanny Reed MD Signed By: <Electronically signed by Yovanny Reed MD in OV> 11/01/242312 DD/ 11 TD/TT: 11/01/242311 Bow Tacker: [facility] External Provider IMG CT PROCEDURES Edited Result - Final * Culture, Urine, Routine (11/01/2024 9:20 PM EDT) Urine Urine specimen obtained by clean catch procedure / Unknown 11/01/2024 9:20 PM EDT 11/01/2024 9:20 PM EDT Comment:[facility] - 11/03/2024 8:22 AM EDT Urine Culture No growth. Specimen Source: Urine clean catch us Generic External Data Provider LAB MICROBIOLOGY - GENERAL ORDERABLES Final Result [facility] [address] [place] [address] [phone] * (ABNORMAL) Urinalysis, Complete, with Reflex to Culture (11/01/2024 8:58 PM EDT) Color Urine Red(A) [facility] Appearance Urine Turbid [facility] PH 8.0 5.0 - 9.0 [facility] Glucose Urine UA Negative Negative mg/dL [facility] Urine Blood Large (3+)(A) Negative [facility] Specific [place] - Urine 1.015 1.005 - 1.025 [facility] Urine Protein 30 (1+)(A) Neg-Trace mg/dL [facility] Urine Ketones Negative Negative mg/dL [facility] Nitrite Urine Negative Negative [facility] Leukocyte Esterase Urine Small (1+)(A) Negative [facility] RBC Urine >20(A) 0 - 2 /HPF [facility] Urine WBC 6-10(A) 0 - 5 /HPF [facility] Urine Squamous Epithelial Cell 0-2 0 - 2 /HPF [facility] Urine Bacteria None Seen None Seen [facility] Hyaline Casts, Urine 0-2 0 - 2 /LPF [facility] 11/01/2024 8:58 PM EDT 11/01/2024 9:01 PM EDT Narrative [facility] - 11/01/2024 9:18 PM EDT 2056Urine, Clean Catch us Generic External Data Provider LAB URINE ORDERAB LES Final Result [facility] [address] [place], [place] [phone] * (ABNORMAL) CBC auto differential (11/01/2024 8:58 PM EDT) White Blood Count 9.4 4.8 - 10.8 X10*3/uL [facility] Red Blood Count 4.74 4.60 - 5.80 X10*6/uL [facility] Hemoglobin 13.4(L) 14.0 - 18.0 g/dl [facility] Hematocrit 39.6(L) 42.0 - 52.0 % [facility] Mean Corpuscular Volume 83.5 80.0 - 98.0 fL [facility] Mean Corpuscular Hemoglobin 28.3 27.0 - 33.0 pg [facility] Mean Corpuscular HGB Conc 33.8 31.0 - 36.0 g/dl [facility] Red Cell Distribution Width 15.2 11.0 - 16.0 % [facility] Platelet Count 250 160 - 400 X10*3/uL [facility] Mean Platelet Volume 8.8(L) 9.4 - 12.4 fL [facility] Neutrophils Percent Auto 51.3 45 - 73 % [facility] Imm Gran Pct Auto 0.2 0.0 - 0.4 % [facility] Lymphocytes Percent Auto 28.4 20 - 40 % [facility] Monocytes Percent Auto 12.4(H) 2 - 11 % [facility] Eosinophils Percent Auto 7.0(H) 0 - 4 % [facility] Basophils Percent Auto 0.7 0 - 2 % [facility] NRBC Pct Auto 0.0 0.0 - 0.2 /100WBC [facility] Neutrophils Absolute Auto 4.8 2.0 - 8.3 x10*3/uL [facility] Imm Gran Abs Auto 0.02 0.00 - 0.03 X10*3/uL [facility] Lymphocytes Absolute Auto 2.7 1.2 - 4.9 X10*3/uL [facility] Monocytes Absolute Auto 1.2 0.1 - 1.2 X10*3/uL [facility] Eosinophils Absolute Auto 0.7(H) 0.0 - 0.4 X10*3/uL [facility] Basophils Absolute Auto 0.1 0.0 - 0.2 X10*3/uL [facility] NRBC Abs Auto 0.000 0.0 - 0.012 X10*3/uL [facility] 11/01/2024 8:58 PM EDT 11/01/2024 9:01 PM EDT us Generic External Data Provider LAB BLOOD ORDERAB LES Final Result Performing Organization Address [facility] Co de Phone Number [facility] [address] [place] [phone] * Hepatic Function Panel (11/01/2024 8:58 PM EDT) Bilirubin, Total 1.0 0.0 - 1.0 mg/dL [facility] Bilirubin, Direct 0.3 0.0 - 0.5 mg/dL [facility] Aspartate Amino Transferase 30 5 - 37 U/L [facility] Alanine Aminotransferase 26 0 - 40 U/L [facility] Total Protein 7.1 6.5 - 8.0 g/dL [facility] Albumin Level 4.5 3.5 - 5.0 g/dL [facility] Alkaline Phosphatase 78 39 - 117 U/L [facility] 11/01/2024 8:58 PM EDT 11/01/2024 9:01 PM EDT us Generic External Data Provider LAB BLOOD ORDERAB LES Final Result Performing Organization Address [facility] Co de Phone Number [facility] [address] [place] [phone] * (ABNORMAL) Basic Metabolic Panel (11/01/2024 8:58 PM EDT) Sodium 141 135 - 145 mmol/L [facility] Potassium 3.7 3.3 - 5.1 mmol/L [facility] Chloride 108 96 - 108 mmol/L [facility] Carbon Dioxide 25 22 - 29 mmol/L [facility] Anion Gap 12 12 - 20 [facility] Urea Nitrogen (BUN) 12 9 - 16 mg/dL [facility] Creatinine, Serum 0.83 0.5 - 1.4 mg/dL [facility] Creatinine Clr Calc Pharmacy 93.4 [facility] Comment:eGFR (calculated fro m the MDRD study equation) and eCrCl(calculated from the Cockcroft-Gault equation) are based ondifferent parameters and may not yield comparable results.If eCrCl result is absurd, please check patient'sheight/weight. Estimated Glomerular Filt Rate >60 [facility] Comment:Chronic Kidney Disea se: Estimated GFR < 60 mL/min/1.64a8Tllaxw Kidney Disease: Estimated GFR < 15 mL/min/1.73m2 Glucose 119(H) 60 - 115 mg/dL [facility] Calcium 9.7 8.4 - 10.2 mg/dL [facility] 11/01/2024 8:58 PM EDT 11/01/2024 9:01 PM EDT us Generic External Data Provider LAB BLOOD ORDERAB LES Final Result [facility] [address] [place] [phone] * XR Foot 3+ Views Left (10/30/2024 7:20 AM EDT) Anatomical Region Laterality Modality Lower Extremities, Foot Left Radiogra phic Imaging 10/30/2024 7:20 AM EDT Narrative 10/30/2024 8:37 AM EDT [address] [address] XRay Report Signed Patient: Michael Deal MR#: [id number] : 1950 Acct:[id number] Age/Sex: 73 / M ADM Date: 10/30/24 Loc: HO.ED Attending Dr: Ordering Physician: Mariela Yoder Date of Service: 10/30/24 Procedure(s): XR foot LT min 3V Accession Number(s): [id number] cc: Renae Adame MD; Mariela Yoder EXAMINATION: XR FOOT, LEFT CLINICAL INFORMATION: pain, injury COMPARISON: 08/27/2021. TECHNIQUE: AP, lateral, and oblique views of the left foot. FINDINGS: No fracture, dislocation, or suspicious bone lesion. Normal bone mineralization. Normal alignment. Joint spaces are preserved. No significant arthropathy. Normal plantar arch. Small dorsal and plantar calcaneal spurs present. Soft tissues appear normal. XR/XR foot LT min 3V IMPRESSION: No acute bony abnormalities of the left foot. No significant interval change from 08/27/2021. Electronically signed by: Tylor Cordoba MD 10/30/2024 08:34 AM EDT Dictated By: Tylor Cordoba MD Signed By: <Electronically signed by Tylor Cordoba MD in OV> 10/30/24 0834 DD/ 0720 TD/TT: 10/30/24 0827 Bow Tacker: Procedure Note Donotuseinterpreter, Image - 10/30/2024 [place] [address] XRay Report Signed Patient: Michael DealMR#: [id number] : 1950cct:[id number] Age/Sex: 73 / MADM Date: 10/30/24 Loc: .ED Attending Dr: Ordering Physician: Mariela Yoder Date of Service: 10/30/24 Procedure(s): XR foot LT min 3V Accession Number(s): [id number] cc: Renae Adame MD; Mariela Yoder EXAMINATION: XR FOOT, LEFT CLINICAL INFORMATION: pain, injury COMPARISON: 08/27/2021. TECHNIQUE: AP, lateral, and oblique views of the left foot. FINDINGS: No fracture, dislocation, or suspicious bone lesion. Normal bone mineralization. Normal alignment. Joint spaces are preserved. No significant arthropathy. Normal plantar arch. Small dorsal and plantar calcaneal spurs present. Soft tissues appear normal. XR/XR foot LT min 3V IMPRESSION: No acute bony abnormalities of the left foot. No significant interval change from 08/27/2021. Electronically signed by: Tylor Cordoba MD 10/30/2024 08:34 AM EDT RP Dictated By: Tylor Cordoba MD Signed By: <Electronically signed by Tylor Cordoba MD in OV> 10/30/2434 DD/ 9 TD/TT: 10/30/24826 Bow Tacker: [facility] External Provider IMG XR PROCEDURES Final Result * (ABNORMAL) Lipid Panel, Standard (05/20/2024 7:55 AM EST) Triglycerides 88 <150 mg/dL [facility] Comment:Desirable Triglyceri de: less than 150 mg/dLBorderline High Triglyceride 150-199 mg/dLHigh Triglyceride: 200-499 mg/dLVery High Triglyceride: greater than or equal to 5OO mg/dL Cholesterol 113 <200 mg/dL [facility] Comment:Desirable Cholestero l: less than 200 mg/dLBorderline High Cholesterol: 200-239 mg/dLHigh Cholesterol: greater than 239 mg/dL LDL Cholesterol Calculated 58 <100 mg/dL [facility] Comment:Desirable LDL: less than 100 mg/dLNear Optimal/Above Optimal LDL: 110- 129 mg/dLBorderline High LDL: 130-159 mg/dLHigh LDL: 160-189 mg/dLVery High LDL: greater than or equal to 190 mg/dL HDL Cholesterol 38(L) >40 mg/dL [facility] Comment:Desirable HDL: great er than 40 mg/dL Note: This HDL assay may give artificially low results in patients with liver disease. 05/20/2024 7:55 AM EST 05/20/2024 11:15 AM EST Renae Adame MD LAB BLOOD ORDERABLES Final Result [facility] [address] [place] [phone] [phone] * (ABNORMAL) Colonoscopy (04/28/2024) Colonoscopy Abnormal( A) Normal Comment:Hyperplastic polyp w ith Dr. Stark Historical Provider HEALTH MAINTENANCE Final Result * Hepatitis C Antibody (08/11/2021) Hepatitis C Antibody Reactive Blood Historical Provider HEALTH MAINTENANCE Final Result from Last 3 Months or Most Recently Relevant to Health Maintenance Insurance [facility] ALF OPTIONS (HMO D-SNP) [facility] Advance Directives Documents on File Type Date Recorded Patient Field Supervisor Expl anation Advance Directives and Living Will 01/15/2024 11:19 AM Health Care Proxy Care Teams Bit Gatherer Relationship Specialty Start Date End Date Bamberg, MD Renae [address] [place] [phone] PCP - General Family Medicine 01/25/15 Abida Campa, PharmD [address] [place] [phone] Pharmacist Internal Medicine 03/04/24 Frank Morales MD [address] [place] [phone] Cardiology 04/09/24 Mike Stark MD [address] [place] [address] [place] [phone] Gastroenterology 04/28/24 Filiberto García 175 [facility] [address] [place] [address] Podiatry 05/02/24 Igor Beebe 100 [facility] [address] [place] [address] Urology 11/05/24 Dr. Alo Bassett MD [facility] Cardiac Surgery [address] [place] [phone] Cardiothoracic Surgery 05/01/24
--- OUTSIDE RECORDS SUMMARY | 2025-01-23 11:32 | XMS_ITS | Encounter Summary ---
Author Organization [employer] Address [address] [facility] 7t [place] [address] Care Team Providers Care Inweaver Name Role Phone Renae Adame MD Primary Care Provider + [phone] Abida Campa PharmD Unavailable Frank Morales MD Unavailable [phone] Mike Stark MD Unavailable [phone] Filiberto García Unavailable Igor Beebe Unavailable Reason for Visit * Reason Comments Med Refill Encounter Details Date Type Department Care Team (Late st Contact Info) Description 04/14/2024 Refill [facility] [address] [place], [place] [phone] Renae Adame MD [address] [place], [place] [phone] Chronic neck pain Social History Tobacco Use Types Packs/Day Years Used Date Smoking Tobacco: Some Days Cigarettes Passive Smoke Exposure: Never Alcohol Use Standard Drinks/Week Comments Defer 0 (1 standard drink = 0.6 oz pur e alcohol) Depression Answer Date Recorded Patient Health Questionnaire-9 Score 0 11/08/2023 Patient Health Questionnaire-9 Score 0 11/08/2023 Last PHQ-9: Questionnaire Data Not on file 0 11/08/2023 Housing Stability Answer Date Recorded What is [...] got money to buy more: Never True 11/08/2023 Within the past 12 months,th e food you bought just didn't last and you didn't have enough money to get more: Never True Transportation Answer Date Recorded In the past 12 months, has l ack of transportation kept you from medical appts, meetings, work or from getting things needed for daily living? No 11/08/2023 Utilities Answer Date Recorded In the past 12 months, has t he [employer], gas, oil or water company threatened to shut off services in your home? No 11/08/2023 Depression Answer Date Recorded Patient Health Questionnaire-2 Score 0 11/08/2023 Internet Access Answer Date Recorded Internet Access Q1 No 01/14/2024 Internet Access Q2 I do not want or need it 06/2023 Sex and Gender Information Value Date Recorded Sex Assigned at Male 03/13/2022 10:17 AM EDT Legal Sex Male 10:17 AM EDT Gender Identity Male 03/13/2022 10:17 AM EDT Sexual Orientation Choose not to disclose 2021 10:17 AM EDT documented as of this encounter Plan of Treatment Upcoming Encounters Date Type Department Care Team (Late st Contact Info) Description 04/20/2025 10:30 AM EST Telemedicine [facility] MED [facility] [address] [place] [address] Tamika Kim, RN [address] [place] [address] documented as of this encounter Visit Diagnoses Diagnosis Chronic neck pain Cervicalgia documented in this encounter Additional Health Concerns Assessment Noted Time PHQ-9 Depression Total Score: 0 11/08/19 24 9:52 AM EDT documented as of this encounter Care Teams Inweaver Relationship Specialty Start Date End Date Renae Adame MD [address] [place] [phone] PCP - General Family Medicine 01/25/15 Abida Campa, [place] [address] [place] [address] [phone] Pharmacist Internal Medicine 03/04/24 Frank Morales MD [address] [place] [address] Cardiology 04/09/24 Mike Stark MD [address] [place] [phone] Gastroenterology 04/28/24 Filiberto García 175 [facility] 110 [place] [address] Podiatry 05/02/24 Igor Beebe 100 [facility] 120 [place] [phone] Urology 11/05/24 Dr. Alo Bassett MD [facility] Cardiac Surgery [address] [place] [address] Cardiothoracic Surgery 05/01/24 documented as of this encounter
--- OUTSIDE RECORDS SUMMARY | 2025-01-23 11:32 | XMS_ITS | Encounter Summary ---
Author Organization [email or web address] Address 75 [facility] 7t [place] [address] Care Team Providers Care Acute Dialysis Registered Nurse Name Role Phone Renae Adame MD Primary Care Provider [phone] Abida Campa PharmD Unavailable Frank Morales MD Unavailable Mike Stark MD Unavailable Filiberto García Unavailable Igor Beebe Unavailable Encounter Details Date Type Department Care Team (Late st Contact Info) Description 02/12/2023 Abstract [facility] [address] [place], [place] [phone] Renae Adame MD [address] [place], [place] [phone] Preventative health care; Tubular adenoma of colon Social History Tobacco Use Types Packs/Day Years [...] Info) Description 04/20/2025 10:30 AM EST Telemedicine [facility] [address] [place] [address] Tamika Kim, RN [address] [place] [address] documented as of this encounter Visit Diagnoses Diagnosis Preventative health care Routine general medical examination at a health care facility Tubular adenoma of colon Benign neoplasm of colon documented in this encounter Additional Health Concerns Assessment Noted Time PHQ-9 Depression Total Score: 0 08/08/19 23 10:33 AM EDT documented as of this encounter Care Teams Acute Dialysis Registered Nurse Relationship Specialty Start Date End Date Renae Adame MD [address] [place] [address] PCP - General Family Medicine 01/25/15 Abida Campa PharmD [address] [place] [address] Pharmacist Internal Medicine 03/04/24 Frank Morales MD [address] [place] [address] Cardiology 04/09/24 Mike Stark MD [address] [place] [phone] Gastroenterology 04/28/24 Filiberto García 175 [facility] [address] [place] [address] Podiatry 05/02/24 Igor Beebe 100 [facility] [address] [place] [phone] Urology 11/05/24 Dr. Alo Bassett MD [facility] Cardiac Surgery [address] [place] [address] Cardiothoracic Surgery 05/01/24 documented as of this encounter
--- OUTSIDE RECORDS SUMMARY | 2025-01-23 11:32 | XMS_ITS | Encounter Summary ---
Author Organization [employer] Address 75 [facility] 7t [place] [address] Care Team Providers Care Churner Name Role Phone Renae Adame MD Primary Care Provider + [phone] Abida Campa PharmD Unavailable Frank Morales MD Unavailable [phone] Mike Stark MD Unavailable [phone] Filiberto García Unavailable Igor Beebe Unavailable Reason for Visit * Reason Comments Med Refill Encounter Details Date Type Department Care Team (Late st Contact Info) Description 11/11/2024 Refill [facility] MEDICINE 230 [place], [place] [phone] Renae Adame MD 230 [place], [place] [phone] Chronic neck pain Social History Tobacco Use Types Packs/Day Years Used Date Smoking Tobacco: Some Days Cigarettes Passive Smoke Exposure: Never Alcohol Use Standard Drinks/Week Comments Defer 0 (1 standard drink = 0.6 oz pur e alcohol) Depression Answer Date Recorded Patient Health Questionnaire-9 Score 6 11/07/2024 Patient Health Questionnaire-9 Score 6 11/07/2024 Last PHQ-9: Questionnaire Data Not on file 0 11/07/2024 Housing Stability Answer Date Recorded What is your housing situation today? I have nicholas cardoso 11/08/[address] you li ve. Do you have problems with any of the following? None of the above 11/08/2023 Food Insecurity Answer Date Recorded Within the past 12 months, y ou worried that your food would run out before you got money to buy more: Sometimes True 2024 Within the past 12 months,th e food you bought just didn't last and you didn't have enough money to get more: Sometimes True 11/07/2024 Transportation Answer Date Recorded In the past 12 months, has l ack of transportation kept you from medical appts, meetings, work or from getting things needed for daily living? Yes, it has kept me from non-medical meetings, work, or getting things that I need 11/07/2024 Utilities Answer Date Recorded In the past 12 months, has t he electric, gas, oil or water company threatened to shut off services in your home? Yes 11/07/2024 Depression Answer Date Recorded Patient Health Questionnaire-2 Score 3 11/07/2024 Internet Access Answer Date Recorded Internet Access [...] [facility] MED & PEDS 505 [place] [address] Tamika Kim, RN 505 [place] [address] documented as of this encounter Visit Diagnoses Diagnosis Chronic neck pain Cervicalgia documented in this encounter Additional Health Concerns Assessment Noted Time PHQ-9 Depression Total Score: 6 11/08/19 25 10:52 AM EDT documented as of this encounter Care Teams Churner Relationship Specialty Start Date End Date Renae Adame MD 230 [place] [address] PCP - General Family Medicine 01/25/15 Abida Campa, LolaD 230 [place] [address] Pharmacist Internal Medicine 03/04/24 Frank Morales MD 596 [place] [address] Cardiology 04/09/24 Mike Stark MD [address] [place] [phone] Gastroenterology 04/28/24 Filiberto García 175 [facility] 110 [place] [address] Podiatry 05/02/24 Igor Beebe 100 [facility] 120 [place] [address] Urology 11/05/24 Dr. Alo Bassett MD [facility] Cardiac Surgery [address] [place] [address] Cardiothoracic Surgery 05/01/24 documented as of this encounter
--- OUTSIDE RECORDS SUMMARY | 2025-01-23 11:32 | XMS_ITS | Encounter Summary ---
Author Organization [employer] Address 75 [facility] 7t [place] [address] Care Team Providers Care Ordnance Technician Name Role Phone Renae Adame MD Primary Care Provider + [phone] Abida Campa PharmD Unavailable [phone] Frank Morales MD Unavailable [phone] Mike Stark MD Unavailable [phone] Filiberto García Unavailable Igor Beebe Unavailable Reason for Visit * Reason Onset Date Comments Med Refill 02/12/2024 Encounter Details Date Type Department Care Team (Late st Contact Info) Description 02/12/2024 Telephone [facility] MEDICINE 230 [place], [place] [phone] Renae Adame MD 230 [place], [place] [phone] Med Refill Social History Tobacco Use Types [...] encounter Miscellaneous Notes * Telephone Encounter - [place] Davila - 02/12/2024 9:31 AM EDT TC from pt requesting medication refill. Medications needing refill : oxyCODONE-acetaminophen (Percocet) 5-325 MG tablet To be sent to: [facility] - [place], [place] - 230 [facility] documented in this encounter Plan of Treatment Upcoming Encounters Date Type Department Care Team (Late st Contact Info) Description 04/20/2025 10:30 AM EST Telemedicine [facility] MED & PEDS 505 [place] [address] Tamika Kim, RN 505 [place] [address] documented as of this encounter Visit Diagnoses Not on filedocumented in this encounter Additional Health Concerns Assessment Noted Time PHQ-9 Depression Total Score: 0 11/08/19 24 9:52 AM EDT documented as of this encounter Care Teams Ordnance Technician Relationship Specialty Start Date End Date Renae Adame MD 230 [place] [address] PCP - General Family Medicine 01/25/15 Abida Campa PharmD 230 [place] [address] Pharmacist Internal Medicine 03/04/24 Frank Morales MD 596 [place] [address] Cardiology 04/09/24 Mike Stark MD [address] [place] [phone] Gastroenterology 04/28/24 Filiberto García 175 [facility] 110 [place] [address] Podiatry 05/02/24 Igor Beebe 100 [facility] 120 [place] [address] Urology 11/05/24 Dr. Alo Bassett MD [facility] Cardiac Surgery [address] [place] [address] Cardiothoracic Surgery 05/01/24 documented as of this encounter
--- OUTSIDE RECORDS SUMMARY | 2025-01-23 11:32 | XMS_ITS | Encounter Summary ---
Author Organization [employer] Address 75 [facility] 7t [place] [address] Care Team Providers Care Chief Innovation Officer Name Role Phone Renae Adame MD Primary Care Provider + [phone] Abida Campa PharmD Unavailable Frank Morales MD Unavailable [phone] Mike Stark MD Unavailable Filiberto García Unavailable Igor Beebe Unavailable Reason for Visit * Reason Onset Date Comments FYI 03/31/2024 Encounter Details Date Type Department Care Team (Late st Contact Info) Description 03/31/2024 Telephone [facility] MEDICINE 230 [place] [address] Renae Adame MD 230 [place], [place] [phone] FYI Social History Tobacco Use Types Packs/Day Years [...] the past 12 months, has t he [employer], gas, oil or water Coin threatened to shut off services in your [...] encounter Miscellaneous Notes * Telephone Encounter - Cole Schilling - 03/31/2024 3:47 PM EST Tc from pt returning call. Fabric Finisher Didn't see any Documentation. documented in this encounter Plan of Treatment Upcoming Encounters Date Type Department Care Team ([facility] st Contact Info) Description 04/20/2025 10:30 AM EST Telemedicine [facility] MED & PEDS 505 [place] [address] Tamika Kim, LAURIE 505 [place] [address] documented as of this encounter Visit Diagnoses Not on filedocumented in this encounter Additional Health Concerns Assessment Noted Time PHQ-9 Depression Total Score: 0 11/08/19 24 9:52 AM EDT documented as of this encounter Care Teams Chief Innovation Officer Relationship Specialty Start Date End Date Renae Adame MD 230 [place] [address] PCP - General Family Medicine 01/25/15 Abida Campa, LolaD 230 [place] [address] Pharmacist Internal Medicine 03/04/24 Frank Morales MD 596 [place], [place] [phone] Cardiology 04/09/24 Mike Stark MD [address] [place] [phone] Gastroenterology 04/28/24 Filiberto García 175 [facility] 110 [place] [address] Podiatry 05/02/24 Igor Beebe 100 [facility] 120 [place] [address] Urology 11/05/24 Dr. Alo Bassett MD [facility] Cardiac Surgery [address] [place] [address] Cardiothoracic Surgery 05/01/24 documented as of this encounter
--- OUTSIDE RECORDS SUMMARY | 2025-01-23 11:32 | XMS_ITS | Encounter Summary ---
Author Organization [employer] Address 75 [facility] 7t [place] [address] Care Team Providers Care Tooth Clerk Name Role Phone Renae Adame MD Primary Care Provider + [phone] Abida Campa PharmD Unavailable Frank Morales MD Unavailable [phone] Mike Stark MD Unavailable [phone] Filiberto García Unavailable Igor Beebe Unavailable Encounter Details Date Type Department Care Team (Late st Contact Info) Description 04/28/2024 Abstract [facility] MEDICINE 230 [place], [place] [phone] Renae Adame MD 230 [place] [address] Social History Tobacco Use Types Packs/Day Years [...] Info) Description 04/20/2025 10:30 AM EST Telemedicine [facility] CH[facility] MED & PEDS 505 [place] [address] Tamika Kim, RN 505 [place] [address] documented as of this encounter Procedures Procedure Name Priority Date/Time Associated Diagnosis Comments COLONOSCOPY Routine 04/28/2024 documented in this encounter Results * (ABNORMAL) Colonoscopy (04/28/2024) Colonoscopy Abnormal( A) Normal Comment:Hyperplastic polyp w ith Dr. Stark us Historical Provider HEALTH MAINTENANCE Final Result documented in this encounter Visit Diagnoses Not on filedocumented in this encounter Additional Health Concerns Assessment Noted Time PHQ-9 Depression Total Score: 0 11/08/19 24 9:52 AM EDT documented as of this encounter Care Teams Tooth Clerk Relationship Specialty Start Date End Date Renae Adame MD 230 [place] [address] PCP - General Family Medicine 01/25/15 Abida Campa PharmD 230 [place] [address] Pharmacist Internal Medicine 03/04/24 Frank Morales MD 596 [place] [address] Cardiology 04/09/24 Mike Stark MD [address] [place] [phone] Gastroenterology 04/28/24 Filiberto García 175 [facility] 110 [place] [address] Podiatry 05/02/24 Igor Beebe 100 [facility] 120 [place] [address] Urology 11/05/24 Dr. Alo Bassett MD [facility] Cardiac Surgery [address] [place] [address] Cardiothoracic Surgery 05/01/24 documented as of this encounter
--- OUTSIDE RECORDS SUMMARY | 2025-01-23 11:32 | XMS_ITS | Encounter Summary ---
Author Organization [employer] Address 75 [facility] 7t [place] [address] Care Team Providers Care Meat Market Manager Name Role Phone Renae Adame MD Primary Care Provider + [phone] Abida Campa PharmD Unavailable Frank Morales MD Unavailable [phone] Mike Stark MD Unavailable Filiberto García Unavailable Igor Beebe Unavailable Encounter Details Date Type Department Care Team (Late st Contact Info) Description 02/12/2024 Telephone [facility] MEDICINE 230 [place], [place] [phone] Abida Campa, PharmD 230 [place] [address] Social History Tobacco Use Types Packs/Day Years [...] encounter Miscellaneous Notes * Telephone Encounter - Abida Campa PharmD - 02/12/2024 4:44 PM EDT Please consider providing a new referral for CDTM HTN due to update in referral. Pended referral attached to this TC note. Thank you! documented in this encounter Plan of Treatment Upcoming Encounters Date Type Department Care Team (Late st Contact Info) Description 04/20/2025 10:30 AM EST Telemedicine [facility] CHC MED & PEDS 505 [place] [address] Tamika Kim, LAURIE 505 [place] [address] documented as of this encounter Visit Diagnoses Diagnosis Primary hypertension- Primary Unspecified essential hypertension documented in this encounter Additional Health Concerns Assessment Noted Time PHQ-9 Depression Total Score: 0 11/08/19 24 9:52 AM EDT documented as of this encounter Care Teams Meat Market Manager Relationship Specialty Start Date End Date Renae Adame MD 230 [place] [address] PCP - General Family Medicine 01/25/15 Abida Campa, [place] 230 [place] [address] Pharmacist Internal Medicine 03/04/24 Frank Morales MD 596 [place] [address] Cardiology 04/09/24 Mike Stark MD [address] [place] [phone] Gastroenterology 04/28/24 Filiberto García 175 [facility] 110 [place] [address] Podiatry 05/02/24 Igor Beebe 100 [facility] 120 [place] [phone] Urology 11/05/24 Dr. Alo Bassett MD [facility] Cardiac Surgery [address] [place] [address] Cardiothoracic Surgery 05/01/24 documented as of this encounter
--- OUTSIDE RECORDS SUMMARY | 2025-01-23 11:32 | XMS_ITS | Encounter Summary ---
Author Organization [employer] Address 75 [facility] 7t [place] [address] Care Team Providers Care Field Crew Chief Name Role Phone Renae Adame MD Primary Care Provider Abida Campa PharmD Unavailable Frank Morales MD Unavailable [phone] Mike Stark MD Unavailable Filiberto García Unavailable Igor Beebe Unavailable Reason for Visit * Reason Onset Date Comments Med Refill 02/12/2023 Encounter Details Date Type Department Care Team (Late st Contact Info) Description 02/12/2023 Telephone [facility] MEDICINE 230 [place], [place] [phone] Renae Adame MD 230 [place], [place] [phone] Med Refill Social History Tobacco Use Types [...] Info) Description 04/20/2025 10:30 AM EST Telemedicine [facility] MED & PEDS 505 [place] [address] Tamika Kim RN 505 [place] [address] documented as of this encounter Visit Diagnoses Not on filedocumented in this encounter Additional Health Concerns Assessment Noted Time PHQ-9 Depression Total Score: 0 08/08/19 23 10:33 AM EDT documented as of this encounter Care Teams Field Crew Chief Relationship Specialty Start Date End Date Renae Adame MD 230 [place] [address] PCP - General Family Medicine 01/25/15 Abida Campa PharmD 230 [place] [address] Pharmacist Internal Medicine 03/04/24 Frank Morales MD 596 [place] [address] Cardiology 04/09/24 Mike Stark MD [address] [place] [phone] Gastroenterology 04/28/24 Filiberto García [address] [place] [address] Podiatry 05/02/24 Igor Beebe 100 Janae Mosqueda [facility] 120 [place] [address] Urology 11/05/24 Dr. Alo Bassett MD [facility] Cardiac Surgery [address] [place] [address] Cardiothoracic Surgery 05/01/24 documented as of this encounter
--- OUTSIDE RECORDS SUMMARY | 2025-01-23 11:32 | XMS_ITS | Encounter Summary ---
Author Organization [employer] Address 75 [facility] 7t [place] [address] Care Team Providers Care Wire Brush Operator Name Role Phone Renae Adame MD Primary Care Provider Abida Campa PharmD Unavailable Frank Morales MD Unavailable [phone] Mike Stark MD Unavailable Filiberto García Unavailable Igor Beebe Unavailable Reason for Visit * Reason Onset Date Comments Med Refill 11/13/2022 Encounter Details Date Type Department Care Team (Late st Contact Info) Description 11/13/2022 Telephone [facility] MEDICINE 230 [place], [place] [phone] Renae Adame MD 230 [place], [place] [phone] Med Refill Social History Tobacco Use Types Packs/Day Years Used Date Smoking Tobacco: Some Days Cigarettes Depression Answer Date Recorded Patient Health Questionnaire-9 [...] encounter Miscellaneous Notes * Telephone Encounter - Lilibeth Dennis - 11/13/2022 10:46 AM EDT Tc from pt requesting medication refill on oxyCODONE-acetaminophen (Percocet) 5- 325 MG tablet documented in this encounter Plan of Treatment Upcoming Encounters Date Type Department Care Team (Late st Contact Info) Description 04/20/2025 10:30 AM EST Telemedicine [facility] CHC MED & PEDS 505 [place] [address] Tamika Kim, LAURIE 505 [place] [address] documented as of this encounter Visit Diagnoses Not on filedocumented in this encounter Additional Health Concerns Assessment Noted Time PHQ-9 Depression Total Score: 0 08/08/19 10:33 AM EDT documented as of this encounter Care Teams Wire Brush Operator Relationship Specialty Start Date End Date Renae Adame MD 230 [place] [address] PCP - General Family Medicine 01/25/15 Abida Campa, LolaD 230 [place] [address] Pharmacist Internal Medicine 03/04/24 Frank Morales MD 596 [place] [address] Cardiology 04/09/24 Mike Stark MD [address] [place] [address] 102 [place] [phone] Gastroenterology 04/28/24 Filiberto García 175 [facility] 110 [place] [address] Podiatry 05/02/24 Igor Beebe 100 [facility] 120 [place] [phone] Urology 11/05/24 Dr. Alo Bassett MD [facility] Cardiac Surgery [address] [place] [address] Cardiothoracic Surgery 05/01/24 documented as of this encounter
--- OUTSIDE RECORDS SUMMARY | 2025-01-23 11:32 | XMS_ITS | Encounter Summary ---
Author Organization [employer] Address [address] [facility] [address] 7t [place] [address] Care Team Providers Care Clinical Informaticist Name Role Phone WendiRenae manzanares MD Primary Care Provider [phone] Abida Campa PharmD Unavailable Frank Morales MD Unavailable [phone] Mike Stark MD Unavailable [phone] Filiberto García Unavailable Igor Beebe Unavailable Encounter Details Date Type Department Care Team (Late st Contact Info) Description 04/28/2024 Orders Only [facility] MEDICINE 230 [place], [place] [phone] Provider, MD Ping Social History Tobacco Use Types Packs/Day Years [...] is your housing situation today? I have nicholaskyrie cardoso 11/08/[address] you [...] Info) Description 04/20/2025 10:30 AM EST Telemedicine [facility] MED & PEDS 505 [place] [address] Tamika Kim, LAURIE 505 [place] [address] documented as of this encounter Procedures Procedure Name Priority Date/Time Associated Diagnosis Comments HM COLONOSCOPY Routine 04/25/2024 1:02 PM EST HM COLONOSCOPY Routine 04/25/2024 1:02 PM EST documented in this encounter Results * Hm Colonoscopy (04/25/2024 1:02 PM EST) us Historical Provider HEALTH MAINTENANCE Final Result * Hm Colonoscopy (04/25/2024 1:02 PM EST) us Historical Provider HEALTH MAINTENANCE Final Result documented in this encounter Visit Diagnoses Not on filedocumented in this encounter Additional Health Concerns Assessment Noted Time PHQ-9 Depression Total Score: 0 11/08/19 24 9:52 AM EDT documented as of this encounter Care Teams Clinical Informaticist Relationship Specialty Start Date End Date Renae Adame MD 230 [place] [address] PCP - General Family Medicine 01/25/15 Abida Campa, [place] 230 [place] [address] Pharmacist Internal Medicine 03/04/24 Frank Morales MD 596 [place] [address] Cardiology 04/09/24 Mike Stark MD [address] [place] [phone] Gastroenterology 04/28/24 Filiberto García 175 [facility] 110 [place] [address] Podiatry 05/02/24 Igor Beebe 100 [facility] 120 [place] [address] Urology 11/05/24 Dr. Alo Bassett MD [facility] Cardiac Surgery [address] [place] [address] Cardiothoracic Surgery 05/01/24 documented as of this encounter
--- OUTSIDE RECORDS SUMMARY | 2025-01-23 11:32 | XMS_ITS | Encounter Summary ---
Author Organization [facility] Address [address] [place] [phone] Care Team Providers Care Manometer Technician Name Role Phone Renae Adame MD Primary Care Provider [phone]- [phone] Encounter Details Date Type Department Care Team (Late st Contact Info) Description 11/06/2024 Lab Requisition [facility] - Main Lab [address] [facility] [place] [address] Igor Beebe MD [address] [place] 120 [place] [phone] Hematuria, unspecified Social History Tobacco Use Types [...] pathology outside consult (11/04/2024 12:00 AM EDT) Addendum Results of UroVysion fluorescence in situ hybridization (FISH) testing: CEP3: Normal CEP7: Normal CEP17: Normal LSI 9p21: Normal Interpretation: Normal profile Controls stained appropriately. Note: The results are intended as a screening device and should be interpreted in association with other clinical and pathological findings. 12/01/2024 1:01 PM EDT [facility] ([facility] Addendum electronically signed by Chapincito Garcia MD on 12/01/2024 at 1:01 PM Final Diagnosis A. Urine, Voided, ([id number]): Atypical urothelial cells present. Note: Based upon the cytologic findings, UroVysion testing will be performed, the result to follow in an addendum. 12/01/2024 1:01 PM EDT [facility] Clinical Information Hematuria, unspecified R31.9 Urine cytology with reflex UroVysion ([facility]) 12/01/2024 1:01 PM EDT [facility] Gross Description A. Urine, Voided, [id number]: Received one ThinPrep slide for cytology. 12/01/2024 1:01 PM EDT [facility] Disclaimer Unless otherwise specified, all tissue is 10% NB formalin fixed and paraffin embedded. Technical pathology services provided by [facility] at [address] [facility] [address], [place] [address] (CLIA #[id number]/Marlene Wilson MD, Brake Repairer Air) 12/01/2024 1:01 PM EDT [facility] Tissue Urine specimen from urethra / Unknown 11/04/2024 11/06/2024 1:20 PM EDT Igor Beebe MD LAB PATHOLOGY ORDERABLES Edited Result - Final [facility] 299 [place] [address], documented in this encounter Visit Diagnoses Diagnosis Hematuria, unspecified documented in this encounter Care Teams Manometer Technician Relationship Specialty Start Date End Date Renae Adame MD [address] [place] [phone] PCP - General Internal Medicine 12/09/21 documented as of this encounter
--- OUTSIDE RECORDS SUMMARY | 2025-01-23 11:32 | XMS_ITS | Encounter Summary ---
Author Organization [facility] Address [address] [place] [phone] Care Team Providers Care Dog Raiser Name Role Phone Renae Adame MD Primary Care Provider [phone]- [phone] Encounter Details Date Type Department Care Team (Late st Contact Info) Description 11/24/2024 Lab Requisition [facility] - Main Lab 299 [facility] [place] [address] La Freeman PA [address] [place] [address] Urinary tract infection, site not specified; Dysuria Social History Tobacco Use Types Packs/Day Years [...] Procedure Name Priority Date/Time Associated Diagnosis Comments CULTURE URINE Routine 11/24/2024 12:00 AM EDT Urinary tract infection, site not specified Dysuria documented in this encounter Results * Culture urine (11/24/2024 12:00 AM EDT) Culture, Urine No growth 11/25/2024 12:23 PM EDT [facility] ([facility]) [facility] Urine Urine specimen obtained by clean catch procedure / Unknown 11/24/2024 11/24/2024 6:43 PM EDT us [facility] MICROBIOLOGY - GENERAL ORD ERABLES Final Result [facility]AYLEE SORTO [place] ([facility] LAB [address] [place] [address], documented in this encounter Visit Diagnoses Diagnosis Urinary tract infection, site not specified Dysuria documented in this encounter Care Teams Dog Raiser Relationship Specialty Start Date End Date Mcarthur, MD Renae [address] [place] [phone] PCP - General Internal Medicine 12/09/21 documented as of this encounter
--- OUTSIDE RECORDS SUMMARY | 2025-01-23 11:32 | XMS_ITS | Encounter Summary ---
Author Organization [employer] Address 75 [facility] 7t [place] [address] Care Team Providers Care Advice Line Rn Name Role Phone Renae Adame MD Primary Care Provider + [phone] Abida Campa PharmD Unavailable [phone] Frank Morales MD Unavailable [phone] Mike Stark MD Unavailable [phone] Filiberto García Unavailable Iogr Beebe Unavailable Reason for Visit * Reason Onset Date Comments Med Refill 04/14/2024 Encounter Details Date Type Department Care Team (Late st Contact Info) Description 04/14/2024 Telephone [facility] MEDICINE 230 [place] [address] Renae Adame MD 230 [place], [place] [phone] Med Refill Social History Tobacco Use Types [...] encounter Miscellaneous Notes * Telephone Encounter - Oanh De Los Santos - 04/14/2024 9:15 AM EST TC from pt requesting medication refill. Medications needing refill : oxyCODONE-acetaminophen (Percocet) 5-325 MG tablet To be sent to: [facility] - [place], [place] - 230 [facility] documented in this encounter Plan of Treatment Upcoming Encounters Date Type Department Care Team (Late st Contact Info) Description 04/20/2025 10:30 AM EST Telemedicine [facility] MED & PEDS 505 [place] [address] Tamika Kim, LAURIE 505 [place] [address] documented as of this encounter Visit Diagnoses Not on filedocumented in this encounter Additional Health Concerns Assessment Noted Time PHQ-9 Depression Total Score: 0 11/08/19 24 9:52 AM EDT documented as of this encounter Care Teams Advice Line Rn Relationship Specialty Start Date End Date Renae Adame MD 230 [place] [address] PCP - General Family Medicine 01/25/15 Abida Campa, [place] 230 [place] [address] Pharmacist Internal Medicine 03/04/24 Frank Morales MD 596 [place] [address] Cardiology 04/09/24 Mike Stark MD [address] [place] [phone] Gastroenterology 04/28/24 Filiberto García 175 [facility] 110 [place] [address] Podiatry 05/02/24 Igor Beebe 100 [facility] 120 [place] [address] Urology 11/05/24 Dr. Alo Bassett MD [facility] Cardiac Surgery [address] [place] [address] Cardiothoracic Surgery 05/01/24 documented as of this encounter
--- OUTSIDE RECORDS SUMMARY | 2025-01-23 11:33 | XMS_ITS | Encounter Summary ---
Author Organization [employer] Address 75 [facility] 7t [place] [address] Care Team Providers Care E Commerce Developer Name Role Phone Renae Adame MD Primary Care Provider + [phone] Abida Campa PharmD Unavailable Frank Morales MD Unavailable [phone] Mike Stark MD Unavailable [phone] Filiberto García Unavailable Igor Beebe Unavailable Reason for Visit * Reason Onset Date Comments Call Back Request 05/23/2023 Encounter Details Date Type Department Care Team (Late st Contact Info) Description 05/23/2023 Telephone [facility] MEDICINE 230 [place] [address] Renae Adame MD 230 [place], [place] [phone] Call Back Request Social History Tobacco Use Types Packs/Day Years Used Date Smoking Tobacco: Some Days Cigarettes Passive Smoke Exposure: Never Alcohol Use Standard Drinks/Week Comments Defer 0 (1 standard drink = 0.6 oz pur e alcohol) Depression Answer Date Recorded Patient Health Questionnaire-9 Score 0 08/07/2022 Housing Stability Answer Date Recorded What is your housing situation today? I have nicholas cardoso 02/26/[address] you li ve. Do you have problems with any of the following? None of the above 02/26/2023 Food Insecurity Answer Date Recorded Within the past 12 months, y ou worried that your food would run out before you got money to buy more: Never True 02/26/2023 Within the past 12 months,th e food you bought just didn't last and you didn't have enough money to get more: Never True Transportation Answer Date Recorded In the past 12 months, has l ack of transportation kept you from medical appts, meetings, work or from getting things needed for daily living? No 02/26/2023 Utilities Answer Date Recorded In the past 12 months, has t he electric, gas, oil or water company threatened to shut off services in your home? No 02/26/2023 Depression Answer Date Recorded Patient Health Questionnaire-2 Score 0 08/07/2022 Sex and Gender Information Value Date Recorded Sex Assigned at Male 03/13/2022 10:17 AM EDT Legal Sex Male 10:17 AM EDT Gender Identity Male 03/13/2022 10:17 AM EDT Sexual Orientation Choose not to disclose 2021 10:17 AM EDT documented as of this encounter Miscellaneous Notes * Telephone Encounter - Orlando Davila - 05/23/2023 3:41 PM EST Tc from patient was advised by RN once the patient has picked up the remaining medication to call the RN documented in this encounter Plan of Treatment Upcoming Encounters Date Type Department Care Team (Late st Contact Info) Description 04/20/2025 10:30 AM EST Telemedicine [facility] CHC MED & PEDS 505 [place] [address] Tamika Kim, RN 505 [place] [address] documented as of this encounter Visit Diagnoses Not on filedocumented in this encounter Additional Health Concerns Assessment Noted Time PHQ-9 Depression Total Score: 0 08/08/19 23 10:33 AM EDT documented as of this encounter Care Teams E Commerce Developer Relationship Specialty Start Date End Date Renae Adame MD [address] [place] [address] PCP - General Family Medicine 01/25/15 Abida Campa, LolaD 230 [place] [address] Pharmacist Internal Medicine 03/04/24 Frank Morales MD 596 [place] [address] Cardiology 04/09/24 Mike Stark MD [address] [place] [phone] Gastroenterology 04/28/24 Filiberto García 175 [facility] 110 [place] [address] Podiatry 05/02/24 Igor Beebe 100 [facility] 120 [place] [address] Urology 11/05/24 Dr. Alo Bassett MD [facility] Cardiac Surgery [address] [place] [address] Cardiothoracic Surgery 05/01/24 documented as of this encounter
--- OUTSIDE RECORDS SUMMARY | 2025-01-23 11:33 | XMS_ITS | Encounter Summary ---
Author Organization [employer] Address 75 [facility] 7t [place] [address] Care Team Providers Care Assembler Semiconductor Name Role Phone WendiRenae manzanares MD Primary Care Provider Abida Campa PharmD Unavailable Frank Morales MD Unavailable [phone] Mike Stark MD Unavailable Filiberto García Unavailable Igor Beebe Unavailable Encounter Details Date Type Department Care Team ([facility] Contact Info) Description 07/26/2022 Telephone [facility] ADULT DENTAL 230 [place], [place] [phone] Chely Terrazas DDS Social History Tobacco Use Types Packs/Day Years Used Date Smoking Tobacco: Never Assessed Sex and Gender Information Value Date Recorded Sex Assigned at Male 03/13/2022 10:17 AM EDT Legal Sex Male 10:17 AM EDT Gender Identity Male 03/13/2022 10:17 AM EDT Sexual Orientation Choose not to disclose 2021 10:17 AM EDT COVID-19 Exposure Response Date Recorded In the last 10 days, have yo u been in contact with someone who was confirmed or suspected to have Coronavirus/COVID-19? No / Unsure 07/20/2022 10:03 AM EST documented as of this encounter Plan of Treatment Upcoming Encounters Date Type Department Care Team ([facility] Contact Info) Description 04/20/2025 10:30 AM EST Telemedicine [facility] CHC MED & PEDS 505 [place] [address] Tamika Kim, LAUIRE 505 [place] [address] documented as of this encounter Visit Diagnoses Not on filedocumented in this encounter Care Teams Assembler Semiconductor Relationship Specialty Start Date End Date Renae Adame MD 230 [place] [address] PCP - General Family Medicine 01/25/15 Abida Campa PharmD 230 [place] [address] Pharmacist Internal Medicine 03/04/24 Frank Morales MD [address] [place] [address] Cardiology 04/09/24 Mike Stark MD [address] [place] [phone] Gastroenterology 04/28/24 Filiberto García 175 [facility] 110 [place] [address] Podiatry 05/02/24 Igor Beebe 100 [facility] 120 [place] [address] Urology 11/05/24 Dr. lAo Bassett MD [facility] Cardiac Surgery [address] [place] [address] Cardiothoracic Surgery 05/01/24 documented as of this encounter
--- OUTSIDE RECORDS SUMMARY | 2025-01-23 11:33 | XMS_ITS | Encounter Summary ---
Author Organization [employer] Address 75 [facility] 7t [place] [address] Care Team Providers Care Front Counter Clerk Name Role Phone Renae Adame MD Primary Care Provider + [phone] Abida Campa PharmD Unavailable Frank Morales MD Unavailable [phone] Mike Stark MD Unavailable [phone] Filiberto García Unavailable Igor Beebe Unavailable Reason for Visit * Reason Comments Med Refill Encounter Details Date Type Department Care Team (Late st Contact Info) Description 05/23/2024 Refill [facility] MEDICINE 230 [place], [place] [phone] Renae Adame MD 230 [place], [place] [phone] Vitamin D deficiency; Constipation, unspecified constipation type Social History Tobacco Use Types Packs/Day Years [...] Info) Description 04/20/2025 10:30 AM EST Telemedicine [facility] MED & PEDS 505 [place] [address] Tamika Kim RN 505 [place] [address] documented as of this encounter Visit Diagnoses Diagnosis Vitamin D deficiency Constipation, unspecified constipation type documented in this encounter Additional Health Concerns Assessment Noted Time PHQ-9 Depression Total Score: 0 11/08/19 24 9:52 AM EDT documented as of this encounter Care Teams Front Counter Clerk Relationship Specialty Start Date End Date Renae Adame MD [address] [place] [address] PCP - General Family Medicine 01/25/15 Abida Campa, [place] [address] [place] [address] Pharmacist Internal Medicine 03/04/24 Frank Morales MD 596 [place] [address] Cardiology 04/09/24 Mike Stark MD [address] [place] [phone] Gastroenterology 04/28/24 Filiberto García 175 [facility] 110 [place] [address] Podiatry 05/02/24 Igor Beebe 100 [facility] 120 [place] [address] Urology 11/05/24 Dr. Alo Bassett MD [facility] Cardiac Surgery [address] [place] [address] Cardiothoracic Surgery 05/01/24 documented as of this encounter
--- OUTSIDE RECORDS SUMMARY | 2025-01-23 11:33 | XMS_ITS | Encounter Summary ---
Author Organization [employer] Address 75 [facility] 7t [place] [address] Care Team Providers Care Manager Rn Case Name Role Phone Renae Adame MD Primary Care Provider + [phone] Abida Campa PharmD Unavailable Frank Morales MD Unavailable [phone] Mike Stark MD Unavailable [phone] Filiberto García Unavailable Igor Beebe Unavailable Reason for Visit * Reason Comments Med Refill Encounter Details Date Type Department Care Team (Late st Contact Info) Description 11/17/2023 Refill [facility] MEDICINE 230 [place], [place] [phone] Renae Adame MD 230 [place], [place] [phone] Social History Tobacco Use Types Packs/Day Years [...] Recorded Patient Health Questionnaire-2 Score 0 11/08/2023 Sex and Gender Information Value Date Recorded Sex Assigned at Male 03/13/2022 10:17 AM EDT Legal Sex Male 10:17 AM EDT Gender Identity Male 03/13/2022 10:17 AM EDT Sexual Orientation Choose not to disclose 2021 10:17 AM EDT documented as of this encounter Plan of Treatment Upcoming Encounters Date Type Department Care Team (Late st Contact Info) Description 04/20/2025 10:30 AM EST Telemedicine [facility] MED & PEDS 505 [place] [address] Tamika Kim, RN 505 [place] [address] documented as of this encounter Visit Diagnoses Not on filedocumented in this encounter Additional Health Concerns Assessment Noted Time PHQ-9 Depression Total Score: 0 11/08/19 24 9:52 AM EDT documented as of this encounter Care Teams Manager Rn Case Relationship Specialty Start Date End Date Renae Adame MD [address] [place] [address] PCP - General Family Medicine 01/25/15 Abida Campa, LolaD [address] [place] [address] Pharmacist Internal Medicine 03/04/24 Frank Morales MD [address] [place] [address] Cardiology 04/09/24 Mike Stark MD [address] [place] [phone] Gastroenterology 04/28/24 Filiberto García 175 [facility] 110 [place] [address] Podiatry 05/02/24 Igor Beebe 100 [facility] 120 [place] [phone] Urology 11/05/24 Dr. Alo Bassett MD [facility] Cardiac Surgery [address] [place] [address] Cardiothoracic Surgery 05/01/24 documented as of this encounter
--- OUTSIDE RECORDS SUMMARY | 2025-01-23 11:33 | XMS_ITS | Encounter Summary ---
Author Organization [employer] Address 75 [facility] 7t [place] [address] Care Team Providers Care Pediatric Medical Assistant Name Role Phone Renae Adame MD Primary Care Provider + [phone] Abida Campa PharmD Unavailable Frank Morales MD Unavailable [phone] Mike Stark MD Unavailable [phone] Filiberto García Unavailable Igor Beebe Unavailable Reason for Visit * Reason Comments Med Refill Encounter Details Date Type Department Care Team (Late st Contact Info) Description 10/15/2023 Refill [facility] MEDICINE 230 [place], [place] [phone] Renae Adame MD 230 [place], [place] [phone] Chronic neck pain Social History Tobacco Use [...] Info) Description 04/20/2025 10:30 AM EST Telemedicine [facility] MED & PEDS 505 [place] [address] Tamika Kim, LAURIE 505 [place] [address] documented as of this encounter Visit Diagnoses Diagnosis Chronic neck pain Cervicalgia documented in this encounter Additional Health Concerns Assessment Noted Time PHQ-9 Depression Total Score: 0 08/08/19 23 10:33 AM EDT documented as of this encounter Care Teams Pediatric Medical Assistant Relationship Specialty Start Date End Date Renae Adame MD 230 [place] [address] PCP - General Family Medicine 01/25/15 Abida Campa, LolaD 230 [place] [address] Pharmacist Internal Medicine 03/04/24 Frank Morales MD 596 [place] [address] Cardiology 04/09/24 Mike Stark MD [address] [place] [address] [address] [place] [phone] Gastroenterology 04/28/24 Filiberto García 175 [facility] 110 [place] [address] Podiatry 05/02/24 Igor Beebe 100 [facility] 120 [place] [address] Urology 11/05/24 Dr. Alo Bassett MD [facility] Cardiac Surgery [address] [place] [address] Cardiothoracic Surgery 05/01/24 documented as of this encounter
--- OUTSIDE RECORDS SUMMARY | 2025-01-23 11:33 | XMS_ITS | Encounter Summary ---
Author Organization [employer] Address 75 [facility] 7t [place] [address] Care Team Providers Care Switchboard Installer Name Role Phone Renae Adame MD Primary Care Provider + [phone] Abida Campa PharmD Unavailable [phone] Frank Morales MD Unavailable [phone] Mike Stark MD Unavailable [phone] Filiberto García Unavailable Igor Beebe Unavailable Reason for Visit * Reason Onset Date Comments Error 05/17/2023 Encounter Details Date Type Department Care Team (Late st Contact Info) Description 05/17/[address] [facility] MEDICINE 230 [place] [address] Renae Adame MD 230 [place], [place] [phone] Error Social History Tobacco Use Types Packs/Day Years [...] Description 04/20/2025 10:30 AM EST Telemedicine [facility] MED & PEDS 505 [place] [address] Tamika Kim, LAURIE 505 [place] [address] documented as of this encounter Visit Diagnoses Not on filedocumented in this encounter Additional Health Concerns Assessment Noted Time PHQ-9 Depression Total Score: 0 08/08/19 23 10:33 AM EDT documented as of this encounter Care Teams Switchboard Installer Relationship Specialty Start Date End Date Renae Adame MD 230 [place] [address] PCP - General Family Medicine 01/25/15 Abida Campa, LolaD 230 [place] [address] Pharmacist Internal Medicine 03/04/24 Frank Morales MD 596 [place] [address] Cardiology 04/09/24 Mike Stark MD [address] [place] [address] [address] [place] [phone] Gastroenterology 04/28/24 Filiberto García 175 [facility] 110 [place] [address] Podiatry 05/02/24 Igor Beebe 100 [facility] 120 [place] [address] Urology 11/05/24 Dr. Alo Bassett MD [facility] Cardiac Surgery [address] [place] [address] Cardiothoracic Surgery 05/01/24 documented as of this encounter
--- OUTSIDE RECORDS SUMMARY | 2025-01-23 11:33 | XMS_ITS | Encounter Summary ---
Author Organization [employer] Address 75 [facility] 7t [place] [address] Care Team Providers Care Bakery Technician Name Role Phone WendiRenae manzanares MD Primary Care Provider [phone] Abida Campa PharmD Unavailable Frank Morales MD Unavailable [phone] Mike Stark MD Unavailable [phone] Filiberto García Unavailable Igor Beebe Unavailable Encounter Details Date Type Department Care Team (Late st Contact Info) Description 02/20/2024 Orders Only [facility] 230 [place], [place] [phone] Provider, MD Ping Social History Tobacco Use [...] 04/20/2025 10:30 AM EST Telemedicine [facility] MED & PEDS 505 [place] [address] Tamika Kim RN 505 [place] [address] documented as of this encounter Procedures Procedure Name Priority Date/Time Associated Diagnosis Comments TRANSTHORACIC ECHO (TTE) COMPLETE Routine 02/19/2024 3:32 PM EDT documented in this encounter Results * Transthoracic echo (TTE) complete (02/19/2024 3:32 PM EDT) us Historical Provider CV ECHO PROCEDURES Final Result documented in this encounter Visit Diagnoses Not on filedocumented in this encounter Additional Health Concerns Assessment Noted Time PHQ-9 Depression Total Score: 0 11/08/19 24 9:52 AM EDT documented as of this encounter Care Teams Bakery Technician Relationship Specialty Start Date End Date Renae Adame MD [address] [place] [address] PCP - General Family Medicine 01/25/15 Abida Campa, [place] 230 [place] [address] Pharmacist Internal Medicine 03/04/24 Frank Morales MD 596 [place] [address] Cardiology 04/09/24 Mike Stark MD [address] [place] [phone] Gastroenterology 04/28/24 Filiberto García 175 [facility] 110 [place] [address] Podiatry 05/02/24 Igor Beebe 100 [facility] 120 [place] [address] Urology 11/05/24 Dr. Alo Bassett MD [facility] Cardiac Surgery [address] [place] [address] Cardiothoracic Surgery 05/01/24 documented as of this encounter
--- OUTSIDE RECORDS SUMMARY | 2025-01-23 11:33 | XMS_ITS | Encounter Summary ---
Author Organization [employer] Address [address] [facility] [address] 7t [place] [address] Care Team Providers Care Squad Boss Name Role Phone WendiRenae manzanares MD Primary Care Provider +- [phone] Abida Campa PharmD Unavailable Frank Morales MD Unavailable [phone] Mike Stark MD Unavailable [phone] Filiberto García Unavailable Igor Beebe Unavailable Encounter Details Date Type Department Care Team (Latest Contact Info) Description 01/23/2025 Travel Social History Tobacco Use Types Packs/Day Years [...] as of this encounter Functional Status * Over the [...] Author Not at all 01/23/2025 9:36 AM MYRONT Ghazal Bustos [place] * Trouble falling or staying asleep, or sleeping too much Answer Date of Assessment Author Nearly every day 01/23/2025 9:36 AM MYRONT Ghazal Bustos [place] * Feeling tired or having little energy Answer Date of Assessment Author Not at all 01/23/2025 9:36 AM EDT Ghazal Bustos [place] * Poor appetite or overeating Answer Date of Assessment Author Not at all 01/23/2025 9:36 AM MYRONT Ghazal Bustos [place] * Feeling bad about yourself - or that you are a failure or have let yourself or your family down Answer Date of Assessment Author Not at all 01/23/2025 9:36 AM Ghazal Madrigal [place] * Trouble concentrating on things, such [...] Henry MA documented as of this encounter Plan of Treatment Upcoming Encounters Date Type Department Care Team (Late st Contact Info) Description 04/20/2025 10:30 AM EST Telemedicine [facility] MED & PEDS 505 [place] [address] Tamika Kim, LAURIE 505 [place] [address] documented as of this encounter Visit Diagnoses Not on filedocumented in this encounter Additional Health Concerns Assessment Noted Time PHQ-9 Depression Total Score: 6 01/24/20 25 9:36 AM EDT documented as of this encounter Care Teams Squad Boss Relationship Specialty Start Date End Date Renae Adame MD 230 [place] [address] PCP - General Family Medicine 01/25/15 Abida Campa, LolaD 230 [place] [address] Pharmacist Internal Medicine 03/04/24 Frank Morales MD 596 [place] [address] Cardiology 04/09/24 Mike Stark MD [address] [place] [phone] Gastroenterology 04/28/24 Filiberto García [address] [place] [address] 110 [place] [address] Podiatry 05/02/24 Igor Beebe 100 [facility] 120 [place] [phone] Urology 11/05/24 Dr. Alo Bassett MD [facility] Cardiac Surgery [address] [place] [address] Cardiothoracic Surgery 05/01/24 documented as of this encounter
--- OUTSIDE RECORDS SUMMARY | 2025-01-23 11:33 | XMS_ITS | Encounter Summary ---
Author Organization [facility] Address 100 [place] [address] Care Team Providers Care Maintenance Mechanic Supervisor Name Role Phone Unavailable Primary Care Provider Unavailabl e Encounter Details Date Type Department Care Team (Late st Contact Info) Description 02/25/2023 Telephone [employer] [address] [place] [address] Worker, Social, [place] [address] [place] [address] Social History Tobacco Use Types Packs/Day Years Used Date Smoking Tobacco: Never Assessed [facility] Utilities Answer Date Recorded In the past 12 months has [employer] electric, gas, oil, or water company threatened [...] place to sleep or slept in a fci (including now)? No 02/28/2023 Sex and Gender [...]
--- OUTSIDE RECORDS SUMMARY | 2025-01-23 11:33 | XMS_ITS | Encounter Summary ---
Author Organization [employer] Address [address] [facility] 7t [place] [address] Care Team Providers Care Liquid Waste Treatment Plant Operator Name Role Phone Renae Adame MD Primary Care Provider + [phone] Abida Campa PharmD Unavailable [phone] Frank Morales MD Unavailable [phone] Mike Stark MD Unavailable [phone] Filiberto García Unavailable Igor Beebe Unavailable Reason for Visit * Reason Comments Med Refill Encounter Details Date Type Department Care Team (Late st Contact Info) Description 10/15/2023 Refill [facility] MEDICINE 230 [place], [place] [phone] Renae Adame MD 230 [place], [place] [phone] Chronic neck pain Social History Tobacco Use [...] 04/20/2025 10:30 AM EST Telemedicine [facility] MED & PEDS 505 [place] [address] Tamika Kim, LAURIE 505 [place] [address] documented as of this encounter Visit Diagnoses Diagnosis Chronic neck pain Cervicalgia documented in this encounter Additional Health Concerns Assessment Noted Time PHQ-9 Depression Total Score: 0 08/08/19 23 10:33 AM EDT documented as of this encounter Care Teams Liquid Waste Treatment Plant Operator Relationship Specialty Start Date End Date Renae Adame MD 230 [place] [address] PCP - General Family Medicine 01/25/15 Abida Campa, LolaD 230 [place] [address] Pharmacist Internal Medicine 03/04/24 Frank Morales MD 596 [place] [address] Cardiology 04/09/24 Mike Stark MD [address] [place] [address] [address] [place] [phone] Gastroenterology 04/28/24 Filiberto García 175 [facility] 110 [place] [address] Podiatry 05/02/24 Igor Beebe 100 [facility] 120 [place] [address] Urology 11/05/24 Dr. Alo Bassett MD [facility] Cardiac Surgery [address] [place] [address] Cardiothoracic Surgery 05/01/24 documented as of this encounter
--- OUTSIDE RECORDS SUMMARY | 2025-01-23 11:33 | XMS_ITS | Encounter Summary ---
Author Organization [employer] Address 75 [facility] 7t [place] [address] Care Team Providers Care Director Product Development Name Role Phone Renae Adame MD Primary Care Provider +[phone]- [phone] Abida Campa PharmD Unavailable Frank Morales MD Unavailable Mike Stark MD Unavailable Filiberto García Unavailable Igor Beebe Unavailable Encounter Details Date Type Department Care Team (Latest Contact Info) Description 12/21/2021 Abstract [facility] CONVERSIONS Dental, Provider, DDS Social History Tobacco Use Types Packs/Day [...] Info) Description 04/20/2025 10:30 AM EST Telemedicine [facility] MED & PEDS 505 [place], [place] [phone] Tamika Kim, LAURIE 505 [place], [place] [phone] documented as of this encounter Visit Diagnoses Not on filedocumented in this encounter Care Teams Director Product Development Relationship Specialty Start Date End Date Renae Adame MD [address] [place] [address] PCP - General Family Medicine 01/25/15 Abida Campa PharmD 230 [place] [address] Pharmacist Internal Medicine 03/04/24 Frank Morales MD 596 [place] [address] Cardiology 04/09/24 Mike Stark MD [address] [place] [phone] Gastroenterology 04/28/24 Filiberto García 175 [facility] 110 [place] [address] Podiatry 05/02/24 Igor Beebe 100 [facility] 120 [place] [address] Urology 11/05/24 Dr. Alo Bassett MD [facility] Cardiac Surgery [address] [place] [address] Cardiothoracic Surgery 05/01/24 documented as of this encounter
--- OUTSIDE RECORDS SUMMARY | 2025-01-23 11:33 | XMS_ITS | Encounter Summary ---
Author Organization [employer] Address 75 [facility] 7t [place] [address] Care Team Providers Care Microsoft Dynamics Manager Architect Name Role Phone Renae Adame MD Primary Care Provider + [phone] Abida Campa PharmD Unavailable [phone] Frank Morales MD Unavailable [phone] Mike Stark MD Unavailable [phone] Filiberto García Unavailable Igor Beebe Unavailable Reason for Visit * Reason Comments Med Refill Encounter Details Date Type Department Care Team (Late st Contact Info) Description 07/07/2024 Refill [facility] MEDICINE 230 [place], [place] [phone] Renae Adame MD 230 [place], [place] [phone] Chronic neck pain Social History Tobacco Use [...] the past 12 months, has t he [email or web address] gas, oil or water company threatened to [...] Info) Description 04/20/2025 10:30 AM EST Telemedicine [facility] MED & PEDS 505 [place] [address] Tamika Kim, LAURIE 505 [place] [address] documented as of this encounter Visit Diagnoses Diagnosis Chronic neck pain Cervicalgia documented in this encounter Additional Health Concerns Assessment Noted Time PHQ-9 Depression Total Score: 0 11/08/19 24 9:52 AM EDT documented as of this encounter Care Teams Microsoft Dynamics Manager Architect Relationship Specialty Start Date End Date Renae Adame MD 230 [place], [place] [phone] PCP - General Family Medicine 01/25/15 Abida Campa PharmD 230 [place], [place] [phone] Pharmacist Internal Medicine 03/04/24 Frank Morales MD 596 [place] [address] Cardiology 04/09/24 Mike Stark MD [address] [place] [phone] Gastroenterology 04/28/24 Filiberto García [address] [place] [address] 110 [place] [address] Podiatry 05/02/24 Igor Beebe 100 [facility] 120 [place] [address] Urology 11/05/24 Dr. Alo Bassett MD [facility] Cardiac Surgery [address] [place] [address] Cardiothoracic Surgery 05/01/24 documented as of this encounter
--- OUTSIDE RECORDS SUMMARY | 2025-01-23 11:33 | XMS_ITS | Encounter Summary ---
Author Organization [employer] Address 75 [facility] 7t [place] [address] Care Team Providers Care Senior Mortgage Loan Processor Name Role Phone Renae Adame MD Primary Care Provider [phone]- [phone] Abida Campa PharmD Unavailable Frank Morales MD Unavailable [phone] Mike Stark MD Unavailable Filiberto García Unavailable Igor Beebe Unavailable Encounter Details Date Type Department Care Team (Late st Contact Info) Description 04/07/2022 Abstract [facility] MED & PEDS [address] [place] [address] Renae Aadme MD 230 [place], [place] [phone] Obstructive sleep apnea syndrome (Primary Dx); Abdominal aortic aneurysm (AAA) without rupture, unspecified part; Primary hypertension; 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, unspecified whether angina present; Stented coronary artery; Dyslipidemia; Chronic gout without tophus, unspecified cause, unspecified site; Chronic pain of both knees; Vitamin D deficiency Social History Tobacco Use Types Packs/Day Years [...] Info) Description 04/20/2025 10:30 AM EST Telemedicine [facility] CHC MED & PEDS 505 [place] [address] Tamika Kim, LAURIE 505 [place], [place] documented as of this encounter Visit Diagnoses Diagnosis Obstructive sleep apnea syndrome- Primary Obstructive sleep apnea (adult) (pediatric) Abdominal aortic aneurysm (AAA) without rupture, unspecified part ([facility]) Primary hypertension Unspecified essential hypertension 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, unspecified whether angina present Stented coronary artery Postsurgical percutaneous transluminal coronary angioplasty status Dyslipidemia Other and unspecified hyperlipidemia Chronic gout without tophus, unspecified cause, unspecified site Chronic pain of both knees Vitamin D deficiency documented in this encounter Care Teams Senior Mortgage Loan Processor Relationship Specialty Start Date End Date Renae Adame MD 230 [place] [address] PCP - General Family Medicine 01/25/15 Abida Campa PharmD 230 [place] [address] Pharmacist Internal Medicine 03/04/24 Frank Morales MD 596 [place] [address] Cardiology 04/09/24 Mike Stark MD [address] [place] [phone] Gastroenterology 04/28/24 Filiberto García 175 [facility] 110 [place] [address] Podiatry 05/02/24 Igor Beebe 100 [facility] 120 [place] [phone] Urology 11/05/24 Dr. Alo Bassett MD [facility] Cardiac Surgery [address] [place] [address] Cardiothoracic Surgery 05/01/24 documented as of this encounter
--- OUTSIDE RECORDS SUMMARY | 2025-01-23 11:33 | XMS_ITS | Encounter Summary ---
Author Organization [employer] Address [address] [facility] 7t [place] [address] Care Team Providers Care Dehydrogenation Operator Name Role Phone Renae Adame MD Primary Care Provider + [phone] Abida Campa PharmD Unavailable Frank Morales MD Unavailable [phone] Mike Stark MD Unavailable [phone] Filiberto García Unavailable Igor Beebe Unavailable Reason for Visit * Reason Onset Date Comments Med Refill 09/15/2024 Encounter Details Date Type Department Care Team (Late st Contact Info) Description 09/15/2024 Telephone [facility] MEDICINE 230 [place] [address] Renae Adame MD 230 [place], [place] [phone] Med Refill Social History Tobacco Use Types [...] encounter Miscellaneous Notes * Telephone Encounter - Samantha Ibrahim - 09/15/2024 8:52 AM EDT TC from pt requesting medication refill. Medications needing refill : oxyCODONE-acetaminophen (Percocet) 5-325 MG tablet To be sent to: [facility] documented in this encounter Plan of Treatment Upcoming Encounters Date Type Department Care Team ([facility] st Contact Info) Description 04/20/2025 10:30 AM EST Telemedicine [facility] MED & PEDS 505 [place] [address] Tamika Kim, LAURIE 505 [place] [address] documented as of this encounter Visit Diagnoses Not on filedocumented in this encounter Additional Health Concerns Assessment Noted Time PHQ-9 Depression Total Score: 0 11/08/19 24 9:52 AM EDT documented as of this encounter Care Teams Dehydrogenation Operator Relationship Specialty Start Date End Date Renae Adame MD 230 [place] [address] PCP - General Family Medicine 01/25/15 Abida Campa PharmD 230 [place] [address] Pharmacist Internal Medicine 03/04/24 Frank Morales MD 596 [place] [address] Cardiology 04/09/24 Mike Stark MD [address] [place] [phone] Gastroenterology 04/28/24 Filiberto García [facility] 110 [place] [address] Podiatry 05/02/24 Igor Beebe 100 [facility] 120 [place] [address] Urology 11/05/24 Dr. Alo Bassett MD [facility] Cardiac Surgery [address] [place] [address] Cardiothoracic Surgery 05/01/24 documented as of this encounter
--- OUTSIDE RECORDS SUMMARY | 2025-01-23 11:33 | XMS_ITS | Encounter Summary ---
Author Organization [employer] Address 75 [facility] 7t [place] [address] Care Team Providers Care Contract Runner Name Role Phone WendiRenae MD Primary Care Provider [phone]- [phone] Abida Campa PharmD Unavailable Frank Morales MD Unavailable [phone] Mike Stark MD Unavailable Filiberto García Unavailable Igor Beebe Unavailable Encounter Details Date Type Department Care Team (Latest Contact Info) Description 10/02/2018 Abstract [facility] CONVERSIONS Dental, Provider, DDS Social History Tobacco [...] Info) Description 04/20/2025 10:30 AM EST Telemedicine [facility] CHC MED & PEDS 505 [place], [place] [phone] Tamika Kim, LAURIE 505 [place], [place] [phone] documented as of this encounter Visit Diagnoses Not on filedocumented in this encounter Care Teams Contract Runner Relationship Specialty Start Date End Date Renae Adame MD [address] [place] [address] PCP - General Family Medicine 01/25/15 Abida Campa PharmD 230 [place] [address] Pharmacist Internal Medicine 03/04/24 Frank Morales MD 596 [place] [address] Cardiology 04/09/24 Mike Stark MD [address] [place] [phone] Gastroenterology 04/28/24 Filiberto García 175 [facility] 110 [place] [address] Podiatry 05/02/24 Igor Beebe 100 [facility] 120 [place] [address] Urology 11/05/24 Dr. Alo Bassett MD [facility] Cardiac Surgery [address] [place] [address] Cardiothoracic Surgery 05/01/24 documented as of this encounter
--- OUTSIDE RECORDS SUMMARY | 2025-01-23 11:33 | XMS_ITS | Encounter Summary ---
Author Organization [employer] Address 75 [facility] 7t [place] [address] Care Team Providers Care Offset Press Operator Apprentice Name Role Phone Renae Adame MD Primary Care Provider + [phone] Abida Campa PharmD Unavailable Frank Morales MD Unavailable [phone] Mike Stark MD Unavailable [phone] Filiberto García Unavailable Igor Beebe Unavailable Reason for Visit * Reason Comments Med Refill Encounter Details Date Type Department Care Team (Late st Contact Info) Description 02/27/2024 Refill [facility] MEDICINE 230 [place], [place] [phone] Renae Adame MD 230 [place], [place] [phone] Social History Tobacco Use Types Packs/Day Years [...] 04/20/2025 10:30 AM EST Telemedicine [facility] MED & PEDS 505 [place] [address] Tamika Kim, LAURIE 505 [place] [address] documented as of this encounter Visit Diagnoses Not on filedocumented in this encounter Additional Health Concerns Assessment Noted Time PHQ-9 Depression Total Score: 0 11/08/19 24 9:52 AM EDT documented as of this encounter Care Teams Offset Press Operator Apprentice Relationship Specialty Start Date End Date Renae Adame MD 230 [place] [address] PCP - General Family Medicine 01/25/15 Abida Campa, [place] [address] [place] [address] Pharmacist Internal Medicine 03/04/24 Frank Morales MD 596 [place] [address] Cardiology 04/09/24 Mike Stark MD [address] [place] [phone] Gastroenterology 04/28/24 Filiberto García [address] [place] [address] Podiatry 05/02/24 Igor Beebe 100 [facility] 120 [place] [address] Urology 11/05/24 Dr. Alo Bassett MD [facility] Cardiac Surgery [address] [place] [address] Cardiothoracic Surgery 05/01/24 documented as of this encounter
--- OUTSIDE RECORDS SUMMARY | 2025-01-23 11:33 | XMS_ITS | Encounter Summary ---
Author Organization [employer] Address 75 [facility] 7t [place] [address] Care Team Providers Care Auto Mechanic Apprentice Name Role Phone Renae Adame MD Primary Care Provider + [phone] Abida Campa PharmD Unavailable [phone] Frank Morales MD Unavailable [phone] Mike Stark MD Unavailable [phone] Filiberto García Unavailable Igor Beebe Unavailable Reason for Visit * Reason Onset Date Comments Med Refill 03/14/2024 Encounter Details Date Type Department Care Team (Late st Contact Info) Description 03/14/2024 Telephone [facility] MEDICINE 230 [place], [place] [phone] Renae Adame MD 230 [place], [place] [phone] Med Refill Social History Tobacco Use Types [...] encounter Miscellaneous Notes * Telephone Encounter - Shaan Jones - 03/14/2024 8:18 AM EDT TC from pt requesting medication refill. Medications needing refill: oxyCODONE-acetaminophen (Percocet) 5-325 MG tablet To be sent to: [facility] - [place], [place] - 230 [facility] documented in this encounter Plan of Treatment Upcoming Encounters Date Type Department Care Team (Late st Contact Info) Description 04/20/2025 10:30 AM EST Telemedicine [facility] CHC MED & PEDS 505 [place] [address] Tamika Kim, LAURIE 505 [place] [address] documented as of this encounter Visit Diagnoses Not on filedocumented in this encounter Additional Health Concerns Assessment Noted Time PHQ-9 Depression Total Score: 0 11/08/19 24 9:52 AM EDT documented as of this encounter Care Teams Auto Mechanic Apprentice Relationship Specialty Start Date End Date Renae Adame MD 230 [place] [address] PCP - General Family Medicine 01/25/15 Abida Campa, [place] 230 [place] [address] Pharmacist Internal Medicine 03/04/24 Frank Morales MD 596 [place] [address] Cardiology 04/09/24 Mike Stark MD [address] [place] [phone] Gastroenterology 04/28/24 Filiberto García 175 [facility] 110 [place] [address] Podiatry 05/02/24 Igor Beebe 100 [facility] 120 [place] [address] Urology 11/05/24 Dr. Alo Bassett MD [facility] Cardiac Surgery [address] [place] [address] Cardiothoracic Surgery 05/01/24 documented as of this encounter
--- OUTSIDE RECORDS SUMMARY | 2025-01-23 11:33 | XMS_ITS | Encounter Summary ---
Author Organization [employer] Address 75 [facility] 7t [place] [address] Care Team Providers Care Gas And Oil Checker Name Role Phone Renae Adame MD Primary Care Provider +1- [phone] Abida Campa PharmD Unavailable Frank Morales MD Unavailable [phone] Mike Stark MD Unavailable Filiberto García Unavailable Igor Beebe Unavailable Encounter Details Date Type Department Care Team (Late st Contact Info) Description 05/28/2022 Abstract [facility] MEDICINE 230 [place], [place] [phone] Renae Adame MD 230 [place], [place] [phone] Social History Tobacco Use Types Packs/Day Years [...] Info) Description 04/20/2025 10:30 AM EST Telemedicine [facility] CHC MED & PEDS 505 [place], [place] [phone] Tamika Kim, RN 505 [place], [place] [phone] documented as of this encounter Visit Diagnoses Not on filedocumented in this encounter Care Teams Gas And Oil Checker Relationship Specialty Start Date End Date Renae Adame MD 230 [place] [address] PCP - General Family Medicine 01/25/15 Abida Campa PharmD 230 [place] [address] Pharmacist Internal Medicine 03/04/24 Frank Morales MD 596 [place] [address] Cardiology 04/09/24 Mike Stark MD [address] [place] [phone] Gastroenterology 04/28/24 Filiberto García 175 [facility] 110 [place] [address] Podiatry 05/02/24 Igor Beebe 100 [facility] 120 [place] [address] Urology 11/05/24 Dr. Alo Bassett MD [facility] Cardiac Surgery [address] [place] [address] Cardiothoracic Surgery 05/01/24 documented as of this encounter
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
--- OUTSIDE RECORDS SUMMARY | 2025-01-23 11:33 | XMS_ITS | Encounter Summary ---
Author Organization [facility] Address [address] [place] [address] Care Team Providers Care Repair Service Dispatcher Name Role Phone Renae Admae MD Primary Care Provider [phone] Encounter Details Date Type Department Care Team (Late st Contact Info) Description 12/15/2024 Lab Requisition [facility] - Main Lab [address] [facility] [employer] [place] [address] Basim Madsen, GLYNN [address] [place] [address] Urinary tract infection, site not specified Social History Tobacco Use Types Packs/Day Years [...] Date/Time Associated Diagnosis Comments CULTURE URINE Routine 12/15/2024 11:20 AM EDT Urinary tract infection, site not specified documented in this encounter Results * (ABNORMAL) Culture urine (12/15/2024 11:20 AM EDT) Culture, Urine >=100,000 CFU/mL Staphylococcus epidermidis(A) TRE 12/17/2024 8:49 AM EDT [facility] Comment: Edited result: Previously reported as Gram Positive Cocci on 12/16/2024 at 0903 EDT. Urine Urine specimen obtained by clean catch procedure / Unknown 12/15/2024 11:20 AM EDT 12/15/2024 1:21 PM EDT Narrative Organism Antibiotic Method Susceptibility Staphylococcus epidermidis Benzylpenicillin TRE >=0.5 ug/ml: Resistant Staphylococcus epidermidis Oxacillin TRE >=4 ug/ml: Resistant Staphylococcus epidermidis Gentamicin TRE <=0.5 ug/ml: Susceptible Staphylococcus epidermidis Ciprofloxacin TRE <=0.5 ug/ml: Susceptible Staphylococcus epidermidis Levofloxacin TRE <=0.12 ug/ml: Susceptible Staphylococcus epidermidis Quinupristin/Dalfopristin M IC <=0.25 ug/ml: Susceptible Staphylococcus epidermidis Linezolid TRE 1 ug/ml: Susceptible Staphylococcus epidermidis Vancomycin TRE 1 ug/ml: Susceptible Staphylococcus epidermidis Tetracycline TRE <=1 ug/ml: Susceptible Staphylococcus epidermidis Nitrofurantoin TRE <=16 ug/ml: Susceptible Staphylococcus epidermidis Rifampin TRE <=0.5 ug/ml: Susceptible [facility] MICROBIOLOGY - GENERAL SONAI JOSHI Final Result Performing Organization Address City/State/[facility] Co de Phone Number [facility] ([facility]) [facility] [address] [place] [address], documented in this encounter Visit Diagnoses Diagnosis Urinary tract infection, site not specified documented in this encounter Care Teams Repair Service Dispatcher Relationship Specialty Start Date End Date Renae Adame MD [address] [place] [id number] PCP - General Internal Medicine 12/09/21 documented as of this encounter
--- OUTSIDE RECORDS SUMMARY | 2025-01-23 11:33 | XMS_ITS | Clinical Summary ---
Author Organization [address] [facility] Address [address] [place] [address] Phone Care Team Providers Care Physics Department Chair Name Role Phone Renae Adame MD Primary Care Provider [phone] Allergies Active Allergy Reactions Criticality Noted Date Comments Shellfish Containing Products 2021 Shellfish Allergy Zolpidem 12/09/2021 Medications acetaminophen (TYLENOL) 500 mg tablet Take 500 mg by mouth every 6 hours as needed. Active albuterol sulfate (ProAir RespiClick) 90 mcg/actuation aerosol powdr breath activated Inhale into the lungs. Active allopurinoL (ZYLOPRIM) 100 mg tablet Take 100 mg by mouth daily. Active amLODIPine-atorvastatin (CADUET) 5-10 mg per tablet Take 1 Tablet by mouth daily. Active aspirin (Vazalore) 81 mg capsule Take by mouth. Active cholecalciferol (VITAMIN D-3) 25 mcg (1,000 unit) capsule Take by mouth. Active clopidogreL (PLAVIX) 75 mg tablet Take 75 mg by mouth daily. Active docusate sodium (COLACE) 100 mg capsule Take 100 mg by mouth 2 times daily. Active fluticasone propionate (FLONASE) 50 mcg/actuation nasal spray 2 Sprays by Each Nare route daily. Active fluticasone-salmeterol (ADVAIR DISKUS) 250-50 mcg/dose diskus inhaler Inhale into the lungs. Active gabapentin (NEURONTIN) 100 mg capsule Take 100 mg by mouth daily. Active hydrALAZINE (APRESOLINE) 50 mg tablet Take 50 mg by mouth 2 times daily. Active hydroCHLOROthiazide (HYDRODIURIL) 25 mg tablet Take 25 mg by mouth daily. Active hydroCHLOROthiazide (HYDRODIURIL) 50 mg tablet 1 TABLET DAILY Active isosorbide mononitrate (IMDUR) 30 mg 24 hr tablet Take 30 mg by mouth daily. Active ketoconazole (NIZORAL) 2 % cream Apply cream to the affected areas of the bottom and top of feet twice daily 08/22/19 24 Active lisinopril (PRINIVIL,ZESTRIL) 40 mg tablet 1 TABLET DAILY Active NIFEdipine CC (ADALAT CC) 60 mg 24 hr tablet 1 tab daily Active oxyCODONE-acetaminophen (PERCOCET) 5-325 mg per tablet Take 1 Tablet by mouth every 4 hours as needed. Active clopidogreL (Plavix) 75 mg tablet 1 TABLET DAILY Active omeprazole OTC (PriLOSEC OTC) 20 mg EC tablet takes 1 tab a hs Active sennosides 8.6 mg capsule Take by mouth. Active simvastatin (ZOCOR) 80 mg tablet 1 TABLET DAILY Active tamsulosin (FLOMAX) 0.4 mg 24 hr capsule Take 0.4 mg by mouth daily. Take 30 mins after same meal every day. Active traMADoL (Ultram) 50 mg tablet takes prn Active umeclidinium (Incruse Ellipta) 62.5 mcg/actuation inhalation Inhale into the lungs. Active venlafaxine HCl (VENLAFAXINE ORAL) 1 tab daily Active oxycodone HCl/acetaminophen (TYLOX ORAL) None Entered Acti ve trazodone HCl (TRAZODONE ORAL) takes prn a Hs Active metoprolol succinate 50 mg tablet extended release 24 hr 50 mg, hydroCHLOROthiazide 12.5 mg capsule 12.5 mg Take by mouth. Active meloxicam (MOBIC) 15 mg tablet TAKE 1 TABLET BY MOUTH DAILY 02/18/20 24 Active famotidine (PEPCID) 40 mg tablet 1 tab bid Active atenoloL (TENORMIN) 100 mg tablet 1 TABLET DAILY Active aspirin 81 mg EC tablet 1 TABLET DAILY Active citalopram hydrobromide (CELEXA ORAL) 1 tab @ hs Activ e Encounters Date Type Department Care Team Description 12/15/2024 Lab Requisition [facility] Lab [address] [place] [address] Basim Madsen, [place] Urinary tract infection, site not specified 11/24/2024 Lab Requisition [facility] Lab [address] [place] [address] La Freeman PA Urinary tract infection, site not specified; Dysuria 11/06/2024 Lab Requisition [facility] - Main Lab [address] [facility] [place] [address] Igor Beebe MD Hematuria, unspecified from Last 3 Months Surgical History Surgery Date Site/Laterality Comments OTHER SURGICAL HISTORY PROCEDURE: [place] PATIENT HAS A CORONARY ARTERY STENT KNEE ARTHROSCOPY Right PROCEDURE: [place] ARTHROSCOPY AID [place] SPINE&/FX KNEE W/O FIXJ Medical History Medical History Date Comments CAD (coronary artery disease) DX :CAD (coronary artery disease) Gout DX:Gout; COMMENT : knees Dyslipidemia DX:Dyslipidemia Depression DX:Depression HTN (hypertension) DX:HTN (hyper tension) Sleep apnea DX:Sleep apnea Degenerative disc disease, cervical DX:Degenerative disc disease, cervical Social History Tobacco Use Types Packs/Day Years Used Date Smoking Tobacco: Never Smokeless Tobacco: Never Alcohol Use Standard Drinks/Week Comments Never 0 (1 standard drink = 0.6 oz pur e alcohol) Sex and Gender Information Value Date Recorded Sex Assigned at Not on file Legal Sex Male 2:56 PM EST Gender Identity Not on file Sexual Orientation Not on file Obstetrics History Last Filed Vital Signs Vital Sign Reading Time Taken Comments Blood Pressure - - Pulse - - Temperature - - Respiratory Rate - - Oxygen Saturation - - Inhaled Oxygen Concentration - - Weight 88.9 kg (196 lb) 05/01/2024 10:01 AM EST Height 172.7 cm (5' 8 ) 05/01/2024 10:01 AM EST Body Mass Index 29.8 05/01/2024 10:01 AM EST Plan of Treatment Health Maintenance Due Date Last Done Comments Zoster Vaccines (3 of 3) 03/15/2022 01/18/2022, 03/14 Colorectal Cancer Screening: Colonoscopy 04/23/2022 Falls Risk Assessment 04/23/2022 Hepatitis C Screening 04/23/2022 Social Influencers of Health Screening 04/23/2022 Depression Screening 05/14/2024 COVID-19 Vaccine ( season) 2025 05/19/2024, 04/23/2023, 02/17/2022, Additional history exists Influenza Vaccine (#1) 2025 , 04/23/2023, 03/22/2022, Additional history exists Hypertension/CHF/CAD Annual BMP Blood Test 11/01/2025 11/01/2024, 03/01/2023, 02/28/2023, Additional history exists Cholesterol Screening (Lipid Panel) 05/20/2029 05/20/2024, 04/25/2023 DTaP,Tdap,and Td Vaccines (6 - Td or Tdap) 02/25/2033 02/25/2023, 08/07/2022, 08/09/2012, Additional history exists Pneumococcal Vaccine: 50+ Years Completed 08/07/2022, 03/01/2017, 03/26/2014, Additional history exists Hepatitis B Vaccines Completed 03/07/2023, 09/05/2022, 08/07/2022 Hepatitis A Vaccines Aged Out 01/09/2024, 04/23/20 23 No longer eligible based on patient's age to complete this topic RSV Immunization Adult Patients Completed 01/28/2024 HIB Vaccines Aged Out No longer eligi ble based on patient's age to complete this topic HPV Vaccines Aged Out No longer eligi ble based on patient's age to complete this topic IPV Vaccines Aged Out No longer eligi ble based on patient's age to complete this topic MMR Vaccines Aged Out No longer eligi ble based on patient's age to complete this topic Meningococcal ACWY Vaccine Aged Out N o longer eligible based on patient's age to complete this topic Meningococcal B Vaccine Aged Out No l onger eligible based on patient's age to complete this topic RSV Immunization Patients Under 20 months Aged Out No longer eligible based on patient's age to complete this topic Varicella Vaccines Aged Out No longer eligible based on patient's age to complete this topic Procedures Procedure Name Priority Date/Time Associated Diagnosis Comments CULTURE URINE Routine 12/15/2024 11:20 AM EDT Urinary tract infection, site not specified CULTURE URINE Routine 11/24/2024 12:00 AM EDT Urinary tract infection, site not specified Dysuria AP OUTSIDE CONSULT Routine 11/04/2024 12 :00 AM EDT Hematuria, unspecified from Last 3 Months Results * (ABNORMAL) Culture urine (12/15/2024 11:20 AM EDT) Only the most recent of2 resultswithin the time period is included. Culture, Urine >=100,000 CFU/mL Staphylococcus epidermidis(A) TRE 12/17/2024 8:[address] [facility] Comment: Edited result: Previously reported as [...] Staphylococcus epidermidis Rifampin TRE <=0.5 ug/ml: Susceptible [facility] MICROBIOLOGY - GENERAL ORDE MADELYN Final Result [facility] [address] [place] [address], * Anatomic pathology outside consult (11/04/2024 12:00 AM EDT) Addendum Results of UroVysion fluorescence in situ hybridization (FISH) testing: CEP3: Normal CEP7: Normal CEP17: Normal LSI 9p21: Normal Interpretation: Normal profile Controls stained appropriately. Note: The results are intended as a screening device and should be interpreted in association with other clinical and pathological findings. 12/01/2024 1:[address] [facility] Addendum electronically signed by Chapincito Garcia MD on 12/01/2024 at 1:01 PM Final Diagnosis A. Urine, Voided, ([id number]): Atypical urothelial cells present. Note: Based upon the cytologic findings, UroVysion testing will be performed, the result to follow in an addendum. 12/01/2024 1:[address] [facility] Clinical Information Hematuria, unspecified R31.9 Urine cytology with reflex [facility] ([facility]) 12/01/2024 1:[address] [facility] Gross Description A. Urine, Voided, [id number]: Received one ThinPrep slide for cytology. 12/01/2024 1:[address] [facility] Disclaimer Unless otherwise specified, all tissue is 10% NB formalin fixed and paraffin embedded. Technical pathology services provided by [facility] at [address] [place] [address] (CLIA #[id number]/Marlene Wilson MD, Social Work Program Coordinator) 12/01/2024 1:[address] [facility] Tissue Urine specimen from urethra / Unknown 11/04/2024 11/06/2024 1:20 PM EDT us Igor Beebe MD LAB PATHOLOGY ORDERABLES Edited Result - Final [facility] [address] [place] [address], from Last 3 Months Insurance [facility] Member Subscriber Plan / Payer (Ef fective 2023-Present) Name:DORIS KRAMER Relation to Subscriber:Self Name:Doris Kramer Payer ID:[id number] Group ID:[id number] Type:Not on file Address: [address] [place] [address] Care Teams Physics Department Chair Relationship Specialty Start Date End Date Renae Adame MD [address] [place] [phone] PCP - General Internal Medicine 12/09/21
--- OUTSIDE RECORDS SUMMARY | 2025-01-23 11:33 | XMS_ITS | Encounter Summary ---
Author Organization [employer] Address [address] [facility] [address] [place] [address] Care Team Providers Care Piercing Machine Operator Name Role Phone Renae Adame MD Primary Care Provider + [phone] Abida Campa PharmD Unavailable Frank Morales MD Unavailable [phone] Mike Stark MD Unavailable [phone] Filiberto García Unavailable Igor Beebe Unavailable Reason for Visit * Reason Onset Date Comments Call Back Request 07/10/2023 Encounter Details Date Type Department Care Team (Late st Contact Info) Description 07/10/2023 Telephone [facility] MEDICINE [address] [place] [address] Renae Adame MD [address] [place], [place] [phone] Call Back Request Social History Tobacco Use [...] * Telephone Encounter - Orlando Davila - 07/10/2023 3:23 PM EST Tc from patient calling to request a call back to see if there is any possibility to have the televisit appt earlier or later than 11:00 documented in this encounter Plan of Treatment Upcoming Encounters Date Type Department Care Team (Late st Contact Info) Description 04/20/2025 10:30 AM EST Telemedicine [facility] MED & PEDS [address] [place] [address] Tamika Kim RN [address] [place] [address] documented as of this encounter Visit Diagnoses Not on filedocumented in this encounter Additional Health Concerns Assessment Noted Time PHQ-9 Depression Total Score: 0 08/08/19 23 10:33 AM EDT documented as of this encounter Care Teams Piercing Machine Operator Relationship Specialty Start Date End Date Renae Adame MD [address] [place] [address] PCP - General Family Medicine 01/25/15 Abida Campa, [place] [address] [place] [address] Pharmacist Internal Medicine 03/04/24 Frank Morales MD [address] [place] [address] Cardiology 04/09/24 Mike Stark MD [address] [place] [phone] Gastroenterology 04/28/24 Filiberto García [address] [facility] [address] [place] [address] Podiatry 05/02/24 Igor Beebe [address] [facility] [address] [place] [phone] Urology 11/05/24 Dr. Alo Bassett MD [facility] Cardiac Surgery [address] [place] [id number] Cardiothoracic Surgery 05/01/24 documented as of this encounter
[2025-01-23 11:51] LABS: Hemoglobin A1C 156.7488 umol/L; Total Hemoglobin (HGBA1C) 3459.8637 umol/L
[2025-01-23 12:15] LABS: Alanine Aminotransferase 27 U/L (0-40); Albumin Level 4.7 g/dL (3.5-5.0); Alkaline Phosphatase 93 U/L (39-117); Anion Gap 13 (12-20); Aspartate Amino Transferase 39 U/L (5-37); Blood Urea Nitrogen 11 mg/dL (9-16); Calcium 10.0 mg/dL (8.4-10.2); Carbon Dioxide 27 mmol/L (22-29); Chloride 106 mmol/L (96-108); Cholesterol 134 mg/dL (<200); Estimated Glomerular Filt Rate > 60; HDL Cholesterol 31 mg/dL (>40); Potassium 4.1 mmol/L (3.3-5.1); Sodium 142 mmol/L (135-145); Total Protein 7.4 g/dL (6.5-8.0); Triglycerides 170 mg/dL (<150)
[2025-01-23 12:40] LABS: Microalbum/Creatinine Ratio Ur 22.8 ug/mg cr (<30)
== END 2025-01-23 10:09 | disposition home or self-care (01) ==
LOC: HO.HHCL 10:08
PROVIDERS: PCP Family Medicine; Visit Provider Family Medicine
DX: R73.03 Prediabetes (principal); I10 Essential (primary) hypertension; E78.5 Hyperlipidemia, unspecified
CPT/HCPCS: 36415; 80048; 80061; 80076; 82043; 82570; 83036